=== PATIENT | female | born 1960 | race Caucasian/White ===

== ENCOUNTER 2022-09-28 23:07 | Emergency (ER) | payer BC, SELFPAY ==
[2022-09-28 23:33] VITALS: BP 164/63; PULSE 76; TEMP 37.2; O2SAT 98; BMI 21.0
[2022-09-29] VITALS (9 sets, daily range): BP systolic 143–150; BP diastolic 57–64; PULSE 69–73; O2SAT 95–97
--- NOTE | 2022-09-29 | ED_ITS ---
HPI - General Adult General Time Seen by Provider: 00:01 Date Seen: 09/29/22 Chief complaint: Nausea/Vomiting Stated complaint: type 1, vomiting Time Seen by Provider: 09/28/22 23:59 Source: patient Mode of arrival: ambulatory Limitations: no limitations History of Present Illness HPI narrative: 62-year-old female with history of diabetes who presents with vomiting today. Patient has chronic back pain says this is flared up since she has been traveling to [place] from [place]. Other than pain in the back felt well during the day and then tonight after taking her [place] started vomiting. She denies chest pain, cough, shortness of breath, runny nose, fever, abdominal pain, diarrhea, urinary symptoms. No ill contacts. Related Data Home Medications Medication Instructions Recorded Confirmed amlodipine 5 mg tablet 5 mg PO BID 09/28/22 09/28/22 clonidine HCl 0.3 mg tablet 0.3 mg PO Q8H 09/28/22 09/28/22 doxazosin 2 mg tablet (Cardura) 1 mg PO DAILY 09/28/22 09/28/22 levothyroxine 75 mcg tablet 75 mcg PO DAILY 09/28/22 09/28/22 (Euthyrox) lisinopril 10 mg tablet 10 mg PO BID 09/28/22 09/28/22 lisinopril 5 mg tablet 5 mg PO BID 09/28/22 09/28/22 naloxegol 25 mg tablet (Movantik) 25 mg PO DAILY 09/28/22 09/28/22 rosuvastatin 5 mg tablet 5 mg PO DAILY 09/28/22 09/28/22 Allergies Allergy/AdvReac Type Severity Reaction Status Date / Time Ardnozi-UWT-IvD Reductase Allergy Unknown Verified 09/28/22 23:39 Inhibitor Review of Systems Status of ROS: Reports: 10 or more systems reviewed and unremarkable except as noted in History and below PFSH PFSH Social History Smoking Status: Never smoker How often do you have a drink containing alcohol: monthly or less How often do you have six or more drinks on one occasion: Never AUDIT-C Alcohol total score: 1 Non-prescribed substance use: denies use Exam Const: Vital Signs, click to edit/add: Vital Signs - 24 hr 09/28/22 23:33 09/29/22 00:31 09/29/22 00:32 Temperature 99.0 F Pulse Rate 70 71 Pulse Rate [Right Pulse Oximeter] 76 Blood Pressure 143/62 H Blood Pressure [Le ft Upper Arm] 164/63 H Pulse Oximetry 98 95 95 Oxygen Delivery Me thod Room Air 09/29/22 01:00 09/29/22 01:02 09/29/22 01:15 Temperature Pulse Rate 69 69 72 Pulse Rate [Right Pulse Oximeter] Blood Pressure 145/57 H Blood Pressure [Le ft Upper Arm] Pulse Oximetry 96 96 96 Oxygen Delivery Me thod 09/29/22 01:30 09/29/22 01:31 Temperature Pulse Rate 72 71 Pulse Rate [Right Pulse Oximeter] Blood Pressure 150/64 H Blood Pressure [Le ft Upper Arm] Pulse Oximetry 96 96 Oxygen Delivery Me thod Documenting provider has reviewed patient's vital signs: yes Common normals: no apparent distress, oriented x3, alert and well nourished HENMT: Common normals: normocephalic, head/scalp atraumatic, external ears normal and external nose normal Head and scalp: normocephalic and atraumatic Nose: external nose normal External ear: external ears normal Eye: Common normals: PERRL and conjunctivae normal Conjunctiva: conjunctiva(e) normal Pupil: PERRL Neck & C-Spine: Common normals: full ROM, no lymphadenopathy and supple Chest: Common normals: palpation of chest normal Resp: Common normals: normal respiratory effort and clear to auscultation bilaterally Auscultation: clear to auscultation bilaterally Cardio: Common normals: regular rate, regular rhythm and no murmurs Rate: regular rate Rhythm: regular rhythm GI: Common normals: Normal to inspection, nondistended, normoactive bowel sounds present, soft to palpation and non-tender Palpation: soft : Common normals: no CVA tenderness Bladder/kidney exam: no CVA tenderness Back & Pelvis: Common normals: no CVA tenderness and thoracic and lumbar spine normal to inspection Extremity: Common normals: normal to inspection, full ROM and no pedal edema Neuro: Common normals: oriented x3, CN's II-XII intact bilaterally and no focal motor deficits Sensorium/orientation: alert Psych: Common normals: mental status grossly normal Skin: Common normals: no rashes or lesions noted General skin exam: no rashes or lesions noted Course Course Hospital Course: Patient seen and examined, prior records reviewed. Patient presents with vomiting after taking [place] tonight. She denies chest pain and shortness of breath, no cough or fever, pneumonia or acute coronary syndrome unlikely. No abdominal pain, no diarrhea, no abdominal tenderness on exam. No indication for abdominal imaging. Labs, Zofran, fluids are ordered. Reevaluation(s) Reevaluation #1: Urinalysis with 3+ protein otherwise no findings for infection, no ketones. Venous pH is normal, no evidence for DKA. Remaining labs are pending Time: 00:46 Reevaluation #2: Labs are reassuring, patient is tolerating oral intake in the emergency department. She will be discharged with Zofran for home. Time: 01:36 Vital Signs Vital signs: Initial Vital Signs Temperature 99.0 F 09/28/22 23:33 Temperature Source Temporal Artery Scan 09/28/22 23:33 Pulse Rate 76 09/28/22 23:33 Blood Pressure 164/63 H 09/28/22 23:33 Blood Pressure Mean 96 09/28/22 23:33 Blood Pressure Position Sitting 09/28/22 23:33 Pulse Oximetry 98 09/28/22 23:33 Oxygen Delivery Method 09/28/22 23:33 Vital Signs Temperature 99.0 F 09/28/22 23:33 Pulse Rate 76 09/28/22 23:33 Blood Pressure 164/63 H 09/28/22 23:33 Pulse Oximetry 98 09/28/22 23:33 Oxygen Delivery Method 09/28/22 23:33 Temperature 99.0 F 09/28/22 23:33 Pulse Rate 71 09/29/22 01:31 Blood Pressure 150/64 H 09/29/22 01:31 Pulse Oximetry 96 09/29/22 01:31 Oxygen Delivery Method 09/28/22 23:33 Medical Decision Making Medical Records Medical records reviewed: Yes I reviewed the patient's medical records Lab Data Lab results reviewed: Yes I reviewed the patient's lab results Labs: Lab Results 09/29/22 09/29/22 09/29/22 Range/Units 00:05 00:25 00:25 VBG pH 7.387 (7.32-7.43) VBG pCO2 48 (40-50) mmHG VBG pO2 34.0 (25-47) mmHG VBG HCO3 29 H (21-28) mmol/L Sodium 141 (135-149) mmol/L Potassium 4.4 (3.6-5.1) mmol/L Chloride 106 (96-114) mmol/L Carbon Dioxide 26 (20-32) mmol/L BUN 34 H (7-30) mg/dL Creatinine 1.1 (0.5-1.5) mg/dL Estimated Creat Clear 49.36 Estimated GFR 57 ml/min Glucose 64 (60-115) mg/dL Calcium 9.8 (8.4-10.6) mg/dL Total Bilirubin 0.4 (0.1-1.5) mg/dL Direct Bilirubin 0.2 (0.0-0.5) mg/dL AST 30 (12-35) U/L ALT 29 (4-35) U/L Alkaline Phosphatase 53 (40-150) U/L Total Protein 6.7 (6.0-8.3) g/dL Albumin 4.2 (3.3-5.0) g/dL Lipase 176 (23-300) U/L Urine Color Yellow (Yellow) Urine Appearance Clear (Clear) Urine pH 7.0 (5.0-8.5) Ur Specific [place] 1.025 (1.000-1.030) Urine Protein 3+ A (Negative) Urine Glucose (UA) Negative (Negative) Urine Ketones Negative (Negative) Urine Blood Negative (Negative) Urine Nitrite Negative (Negative) Urine Bilirubin Negative (Negative) Urine Urobilinogen 0.2 (0.2-1.0) Ur Leukocyte Esterase Negative (Negative) Urine RBC 0-2 (0-2) Urine WBC 0-2 (0-5) Ur Squamous Epith Cells None (None-Few) Urine Bacteria None (None) Discharge Plan Discharge Clinical Impression: Type 1 diabetes, Vomiting Patient Disposition: Home, Self-Care Condition: Improved Instructions: Acute Nausea and Vomiting (ED) Additional Instructions: Zofran as needed for nausea and vomiting Activity Level: No Restrictions Discharge Diet: Diabetic Prescriptions: No Action levothyroxine [Euthyrox] 75 mcg tablet 75 mcg PO DAILY Movantik 25 mg tablet 25 mg PO DAILY Rx Instructions: must be taken on empty stomach; no food 1 hr after or 2-3 hrs before dose amlodipine 5 mg tablet 5 mg PO BID clonidine HCl 0.3 mg tablet 0.3 mg PO Q8H doxazosin [Cardura] 2 mg tablet 1 mg PO DAILY lisinopril 10 mg tablet 10 mg PO BID lisinopril 5 mg tablet 5 mg PO BID rosuvastatin 5 mg tablet 5 mg PO DAILY Stand Alone Forms: MyHealth Info Instructions
--- OUTSIDE RECORDS SUMMARY | 2022-09-29 00:29 | XMS_ITS | Encounter Summary ---
:[address] [facility] Address [address] [place] [address] Care Team Providers Name Role Phone Marcela Lau PA-C Primary Care Provider Reason for Visit Reason Onset Date Comments covid notification 05/11/2022 Encounter Details Date Type Department Care Team Description 05/11/2022 Telephone [facility] Flor Samano DO covid notification [facility] [address] [facility] [address] [place] [address] [place] [address] [phone] Social History Tobacco Use Types Packs/Day Years Used Date Smoking Tobacco: Never Smokeless Tobacco: Never Alcohol Use Standard Drinks/Week Comments Yes 0 (1 standard drink = 0.6 oz pure alcoho l) 1 glass a month (rarely) Sex Assigned at Date Recorded Female 04/21/2021 9:42 AM CDT documented as of this encounter Miscellaneous Notes Telephone Encounter - Bruna Robertson MA - 05/11/2022 1:[address] Selwyn pope for Plaxlovid 3 bid for 5 days, pt notified and script called in by her PCP Telephone Encounter - Loly SortoKckidnottoneil Allen MA - 05/11/2022 9:29 AM CDT Pt called to inform us that she is covid + she stated yesterday was day 2. Pt stated that her provider said with her having a GFR of 59 he recommended the low dose of Plaxovid and she wanted us to knowand see if it is ok? Pt call back [phone] documented in this encounter Plan of Treatment Upcoming Encounters Date Type Specialty Care Team Description 05/24/2023 Office Visit Medical Oncology CosLuzmaria tan MD [address] [facility] [address] [place] [address] (Wo rk) documented as of this encounter Visit Diagnoses Not on filedocumented in this encounter Care Teams Hopper Filler Relationship Specialty Start Date End Date Marcela Lau PA-C PCP - General Physician De Alcoholizer 09/13/[address] [facility] [address] [place] [address] documented as of this encounter
--- OUTSIDE RECORDS SUMMARY | 2022-09-29 00:29 | XMS_ITS | Encounter Summary ---
:1960 Author Organization [facility] Address [address] [place] [address] Care Team Providers Name Role Phone Marcela Lau PA-C Primary Care Provider Reason for Visit Reason Comments Medication Refill Encounter Details Date Type Department Care Team Description 09/24/2022 Refill [facility] Flor Samano, Medication Refill [facility] [address] [place], [place] [address] [address] [place] [address] [phone] (Wo rk) Social History Tobacco Use Types Packs/Day Years Used Date Smoking Tobacco: Never Smokeless Tobacco: Never Alcohol Use Standard Drinks/Week Comments Yes 0 (1 standard drink = 0.6 oz pure alcoho l) 1 glass a month (rarely) Sex Assigned at Date Recorded Female 04/21/2021 9:42 AM CDT documented as of this encounter Plan of Treatment Upcoming Encounters Date Type Specialty Care Team Description 05/24/2023 Office Visit Medical Oncology Luzmaria Black MD [address] [facility] [address] [place] [address] (Wo rk) documented as of this encounter Visit Diagnoses Not on filedocumented in this encounter Care Teams Agricultural Services Director Relationship Specialty Start Date End Date Marcela Lau PA-C PCP - General Physician Pad Extraction Tender 09/13/[address] [facility] [address] [place] [address] documented as of this encounter
--- OUTSIDE RECORDS SUMMARY | 2022-09-29 00:29 | XMS_ITS | Encounter Summary ---
:1960 Author Organization [facility] Address [address] [place] [address] Care Team Providers Name Role Phone Marcela Lau PA-C Primary Care Provider Encounter Details Date Type Department Care Team Description 01/04/2022 Orders Only [facility] [place], Flor, DO Proteinuria, Consultants [address] unspecified type [address], [facility] 208 (Primary Dx) [address] [place], [place] [id number] [phone] Social History Tobacco Use Types Packs/Day Years [...] Visit Medical Oncology CosLuzmaria tan MD [address] [facility] [address] [place] [address] (Wo rk) Scheduled Orders Name Type Priority Associated Diagnoses Order S chedule Renal Panel Lab Routine Proteinuria, unspecified q3m onths for 4 type Occurrences sta rting 01/04/2022 unti l 01/04/2023, 1 c ompleted CBC and Diff (manual Lab Routine Proteinuria, unspeci fied [id number] for 4 diff if necessary) type Occurrenc es starting 01/04/2022 unti l 01/04/2023, 1 c ompleted Protein Urine Quant Lab Routine Proteinuria, unspecif ied [id number] for 4 Random type Occurrences sta rting 01/04/2022 unti l 01/04/2023, 1 c ompleted Creatinine Urine Random Lab Routine Proteinuria, unsp ecified [id number] for 4 Quant type Occurrences sta rting 01/04/2022 unti l 01/04/2023 documented as of this encounter Procedures Procedure Name Priority Date/Time Associated Diagnosis Comme nts PROTEIN URINE QUANT Routine 08/31/2022 10:44 Resu lts for this RANDOM AM CDT procedure are i n the results section. RENAL PANEL Routine 08/31/2022 10:44 Results for this AM CDT procedure are i n the results section. CBC AND DIFF (MANUAL Routine 08/31/2022 10:44 Res ults for this DIFF IF NECESSARY) AM CDT procedure are in the results section. PROTEIN URINE QUANT Routine 05/15/2022 12:56 Resu lts for this RANDOM PM CDT procedure are i n the results section. RENAL PANEL Routine 05/15/2022 12:56 Results for this PM CDT procedure are i n the results section. CBC AND DIFF (MANUAL Routine 05/15/2022 12:56 Res ults for this DIFF IF NECESSARY) PM CDT procedure are in the results section. PROTEIN URINE QUANT Routine 04/19/2022 4:21 PM Re sults for this RANDOM CDT procedure are i n the results section. TRANSFERRIN Routine 04/19/2022 4:21 PM Results f or this CDT procedure are i n the results section. RENAL PANEL Routine 04/19/2022 4:21 PM Results f or this CDT procedure are i n the results section. IRON Routine 04/19/2022 4:21 PM Results f or this CDT procedure are i n the results section. CBC AND DIFF (MANUAL Routine 04/19/2022 4:21 PM R esults for this DIFF IF NECESSARY) CDT procedure are in the results section. PROTEIN URINE QUANT Routine 03/08/2022 3:34 PM Proteinuria, Re sults for this RANDOM CDT unspecified type procedure a re in the results section. RENAL PANEL Routine 03/08/2022 3:34 PM Results f or this CDT procedure are i n the results section. CBC AND DIFF (MANUAL Routine 03/08/2022 3:34 PM Proteinuria, R esults for this DIFF IF NECESSARY) CDT unspecified type proce dure are in the results section. RENAL PANEL Routine 01/05/2022 9:50 AM Proteinuria, Results f or this [facility] [facility] unspecified type procedure a re in the results section. documented in this encounter Results (ABNORMAL) Protein Urine Quant Random (08/31/2022 10:44 AM CDT) Patholo gist Method Time Signature Creatinine 33 20 - 275 [facility] Urine Random mg/dL Protein/Creat 909 (H) 24 - 184 [facility] Ratio mg/g creat PROTEIN/CREATIN 0.909 (H) 0.024 - [facility] INE RATIO 0.184 mg/mg creat PROTEIN, TOTAL, 30 (H) 5 - 24 [facility] RANDOM UR mg/dL Specimen Anatomical Collection Method Collection Time Receive d Time (Source) Location / / Volume Laterality 08/31/2022 10:44 08/31/2022 AM CDT 10:45 AM CDT Jesús Mccracken MD URINE ORDERABLES Performing Organization Address City/State/ZIP Code Phon e Number [facility] [id number] [place] [address] CBC and Diff (manual diff if necessary) (08/31/2022 10:44 AM CDT) P athologist Signature WBC 7.0 3.8 - 10.8 [facility] Thousand/uL RBC 3.82 3.80 - 5.10 [facility] Million/uL Hemoglobin 12.1 11.7 - 15.5 [facility] g/dL Hematocrit 37.0 35.0 - 45.0 [facility] % MCV 96.9 80.0 - [facility] 100.0 fL MCH 31.7 27.0 - 33.0 [facility] pg MCHC 32.7 32.0 - 36.0 [facility] g/dL RDW 12.3 11.0 - 15.0 [facility] % Platelet Count 186 140 - 400 [facility] Thousand/uL MPV 11.7 7.5 - 12.5 [facility] fL # Granulocytes 4340 1500 - 7800 [facility] cells/uL # Lymphocytes 1,967 850 - 3,900 [facility] cells/uL # Monocytes 476 200 - 950 [facility] cells/uL # Eosinophils 168 15 - 500 [facility] cells/uL # Basophils 49 0 - 200 [facility] cells/uL % Neutrophils 62 % [facility] %Lymphocytes 28.1 % [facility] % Monocytes 6.8 % [facility] %Eosinophils 2.4 % [facility] %Basophils 0.7 % [facility] Specimen Anatomical Collection Method Collection Time Receive d Time (Source) Location / / Volume Laterality 08/31/2022 10:44 08/31/2022 AM CDT 10:45 AM CDT Jesús Mccracken MD LAB BLOOD ORDERABLES Performing Organization Address City/State/ZIP Code Phon e Number [facility] [id number] [place] [address] (ABNORMAL) Renal Panel (08/31/2022 10:44 AM CDT) P athologist Signature Glucose 115 (H) 65 - 99 [facility] mg/dL Comment: ? Fasting reference interv al For someone without known diabetes, a gl ucose value between 100 and 125 mg/dL is consistent with prediabetes and should be confirmed with a follow-up test. Blood Urea Nitrogen 33 (H) 7 - 25 mg/dL [facility] Creatinine 1.06 (H) 0.50 - 1.05 mg/dL [facility] ESTIMAT GLUMERULAR FILTRATION RATE 60 > OR = 60 mL/min/1.73m2 [facility] Comment: The eGFR is based on the CKD-EPI 202 eq uation. To calculate the new eGFR from a previous Creatinine or Cystatin C result, go to https://www.kidney.org/pro fessionals/ kdoqi/gfr%5Fcalculator BUN/CREATININE RATIO 31 (H) 6 - 22 (calc) [facility] Sodium 138 135 - 146 mmol/L [facility] Potassium 4.1 3.5 - 5.3 mmol/L [facility] Chloride 106 98 - 110 mmol/L [facility] Carbon Dioxide 28 20 - 32 mmol/L [facility] Calcium 9.8 8.6 - 10.4 mg/dL [facility] Phosphorus 3.6 2.5 - 4.5 mg/dL [facility] Albumin 3.9 3.6 - 5.1 g/dL [facility] Specimen Anatomical Collection Method Collection Time Receive d Time (Source) Location / / Volume Laterality 08/31/2022 10:44 08/31/2022 AM CDT 10:45 AM CDT Jesús Mccracken MD LAB BLOOD ORDERABLES Performing Organization Address [facility]/ZIP Code Phon e Number [facility] [id number] [place] [address] (ABNORMAL) Protein Urine Quant Random (05/15/2022 12:56 PM CDT) Patholo gist Method Time Signature Creatinine 30 20 - 275 [facility] Urine Random mg/dL Protein/Creat 1533 (H) 21 - 161 [facility] Ratio mg/g creat PROTEIN/CREATIN 1.533 (H) 0.021 - [facility] INE RATIO 0.161 mg/mg creat PROTEIN, TOTAL, 46 (H) 5 - 24 [facility] RANDOM UR mg/dL Specimen Anatomical Collection Method Collection Time Receive d Time (Source) Location / / Volume Laterality 05/15/2022 12:56 05/15/2022 PM CDT 12:57 PM CDT Jesús Mccracken MD URINE ORDERABLES Performing Organization Address [facility] Phon e Number [facility] [id number] [place] [address] (ABNORMAL) Renal Panel (05/15/2022 12:56 PM CDT) P athologist Signature Glucose 81 65 - 99 [facility] mg/dL Comment: ? Fasting reference interv al Blood Urea Nitrogen 36 (H) 7 - 25 mg/dL [facility] Creatinine 1.08 (H) 0.50 - 1.05 mg/dL [facility] ESTIMAT GLUMERULAR FILTRATION RATE 58 (L) > OR = 60 mL/min/1.73m2 [facility] Comment: The eGFR is based on the CKD-EPI 2020 eq uation. To calculate the new eGFR from a previous Creatinine or Cystatin C result, go to https://www.kidney.org/pro fessionals/ kdoqi/gfr%5Fcalculator BUN/CREATININE RATIO 33 (H) 6 - 22 (calc) [facility] Sodium 137 135 - 146 mmol/L [facility] Potassium 5.1 3.5 - 5.3 mmol/L [facility] Chloride 102 98 - 110 mmol/L [facility] Carbon Dioxide 27 20 - 32 mmol/L [facility] Calcium 9.2 8.6 - 10.4 mg/dL [facility] Phosphorus 3.5 2.5 - 4.5 mg/dL [facility] Albumin 4.0 3.6 - 5.1 g/dL [facility] Specimen Anatomical Collection Method Collection Time Receive d Time (Source) Location / / Volume Laterality 05/15/2022 12:56 05/15/2022 PM CDT 12:57 PM CDT Jesús Mccracken MD LAB BLOOD ORDERABLES Performing Organization Address City/State/ZIP Code Phon e Number [facility] [id number] [facility] [place] [address] (ABNORMAL) CBC and Diff (manual diff if necessary) (05/15/2022 12:56 PM CDT) P athologist Signature WBC 7.0 3.8 - 10.8 [facility] Thousand/u L RBC 3.88 3.80 - [facility] 5.10 Million/uL Hemoglobin 12.2 11.7 - [facility] 15.5 g/dL Hematocrit 37.2 35.0 - [facility] 45.0 % MCV 95.9 80.0 - [facility] 100.0 fL MCH 31.4 27.0 - [facility] 33.0 pg MCHC 32.8 32.0 - [facility] 36.0 g/dL RDW 12.0 11.0 - [facility] 15.0 % Platelet Count 214 140 - 400 [facility] Thousand/u L MPV 11.5 7.5 - 12.5 [facility] fL # Granulocytes 5663 1500 - [facility] 7800 cells/uL # Lymphocytes 1,015 850 - [facility] 3,900 cells/uL # Monocytes 182 (L) 200 - 950 [facility] cells/uL # Eosinophils 112 15 - 500 [facility] cells/uL # Basophils 28 0 - 200 [facility] cells/uL % Neutrophils 80.9 % [facility] %Lymphocytes 14.5 % [facility] % Monocytes 2.6 % [facility] %Eosinophils 1.6 % [facility] %Basophils 0.4 % [facility] Specimen Anatomical Collection Method Collection Time Receive d Time (Source) Location / / Volume Laterality 05/15/2022 12:56 05/15/2022 PM CDT 12:57 PM CDT Jesús Mccracken MD LAB BLOOD ORDERABLES Performing Organization Address City/State/ZIP Code Phon e Number [facility] [id number] [place] [address] (ABNORMAL) Protein Urine Quant Random (04/19/2022 4:21 PM CDT) Patholo gist Method Time Signature Creatinine 18 (L) 20 - 275 [facility] Urine Random mg/dL Protein/Creat 1333 (H) 21 - 161 [facility] Ratio mg/g creat PROTEIN/CREATIN 1.333 (H) 0.021 - [facility] INE RATIO 0.161 mg/mg creat PROTEIN, TOTAL, 24 5 - 24 [facility] RANDOM UR mg/dL Specimen Anatomical Collection Method Collection Time Receive d Time (Source) Location / / Volume Laterality 04/19/2022 4:21 PM 2 4:22 CDT PM CDT Jesús Mccracken MD URINE ORDERABLES Performing Organization Address [facility] Phon e Number [facility] [id number] [place] [address] Transferrin (04/19/2022 4:21 PM CDT) P athologist Signature Transferrin 189 188 - 341 [facility] mg/dL Specimen Anatomical Collection Method Collection Time Receive d Time (Source) Location / / Volume Laterality 04/19/2022 4:21 PM 2 4:22 CDT PM CDT Jesús Mccracken MD LAB BLOOD ORDERABLES Performing Organization Address [facility] Phon e Number [facility] [id number] [place] [address] (ABNORMAL) Renal Panel (04/19/2022 4:21 PM CDT) P athologist Signature Glucose 88 65 - 99 [facility] mg/dL Comment: ? Fasting reference interv al Blood Urea Nitrogen 32 (H) 7 - 25 mg/dL [facility] Creatinine 1.03 (H) 0.50 - 0.99 mg/dL [facility] Comment: For patients >49 years of age, the refer ence limit for Creatinine is approximately 13% high er for people identified as -Chinese. eGFR If NonAfricn Am 59 (L) > OR = 60 mL/min/1.73m2 [facility] eGFR If Africn Am 68 > OR = 60 mL/min/1.73m2 [facility] BUN/CREATININE RATIO 31 (H) 6 - 22 (calc) [facility] Sodium 137 135 - 146 mmol/L [facility] Potassium 5.3 3.5 - 5.3 mmol/L [facility] Chloride 103 98 - 110 mmol/L [facility] Carbon Dioxide 27 20 - 32 mmol/L [facility] Calcium 9.9 8.6 - 10.4 mg/dL [facility] Phosphorus 4.0 2.5 - 4.5 mg/dL [facility] Albumin 4.2 3.6 - 5.1 g/dL [facility] Specimen Anatomical Collection Method Collection Time Receive d Time (Source) Location / / Volume Laterality 04/19/2022 4:21 PM 2 4:22 CDT PM CDT Jesús Mccracken MD LAB BLOOD ORDERABLES Performing Organization Address City/State/ZIP Code Phon e Number [facility] [id number] [place] [address] Iron (04/19/2022 4:21 PM CDT) P athologist Signature Iron 56 45 - 160 [facility] mcg/dL [facility] Specimen Anatomical Collection Method Collection Time Receive d Time (Source) Location / / Volume Laterality 04/19/2022 4:21 PM 2 4:22 CDT PM CDT Jesús Mccracken MD LAB BLOOD ORDERABLES Performing Organization Address City/[facility]/ZIP [facility] Phon e Number [facility] [id number] [place] [address] [facility] [place] [address] [place] [address] (ABNORMAL) CBC and Diff (manual diff if necessary) (04/19/2022 4:21 PM CDT) Analysis Performed At Patho logist Time Signature WBC 8.2 3.8 - 10.8 [facility] Thousand/u L RBC 3.70 (L) 3.80 - [facility] 5.10 Million/uL Hemoglobin 11.5 (L) 11.7 - [facility] 15.5 g/dL Hematocrit 35.6 35.0 - [facility] 45.0 % MCV 96.2 80.0 - [facility] 100.0 fL MCH 31.1 27.0 - [facility] 33.0 pg MCHC 32.3 32.0 - [facility] 36.0 g/dL RDW 11.6 11.0 - [facility] 15.0 % Platelet Count 242 140 - 400 [facility] Thousand/u L MPV 10.9 7.5 - 12.5 [facility] fL # Granulocytes 4699 1500 - [facility] 7800 cells/uL # Lymphocytes 2,542 850 - [facility] 3,900 cells/uL # Monocytes 582 200 - 950 [facility] cells/uL # Eosinophils 320 15 - 500 [facility] cells/uL # Basophils 57 0 - 200 [facility] cells/uL % Neutrophils 57.3 % [facility] %Lymphocytes 31.0 % [facility] % Monocytes 7.1 % [facility] %Eosinophils 3.9 % [facility] %Basophils 0.7 % [facility] Specimen Anatomical Collection Method Collection Time Receive d Time (Source) Location / / Volume Laterality 04/19/2022 4:21 PM 4:22 CDT PM CDT Jesús Mccracken MD LAB BLOOD ORDERABLES Performing Organization Address City/State/ZIP Code Phon e Number [facility] [id number] [place] [address] (ABNORMAL) Renal Panel (03/08/2022 3:34 PM CDT) P athologist Signature Glucose 133 (H) 65 - 99 [facility] mg/dL [facility] Comment: ? Fasting reference interv al For someone without known diabetes, a gl ucose value >125 mg/dL indicates that they may have diabetes and this should be confirmed wi th a follow-up test. Blood Urea Nitrogen 33 (H) 7 - 25 mg/dL [facility] [place] Creatinine 1.01 (H) 0.50 - 0.99 mg/dL [facility] [place] Comment: For patients >49 years of age, the refer ence limit for Creatinine is approximately 13% high er for people identified as -Chinese. eGFR If NonAfricn Am 60 > OR = 60 mL/min/1.73m2 [facility] eGFR If Africn Am 70 > OR = 60 mL/min/1.73m2 [facility] [place] BUN/CREATININE RATIO 33 (H) 6 - 22 (calc) [facility] [place] Sodium 139 135 - 146 mmol/L [facility] [place] Potassium 4.4 3.5 - 5.3 mmol/L [facility] [place] Chloride 104 98 - 110 mmol/L [facility] [place] Carbon Dioxide 28 20 - 32 mmol/L [facility] [place] Calcium 9.6 8.6 - 10.4 mg/dL [facility] [place] Phosphorus 3.7 2.5 - 4.5 mg/dL [facility] [place] Albumin 4.0 3.6 - 5.1 g/dL [facility] [place] Specimen Anatomical Collection Method Collection Time Receive d Time (Source) Location / / Volume Laterality 03/08/2022 3:34 PM 2 3:35 CDT PM CDT leslie De Jesusd DO LAB BLOOD ORDERABLES Performing Organization Address [facility] Phon e Number [facility] [id number] [place] [address] [facility] [place] [address] [place] [address] (ABNORMAL) Protein Urine Quant Random (03/08/2022 3:34 PM CDT) Patholo gist Method Time Signature Creatinine 29 20 - 275 [facility] Urine Random mg/dL Protein/Creat 1793 (H) 21 - 161 [facility] Ratio mg/g creat PROTEIN/CREATIN 1.793 (H) 0.021 - [facility] INE RATIO 0.161 mg/mg creat PROTEIN, TOTAL, 52 (H) 5 - 24 [facility] RANDOM UR mg/dL Specimen Anatomical Collection Method Collection Time Receive d Time (Source) Location / / Volume Laterality Urine (Urine) 03/08/2022 3:34 PM 03/08/20 22 3:35 CDT PM CDT Flor Selywn DO URINE ORDERABLES Performing Organization Address [facility] Phon e Number [facility] [address] [place] [address] (ABNORMAL) CBC and Diff (manual diff if necessary) (03/08/2022 3:34 PM CDT) Analysis Performed At Patho logist Time Signature WBC 8.1 3.8 - 10.8 [facility] Thousand/u L RBC 3.62 (L) 3.80 - [facility] 5.10 Million/uL Hemoglobin 11.3 (L) 11.7 - [facility] 15.5 g/dL Hematocrit 34.4 (L) 35.0 - [facility] 45.0 % MCV 95.0 80.0 - [facility] 100.0 fL MCH 31.2 27.0 - [facility] 33.0 pg MCHC 32.8 32.0 - [facility] 36.0 g/dL RDW 11.3 11.0 - [facility] 15.0 % Platelet Count 216 140 - 400 [facility] Thousand/u L MPV 11.3 7.5 - 12.5 [facility] fL # Granulocytes 5216 1500 - [facility] 7800 cells/uL # Lymphocytes 2,033 850 - [facility] 3,900 cells/uL # Monocytes 551 200 - 950 [facility] cells/uL # Eosinophils 243 15 - 500 [facility] cells/uL # Basophils 57 0 - 200 [facility] cells/uL % Neutrophils 64.4 % [facility] %Lymphocytes 25.1 % [facility] % Monocytes 6.8 % [facility] %Eosinophils 3.0 % [facility] %Basophils 0.7 % [facility] Specimen Anatomical Collection Method Collection Time Receive d Time (Source) Location / / Volume Laterality Blood (Venous) 03/08/2022 3:34 PM 022 3:35 CDT PM CDT Flor Samano DO LAB BLOOD ORDERABLES Performing Organization Address City/State/ZIP Code Phon e Number [facility] [id number] [place] [address] (ABNORMAL) Renal Panel (01/05/2022 9:50 AM [facility]) P athologist Signature Glucose 132 (H) 65 - 99 [facility] mg/dL [facility] Comment: ? Fasting reference interv al For someone without known diabetes, a gl ucose value >125 mg/dL indicates that they may have diabetes and this should be confirmed wi th a follow-up test. Blood Urea Nitrogen 27 (H) 7 - 25 mg/dL [facility] Creatinine 1.09 (H) 0.50 - 0.99 mg/dL [facility] [place] Comment: For patients >49 years of age, the refer ence limit for Creatinine is approximately 13% high er for people identified as -Chinese. eGFR If NonAfricn Am 55 (L) > OR = 60 mL/min/1.73m2 [facility] eGFR If Africn Am 63 > OR = 60 mL/min/1.73m2 [facility] [place] BUN/CREATININE RATIO 25 (H) 6 - 22 (calc) [facility] Sodium 137 135 - 146 mmol/L [facility] [place] Potassium 4.8 3.5 - 5.3 mmol/L [facility] [place] Chloride 105 98 - 110 mmol/L [facility] [place] Carbon Dioxide 25 20 - 32 mmol/L [facility] [place] Calcium 9.6 8.6 - 10.4 mg/dL [facility] Phosphorus 3.4 2.5 - 4.5 mg/dL [facility] [place] Albumin 3.8 3.6 - 5.1 g/dL [facility] [place] Specimen Anatomical Collection Method Collection Time Receive d Time (Source) Location / / Volume Laterality Blood (Venous) 01/05/2022 9:50 AM 022 9:50 [facility] AM [facility] Ahmed Selwyn DO LAB BLOOD ORDERABLES Performing Organization Address City/State/ZIP Code Phon e Number [facility] [id number] [place] [address] [facility] [address] [place] [address] documented in this encounter Visit Diagnoses Diagnosis Proteinuria, unspecified type - Primary documented in this encounter Care Teams Communication Studies Professor Relationship Specialty Start Date End Date Marcela Lau PA-C PCP - General Physician Blueprint Machine Operator 09/13/[address] [place] [address] documented as of this encounter
--- OUTSIDE RECORDS SUMMARY | 2022-09-29 00:29 | XMS_ITS | Encounter Summary ---
:1960 Author Organization [facility] Address [address] [place] [address] Care Team Providers Name Role Phone Marcela Lau PA-C Primary Care Provider Encounter Details Date Type Department Care Team Description 06/28/2022 Documentation [facility] Ana Cassidy APRN Consultants [address] [facility] [place], Molly [address] [place], [place] [address] [address] [place] [address] [phone] (Wo rk) Social History Tobacco Use Types [...] Visit Medical Oncology Luzmaria Black MD [address] [facility] [address] [place] [address] (Wo rk) documented as of this encounter Visit Diagnoses Not on filedocumented in this encounter Care Teams Mine Car Repairer Relationship Specialty Start Date End Date Marcela Lau PA-C PCP - General Physician Ux Interaction Designer 09/13/[address] [facility] [address] [place] [address] documented as of this encounter
--- OUTSIDE RECORDS SUMMARY | 2022-09-29 00:29 | XMS_ITS | Clinical Summary ---
:1960 Author Organization [facility] Address [address] [place] [address] Care Team Providers Name Role Phone Marcela Lau PA-C Primary Care Provider Allergies Active Allergy Reactions Severity Noted Date Comments Colesevelam 04/14/2021 Nsaids (Non-Steroidal Anti-Inflammatory Drug) 04/14/2021 Simvastatin 04/14/2021 Medications Medication Sig Dispensed Refills Start Date End Date Status levothyroxine Synthroid 75 mcg tablet 0 Active (SYNTHROID, TAKE 1 TABLET DAILY DIRECTED LEVOTHROID) 75 MCG tablet insulin aspart, Fiasp U-100 Insulin 100 unit/mL subcutaneous soluti on 0 03/28/2020 Active niacinamide, Inject max of 75 U qd in multiple doses as directed (FIASP U-100 INSULIN) 100 unit/mL Soln injection cloNIDine HCL 0.3 mg 3 (three) 0 Active (CATAPRES) 0.3 mg times a day. tablet amLODIPine 5 mg 2 (two) 0 03/19/2020 Activ e (NORVASC) 5 MG times a day. tablet progesterone 0 10/07/2020 Active (PROMETRIUM) 100 MG capsule rosuvastatin 0 10/13/2020 Active (CRESTOR) 5 MG tablet testosterone Inject 100 mg 0 Act shira cypionate intramuscularly. (DEPOTESTOTERONE CYPIONATE) 100 mg/mL injection cholecalciferol, Take 5,000 Units 0 Active vitamin D3, 125 by mouth. mcg (5,000 unit) Tab temazepam Take 7.5 mg by 0 Activ e (RESTORIL) 7.5 MG mouth nightly as capsule needed for sleep. CREON 0 04/20/2021 Active 36,000-114,000- 180,000 unit CpDR glucagon 1 mg Glucagon Emergency Kit 1 mg solution for injection 0 Active injection Use as directed ONETOUCH ULTRA 0 05/14/2021 Acti ve BLUE TEST STRIP test strips HYDROcodone-acetam Take 1 tablet by 0 03/30/2021 Active inophen (NORCO) mouth every 6 5-325 mg per (six) hours as tablet needed. HYDROcodone-acetam TAKE 1 TABLET BY 0 04/08/2021 Active inophen (NORCO) MOUTH AT NIGHT 10-325 mg per NEEDED tablet LISINOPRIL ORAL Take 15 mg by 0 Active mouth 2 (two) times a day. doxazosin Take 2 mg by 0 Active (CARDURA) 2 MG mouth nightly. 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 Diabetic retinopathy 02/01/2010 Overview: Description: laser tx in 1977 Uncontrolled type 1 diabetes mellitus 02/01/2010 Overview: ICD-10 conversion Uncontrolled type 1 diabetes mellitus with renal manif estations 02/01/2010 Overview: ICD-10 conversion Encounters Date Type Specialty Care Team Description 09/24/2022 Refill Nephrology Flor Samano DO Medication R efill 09/22/2022 Telephone Nephrology Flor Samano DO 09/21/2022 Telephone Nephrology Flor Samano DO from Last 3 Months Immunizations Name Administration Dates Next Due Moderna Sars-cov-2 (12+) 12/14/2020, 11/17/2020 Family History Medical History Relation Name Comments Coronary artery disease Father Hypertension Father Coronary artery disease Maternal Grandfather Coronary artery disease Maternal Grandmother Dementia Mother Hypertension Other 1 Family History; Essential Hypertension; Hyperlipidemia Other 2 Family History; Dyslipidemia; Cancer Other 3 Family History; Cancer; Coronary artery disease Paternal Grandfather Hypertension Paternal Grandfather Relation Name Status Comments Father Maternal Grandfather Maternal Grandmother Mother Other 1 Other 2 Other 3 Paternal Grandfather Social History Tobacco Use Types Packs/Day Years Used Date Smoking Tobacco: Never Smokeless Tobacco: Never Alcohol Use Standard Drinks/Week Comments Yes 0 (1 standard drink = 0.6 oz pure alcoho l) 1 glass a month (rarely) Sex Assigned at Date Recorded Female 04/21/2021 9:42 AM CDT Last Filed Vital Signs Vital Sign Reading Time Taken Comments Blood Pressure 137/54 05/19/2022 1:52 PM CDT Pulse 67 05/19/2022 1:52 PM CDT Temperature 36.8 ??C (98.2 ??F) 05/19/2022 1:52 PM CDT Respiratory Rate 18 05/19/2022 1:52 PM CDT Oxygen Saturation 100% 05/19/2022 1:52 PM CDT Inhaled Oxygen Concentration - - Weight 60.8 kg (134 lb) 05/19/2022 1:52 PM CDT Height 168.9 cm (5' 6.5) 05/19/2022 1:52 PM CDT Body Mass Index 21.3 05/19/2022 1:52 PM CDT Plan of Treatment Upcoming Encounters Date Type Specialty Care Team Description 05/24/2023 Office Visit Medical Oncology CossorLuzmaria MD [address] [address] (Wo rk) Health Maintenance Due Date Last Done Comments Colonoscopy 1960 Colorectal Cancer Screening 1960 Diabetes Mellitus Ophthalmology 1960 Exam FIT-DNA 1960 Fecal Occult Blood or FIT 1960 Hepatitis C Screen 1960 Sigmoidoscopy 1960 Td/Tdap# 1960 Pneumococcal Vaccine: Pediatrics 1966 (0 to 5 Years) and At-Risk Patients (6 to 64 Years) (1 - PCV) Diabetes Mellitus Foot Exam 1970 Cervical Cancer Screening via Pap 05/05/2012 05/05/2009 Smear Mammogram Screening 09/05/2012 09/05/2010 Diabetes Mellitus Hemoglobin A1C 02/01/2014 08/04/2013, , 05/06/2012, Additional history exists Lipid Screening 05/02/2014 05/02/2013, 05/06/2012, 07/03/2011, Additional history exists COVID-19 Vaccine (3 - Booster) 02/08/2021 12/14/2020, 11/17 Social Determinants of Health# 11/05/2021 Influenza Vaccine (#1) 2022 08/15/2019, 07/11/2018, 11/09/2016 Zoster Vaccine# Completed 10/22/2018, 08/01/2018 Medical Devices Implanted Type Area Air Carrier Inspector Device Identifier Shelf Exp iration Model / Date Serial / L ot Finger Joint Procedures Procedure Name Priority Date/Time Associated Diagnosis Comme nts PROTEIN URINE QUANT Routine 08/31/2022 10:44 AM R esults for this RANDOM CDT procedure are i n the results section. CBC AND DIFF Routine 08/31/2022 10:44 AM Results for this (MANUAL DIFF IF CDT procedure ar e in NECESSARY) the results section. RENAL PANEL Routine 08/31/2022 10:44 AM Results for this CDT procedure are i n the results section. from Last 3 Months Results (ABNORMAL) Protein Urine Quant Random (08/31/2022 10:44 AM CDT) [facility] gist Method Time Signature Creatinine 33 20 [...] City/State/ZIP Code Phon e Number [facility] [id number] [place] [phone] (ABNORMAL) Renal Panel (08/31/2022 10:44 AM CDT) [...] City/State/ZIP Code Phon e Number [facility] [id number] [place] [phone] CBC and Diff (manual diff if necessary) [...] City/State/ZIP Code Phon e Number [facility] [address] [place] [address] from Last 3 Months Insurance Payer Benefit Plan / Subscriber ID Effective Dates Phone Addre ss Type Group [facility] PREFERRED [id number] 2018-Presen [phone] [address] [employer] BLUE t [address] [place] [phone] [facility] PREFERRED [id number] 2018-Presen [phone] [address] [employer] BLUE t [address] [place] [address] Care Teams Construction Mgr Relationship Specialty Start Date End Date Marcela Lau PA-C PCP - General Physician First Breaker Feeder 09/13/[address] [address]
--- OUTSIDE RECORDS SUMMARY | 2022-09-29 00:29 | XMS_ITS | Encounter Summary ---
:1960 Author Organization [facility] Address [address] [place] [address] Care Team Providers Name Role Phone Marcela Lau PA-C Primary Care Provider Reason for Visit Reason Onset Date Comments Event Recorder 11/16/2021 baseline Biotel Encounter Details Date Type Department Care Team Description 11/16/2021 Telephone [facility] Jackie, Event Recorde r Cardiovascular Consu ltants Laura Yao RN (baseline Biotel) [address] [facility] [address] [place], [place] [address] Social History Tobacco Use Types Packs/Day Years Used Date Smoking Tobacco: Never Smokeless Tobacco: Never Alcohol Use Standard Drinks/Week Comments Yes 0 (1 standard drink = 0.6 oz pure alcoho l) 1 glass a month (rarely) Sex Assigned at Date Recorded Female 04/21/2021 9:42 AM CDT documented as of this encounter Miscellaneous Notes Telephone Encounter - Laura Mejia RN - 11/16/2021 2:37 PM DIPLOMATIC INTERPRETER Images from the original note were not included. Baseline Biotel. Patient sent a portal message to let her know we have started to receive transmissions. OMATIC INTERPRETER documented in this encounter Plan of Treatment Upcoming Encounters Date Type Specialty Care Team Description 05/24/2023 Office Visit Medical Oncology CossorLuzmaria MD [address] [address] (Wo rk) documented as of this encounter Visit Diagnoses Not on filedocumented in this encounter Care Teams Weed Cutter Relationship Specialty Start Date End Date Marcela Lau PA-C PCP - General Physician Treasury Management Sales Consultant 09/13/[address] [address] documented as of this encounter
--- OUTSIDE RECORDS SUMMARY | 2022-09-29 00:29 | XMS_ITS | Encounter Summary ---
:1960 Author Organization [facility] Address [address] [place] [address] Care Team Providers Name Role Phone Marcela Lau PA-C Primary Care Provider Reason for Visit Reason Comments Medication Refill Encounter Details Date Type Department Care Team Description 05/01/2022 Refill [facility] Flor Samano, Medication Refill Consultants [address], [address] [place], [place] [address] [address] [place] [address] [phone] (Wo rk) Social History Tobacco Use Types [...] Visit Medical Oncology Luzmaria Black MD [address] [facility] [address] [place] [address] (Wo rk) documented as of this encounter Visit Diagnoses Not on filedocumented in this encounter Care Teams Radio Talk Show Host Relationship Specialty Start Date End Date Marcela Lau PA-C PCP - General Physician Television Equipment Operator 09/13/[address] [facility] [address] [place] [address] documented as of this encounter
--- OUTSIDE RECORDS SUMMARY | 2022-09-29 00:29 | XMS_ITS | Encounter Summary ---
:1960 Author Organization [facility] Address [address] [place] [address] Care Team Providers Name Role Phone Marcela Lau PA-C Primary Care Provider Encounter Details Date Type Department Care Team Description 05/15/2022 Lab [facility] Elevated serum immunoglobulin free light chains; Laboratory - [facility] 1st floor Other iron deficiency anemia [address], [place] [address] Social History Tobacco Use Types Packs/Day Years [...] Team Description 05/24/2023 Office Visit Medical Oncology CossoLuzmaria porras MD 4[address] [facility] [address] [place] [address] (Wo rk) documented as of this encounter Procedures Procedure Name Priority Date/Time Associated Diagnosis Comme nts FREE KAPPA+LAMBDA LIGHT Routine 05/15/2022 1:32 Elevated serum Results for this CHAINS SERUM PM CDT immunoglobulin free procedur e are in light chains the results section. PROTEIN ELECTROPHORESIS Routine 05/15/2022 1:32 Elevated serum Results for this SERUM PM CDT immunoglobulin free procedur e are in light chains the results section. IRON/TRANSFERRIN Routine 05/15/2022 1:32 Other iron deficiency Results for this PM CDT anemia procedure are i n the results section. IMMUNOFIXATION SERUM Routine 05/15/2022 1:32 Elevated serum Re sults for this PM CDT immunoglobulin free procedur e are in light chains the results section. FERRITIN Routine 05/15/2022 1:32 Other iron deficiency Res ults for this PM CDT anemia procedure are i n the results section. COMPREHENSIVE METABOLIC Routine 05/15/2022 1:32 Elevated serum Results for this PANEL PM CDT immunoglobulin free procedur e are in light chains the results section. CBC AND DIFF (MANUAL Routine 05/15/2022 1:32 Elevated serum Re sults for this DIFF IF NECESSARY) PM CDT immunoglobulin free pr ocedure are in light chains the results section. documented in this encounter Results (ABNORMAL) Ferritin (05/15/2022 1:32 PM CDT) P athologist Signature Ferritin 301.0 (H) 7.3 - 270.7 05/15/2022 [facility] ng/mL 8:01 PM CDT Specimen Anatomical Collection Method / Collection Time Recei wiley Time (Source) Location / Volume Laterality Blood (Venous) Venipuncture / 05/15/2022 1:32 05/15/20 22 1:32 Unknown PM CDT PM CDT Narrative [facility] - 05/15/2022 8:01 PM CDT Reference range updated 08/28/21 with [facility] conversion to Rabbit instrumentation. Luzmaria Black MD LAB BLOOD ORDERABLES Performing Organization Address City/State/ZIP Code Phon e Number [facility] [address] [place] [address] (ABNORMAL) Iron/Transferrin (05/15/2022 1:32 PM CDT) Analysis Performed At Patho logist Time Signature Iron 58 50 - 170 05/15/2022 [facility] ug/dL 8:01 PM CDT Transferrin 187 (L) 215 - 365 05/15/2022 [facility] mg/dL 8:01 PM CDT Total 224 (L) 250 - 425 05/15/2022 [facility] Iron-Binding ug/dL 8:01 PM CDT Capacity Iron/Transferrin 26 15 - 50 % 05/15/2022 [facility] % Saturation 8:01 PM CDT Specimen Anatomical Collection Method / Collection Time Recei wiley Time (Source) Location / Volume Laterality Blood (Venous) Venipuncture / 05/15/2022 1:32 05/15/20 22 1:32 Unknown PM CDT PM CDT Luzmaria Black MD LAB BLOOD ORDERABLES Performing Organization Address [facility] Phon e Number [facility] [address] [place] [address] Protein Electrophoresis Serum (05/15/2022 1:32 PM CDT) Component Value Ref Test Analysis Performed Pathologis t Range Method Time At Signature Protein Total SPE 6.4 g/dL 05/17/2022 [facility] 10:12 AM CDT Albumin 3.6 3.3 - 05/17/2022 [facility] 5.0 g/dL 10:12 AM CDT Alpha 1 0.3 0.1 - 05/17/2022 [facility] 0.3 g/dL 10:12 AM CDT Alpha 2 0.9 0.5 - 05/17/2022 [facility] 1.0 g/dL 10:12 AM CDT Beta 0.9 0.7 - 05/17/2022 [facility] 1.5 g/dL 10:12 AM CDT Gamma 0.7 0.5 - 05/17/2022 [facility] 1.7 g/dL 10:12 AM CDT A/G Ratio 1.2 05/17/2022 [facility] 10:12 AM CDT Pathologist Reviewed by 05/17/2022 [facility] Review Eric Cardozo, 10:12 AM [address] CDT M-Alon 05/17/2022 [facility] 10:12 AM CDT Path Normal protein 05/17/2022 [facility] Interpretation electrophoresis 10:12 AM pattern. CDT Specimen Anatomical Collection Method / Collection Time Recei wiley Time (Source) Location / Volume Laterality Blood (Venous) Venipuncture / 05/15/2022 1:32 05/15/20 22 1:32 Unknown PM CDT PM CDT Luzmaria Black MD LAB BLOOD ORDERABLES Performing Organization Address [facility] Phon e Number [facility] [address] [place] [address] Immunofixation Serum (05/15/2022 1:32 PM CDT) Component Value Ref Test Analysis Performed At [facility] gist Range Method Time Signature Immunofixation A monoclonal [facility]/17/[address] [facility] Serum protein is 10:12 AM not CDT identified Pathologist Review Reviewed by 05/17/2022 GIRISH Reyes 10:12 AM [address] Cardozo CDT Specimen Anatomical Collection Method / Collection Time Recei wiley Time (Source) Location / Volume Laterality Blood (Venous) Venipuncture / 05/15/2022 1:32 05/15/20 22 1:32 Unknown PM CDT PM CDT Luzmaria Black MD LAB BLOOD ORDERABLES Performing Organization Address City/[facility] Phon e Number [facility] [address] [place] [address] (ABNORMAL) Free [place]+Lambda Light Chains Serum (05/15/2022 1:32 PM CDT) athologist Signature [place]/Lambda 1.96 (H) 0.26 - 05/18/2022 [facility] Ratio 1.65 6:06 PM CDT Free [place] 44.2 (H) 3.3 - 19.4 05/18/2022 [facility] Light Chains mg/L 6:06 PM CDT Free Lambda 22.5 5.7 - 26.3 05/18/2022 [facility] Light Chains mg/L 6:06 PM CDT Specimen Anatomical Collection Method / Collection Time Recei wiley Time (Source) Location / Volume Laterality Blood (Venous) Venipuncture / 05/15/2022 1:32 05/15/20 22 1:32 Unknown PM CDT PM CDT Narrative [facility] - 05/18/2022 6:06 PM CDT Performed at: ??01 - [facility] [address] ??[id number] [address] Sales Representative And Assessor: Kenya Khan MD, Phone: ??[phone] Luzmaria Black MD LAB BLOOD ORDERABLES Performing Organization Address City/[facility] Phon e Number [facility] [address] [place] [address] (ABNORMAL) Comprehensive Metabolic Panel (05/15/2022 1:32 PM CDT) athologist Signature Sodium 137 136 - 145 05/15/2022 8:01 [facility] mEq/L PM CDT Potassium 4.9 3.4 - 5.1 05/15/2022 8:01 [facility] mEq/L PM CDT Chloride 106 98 - 109 05/15/2022 8:01 [facility] mEq/L PM CDT Comment: Reference interval updated 2021. Carbon Dioxide 26 20 - 31 mEq/L 05/15/2022 8:01 PM CD T [facility] Anion Gap 5 <17 mmol/L 05/15/2022 8:01 PM CDT [facility] Comment: Reference interval updated . Calcium 9.2 8.3 - 10.6 mg/dL 05/15/2022 8:01 PM CDT [facility] Glucose 68 (L) 70 - 100 mg/dL 05/15/2022 8:01 PM CDT [facility] Protein Total Serum 6.4 5.7 - 8.2 g/dL 05/15/2022 8:01 PM CDT [facility] Albumin 4.2 3.5 - 5.0 g/dL 05/15/2022 8:01 PM CDT [facility] Alkaline Phosphatase 72 44 - 150 U/L 05/15/2022 8:01 PM CDT [facility] Comment: Reference interval updated 01/20. Alanine Aminotransferase 62 (H) 0 - 34 U/L 05/15/2022 8:0 1 PM CDT [facility] Aspartate Aminotransferase 39 (H) 0 - 34 U/L 05/15/2022 8 :01 PM CDT [facility] Comment: Reference range updated 1 with [facility] conversion to Rabbit instrumentation. Bilirubin Total 0.2 0.2 - 1.1 mg/dL 05/15/2022 8:01 PM CDT [facility] Blood Urea Nitrogen 36 (H) 9 - 23 mg/dL 05/15/2022 8:01 P M CDT [facility] Creatinine 1.08 (H) 0.55 - 1.02 mg/dL 05/15/2022 8:01 PM CD T [facility] eGFR 58.6 (L) 60.0 - 200.0 05/15/2022 8:01 PM CDT [facility] mL/min/1.73m*2 Comment: The National Kidney Foundation and the [facility] Society of Nephrology (NKF-ASN) recommends using the 2020 CKD Epidemiology Collaboration (CKD-EPI) equation to calculate estimated glomerular filtration r ate (eGFR). This equation is only applic able to adult patients and removes race as a variable. Estimated GFR calculated with 2020 CKD-E PI equation. ??Vegetarian diet, extremely high or low muscle mass, and may affect results. Specimen Anatomical Collection Method / Collection Time Recei wiley Time (Source) Location / Volume Laterality Blood (Venous) Venipuncture / 05/15/2022 1:32 05/15/20 22 1:32 Unknown PM CDT PM CDT Luzmaria Black MD LAB BLOOD ORDERABLES Performing Organization Address City/State/ZIP Code Phon e Number [facility] [address] [place] [address] (ABNORMAL) CBC and Diff (manual diff if necessary) (05/15/2022 1:32 PM CDT) Analysis Performed At Patho logist Time Signature WBC 8.03 4.00 - 05/15/2022 [facility] 11.00 5:09 PM CDT TH/uL RBC 3.86 (L) 4.00 - 05/15/2022 [facility] 5.00 5:09 PM CDT mil/uL Hemoglobin 12.3 12.0 - 05/15/2022 [facility] 15.0 g/dL 5:09 PM CDT Hematocrit 38 36 - 45 % 05/15/2022 [facility] 5:09 PM CDT MCV 98 80 - 99 fL 05/15/2022 [facility] 5:09 PM CDT MCH 32 27 - 34 pg 05/15/2022 [facility] 5:09 PM CDT MCHC 33 32 - 36 05/15/2022 [facility] g/dL 5:09 PM CDT RDW 13.3 9.0 - 14.5 05/15/2022 [facility] % 5:09 PM CDT Platelet Count 214 140 - 400 05/15/2022 [facility] Th/uL 5:09 PM CDT MPV 11.4 9.4 - 12.3 05/15/2022 [facility] fL 5:09 PM CDT Nucleated RBCs 0 0 - 0 /100 05/15/2022 [facility] WBC 5:09 PM CDT % Neutrophils 83 (H) 45 - 78 % 05/15/2022 [facility] 5:09 PM CDT % Lymphocytes 13 (L) 15 - 47 % 05/15/2022 [facility] 5:09 PM CDT % Monocytes 2 0 - 12 % 05/15/2022 [facility] 5:09 PM CDT % Eosinophils 1 0 - 7 % 05/15/2022 [facility] 5:09 PM CDT % Basophils 0 0 - 2 % 05/15/2022 [facility] 5:09 PM CDT % Imm Grans 1 0 - 1 % 05/15/2022 [facility] 5:09 PM CDT # Granulocytes 6.75 1.70 - 05/15/2022 [facility] 6.80 TH/uL 5:09 PM CDT # Lymphocytes 1.08 1.00 - 05/15/2022 [facility] 3.30 TH/uL 5:09 PM CDT # Monocytes 0.19 (L) 0.20 - 05/15/2022 [facility] 0.90 TH/uL 5:09 PM CDT # Eosinophils 0.06 0.00 - 05/15/2022 [facility] 0.40 TH/uL 5:09 PM CDT # Basophils 0.03 0.00 - 05/15/2022 [facility] 0.10 TH/uL 5:09 PM CDT Specimen Anatomical Collection Method / Collection Time Recei wiley Time (Source) Location / Volume Laterality Blood (Venous) Venipuncture / 05/15/2022 1:32 05/15/20 22 1:32 Unknown PM CDT PM CDT Luzmaria Black MD LAB BLOOD ORDERABLES Performing Organization Address City/State/ZIP Code Phon e Number [facility] [address] [place] [address] documented in this encounter Visit Diagnoses Diagnosis Elevated serum immunoglobulin free light chains Other iron deficiency anemia documented in this encounter Care Teams Regional Airline Pilot Relationship Specialty Start Date End Date Marcela Lau PA-C PCP - General Physician Hotel Reservation Agent 09/13/[address] [address] documented as of this encounter
--- OUTSIDE RECORDS SUMMARY | 2022-09-29 00:29 | XMS_ITS | Encounter Summary ---
:1960 Author Organization [facility] Address [address] [place] [address] Care Team Providers Name Role Phone Marcela Lau PA-C Primary Care Provider Encounter Details Date Type Department Care Team Description 04/13/2022 Telephone [facility] Flor Samano DO Consultants [address], [address] [place], [place] [address] [address] [place] [address] [phone] (Wo rk) Social History Tobacco Use Types Packs/Day Years Used Date Smoking Tobacco: Never Smokeless Tobacco: Never Alcohol Use Standard Drinks/Week Comments Yes 0 (1 standard drink = 0.6 oz pure alcoho l) 1 glass a month (rarely) Sex Assigned at Date Recorded Female 04/21/2021 9:42 AM CDT documented as of this encounter Miscellaneous Notes Telephone Encounter - Kalee Kellogg MA (Kckidney) - 04/14/2022 2:49 PM CDT Patient called back and we got her scheduled with Ana on 04/27/22 at 3:30pm and ordered labs Telephone Encounter - Kalee Cagle) WAYNE Kellogg - 04/13/2022 3:27 PM CDT LMTCB patient missed appt in March last OV 10/11/21 documented in this encounter Plan of Treatment Upcoming Encounters Date Type Specialty Care Team Description 05/24/2023 Office Visit Medical Oncology CossorLuzmaria MD [address] [facility] [address] [place] [address] (Wo rk) Scheduled Orders Name Type Priority Associated Diagnoses Order S chedule Iron/Transferrin Lab Routine Proteinuria, unspecified 3 Occurrences starting type 04/14/2022 unti l 04/14/2023 documented as of this encounter Visit Diagnoses Diagnosis Proteinuria, unspecified type - Primary documented in this encounter Care Teams Web Content Editor Relationship Specialty Start Date End Date Marcela Lau PA-C PCP - General Physician Sandwich Hand 09/13/[address] [facility] [address] [place] [address] documented as of this encounter
--- OUTSIDE RECORDS SUMMARY | 2022-09-29 00:29 | XMS_ITS | Encounter Summary ---
:1960 Author Organization [facility] Address [address] [place] [address] Care Team Providers Name Role Phone Marcela Lau PA-C Primary Care Provider Encounter Details Date Type Department Care Team Description 06/28/2022 Telephone [facility] Flor Samano DO Consultants [address], [address] [place], [place] [address] 1 [place] [address] [phone] (Wo rk) Social History Tobacco Use Types Packs/Day Years Used Date Smoking Tobacco: Never Smokeless Tobacco: Never Alcohol Use Standard Drinks/Week Comments Yes 0 (1 standard drink = 0.6 oz pure alcoho l) 1 glass a month (rarely) Sex Assigned at Date Recorded Female 04/21/2021 9:42 AM CDT documented as of this encounter Miscellaneous Notes Telephone Encounter - Lola Higginbotham MA - 06/28/2022 1:17 PM CDT S/w pt with her lab results. She would like to have some kind of education on renal diets and how toprotect her kidneys. She did mention CKD education with Lola MARCH. I have told her I will have Malu RN call her back with Dr Samano recommendations.. documented in this encounter Plan of Treatment Upcoming Encounters Date Type Specialty Care Team Description 05/24/2023 Office Visit Medical Oncology Cossor, Furha, MD [address] [facility] [address] [place] [address] (Wo rk) documented as of this encounter Visit Diagnoses Not on filedocumented in this encounter Care Teams Health Club Attendant Relationship Specialty Start Date End Date Marcela Lau PA-C PCP - General Physician Herbicide Sprayer 09/13/[address] [facility] [address] [place] [address] documented as of this encounter
--- OUTSIDE RECORDS SUMMARY | 2022-09-29 00:29 | XMS_ITS | Encounter Summary ---
:[address] [facility] Address [address] [place] [address] Care Team Providers Name Role Phone Marcela Lau PA-C Primary Care Provider Encounter Details Date Type Department Care Team Description 05/01/2022 Orders Only [facility] Kalee Panad Anemi a associated with Consultants policy officer renal failure [address], [address] (P rimary Dx) [address] [place], [place] [address] [place], [place] [phone] Social History Tobacco Use Types Packs/Day Years [...] Visit Medical Oncology Luzmaria Black MD [address] [facility] [address] [place] [address] (Wo rk) documented as of this encounter Procedures Procedure Name Priority Date/Time Associated Diagnosis Comme nts IRON, TIBC AND Routine 05/05/2022 2:35 PM Anemia associated Re sults for this FERRITIN PANEL CDT with chronic renal procedu re are in failure the results section. documented in this encounter Results (ABNORMAL) IRON, TIBC AND FERRITIN PANEL (05/05/2022 2:35 PM CDT) P athologist Signature Ferritin 162 16 - 288 [facility] ng/mL Comment: REPORT COMMENT: FASTING:NO AN UPDATE OR CORRECTION HAS BEEN MADE TO NAME Iron 76 45 - 160 mcg/dL [facility] Total Iron-Binding Capacity 240 (L) 250 - 450 mcg/dL (calc) [facility] % SATURATION 32 16 - 45 % (calc) [facility] Specimen Anatomical Collection Method Collection Time Receive d Time (Source) Location / / Volume Laterality Blood (Venous) 05/05/2022 2:35 PM 022 2:36 CDT PM CDT Ana Cassidy APRN LAB BLOOD ORDERABLES Performing Organization Address City/State/ZIP Code Phon e Number [facility] [address] [place] [address] documented in this encounter Visit Diagnoses Diagnosis 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
--- OUTSIDE RECORDS SUMMARY | 2022-09-29 00:29 | XMS_ITS | Encounter Summary ---
:1960 Author Organization [facility] Address [address] [place] [address] Care Team Providers Name Role Phone Marcela Lau PA-C Primary Care Provider Encounter Details Date Type Department Care Team Description 09/22/2022 Telephone [facility] Flor Samano DO Consultants [address], [address] [place], [place] [address] [place] [address] [phone] (Wo rk) Social History Tobacco Use Types Packs/Day Years Used Date Smoking Tobacco: Never Smokeless Tobacco: Never Alcohol Use Standard Drinks/Week Comments Yes 0 (1 standard drink = 0.6 oz pure alcoho l) 1 glass a month (rarely) Sex Assigned at Date Recorded Female 04/21/2021 9:42 AM CDT documented as of this encounter Miscellaneous Notes Telephone Encounter - Ruth Li (Kckidney) - 09/22/2022 2:40 PM CST S/w pt having to cancel pt appt due to conflict in provider schedule IAL PROJECTS COORDINATOR documented in this encounter Plan of Treatment Upcoming Encounters Date Type Specialty Care Team Description 05/24/2023 Office Visit Medical Oncology Luzmaria Black MD [address] [place] [address] (Wo rk) documented as of this encounter Visit Diagnoses Not on filedocumented in this encounter Care Teams Bleacher [employer] Relationship Specialty Start Date End Date Marcela Lau PA-C PCP - General Physician Business Machines Teacher 09/13/[address] [address] documented as of this encounter
--- OUTSIDE RECORDS SUMMARY | 2022-09-29 00:29 | XMS_ITS | Encounter Summary ---
:1960 Author Organization [facility] Address [address] [place] [address] Care Team Providers Name Role Phone Marcela Lau PA-C Primary Care Provider Encounter Details Date Type Department Care Team Description 03/07/2022 Telephone [facility] Flor Samano DO Consultants [address], [address] [place], [place] [address] 1 [place] [address] [phone] (Wo rk) Social History Tobacco Use Types Packs/Day Years Used Date Smoking Tobacco: Never Smokeless Tobacco: Never Alcohol Use Standard Drinks/Week Comments Yes 0 (1 standard drink = 0.6 oz pure alcoho l) 1 glass a month (rarely) Sex Assigned at Date Recorded Female 04/21/2021 9:42 AM CDT documented as of this encounter Miscellaneous Notes Telephone Encounter - Bruna Robertson MA - 03/07/2022 10:08 AM CDT Called pt. LMOM, we ordered for her standing orders CBC, Renal Panel and UPCR. Looks like Dr. Briggsordered her iron repeat for May 09. Asked her to call if she wanted any other labs. documented in this encounter Plan of Treatment Upcoming Encounters Date Type Specialty Care Team Description 05/24/2023 Office Visit Medical Oncology CosLuzmaria tan MD [address] [facility] [address] [place] [address] (Wo rk) documented as of this encounter Visit Diagnoses Not on filedocumented in this encounter Care Teams Tail Worker Relationship Specialty Start Date End Date Marcela Lau PA-C PCP - General Physician Appeals Referee 09/13/[address] [facility] [address] [place] [address] documented as of this encounter
--- OUTSIDE RECORDS SUMMARY | 2022-09-29 00:29 | XMS_ITS | Encounter Summary ---
:1960 Author Organization [facility] Address [address] [place] [address] Care Team Providers Name Role Phone Marcela Lau PA-C Primary Care Provider Encounter Details Date Type Department Care Team Description 12/02/2021 Documentation [facility] SelwynFlor murray DO Consultants [address] [place], [place] [address] 1 [place] [address] [phone] (Wo rk) Social History Tobacco Use Types [...] Visit Medical Oncology Luzmaria Black MD [address] [place] [address] (Wo rk) documented as of this encounter Procedures Procedure Name Priority Date/Time Associated Diagnosis Comme nts LAB OUTSIDE RECORD Routine 12/01/2021 documented in this encounter Results Lab Outside Record (12/01/2021) Specimen (Source) Anatomical Location Collection Method / Collectio n Time Received Time / Laterality Volume Blood 12/01/2021 Historical Provider LAB BLOOD ORDERABLES documented in this encounter Visit Diagnoses Not on filedocumented in this encounter Care Teams Title Attorney Relationship Specialty Start Date End Date Marcela Lau PA-C PCP - General Physician Coin Purse Assembler 09/13/[address] [address] documented as of this encounter
--- OUTSIDE RECORDS SUMMARY | 2022-09-29 00:29 | XMS_ITS | Encounter Summary ---
:1960 Author Organization [facility] Address [address] [place] [address] Care Team Providers Name Role Phone Marcela Lau PA-C Primary Care Provider Encounter Details Date Type Department Care Team Description 12/02/2021 Documentation [facility] SelwynFlor murray DO Consultants [address] [place], [place] [address] [place] [address] [phone] (Wo rk) Social History Tobacco Use Types [...] Visit Medical Oncology Luzmaria Black MD [address] [facility] [address] [place] [address] (Wo rk) documented as of this encounter Visit Diagnoses Not on filedocumented in this encounter Care Teams Biology Laboratory Assistant Relationship Specialty Start Date End Date Marcela Lau PA-C PCP - General Physician Manager Reliability 09/13/[address] [facility] [address] [place] [address] documented as of this encounter
--- OUTSIDE RECORDS SUMMARY | 2022-09-29 00:29 | XMS_ITS | Encounter Summary ---
:[address] [facility] Address [address] [place] [address] Care Team Providers Name Role Phone Marcela Lau PA-C Primary Care Provider Encounter Details Date Type Department Care Team Description 02/01/2022 Orders Only [facility] and [place], Ah med, DO Liver Transplant Pro gram [address] [facility] [address] [facility] [address] [place] [address], [address] [place] [address] [place] [address] [phone] Social History Tobacco Use Types Packs/Day Years [...] Visit Medical Oncology Luzmaria Black MD [address] [facility] [address] [place] [address] (Wo rk) documented as of this encounter Procedures Procedure Name Priority Date/Time Associated Diagnosis Comme nts RENAL PANEL Routine 02/01/2022 12:55 PM Results for this CDT procedure are i n the results section . documented in this encounter Results (ABNORMAL) Renal Panel (02/01/2022 12:55 PM CDT) P athologist Signature Glucose 107 (H) 65 - 99 [facility] mg/dL [facility] Comment: ? Fasting reference interv al For someone without known diabetes, a gl ucose value between 100 and 125 mg/dL is consistent with prediabetes and should be confirmed with a follow-up test. Blood Urea Nitrogen 28 (H) 7 - 25 mg/dL [facility] Creatinine 1.01 (H) 0.50 - 0.99 mg/dL [facility] Comment: For patients >49 years of age, the refer ence limit for Creatinine is approximately 13% high er for people identified as -Mosotho. eGFR If NonAfricn Am 60 > OR = 60 mL/min/1.73m2 [facility] eGFR If Africn Am 70 > OR = 60 mL/min/1.73m2 [facility] BUN/CREATININE RATIO 28 (H) 6 - 22 (calc) [facility] Sodium 139 135 - 146 mmol/L [facility] Potassium 4.6 3.5 - 5.3 mmol/L [facility] Chloride 106 98 - 110 mmol/L [facility] Carbon Dioxide 26 20 - 32 mmol/L [facility] Calcium 10.1 8.6 - 10.4 mg/dL [facility] Phosphorus 3.7 2.5 - 4.5 mg/dL [facility] Albumin 4.1 3.6 - 5.1 g/dL [facility] Specimen Anatomical Collection Method Collection Time Receive d Time (Source) Location / / Volume Laterality 02/01/2022 12:55 02/01/2022 PM CDT 12:55 PM CDT Ahmed Selwyn DO LAB BLOOD ORDERABLES Performing Organization Address City/State/ZIP Code Phon e Number [facility] [id number] [phone] [facility] [address] [phone] documented in this encounter Visit Diagnoses Not on filedocumented in this encounter Care Teams Hops Farmworker Relationship Specialty Start Date End Date Marcela Lau PA-C PCP - General Physician Technical Inspector 11/9/[address] [address] documented as of this encounter
--- OUTSIDE RECORDS SUMMARY | 2022-09-29 00:29 | XMS_ITS | Encounter Summary ---
:1960 Author Organization [facility] Address [address] [place] [address] Care Team Providers Name Role Phone Marcela Lau PA-C Primary Care Provider Encounter Details Date Type Department Care Team Description 12/01/2021 Orders Only [facility], Ah med, DO Liver Transplant Pro gram [address] [facility] [address] [facility] [address] [place] [address], [address] [place] [address] [place] [address] [phone] Social History Tobacco Use Types Packs/Day Years [...] Visit Medical Oncology Luzmaria Black MD [address] [facility] [facility] [address] [place] [address] (Wo rk) documented as of this encounter Procedures Procedure Name Priority Date/Time Associated Diagnosis Comme nts RENAL PANEL Routine 12/01/2021 11:29 AM Results for this CIVIL ENGINEER IN TRAINING procedure are i n the results section . documented in this encounter Results (ABNORMAL) Renal Panel (12/01/2021 11:29 AM CIVIL ENGINEER IN TRAINING) P athologist Signature Glucose 120 (H) 65 - 99 [facility] mg/dL [facility] Comment: ? Fasting reference interv al For someone without known diabetes, a gl ucose value between 100 and 125 mg/dL is consistent with prediabetes and should be confirmed with a follow-up test. Blood Urea Nitrogen 37 (H) 7 - 25 mg/dL [facility] Creatinine 1.23 (H) 0.50 - 0.99 mg/dL [facility] Comment: For patients >49 years of age, the refer ence limit for Creatinine is approximately 13% high er for people identified as -Iraqi. eGFR If NonAfricn Am 47 (L) > OR = 60 mL/min/1.73m2 [facility] eGFR If Africn Am 55 (L) > OR = 60 mL/min/1.73m2 [facility] BUN/CREATININE RATIO 30 (H) 6 - 22 (calc) [facility] Sodium 138 135 - 146 mmol/L [facility] Potassium 4.5 3.5 - 5.3 mmol/L [facility] Chloride 103 98 - 110 mmol/L [facility] Carbon Dioxide 30 20 - 32 mmol/L [facility] Calcium 9.8 8.6 - 10.4 mg/dL [facility] Phosphorus 3.8 2.5 - 4.5 mg/dL [facility] Albumin 3.8 3.6 - 5.1 g/dL [facility] Specimen Anatomical Collection Method Collection Time Receive d Time (Source) Location / / Volume Laterality 12/01/2021 11:29 12/01/2021 AM CIVIL ENGINEER IN TRAINING 11:30 AM CIVIL ENGINEER IN TRAINING Ahmed Selwyn DO LAB BLOOD ORDERABLES Performing Organization Address City/State/ZIP Code Phon e Number [facility] [address] [phone] [facility] [address] [phone] documented in this encounter Visit Diagnoses Not on filedocumented in this encounter Care Teams Brim Cutter Relationship Specialty Start Date End Date Marcela Lau PA-C PCP - General Physician Stunt Driver 09/13/[address] [address] documented as of this encounter
--- OUTSIDE RECORDS SUMMARY | 2022-09-29 00:29 | XMS_ITS | Encounter Summary ---
:1960 Author Organization [facility] Address [address] [place] [address] Care Team Providers Name Role Phone Marcela Lau PA-C Primary Care Provider Encounter Details Date Type Department Care Team Description 04/21/2022 Documentation [facility] Jesús Mccracken MD Consultants [address], [facility] [address] [place], [place] [address] [place] [address] [phone] (Wo rk) Social History Tobacco Use Types [...] Visit Medical Oncology CosLuzmaria tan MD [address] [place] [address] (Wo rk) documented as of this encounter Procedures Procedure Name Priority Date/Time Associated Diagnosis Comme nts IRON, TIBC AND Routine 04/20/2022 Results for t his FERRITIN PANEL procedure are in the results section . PROTEIN URINE QUANT Routine 04/20/2022 Results for this RANDOM procedure are i n the results section . RENAL PANEL Routine 04/20/2022 Results for thi s procedure are i n the results section . CBC AND DIFF (MANUAL Routine 04/20/2022 Results for this DIFF IF NECESSARY) procedure are in the results section . documented in this encounter Results (ABNORMAL) Renal Panel (04/20/2022) athologist Signature Albumin Serum 4.2 Calcium 9.9 8.7 - 10.7 mg/dL Phosphorus 4.0 2.5 - 4.9 mg/dL Glucose 88 mg/dL Blood Urea 32 (A) 4 - 21 Nitrogen mg/dL Potassium 5.3 3.4 - 5.3 mmol/L Sodium 137 137 - 147 mmol/L Chloride 103 99 - 108 mmol/L Creatinine 1.0 0.5 - 1.1 mg/dL Carbon Dioxide 27 (A) 13 - 22 mmol/L BUN/Creatinine 31 Ratio eGFR If 59 NonAfricn Am eGFR If Africn Am Specimen (Source) Anatomical Location Collection Method / Collectio n Time Received Time / Laterality Volume Blood (Venous) 04/20/2022 Narrative This result has an attachment that is no t available. Jesús Mccracken MD LAB BLOOD ORDERABLES Protein Urine Quant Random (04/20/2022) athologist [facility] Protein Urine 24 Quantitative Protein/Creat 1,333 Ratio Creatinine Urine 18 mg/dL Random Specimen (Source) Anatomical Location Collection Method / Collectio n Time Received Time / Laterality Volume Urine (Urine) 04/20/2022 Jesús Mccracken MD URINE ORDERABLES (ABNORMAL) CBC and Diff (manual diff if necessary) (04/20/2022) Analysis Performed At Patho logist Time Signature RBC 3.70 (A) 4.00 - 5.00 mil/uL WBC 8.20 4.00 - 11.00 TH/uL Platelet Count 242 140 - 400 Th/uL Hemoglobin 11.5 (A) 12.0 - 15.0 g/dL Hematocrit 36 36 - 45 % RDW 11.6 9.0 - 14.5 % Nucleated RBCs MCH 31 27 - 34 pg MCHC 32 32 - 36 g/dL MCV 96 80 - 99 fL MPV 10.9 9.4 - 12.3 fL % Imm Grans % Neutrophils % Lymphocytes % Monocytes % Eosinophils % Basophils # Granulocytes # Lymphocytes # Monocytes # Eosinophils # Basophils Specimen (Source) Anatomical Location Collection Method / Collectio n Time Received Time / Laterality Volume Blood (Venous) 04/20/2022 Jesús Mccracken MD LAB BLOOD ORDERABLES IRON, TIBC AND FERRITIN PANEL (04/20/2022) P athologist Signature Iron 56 Transferrin 189 Specimen (Source) Anatomical Location Collection Method / Collectio n Time Received Time / Laterality Volume 04/20/2022 Jesús Mccracken MD LAB BLOOD ORDERABLES documented in this encounter Visit Diagnoses Not on filedocumented in this encounter Care Teams Visual Basic Programmer Relationship Specialty Start Date End Date Marcela Lau PA-C PCP - General Physician Assistant Fitness Manager 09/13/[address] [place] [address] documented as of this encounter
--- OUTSIDE RECORDS SUMMARY | 2022-09-29 00:29 | XMS_ITS | Encounter Summary ---
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); [place], [place] [address] [place] Hyperkalemia; [phone] Anemia associated with chronic renal radha lure Social History Tobacco Use Types Packs/Day Years Used Date Smoking Tobacco: Never Smokeless Tobacco: Never Alcohol Use Standard Drinks/Week Comments Yes 0 (1 standard drink = 0.6 oz pure alcoho l) 1 glass a month (rarely) Sex Assigned at Date Recorded Female 04/21/2021 9:42 AM CDT documented as of this encounter Last Filed Vital Signs Vital Sign Reading Time Taken Comments Blood Pressure 148/61 04/27/2022 3:49 PM CDT Pulse 61 04/27/2022 3:49 PM CDT Temperature - - Respiratory Rate - - Oxygen Saturation 96% 04/27/2022 3:49 PM CDT Inhaled Oxygen Concentration - - Weight 61.7 kg (136 lb) 04/27/2022 3:49 PM CDT Height 170.2 cm (5' 7) 04/27/2022 3:49 PM CDT Body Mass Index 21.3 04/27/2022 3:49 PM CDT documented in this encounter Progress Notes Ana Cassidy APRN - 04/27/2022 3:30 PM CDT Images from the original note were not included. [facility] [address], [address] [facility] [address] Dept: [phone] Dept Appointment Date: 04/27/2022 Marcela Lau PA-C [address] [address] RE: Gaye Paz : 1960 Visit provider: Ana Cassidy APRN Dear Marcela Lau PA-C, I had the pleasure of seeing Gaye Paz in the office today. She is a(n) 61 y.o. female and presents with the following chief complaint(s): CKD HPI: Gaye Paz is a 61 year old /White female that follows with Dr Samano for nephrology care. PMHx also significant for Carotid atherosclerosis, Cerebral hemorrhage, CKD (chronic kidney disease) stage 3, GFR 30-59 ml/min, Diabetic autonomic neuropathy, Diabetic peripheral neuropathy, Diabetic retinopathy, Essential hypertension, Gastroparesis due to secondary diabetes, Hyperlipidemia, Hypertension, Hypothyroidism, and Type 1 diabetes mellitus. She was last seen in October. Baseline Cr is 0.9-1.1. Most recent Cr 1.0, eGFR 59. Diagnoses of DM I was approximately 50 years ago and is currently managed by endocrine, Dr Cr Valladares. Reports HgbA1c is 5.7%. She continues to take Kerendia 10mg daily. She does have co-existing proteinuria. She underwent a kidney biopsy in June 2021 that showed diabetic nephropathy from her type 1 diabetes and also mild IgA deposition that is secondary to her inflammatory bowel disease. Most recent UPCR 1.3 grams. Her home blood pressures are running 90-130 systolic, averaging around 110's. Patient's antihypertensive regimen includes amlodipine 5 mg BID, clonidine HCl 0.3 mg TID, cardura 2 mg daily, and lisinopril 15 mg BID oral tablet. She has had coexisting hyperkalemia recently so she was started on Lokelma at one point, however now she manages with diet restrictions. Most recent K+ level 5.3. She continues to be ASACOL for her ulcerative colitis. She continues to follow with GI and they recommended she start on budesonide. She does have a history of elevated light chains and anemia for which she follows with hematology Dr. Briggs. She has follow up in May. She continues to avoid NSAIDs, contrast and nephrotoxic agents. Patient denies s/s of uremia including metallic taste, nausea/vomiting, decreased appetite, and mental fogginess. She exercises 5 days a week for 2 hrs. Patient Active Problem List Diagnosis SNOMED CT(R) ??? Acne ACNE ??? Frances's thyroiditis FRANCES THYROIDITIS ??? Diabetic retinopathy ??? Encounter for fitting or adjustment of insulin pump PATIENT ENCOUNTER STATUS ??? Edema EDEMA ??? Uncontrolled type 1 diabetes mellitus TYPE 1 DIABETES MELLITUS ??? Uncontrolled type 1 diabetes mellitus with renal manifestations TYPE 1 DIABETES MELLITUS ??? Free monoclonal light chain MONOCLONAL FREE LIGHT CHAIN PRESENT ??? Easy bruisability EASY BRUISING ??? Proteinuria PROTEINURIA Past Medical History: Diagnosis Date ??? Autoimmune disorder (HCC) ??? Chronic kidney disease Stage 3 ??? Diabetes mellitus (HCC) Type 1 ??? Exocrine pancreatic insufficiency ??? Hypertension ??? Hypothyroidism ??? Osteoarthritis Past Surgical History: Procedure Laterality Date ??? COLONOSCOPY 09/2020 ??? HAND SURGERY Right 4th finger joint replacement ??? OTHER SURGICAL HISTORY Spinal Arthrodesis ??? SHOULDER ARTHROSCOPY Bilateral several ??? SPINAL FUSION x 4 ??? TOTAL HIP REPLACEMENT Right 07/03/2021 ??? TOTAL SHOULDER ARTHROPLASTY Right ??? US GUIDED BIOPSY KIDNEY 06/29/2021 Final Medications: Current Outpatient Medications Medication Sig Dispense Refill ??? amLODIPine (NORVASC) 5 MG tablet 5 mg 2 (two) times a day. ??? cholecalciferol, vitamin D3, 125 mcg (5,000 unit) Tab Take 5,000 Units by mouth. ??? cloNIDine HCL (CATAPRES) 0.3 mg tablet 0.3 mg 3 (three) times a day. ??? CREON 36,000-114,000- 180,000 unit CpDR ??? doxazosin (CARDURA) 2 MG tablet Take 2 mg by mouth nightly. ??? finerenone (KERENDIA) 10 mg Take 10 mg by mouth daily. ??? glucagon 1 mg injection Glucagon Emergency Kit 1 mg solution for injection Use as directed ??? HYDROcodone-acetaminophen (NORCO) 10-325 mg per tablet TAKE 1 TABLET BY MOUTH AT NIGHT NEEDED ??? HYDROcodone-acetaminophen (NORCO) 5-325 mg per tablet Take 1 tablet by mouth every 6 (six) hoursas needed. ??? insulin aspart, niacinamide, (FIASP U-100 INSULIN) 100 unit/mL Soln injection Fiasp U-100 Insulin 100 unit/mL subcutaneous solution Inject max of 75 U qd in multiple doses as directed ??? levothyroxine (SYNTHROID, LEVOTHROID) 75 MCG tablet Synthroid 75 mcg tablet TAKE 1 TABLET DAILY DIRECTED ??? LISINOPRIL ORAL Take 15 mg by mouth 2 (two) times a day. ??? ONETOUCH ULTRA BLUE TEST STRIP test strips ??? progesterone (PROMETRIUM) 100 MG capsule ??? rosuvastatin (CRESTOR) 5 MG tablet ??? temazepam (RESTORIL) 7.5 MG capsule Take 7.5 mg by mouth nightly as needed for sleep. ??? testosterone cypionate (DEPOTESTOTERONE CYPIONATE) 100 mg/mL injection Inject 100 mg intramuscularly. No current facility-administered medications for this visit. Allergies Allergen Reactions ??? Colesevelam ??? Nsaids (Non-Steroidal Anti-Inflammatory Drug) ??? Simvastatin Family History: Problem Relation Age of Onset ??? Hypertension Other Family History; Essential Hypertension; ??? Hyperlipidemia Other Family History; Dyslipidemia; ??? Cancer Other Family History; Cancer; ??? Dementia Mother ??? Coronary artery disease Father ??? Hypertension Father ??? Coronary artery disease Maternal Grandmother ??? Coronary artery disease Maternal Grandfather ??? Hypertension Paternal Grandfather ??? Coronary artery disease Paternal Grandfather Social History: Social History Tobacco Use ??? Smoking status: Never Smoker ??? Smokeless tobacco: Never Used Vaping Use ??? Vaping Use: Never used Substance Use Topics ??? Alcohol use: Yes Comment: 1 glass a month (rarely) ??? Drug use: Never Review of Systems Constitutional: Positive for malaise/fatigue. Negative for chills, fever and weight loss. Eyes: Negative for visual disturbance. Cardiovascular: Negative for chest pain, dyspnea on exertion and leg swelling. Respiratory: Negative for cough and shortness of breath. Skin: Negative for rash and suspicious lesions. Musculoskeletal: Negative for joint pain and joint swelling. Gastrointestinal: Negative for bloating, constipation, diarrhea, nausea and vomiting. Genitourinary: Negative for dysuria, frequency and hematuria. Neurological: Negative for dizziness, headaches and light-headedness. Vital Signs 04/27/22 1549 BP: (!) 148/61 Pulse: 61 SpO2: 96% Weight: 61.7 kg (136 lb) Height: 1.702 m (5' 7) BMI: Body mass index is 21.3 kg/m??. Physical Exam Vitals reviewed. Constitutional: General: She is not in acute distress. Appearance: Normal appearance. HENT: Head: Normocephalic. Nose: Nose normal. Pulmonary: Effort: Pulmonary effort is normal. Musculoskeletal: Right lower leg: No edema. Left lower leg: No edema. Skin: General: Skin is warm and dry. Neurological: General: No focal deficit present. Mental Status: She is alert and oriented to person, place, and time. Psychiatric: Mood and Affect: Mood normal. Behavior: Behavior normal. CBC with Diff: Lab Results Component Value Date WBC 8.20 04/20/2022 RBC 3.70 (A) 04/20/2022 HGB 11.5 (A) 04/20/2022 HCT 36 04/20/2022 RDW 11.6 04/20/2022 MCH 31 04/20/2022 MCHC 32 04/20/2022 MCV 96 04/20/2022 PLT 242 04/20/2022 MPV 10.9 04/20/2022 LYMPHSABS 2,542 04/19/2022 MONOSABS 582 04/19/2022 EOSABS 320 04/19/2022 NEUTOPHILPCT 57.3 04/19/2022 LYMPHOPCT 31.0 04/19/2022 MONOPCT 7.1 04/19/2022 EOSPCT 3.9 04/19/2022 BASOPCT 0.7 04/19/2022 Renal: Lab Results Component Value Date NA 137 04/20/2022 K 5.3 04/20/2022 CL 103 04/20/2022 CO2 27 (A) 04/20/2022 GAP 12 05/02/2013 GLU 88 04/20/2022 BUN 32 (A) 04/20/2022 CREAT 1.0 04/20/2022 GFRFAA 70 05/02/2013 GFRFNAA 58 05/02/2013 Urinalysis: No results found for: APPEARUA, GLUCOSEU, KETONESU, BILIUA, HGBUA, SPECGRAV, PHURINE, PROTUA, UROBILIUA, LEUKOUA, NITRITEUA, WBCUA, RBCUA Diagnoses and all orders for this visit: Stage 3a chronic kidney disease (HCC) - Renal Panel; Standing - Renal Panel Proteinuria, unspecified type - Renal Panel; Standing - Renal Panel Renovascular hypertension - Renal Panel; Standing - Renal Panel Type 1 diabetes mellitus with nephropathy (HCC) - Renal Panel; Standing - Renal Panel Hyperkalemia - Renal Panel; Standing - Renal Panel Anemia associated with chronic renal failure - Renal Panel; Standing - Renal Panel Impression and Plan: 1. Proteinuria- Most recent UPCR improved 1.3 grams. Continue RAAS with lisinopril and Karendia. Shewould like to meet with a circuit design engineer to discuss dietary modifications to maintain her renal function.Will send referral. 2. CKD III - Creatinine stable at 1.0, eGFR 59 ml/min. Continue avoidance of NSAIDs, contrast, and nephrotoxic agents. Continue monthly renal panels. 3. HTN- controlled. Continue current regimen. Discussed BP goal <130/80. 4. Anemia-most recent Hgb stable at 11.5. She has required iron infusions in the past. Will discuss with our infusion nurse if she qualifies for another iron infusion 5. Hyperkalemia- potassium stable at 5.3. Continue low potassium diet. 6. DM I - Optimal control. 7. Elevated kappa/lambda ratio - follows with hematology Treatment goals, progress and next steps, as above, were discussed and mutually agreed upon with thepatient/family. Thank you for allowing me to participate in Gaye Paz's care. If I can be of any further assistance, please do not hesitate to contact me. Sincerely, Ana Cassidy APRN documented in this encounter Plan of Treatment Upcoming Encounters Date Type Specialty Care Team Description 05/24/2023 Office Visit Medical Oncology CosLuzmaria tan MD [address] [address] (Wo rk) Scheduled Orders Name Type Priority Associated Diagnoses Order S chedule Renal Panel Lab Routine Stage 3a chronic kidney shannon hly for 6 Occurrences disease (HCC) starting 04/27/2022 until Proteinuria, uns pecified type 04/27/2023, 1 completed Renovascular hyp ertension Type 1 diabetes mellitus wit h nephropathy (HCC ) Hyperkalemia Anemia associated with chron ic renal failure documented as of this encounter Procedures Procedure Name Priority Date/Time Associated Diagnosis Comme nts RENAL PANEL Routine 06/27/2022 3:49 PM Stage 3a chronic Resul ts for this CDT kidney disease ( HCC) procedure are in Proteinuria, the results unspecified type section. Renovascular hypertension Type 1 diabetes mellitus with nephropathy (HCC ) Hyperkalemia Anemia associated with chronic renal failure documented in this encounter Results (ABNORMAL) Renal Panel (06/27/2022 3:49 PM CDT) P athologist Signature Glucose 130 65 - 139 [facility] mg/dL Comment: ? Non-fasting reference interval Blood Urea Nitrogen 36 (H) 7 - 25 mg/dL [facility] Creatinine 1.02 0.50 - 1.05 mg/dL [facility] ESTIMAT GLUMERULAR FILTRATION RATE 63 > OR = 60 mL/min/1.73m2 [facility] Comment: The eGFR is based on the CKD-EPI 202 eq uation. To calculate the new eGFR from a previous Creatinine or Cystatin C result, go to https://www.kidney.org/pro fessionals/ kdoqi/gfr%5Fcalculator BUN/CREATININE RATIO 35 (H) 6 - 22 (calc) [facility] Sodium 136 135 - 146 mmol/L [facility] Potassium 4.6 3.5 - 5.3 mmol/L [facility] Chloride 102 98 - 110 mmol/L [facility] Carbon Dioxide 27 20 - 32 mmol/L [facility] Calcium 10.1 8.6 - 10.4 mg/dL [facility] Phosphorus 4.0 2.5 - 4.5 mg/dL [facility] Albumin 4.0 3.6 - 5.1 g/dL [facility] Comment: REPORT COMMENT: FASTING:NO Specimen Anatomical Collection Method Collection Time Receive d Time (Source) Location / / Volume Laterality Blood (Venous) 06/27/2022 3:49 PM 022 3:49 CDT PM CDT Ana Khanh NEIGHBORHOOD AIDE LAB BLOOD ORDERABLES Performing Organization Address City/State/ZIP Code Phon e Number [facility] [address] [place] [address] documented in this encounter Visit Diagnoses Diagnosis Stage 3a chronic kidney disease (HCC) - Primary Proteinuria, unspecified type Renovascular hypertension Secondary renovascular hypertension, uns pecified 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
--- OUTSIDE RECORDS SUMMARY | 2022-09-29 00:29 | XMS_ITS | Encounter Summary ---
:1960 [address] [facility] Address [address] [place] [address] Care Team Providers Name Role Phone Marcela Lau PA-C Primary Care Provider Encounter Details Date Type Department Care Team Description 09/21/2022 Telephone [facility] Flor Samano DO [facility]ants [address], [address] [place], [place] [address] [place] [address] [phone] (Wo rk) Social History Tobacco Use Types Packs/Day Years Used Date Smoking Tobacco: Never Smokeless Tobacco: Never Alcohol Use Standard Drinks/Week Comments Yes 0 (1 standard drink = 0.6 oz pure alcoho l) 1 glass a month (rarely) Sex Assigned at Date Recorded Female 04/21/2021 9:42 AM CDT documented as of this encounter Miscellaneous Notes Telephone Encounter - Loly Allen MA (K[facility]ney) - 09/21/2022 9:31 AM CST Patient returned call states she is available now ROAD CAR CLEANER Telephone Encounter - Zaria Michel - 09/21/2022 9:03 AM CST Left a voice message in regards to rescheduling appt w/ Dr. Samano on 10/06. Please reschedule with a BEADING MACHINE OPERATOR next available. ROAD CAR CLEANER documented in this encounter Plan of Treatment Upcoming Encounters Date Type Specialty Care Team Description 05/24/2023 Office Visit Medical Oncology CosLuzmaria tan MD [address] [facility] [address] [place] [address] (Wo rk) documented as of this encounter Visit Diagnoses Not on filedocumented in this encounter Care Teams Automation Clerk Relationship Specialty Start Date End Date Marcela Lau PA-C PCP - General Physician Wafer Production Worker 09/13/[address] [facility] [address] [place] [address] documented as of this encounter
--- OUTSIDE RECORDS SUMMARY | 2022-09-29 00:29 | XMS_ITS | Encounter Summary ---
:1960 Author Organization [facility] Address [address] [place] [address] Care Team Providers Name Role Phone Marcela Lau PA-C Primary Care Provider Reason for Visit Electrophysiology (Routine) - Closed Specialty Diagnoses / Procedures Referred By Contact Refer red To Contact Cardiology Diagnoses Palpitations Wayne Hyde NP [facility] Cardio Cl Procedures Cardiac event recorder [address] [place], [place] [address] [place] [address] Fax: Referral ID Status Reason Start Date Expiration Date Visits Requ ested Visits Authorized [id number] Closed 11/10/2021 05/13/2022 1 1 Encounter Details Date Type Department Care Team Description 12/16/2021 Telephone [facility] Cardiovascular Wayne Leblanc NP [facility] [address] [place] [address] [place] [address] [phone] Social History Tobacco Use Types Packs/Day Years Used Date Smoking Tobacco: Never Smokeless Tobacco: Never Alcohol Use Standard Drinks/Week Comments Yes 0 (1 standard drink = 0.6 oz pure alcoho l) 1 glass a month (rarely) Sex Assigned at Date Recorded Female 04/21/2021 9:42 AM CDT documented as of this encounter Miscellaneous Notes Telephone Encounter - Dwight Padilla MA - 12/16/2021 11:34 AM CST Assigned to DEW NCIAL COMPLIANCE OFFICER documented in this encounter Plan of Treatment Upcoming Encounters Date Type Specialty Care Team Description 05/24/2023 Office Visit Medical Oncology Luzmaria Black MD [address] [address] (Wo rk) documented as of this encounter Procedures Procedure Name Priority Date/Time Associated Diagnosis Comme nts CARDIAC EVENT Routine 12/14/2021 12:00 Palpitations Results fo r this RECORDER AM FINANCIAL COMPLIANCE OFFICER procedure are i n the results section. documented in this encounter Results Cardiac event recorder (12/14/2021 12:00 AM FINANCIAL COMPLIANCE OFFICER) Specimen (Source) Anatomical Location Collection Method / Collectio n Time Received Time / Laterality Volume 12/14/2021 Narrative [facility] - 12/29/2021 10:59 AM FINANCIAL COMPLIANCE OFFICER ? [facility] ? Test Date: ?2021-12-14 Pat Name: ? GAYE BALDERAST ?Department: ? Room: ? Gender: ? Female ? Band Saw Filer: ?? : ?1960 ? Requested By: WAYNE SEGUNDO Order Number: [id number] ?Reading MD: ?? Cleo Wiseman ? Interpretive Statements ? [facility] ?[place] [facility] ?[address] ?[place], [place] [address] ? EVENT RECORDER REPORT Dietitian Consultant Date: 2021-12-14 RE: Gaye Paz : 1960 REFERRING PHYSICIAN: Wayne Hyde APRN REASON FOR EVENT RECORDER: Palpitations CONCLUSION: Patient wore monitor between November 15, 2021? December 14, 2021 Sinus rhythm only seen on strips, no remedios ses or arrhythmias Heart rate range 57? 74 Symptoms submitted include heart racing and correlated with sinus rhythm and PACs. Electronically Signed On 12-29-2021 10:59 :29 FINANCIAL COMPLIANCE OFFICER by Cleo Wiseman Procedure Note Cleo Wiseman MD - 12/29/2021Formatti ng of this note might be different from the original. [facility] Test Date: 2021-12-14 Pat Name: GAYE PAZ Department: Room: Gender: Female Band Saw Filer: : 1960 Requested By: WAYNE HUANG Order Number: [id number] Patrica MD: Rojas Wiseman Interpretive Statements [facility] [place] [facility] [address] [place] [address] EVENT RECORDER REPORT Dietitian Consultant Date: 2021-12-14 RE: Gaye Paz : 1960 REFERRING PHYSICIAN: Wayne Hyde APRN REASON FOR EVENT RECORDER: Palpitations CONCLUSION: Patient wore monitor between November 15, 2021? December 14, 2021 Sinus rhythm only seen on strips, no remedios ses or arrhythmias Heart rate range 57? 74 Symptoms submitted include heart racing and correlated with sinus rhythm and PACs. Electronically Signed On 12-29-2021 10:59 :29 FINANCIAL COMPLIANCE OFFICER by Cleo Wiseman Wayne Hyde NP [facility] ORDERABL ES Performing Organization Address City/State/ZIP Code Phon e Number [facility] documented in this encounter Visit Diagnoses Diagnosis Palpitations documented in this encounter Care Teams Lease Operator Relationship Specialty Start Date End Date Marcela Lau PA-C PCP - General Physician Morgue Attendant 09/13/[address] [facility] [address] [place] [address] documented as of this encounter
--- OUTSIDE RECORDS SUMMARY | 2022-09-29 00:29 | XMS_ITS | Encounter Summary ---
:1960 Author Organization [facility] Address [address] [place] [address] Care Team Providers Name Role Phone Marcela Lau PA-C Primary Care Provider Reason for Visit Reason Onset Date Comments 05/05/22 Anemia lab results 05/11/2022 Encounter Details Date Type Department Care Team Description 05/11/2022 Documentation [facility] Kalee Myers, Anemia lab Consultants RN results [address], [address] [place], [place] [address] [place], [place] [phone] Social History Tobacco Use Types Packs/Day Years Used Date Smoking Tobacco: Never Smokeless Tobacco: Never Alcohol Use Standard Drinks/Week Comments Yes 0 (1 standard drink = 0.6 oz pure alcoho l) 1 glass a month (rarely) Sex Assigned at Date Recorded Female 04/21/2021 9:42 AM CDT documented as of this encounter Progress Notes Kalee Panda RN - 05/11/2022 2:28 PM CDT Emailed pt that results do not indicate need for IV iron at this time documented in this encounter Plan of Treatment Upcoming Encounters Date Type Specialty Care Team Description 05/24/2023 Office Visit Medical Oncology CosLuzmaria tan MD [address] [facility] [address] [place] [address] (Wo rk) documented as of this encounter Visit Diagnoses Not on filedocumented in this encounter Care Teams Chief Steward/Stewardess Relationship Specialty Start Date End Date Marcela Lau PA-C PCP - General Physician Scouts 09/13/[address] [address] documented as of this encounter
--- OUTSIDE RECORDS SUMMARY | 2022-09-29 00:29 | XMS_ITS | Encounter Summary ---
:1960 Author Organization [facility] Address [address] [place] [address] Care Team Providers Name Role Phone Marcela Lau PA-C Primary Care Provider Reason for Visit Reason Comments Follow-up Encounter Details Date Type Department Care Team Description 05/19/2022 Office Visit [facility] CosDimitrios tan MD Other iron deficiency anemia (Primary Dx ); Specialists [address] [facility] Anemia due to unknown mechanism; [address] Elevated serum immunoglobulin free light chain level [address] [place] [id number] [phone] Social History Tobacco Use Types Packs/Day Years [...] Mass Index 21.3 05/19/2022 1:52 PM CDT documented in this encounter Progress Notes Luzmaria Black MD - 05/19/2022 1:50 PM CDT Images from the original note were not included. [address] [facility] [address] HEMATOLOGY/ONCOLOGY NOTE Patient: Gaye Paz : 1960 Primary Care Physician: Marcela Lau PA-C, Referring Provider: Luzmaria Black MD ASSESSMENT AND PLAN: 61 y.o. female with past medical history of type 1 diabetes, chronic kidney disease, hypothyroidism and ulcerative colitis seen today 09/02/2021 in the hematology clinic for evaluation of abnormal serum free light chains. 1. Other iron deficiency anemia CBC and Diff (manual diff if necessary) B12/Folate Ferritin Free [place]+Lambda Light Chains Serum Immunofixation Serum Protein Electrophoresis Serum Iron CBC and Diff (manual diff if necessary) B12/Folate Ferritin Free [place]+Lambda Light Chains Serum Immunofixation Serum Protein Electrophoresis Serum Iron 2. Anemia due to unknown mechanism CBC and Diff (manual diff if necessary) B12/Folate Ferritin Free [place]+Lambda Light Chains Serum Immunofixation Serum Protein Electrophoresis Serum Iron CBC and Diff (manual diff if necessary) B12/Folate Ferritin Free [place]+Lambda Light Chains Serum Immunofixation Serum Protein Electrophoresis Serum Iron 3. Elevated serum immunoglobulin free light chain level Elevated serum free light chains ??? Prior work-up was negative for evidence of symptomatic multiple myeloma ??? She has had renal biopsy that showed evidence of diabetic nephropathy, without evidence of monoclonal protein deposition disease, free light chain deposition, or myeloma kidney ??? Suspect patient has poor clearance of both kappa and lambda free light chains and we again discussed the physiology of free light chain clearance in patients with CKD ??? Repeat serum kappa free light chain level slightly elevated at 44.2 mg/L, with K/L ratio of 1.96 ??? Free light chain ratios of up to 3 are still generally considered normal in patients with CKD ??? Patient requesting active surveillance ??? Recommend follow-up in May 2023 with repeat CBC differential, CMP, SPEP, RAE, SFLC Iron deficiency anemia ??? Based on patient's report she was diagnosed with iron deficiency anemia and treated with IV ironinfusions through her salesperson burial needs office ??? Iron studies look normal ??? Can decrease oral iron supplement to once daily PPE Statement: Luzmaria Black MD used Yellow precautions (Level 1 mask worn over level 3 mask, eye protection, and gloves). ==== CHIEF COMPLAINT: Abnormal serum free light chains INTERVAL HISTORY: 61 y.o. female with past medical history of type 1 diabetes, CKD, hypothyroidism and inflammatory bowel disease returns to the hematology clinic in follow-up regarding elevated kappa free light chains and iron deficiency. Patient is taking an iron supplement twice daily. Stamina and energy levels are still not quite where she wants them to be but she feels she is slowly improving. No other new issues or concerns. HEMATOLOGIC HISTORY: 61 y.o. female with past medical history of type 1 diabetes, chronic kidney disease, hypothyroidism and inflammatory bowel disease seen 09/02/2021 in the hematology clinic for evaluation of abnormal serum free light chains. The patient was seen previously by Dr. Muller in October 2020 for the abnormal free light chain chain studies, but lives closer to [facility] and is transferring care. Patient reports she was seen by her salesperson burial needs, Dr. Samano, and was found to have elevated kappa free light chains with an abnormal ka ppa/lambda ratio of 2.[address] Muller checked baseline CBC, CMP, serum free light chains, SPEP and RAE. Work-up was consistent with either elevated light chain secondary to CKD versus low-level monoclonal gammopathy of undetermined significance. Active surveillance was recommended. Patient is followed closely with monthly laboratory studies by her salesperson burial needs. She was diagnosed with iron deficiency anemia and underwent iron infusions Jul 25 and 2020. She was diagnosed with an inflammatory bowel disease on colonoscopy and biopsy in December 2020. Shewas started on treatment with mesalamine. Patient reported she was having significant hip and sciatica pain and underwent hip replacement surgery in June 2021. The iron deficiency decreased her hemoglobin from a baseline of 14 g/dL to 10.8 g/dL (per patient report) before the iron infusions. Complained of decreased exercise tolerance, shortness of breath and weakness at presentation. Outpatient Encounter Medications as of 05/19/2022 Medication Sig Dispense Refill ??? amLODIPine (NORVASC) 5 MG tablet 5 mg 2 (two) times a day. ??? budesonide (ENTOCORT EC) 3 mg 24 hr capsule TAKE THREE CAPSULES BY MOUTH EVERY DAY ??? cholecalciferol, vitamin D3, 125 mcg (5,000 unit) Tab Take 5,000 Units by mouth. ??? cloNIDine HCL (CATAPRES) 0.3 mg tablet 0.3 mg 3 (three) times a day. ??? CREON 36,000-114,000- 180,000 unit CpDR ??? doxazosin (CARDURA) 2 MG tablet Take 2 mg by mouth nightly. ??? glucagon 1 mg injection Glucagon Emergency [...] qd in multiple doses as directed ??? KERENDIA 10 mg TAKE ONE TABLET BY MOUTH EVERY DAY 210 tablet 0 ??? levothyroxine (SYNTHROID, LEVOTHROID) 75 MCG tablet [...] 100 mg/mL injection Inject 100 mg intramuscularly. ??? VELTASSA 8.4 gram packet DISSOLVE 1 PACKET DIRECTED AND TAKE BY MOUTH DAILY No facility-administered encounter medications on file as of 05/19/2022. Past Medical History: Diagnosis Date ??? Autoimmune [...] Right ??? US GUIDED BIOPSY KIDNEY 06/29/2021 Hip replacement in June Family History: Problem Relation Age of Onset ??? Hypertension Other Family History; Essential Hypertension; ??? Hyperlipidemia Other Family History; Dyslipidemia; ??? Cancer Other Family History; Cancer; ??? Dementia Mother ??? Coronary artery disease Father ??? Hypertension Father ??? Coronary artery disease Maternal Grandmother ??? Coronary artery disease Maternal Grandfather ??? Hypertension Paternal Grandfather ??? Coronary artery disease Paternal Grandfather Social History: Patient reports that she has never smoked. She has never used smokeless tobacco. She reports currentalcohol use. She reports that she does not use drugs. Does not drink. 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 PHYSICAL EXAM ECOG PERFORMANCE STATUS 0 - Asymptomatic Weight: 60.8 kg (134 lb) Height: 168.9 cm (5' 6.5) BSA (Calculated - sq m): 1.696 sq meters BMI (Calculated): 21.3 BP: 137/54 BP Location: Left arm Patient position: Sitting Pulse: 67 Temp: 98.2 ??F Temp src: Oral SpO2: 100 % Pain Score: 0 LABS / PATHOLOGY / RADIOLOGY: Recent Results (from the past 168 hour(s)) CBC and Diff (manual diff if necessary) Collection Time: 05/15/22 12:56 PM Result Value Ref Range WBC 7.0 3.8 - 10.8 Thousand/uL RBC 3.88 3.80 - 5.10 Million/uL Hemoglobin 12.2 11.7 - 15.5 g/dL Hematocrit 37.2 35.0 - 45.0 % MCV 95.9 80.0 - 100.0 fL MCH 31.4 27.0 - 33.0 pg MCHC 32.8 32.0 - 36.0 g/dL RDW 12.0 11.0 - 15.0 % Platelet Count 214 140 - 400 Thousand/uL MPV 11.5 7.5 - 12.5 fL # Granulocytes 5663 1500 - 7800 cells/uL # Lymphocytes 1,015 850 - 3,900 cells/uL # Monocytes 182 (L) 200 - 950 cells/uL # Eosinophils 112 15 - 500 cells/uL # Basophils 28 0 - 200 cells/uL % Neutrophils 80.9 % %Lymphocytes 14.5 % % Monocytes 2.6 % %Eosinophils 1.6 % %Basophils 0.4 % Renal Panel Collection Time: 05/15/22 12:56 PM Result Value Ref Range Glucose 81 65 - 99 mg/dL Blood Urea Nitrogen 36 (H) 7 - 25 mg/dL Creatinine 1.08 (H) 0.50 - 1.05 mg/dL ESTIMAT GLUMERULAR FILTRATION RATE 58 (L) > OR = 60 mL/min/1.73m2 BUN/CREATININE RATIO 33 (H) 6 - 22 (calc) Sodium 137 135 - 146 mmol/L Potassium 5.1 3.5 - 5.3 mmol/L Chloride 102 98 - 110 mmol/L Carbon Dioxide 27 20 - 32 mmol/L Calcium 9.2 8.6 - 10.4 mg/dL Phosphorus 3.5 2.5 - 4.5 mg/dL Albumin 4.0 3.6 - 5.1 g/dL Protein Urine Quant Random Collection Time: 05/15/22 12:56 PM Result Value Ref Range Creatinine Urine Random 30 20 - 275 mg/dL Protein/Creat Ratio 1533 (H) 21 - 161 mg/g creat PROTEIN/CREATININE RATIO 1.533 (H) 0.021 - 0.161 mg/mg creat PROTEIN, TOTAL, RANDOM UR 46 (H) 5 - 24 mg/dL CBC and Diff (manual diff if necessary) Collection Time: 05/15/22 1:32 PM Result Value Ref Range WBC 8.03 4.00 - 11.00 TH/uL RBC 3.86 (L) 4.00 - 5.00 mil/uL Hemoglobin 12.3 12.0 - 15.0 g/dL Hematocrit 38 36 - 45 % MCV 98 80 - 99 fL MCH 32 27 - 34 pg MCHC 33 32 - 36 g/dL RDW 13.3 9.0 - 14.5 % Platelet Count 214 140 - 400 Th/uL MPV 11.4 9.4 - 12.3 fL Nucleated RBCs 0 0 - 0 /100 WBC % Neutrophils 83 (H) 45 - 78 % % Lymphocytes 13 (L) 15 - 47 % % Monocytes 2 0 - 12 % % Eosinophils 1 0 - 7 % % Basophils 0 0 - 2 % % Imm Grans 1 0 - 1 % # Granulocytes 6.75 1.70 - 6.80 TH/uL # Lymphocytes 1.08 1.00 - 3.30 TH/uL # Monocytes 0.19 (L) 0.20 - 0.90 TH/uL # Eosinophils 0.06 0.00 - 0.40 TH/uL # Basophils 0.03 0.00 - 0.10 TH/uL Comprehensive Metabolic Panel Collection Time: 05/15/22 1:32 PM Result Value Ref Range Sodium 137 136 - 145 mEq/L Potassium 4.9 3.4 - 5.1 mEq/L Chloride 106 98 - 109 mEq/L Carbon Dioxide 26 20 - 31 mEq/L Anion Gap 5 <17 mmol/L Calcium 9.2 8.3 - 10.6 mg/dL Glucose 68 (L) 70 - 100 mg/dL Protein Total Serum 6.4 5.7 - 8.2 g/dL Albumin 4.2 3.5 - 5.0 g/dL Alkaline Phosphatase 72 44 - 150 U/L Alanine Aminotransferase 62 (H) 0 - 34 U/L Aspartate Aminotransferase 39 (H) 0 - 34 U/L Bilirubin Total 0.2 0.2 - 1.1 mg/dL Blood Urea Nitrogen 36 (H) 9 - 23 mg/dL Creatinine 1.08 (H) 0.55 - 1.02 mg/dL eGFR 58.6 (L) 60.0 - 200.0 mL/min/1.73m*2 Free [place]+Lambda Light Chains Serum Collection Time: 05/15/22 1:32 PM Result Value Ref Range [place]/Lambda Ratio 1.96 (H) 0.26 - 1.65 Free [place] Light Chains 44.2 (H) 3.3 - 19.4 mg/L Free Lambda Light Chains 22.5 5.7 - 26.3 mg/L Immunofixation Serum Collection Time: 05/15/22 1:32 PM Result Value Ref Range Immunofixation Serum A monoclonal protein is not identified Pathologist Review Reviewed by Eric Cardozo M.D. Protein Electrophoresis Serum Collection Time: 05/15/22 1:32 PM Result Value Ref Range Protein Total SPE 6.4 g/dL Albumin 3.6 3.3 - 5.0 g/dL Alpha 1 0.3 0.1 - 0.3 g/dL Alpha 2 0.9 0.5 - 1.0 g/dL Beta 0.9 0.7 - 1.5 g/dL Gamma 0.7 0.5 - 1.7 g/dL A/G Ratio 1.2 Pathologist Review Reviewed by Eric Cardozo M.D. M-Alon Path Interpretation Normal protein electrophoresis pattern. Iron/Transferrin Collection Time: 05/15/22 1:32 PM Result Value Ref Range Iron 58 50 - 170 ug/dL Transferrin 187 (L) 215 - 365 mg/dL Total Iron-Binding Capacity 224 (L) 250 - 425 ug/dL Iron/Transferrin % Saturation 26 15 - 50 % Ferritin Collection Time: 05/15/22 1:32 PM Result Value Ref Range Ferritin 301.0 (H) 7.3 - 270.7 ng/mL documented in this encounter Plan of Treatment Upcoming Encounters Date Type Specialty Care Team Description 05/24/2023 Office Visit Medical Oncology Luzmaria Black MD [facility] [address] [address] (Wo rk) Scheduled Orders Name Type Priority Associated Diagnoses Order S chedule CBC and Diff (manual diff Lab Routine Other iron defi ciency 1 Occurrences starting if necessary) anemia 05/19/2022 until Anemia due to unknown 2022 mechanism B12/Folate Lab Routine Other iron deficiency 1 Occu rrences starting anemia 05/19/2022 until Anemia due to unknown 2022 mechanism Ferritin Lab Routine Other iron deficiency 1 Occu rrences starting anemia 05/19/2022 until Anemia due to unknown 2022 mechanism Free [place]+Lambda Light Lab Routine Other iron defici ency 1 Occurrences starting Chains Serum anemia 05/19/2022 until Anemia due to unknown 2022 mechanism Immunofixation Serum Lab Routine Other iron deficienc y 1 Occurrences starting anemia 05/19/2022 until Anemia due to unknown 2022 mechanism Protein Electrophoresis Lab Routine Other iron defici ency 1 Occurrences starting Serum anemia 05/19/2022 until Anemia due to unknown 2022 mechanism Iron Lab Routine Other iron deficiency 1 Occu rrences starting anemia 05/19/2022 until Anemia due to unknown 2022 mechanism documented as of this encounter Visit Diagnoses Diagnosis Other iron deficiency anemia - Primary Anemia due to unknown mechanism Unspecified anemia Elevated serum immunoglobulin free light chain level documented in this encounter Care Teams Member Services Coordinator Relationship Specialty Start Date End Date Marcela Lau PA-C PCP - General Physician Administrative Manager 09/13/[id number] [address] documented as of this encounter
--- OUTSIDE RECORDS SUMMARY | 2022-09-29 00:29 | XMS_ITS | Encounter Summary ---
:1960 Author Organization [facility] Address [address] [place] [address] Care Team Providers Name Role Phone Marcela Lau PA-C Primary Care Provider Reason for Visit Reason Onset Date Comments fluid retention 05/15/2022 Encounter Details Date Type Department Care Team Description 05/15/2022 Telephone [facility] Flor Samano DO fluid retention Consultants [address] [place], [place] [address] [place] [address] [phone] (Wo rk) Social History Tobacco Use Types Packs/Day Years Used Date Smoking Tobacco: Never Smokeless Tobacco: Never Alcohol Use Standard Drinks/Week Comments Yes 0 (1 standard drink = 0.6 oz pure alcoho l) 1 glass a month (rarely) Sex Assigned at Date Recorded Female 04/21/2021 9:42 AM CDT documented as of this encounter Miscellaneous Notes Telephone Encounter - Bruna Robertson MA - 05/15/2022 9:48 AM CDT S/w pt. She has a standing order for Renal panel, Telephone Encounter - Loly SortoKckiolena Allen MA - 05/15/2022 8:16 AM CDT Pt left message stating she spoke with you last week regarding being covid positive and she stated she was on plaxlovid and she says since she finished it she has gained 6lbs of fluid and she made an appt for [facility] in [place]. She would like us to order a lab to test her renal function she is very concerned about her renal function. Call back [phone] documented in this encounter Plan of Treatment Upcoming Encounters Date Type Specialty Care Team Description 05/24/2023 Office Visit Medical Oncology CosLuzmaria tan MD [address] [facility] [address] [place] [address] (Wo rk) documented as of this encounter Visit Diagnoses Not on filedocumented in this encounter Care Teams Laundry Machine Operator Relationship Specialty Start Date End Date Marcela Lau PA-C PCP - General Physician Felt Hanger 09/13/[address] [facility] [address] [place] [address] documented as of this encounter
[2022-09-29] MEDS: ONDANSETRON 2 MG/ML inj 4 MG IVP (00:30)
--- OUTSIDE RECORDS SUMMARY | 2022-09-29 00:30 | XMS_ITS | Encounter Summary ---
:1960 Author Organization [facility] Address [address] [place] [address] Care Team Providers Name Role Phone Marcela Lau PA-C Primary Care Provider Encounter Details Date Type Department Care Team Description 03/28/2021 Imaging Appointment [facility] Low [facility] pain Social History Tobacco Use Types Packs/Day Years [...] Medical Oncology Luzmaria Black MD [address] [facility] 4000 [place] [address] (Wo rk) documented as of this encounter Procedures Procedure Name Priority Date/Time Associated Diagnosis Comme nts MRI OUTSIDE IMAGES FOR Routine 03/28/2021 2:12 PM CDT Low back pain PACS SPINE documented in this encounter Results MRI Outside images for PACS Spine (03/28/2021 2:12 PM CDT) Specimen (Source) Anatomical Location Collection Method / Collectio n Time Received Time / Laterality Volume Ordering D No DO IMG OUTSIDE IMAGES Performing Organization Address City/State/ZIP Code Phon e Number MCKESSON documented in this encounter Visit Diagnoses Diagnosis Low back pain Lumbago documented in this encounter Care Teams City Carrier Relationship Specialty Start Date End Date Marcela Lau PA-C PCP - General Physician Recycling Attendant 09/13/[address] [address] documented as of this encounter
--- OUTSIDE RECORDS SUMMARY | 2022-09-29 00:30 | XMS_ITS | Encounter Summary ---
:1960 Author Organization [facility] Address [address] [place] [address] Care Team Providers Name Role Phone Marcela Lau PA-C Primary Care Provider Encounter Details Date Type Department Care Team Description 04/21/2021 Transcribe Orders [facility] Austyn Lau in ([facility] - CARY Medrano Dx) [place] [address] [place] [address] [address] [address] [place] [address] Social History Tobacco Use Types Packs/Day Years [...] Visit Medical Oncology Luzmaria Black MD [address] [facility] [address] [place] [address] (Wo rk) documented as of this encounter Visit Diagnoses Diagnosis Chronic pain - Primary Other chronic pain documented in this encounter Care Teams Vinyl Hanger Relationship Specialty Start Date End Date Marcela Lau PA-C PCP - General Physician Correctional Case Records Supervisor 09/13/[address] [facility] [address] [place], [place] [address] documented as of this encounter
--- OUTSIDE RECORDS SUMMARY | 2022-09-29 00:30 | XMS_ITS | Encounter Summary ---
:1960 Author Organization [facility] Address [address] [place] [address] Care Team Providers Name Role Phone Marcela Lau PA-C Primary Care Provider Reason for Visit Reason Onset Date Comments Medication Refill 11/14/2021 Encounter Details Date Type Department Care Team Description 11/14/2021 Refill [facility] Flor Samano DO Medication [facility] [address] [place], [place] [address] 1 [place] [address] [phone] (Wo rk) Social History Tobacco Use Types Packs/Day Years Used Date Smoking Tobacco: Never Smokeless Tobacco: Never Alcohol Use Standard Drinks/Week Comments Yes 0 (1 standard drink = 0.6 oz pure alcoho l) 1 glass a month (rarely) Sex Assigned at Date Recorded Female 04/21/2021 9:42 AM CDT documented as of this encounter Miscellaneous Notes Telephone Encounter - Dawn Butler MA - 11/14/2021 3:45 PM CST Refill request for Kerendia (Finerenone) has been sent to [facility] on [address] in [place]. MATIC WINDER OPERATOR documented in this encounter Plan of Treatment Upcoming Encounters Date Type Specialty Care Team Description 05/24/2023 Office Visit Medical Oncology CossorLuzmaria MD [address] [facility] [address] [place] [address] (Wo rk) documented as of this encounter Visit Diagnoses Not on filedocumented in this encounter Care Teams Communications Tech Relationship Specialty Start Date End Date Marcela Lau PA-C PCP - General Physician Mammography Tech 09/13/[address] [facility] [address] [place] [address] documented as of this encounter
--- OUTSIDE RECORDS SUMMARY | 2022-09-29 00:30 | XMS_ITS | Encounter Summary ---
:1960 Author Organization [facility] Address [address] [place] [address] Care Team Providers Name Role Phone Marcela Lau PA-C Primary Care Provider Encounter Details Date Type Department Care Team Description 11/10/2021 Telephone [facility] Flor Samano DO [facility] [address] [place], [place] [address] 1 [place] [address] [phone] (Wo rk) Social History Tobacco Use Types Packs/Day Years Used Date Smoking Tobacco: Never Smokeless Tobacco: Never Alcohol Use Standard Drinks/Week Comments Yes 0 (1 standard drink = 0.6 oz pure alcoho l) 1 glass a month (rarely) Sex Assigned at Date Recorded Female 04/21/2021 9:42 AM CDT documented as of this encounter Miscellaneous Notes Telephone Encounter - Dawn Butler MA - 11/16/2021 10:31 AM CST Spoke with Dr. Samano, he states to ignore calls from [facility], as the testing is not necessary. Regarding her BP readings, he wants her to monitor them for now. Left a message on [facility] to discuss the above, and find out if she received the heart monitor. K GRINDER Telephone Encounter - Dawn Butler MA - 11/15/2021 3:03 PM CST Patient has called again, aware Dr. Samano is not in the office today. She wanted to update me to let me know her systolic BP has been running 155-175 over the weekend. Will review with Dr. Samano when he is in the office. K GRINDER Telephone Encounter - Dawn Butler MA - 11/10/2021 3:36 PM CST Patient called with some concerns; 1. [facility] Urology office continues to call to schedule her for renal scans, but she states she does not feel comfortable being seen by them, and trust our office when it comes to her kidneys. I advised her, she has the right as a patient to see or not see a doctors office. She wants tocontinue her care with us only. 2. Her BP readings have been running higher than normal, and is concerning her. She did speak with her PCP who added Xanax to her medications, which has seemed to help. 3. She has yet to hear from [facility] Cardiology regarding a referral we sent back on 10/11/2021. I calledtheir office, spoke with Valeri in the EP department. She stated she was not sure what was going on with the referral, but is ordering the heart monitor for the patient. The patient can call [employer] at [phone] to track the delivery of the monitor. Patient is aware Dr. Samano is out this week, but I will review all the above with him when he returnsnext week. K GRINDER documented in this encounter Plan of Treatment Upcoming Encounters Date Type Specialty Care Team Description 05/24/2023 Office Visit Medical Oncology Luzmaria Black MD [address] [address] (Wo rk) documented as of this encounter Visit Diagnoses Not on filedocumented in this encounter Care Teams Equal Opportunity Representative Relationship Specialty Start Date End Date Marcela Lau PA-C PCP - General Physician Mastercam Programmer 09/13/[address] [address] documented as of this encounter
--- OUTSIDE RECORDS SUMMARY | 2022-09-29 00:30 | XMS_ITS | Encounter Summary ---
:1960 Author Organization [facility] Address [address] [place] [address] Care Team Providers Name Role Phone Marcela Lau PA-C Primary Care Provider Reason for Visit Reason Comments Follow-up Encounter Details Date Type Department Care Team Description 05/19[facility] Mindy Prescott (Primary Dx) Surgery [address] [place], [place] [address] [place], [place] [phone] Social History Tobacco Use Types Packs/Day Years Used Date Smoking Tobacco: Never Smokeless Tobacco: Never Alcohol Use Standard Drinks/Week Comments Yes 0 (1 standard drink = 0.6 oz pure alcoho l) 1 glass a month (rarely) Sex Assigned at Date Recorded Female 04/21/2021 9:42 AM CDT documented as of this encounter Last Filed Vital Signs Vital Sign Reading Time Taken Comments Blood Pressure 136/61 05/19/2021 9:58 AM CDT Pulse 52 05/19/2021 9:58 AM CDT Temperature 36.8 ??C (98.2 ??F) 05/19/2021 9:58 AM CDT Respiratory Rate - - Oxygen Saturation - - Inhaled Oxygen Concentration - - Weight 60.8 kg (134 lb) 05/19/2021 9:58 AM CDT Height 170.2 cm (5' 7) 05/19/2021 9:58 AM CDT Body Mass Index 20.99 05/19/2021 9:58 AM CDT documented in this encounter Progress Notes Kenyon Floyd MD - 05/19/2021 10:00 AM CDT Neurologic Surgery Return Patient Note Patient ID: Gaye Paz is a 60 y.o. female. Subjective: Cathie returns after completing scoliosis x-rays and hip x-rays per my advice to investigate right groin pain right lower extremity radicular pain, and back pain. She has history of prior L4-S1 arthrodesis and has a large fusion mass between the L4-L5 and L5-S1 joints bilaterally. 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 Her pelvic incidence and lumbar lordosis thereby are almost 40 degrees apart, and she is also retroverted in her pelvis by more than 40 degrees to try and keep her skull on her pelvis. These dynamics resulted in excessive amounts of energy being spent by her paraspinal muscles to keep her skull on her pelvic bone. This in itself is pain generator. In addition she has grade 4 osteoarthritis on the right side of the hip and grade 3 osteoarthritis on the left side of her hip joints. PHQ-2: Over the last 2 weeks, how often have you been bothered by any of the following problems? No data recorded Review of Systems Constitutional: (-) fever, (-) change of appetite, (-) fatigue CV: (-) chest pain GI: (-) bloody/tarry stools, (-) abdominal pain, (-) weight loss, (-) diarrhea, (-) weight gain, (-)constipation : (-) difficulty urinating ENDO: (-) excessive hunger/thirst, (-) loss of libido, (-) spontaneous nipple discharge PSYCH: (-) depression, (-) memory problems HEM: (-) easy bruising, (-) easy bleeding HEENT: (-) visual changes, (-) seasonal allergies SKIN: (-) rash/ skin condition PULM: (-) SOB MUSCULOSKELETAL: (-) muscle aches or pain SEIZURES: (-) date of last seizure Objective: There were no vitals taken for this visit. Physical Exam Awake and alert. Oriented x3. Speech-language are normal. Cranial nerve (PERRL, EOM full, face symmetric, V1-3 intact, tongue midline), motor (UE/LE), sensory (LT in UE/LE), cerebellar examinations areall normal. 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 Her pelvic incidence and lumbar lordosis thereby are almost 40 degrees apart, and she is also retroverted in her pelvis by more than 40 degrees to try and keep her skull on her pelvis. These dynamics resulted in excessive amounts of energy being spent by her paraspinal muscles to keep her skull on her pelvic bone. This in itself is pain generator. In addition she has grade 4 osteoarthritis on the right side of the hip and grade 3 osteoarthritis on the left side of her hip joints. Assessment/Plan: In the presence of almost a 40 degree gap between the pelvic incidence and the lumbar lordosis and apositive sagittal vertical axis of 15 cm, along with a 60 degree pelvic tilt, there is enough muscleenergy expenditure to explain her pain. But before we embark onto any further investigations from this perspective, I am recommending that she meet with one of our orthopedic surgeons to comment upon her grade 4 osteoarthritis of the right hip and grade 3 osteoarthritis of her left hip. There is a good chance that her groin pain, and the sciatic pain on the right side make it better with an intervention for her right hip joint which is severely osteoarthritic. Ms. Yin will explore this option, and will be in touch with my office going forward. documented in this encounter Plan of Treatment Upcoming Encounters Date Type Specialty Care Team Description 05/24/2023 Office Visit Medical Oncology Luzmaria Black MD [facility] [address] (Wo rk) documented as of this encounter Visit Diagnoses Diagnosis Scoliosis/kyphoscoliosis - Primary Scoliosis (and kyphoscoliosis), idiopath ic documented in this encounter Care Teams Show Card Letterer Relationship Specialty Start Date End Date Marcela Lau PA-C PCP - General Physician Merchandiser Retail Representative 09/13/[address] [address] documented as of this encounter
--- OUTSIDE RECORDS SUMMARY | 2022-09-29 00:30 | XMS_ITS | Encounter Summary ---
:1960 Author Organization [facility] Address [address] [place] [address] Care Team Providers Name Role Phone Marcela Lau PA-C Primary Care Provider Encounter Details Date Type Department Care Team Description 10/12/2021 Documentation [facility] Cardiovascular [facility] , [facility] [address] [place], [place] [address] Social History Tobacco Use Types Packs/Day Years [...] Visit Medical Oncology Luzmaria Black MD [address] [facility] [address] [place] [address] (Wo rk) documented as of this encounter Procedures Procedure Name Priority Date/Time Associated Diagnosis Comme nts LAB OUTSIDE RECORD Routine 10/04/2021 documented in this encounter Results Lab Outside Record (10/04/2021) Specimen (Source) Anatomical Location Collection Method / Collectio n Time Received Time / Laterality Volume Blood 10/04/2021 Narrative This result has an attachment that is no t available. Historical Provider LAB BLOOD ORDERABLES documented in this encounter Visit Diagnoses Not on filedocumented in this encounter Care Teams Tunneller Relationship Specialty Start Date End Date Marcela Lau PA-C PCP - General Physician Lands Resource Manager 09/13/[address] [place] [address] documented as of this encounter
--- OUTSIDE RECORDS SUMMARY | 2022-09-29 00:30 | XMS_ITS | Encounter Summary ---
:1960 Author Organization [facility] Address [address] [place] [address] Care Team Providers Name Role Phone Marcela Lau PA-C Primary Care Provider Encounter Details Date Type Department Care Team Description 05/05/2021 Documentation [facility] Gail Muller MD Specialists [address] [facility] [address] [place], [place] [address] [place] [address] [phone] (Wo rk) Social History Tobacco Use Types [...] Visit Medical Oncology Luzmaria Black MD [address] [facility] [address] (Wo rk) documented as of this encounter Visit Diagnoses Not on filedocumented in this encounter Care Teams Grocery Clerk Marking Relationship Specialty Start Date End Date Marcela Lau PA-C PCP - General Physician Chauffeur Motorbus 09/13/[address] [facility] [address] [place] [address] documented as of this encounter
--- OUTSIDE RECORDS SUMMARY | 2022-09-29 00:30 | XMS_ITS | Encounter Summary ---
:1960 Author Organization [facility] Address [address] [place] [address] Care Team Providers Name Role Phone Marcela Lau PA-C Primary Care Provider Reason for Referral Electrophysiology (Routine) - Closed Specialty Diagnoses / Procedures Referred By Contact Refer red To Contact Cardiology Diagnoses Palpitations Wayne Hyde NP [facility] Cardio Cl Procedures Cardiac event recorder [address] [facility] [address] [place], [place] [address] [address] [place] [address] Fax: Referral ID Status Reason Start Date Expiration Date Visits Requ ested Visits Authorized [id number] Closed 11/10/2021 05/13/2022 1 1 T TURNER Encounter Details Date Type Department Care Team Description 11/10/2021 Transcribe Orders [facility] Nirmala Phillips Cardiovascular Valeri Alexis MA (Primary D x) Consultants [address] [place], [place] [address] Social History Tobacco Use Types [...] Visit Medical Oncology Luzmaria Black MD [address] [address] (Wo rk) documented as of this encounter Results Cardiac event recorder (12/14/2021 12:00 AM SHIRT TURNER) Specimen (Source) Anatomical Location Collection Method / Collectio n Time Received Time / Laterality Volume 12/14/2021 Narrative TRACEMASTER - 12/29/2021 10:59 AM SHIRT TURNER ? [facility] [place] ? Test Date: ?2021-12-14 Pat Name: ? GAYE PAZ ?Department: ? Room: ? Gender: ? Female ? Filler Feeder: ?? : ?1960 ? Requested By: WAYNE HYDE Order Number: [id number] ?Reading : ?? Cleo Wiseman ? Interpretive Statements ? [facility] ?[place] Office ?[address] ?[place], [place] [address] ? EVENT RECORDER REPORT Television Repairer Date: 2021-12-14 RE: Gaye Paz : 1960 REFERRING PHYSICIAN: Wayne Hyde APRN REASON FOR EVENT RECORDER: Palpitations CONCLUSION: Patient wore monitor between November 15, 2021? December 14, 2021 Sinus rhythm only seen on strips, no remedios ses or arrhythmias Heart rate range 57? 74 Symptoms submitted include heart racing and correlated with sinus rhythm and PACs. Electronically Signed On 12-29-2021 10:59 :29 SHIRT TURNER by Cleo Wiseman Procedure Note Cleo Wiseman MD - 12/29/2021Formatti ng of this note might be different from the original. [facility] [place] Test Date: 2021-12-14 Pat Name: GAYE CÁRDENASRDT Department: Room: Gender: Female Filler Feeder: : 1960 Requested By: WAYNE HUANG Order Number: [id number] Reading MD: Rojas Wiseman Interpretive Statements [facility] [place] Office [address] [place] [address] EVENT RECORDER REPORT Television Repairer Date: 2021-12-14 RE: Gaye Paz : 1960 REFERRING PHYSICIAN: Wayne Hyde APRN REASON FOR EVENT RECORDER: Palpitations CONCLUSION: Patient wore monitor between November 15, 2021? December 14, 2021 Sinus rhythm only seen on strips, no remedios ses or arrhythmias Heart rate range 57? 74 Symptoms submitted include heart racing and correlated with sinus rhythm and PACs. Electronically Signed On 12-29-2021 10:59 :29 SHIRT TURNER by Cleo Wiseman Wayne Hyde NP [facility] ORDERABL ES Performing Organization Address City/State/ZIP Code Phon e Number TRACEMASTER documented in this encounter Visit Diagnoses Diagnosis Palpitations - Primary Palpitations documented in this encounter Care Teams Application Internship Relationship Specialty Start Date End Date Marcela Lau PA-C PCP - General Physician Electrician Telephone 09/13/[address] [address] documented as of this encounter
--- OUTSIDE RECORDS SUMMARY | 2022-09-29 00:30 | XMS_ITS | Encounter Summary ---
:1960 Author Organization [facility] Address [address] [place] [address] Care Team Providers Name Role Phone Marcela Lau PA-C Primary Care Provider Encounter Details Date Type Department Care Team Description 05/20/2021 Telephone [facility] Esme Shell R N Specialists [address] [facility] [address] [facility] [address] [address] [place] [phone] Social History Tobacco Use Types Packs/Day Years Used Date Smoking Tobacco: Never Smokeless Tobacco: Never Alcohol Use Standard Drinks/Week Comments Yes 0 (1 standard drink = 0.6 oz pure alcoho l) 1 glass a month (rarely) Sex Assigned at Date Recorded Female 04/21/2021 9:42 AM CDT documented as of this encounter Miscellaneous Notes Telephone Encounter - Esme Shell RN - 05/20/2021 3:04 PM CDT Spoke with pt and reviewed recent lab results. Explained that she will need to have labs rechecked in 3-4 months. Pt let [facility] nurse know that approx 2 weeks ago she was returning home from vacation and was removing her heavy backpack from the overhead bin of the plane when it fell and hit her left forearm. She said that a large hematoma formed and has not resolved. Asked pt to take a picture and send it through the my pt portal. Pt verbalized understanding. Telephone Encounter - Esme Shell RN - 05/20/2021 3:04 PM CDT ----- Message from Gail Muller MD sent at 05/20/2021 1:16 PM CDT ----- The work-up is essentially unremarkable and negative at this point. We could recheck CBC, CMP, and light chain assay in 3 to 4 months. documented in this encounter Plan of Treatment Upcoming Encounters Date Type Specialty Care Team Description 05/24/2023 Office Visit Medical Oncology CossorLuzmaria MD [address] [facility] [address] [place] [address] (Wo rk) documented as of this encounter Visit Diagnoses Not on filedocumented in this encounter Care Teams Radioisotope Technologist Relationship Specialty Start Date End Date Marcela Lau PA-C PCP - General Physician Oracle Obiee Developer 09/13/[address] [facility] [address] [place] [address] documented as of this encounter
--- OUTSIDE RECORDS SUMMARY | 2022-09-29 00:30 | XMS_ITS | Encounter Summary ---
:1960 Author Organization [facility] Address [address] [place] [address] Care Team Providers Name Role Phone Marcela Lau PA-C Primary Care Provider Encounter Details Date Type Department Care Team Description 05/20/2021 Orders Only [facility] Esme Shell Free monoclonal light Specialists DILCIA Guillen chain (Primary Dx) [address] [facility] [address] [place] [phone] Social History Tobacco Use Types Packs/Day [...] Visit Medical Oncology Luzmaria Black MD [address] [facility] [address] [place] [address] (Wo rk) documented as of this encounter Visit Diagnoses Diagnosis 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
--- OUTSIDE RECORDS SUMMARY | 2022-09-29 00:30 | XMS_ITS | Encounter Summary ---
:1960 Author Organization [facility] Address [address] [place] [address] Care Team Providers Name Role Phone Marcela Lau PA-C Primary Care Provider Reason for Referral Diagnostic Imaging (Routine) - Closed Specialty Diagnoses / Procedures Referred By Contact Refer red To Contact Radiology Diagnoses Proteinuria CKD (chronic kidney disease), stage III (HCC) Cherrie Cassidy APRN [facility] Procedures US Guided Biopsy Kidney [address] [place] [address] Jaylan Z[address] [address] 1 Referral ID Status Reason Start Date Expiration Date Visits Requ ested Visits Authorized [id number] Closed 06/13/2021 06/13/2022 1 1 Reason for Visit Diagnostic Imaging (Routine) - Closed Specialty Diagnoses / Procedures Referred By Contact Refer red To Contact Radiology Diagnoses Proteinuria CKD (chronic kidney disease), stage III (HCC) Cherrie Cassidy APRN [facility] Procedures US Guided Biopsy Kidney [address] [place] [address] [place] [address] [place] [address] [place], [place] [address] 1 Referral ID Status Reason Start Date Expiration Date Visits Requ ested Visits Authorized [id number] Closed 06/13/2021 06/13/2022 1 1 Encounter Details Date Type Department Care Team Description 06/29/2021 Hospital Encounter Staci Dougherty, PARALLEL COMPUTING SOFTWARE ENGINEER [address] [place] [address] Free monoclonal light chain (Primary Dx) ; [place] [address] [place], [place] [id number] Proteinuria; [address] [place] CKD (chronic kidney disease) , stage III ([facility]) [place] [address] Social History Tobacco Use Types Packs/Day Years Used Date Smoking Tobacco: Never Smokeless Tobacco: Never Alcohol Use Standard Drinks/Week Comments Yes 0 (1 standard drink = 0.6 oz pure alcoho l) 1 glass a month (rarely) Sex Assigned at Date Recorded Female 04/21/2021 9:42 AM CDT documented as of this encounter Last Filed Vital Signs Vital Sign Reading Time Taken Comments Blood Pressure 158/59 06/29/2021 12:30 PM CDT Pulse 55 06/29/2021 12:30 PM CDT Temperature 36.4 ??C (97.6 ??F) 06/29/2021 12:30 PM CDT Respiratory Rate 16 06/29/2021 12:30 PM CDT Oxygen Saturation 99% 06/29/2021 12:30 PM CDT Inhaled Oxygen Concentration - - Weight 59.4 kg (131 lb) 06/29/2021 9:17 AM CDT Height 170.2 cm (5' 7) 06/29/2021 9:17 AM CDT Body Mass Index 20.52 06/29/2021 9:17 AM CDT documented in this encounter Medications at Time of Discharge Medication Sig Dispensed Refills Start Date End Date amLODIPine (NORVASC) 5 5 mg 2 (two) times a 0 MG tablet day. cholecalciferol, Take 5,000 Units by 0 vitamin D3, 125 mcg mouth. (5,000 unit) Tab cloNIDine HCL 0.3 mg 3 (three) times 0 (CATAPRES) 0.3 mg a day. tablet CREON 36,000-114,000- 0 04/20/2021 180,000 unit CpDR glucagon 1 mg injection Glucagon Emergency Kit 1 mg solution for inje ction 0 Use as directed HYDROcodone-acetaminoph TAKE 1 TABLET BY MOUTH 0 04/08/2021 en (NORCO) 10-325 mg AT NIGHT NEEDED per tablet HYDROcodone-acetaminoph Take 1 tablet by mouth 0 03/30/2021 en (NORCO) 5-325 mg per every 6 (six) hours as tablet needed. insulin aspart, Fiasp U-100 Insulin 100 unit/mL subcutaneous soluti on 0 03/28/2020 niacinamide, (FIASP Inject max of 75 U qd in multiple doses as direc long U-100 INSULIN) 100 unit/mL Soln injection levothyroxine Synthroid 75 mcg tablet 0 (SYNTHROID, LEVOTHROID) TAKE 1 TABLET DAILY DIRECTED 75 MCG tablet LISINOPRIL ORAL Take 15 mg by mouth 2 0 (two) times a day. ONETOUCH ULTRA BLUE 0 05/14/2021 TEST STRIP test strips progesterone 0 10/07/2020 (PROMETRIUM) 100 MG capsule rosuvastatin (CRESTOR) 0 10/13/2020 5 MG tablet temazepam (RESTORIL) Take 7.5 mg by mouth 0 7.5 MG capsule nightly as needed for sleep. testosterone cypionate Inject 100 mg 0 (DEPOTESTOTERONE intramuscularly. CYPIONATE) 100 mg/mL injection GAVILYTE-G MIX DIRECTED ON 0 03/22/20212020 236-22.74-6.74 -5.86 PACKAGE. DRINK 240ML gram solution (8OZ) EVERY 10 MINUTES UNTIL GONE. REFRIGERATE ONCE MIXED. glucagon, human 1 0 08/27/2012 1 recombinant, (GLUCAGEN) 1 mg injection mesalamine (PENTASA) Take 500 mg by mouth 3 0 09/02/2021 500 MG CR capsule (three) times a day. 2 caps tid documented as of this encounter H&P Notes Cr Li MD - 06/29/2021 10:00 AM CDT INTERVAL RADIOLOGY INTERVAL H&P for PROCEDURE Date: 06/29/2021 History and Physical Reviewed Physical exam reviewed. No significant changes. Today's vital signs: There were no vitals taken for this visit. Consent obtained after explaining procedure, risks, and options; and after all questions answered documented in this encounter Nursing Notes Loly Haq RN - 06/29/2021 9:43 AM CDT Pt has continuous blood glucose monitor, read 157. Also has continuous insuling pump infusing R upper arm. Insulin is controlled by BS readings. Controlled by phone. Has shown to [facility] and will show tonurse in IR department before sedation is given. documented in this encounter Miscellaneous Notes Sedation Documentation - Cr Li MD - 06/29/2021 10:00 AM CDT Pre-Moderate Sedation (Sedation/Analgesia) Physician Evaluation Date: 06/29/2021 Chief complaint/ History of present illness/ Indication for procedure: Patient Active Problem List Diagnosis SNOMED CT(R) ??? Acne ACNE ??? Frances's thyroiditis FRANCES THYROIDITIS ??? Diabetic retinopathy ??? Encounter for fitting or adjustment of insulin pump PATIENT ENCOUNTER STATUS ??? Edema SWELLING - EDEMA - SYMPTOM ??? Uncontrolled type 1 diabetes mellitus (HCC) TYPE 1 DIABETES MELLITUS ??? Uncontrolled type 1 diabetes mellitus with renal manifestations (HCC) TYPE 1 DIABETES MELLITUS ??? Free monoclonal light chain MONOCLONAL FREE LIGHT CHAIN PRESENT ??? Easy bruisability EASY BRUISING ??? Proteinuria PROTEINURIA Planned Procedure/ Treatment: Orders Placed This Encounter Procedures ??? US Guided Biopsy Kidney ??? Clotting Screen ??? Vital signs ??? Activity as tolerated ??? Diet - NPO ??? Verify informed consent ??? Notify Physician ??? Insert peripheral IV ??? Place Patient in Outpatient Test: @ORDDX@ Preparations: procedure risks, benefits and options explained to patient, consent signed (if applicable), pulse oximeter, oxygen (if applicable) and IV access (if applicable) Airway: Mallampati Classification:Class 2 - Tonsillar pillars and uvula hidden by base of tongue Atlantoaxial range of motion (neck extension): more than 60 degrees Hyomental distance (fingerbreadths under chin): 3 Assessment Sedation: Acceptable candidate ASA Classification: P2. Patient with mild systemic disease Plan for Anesthesia: Moderate Physician signature of this note indicates that the following has been completed: - Reviewed patient history including medications, allergies, and labs - Physical exam completed and documented within 24 hours of administering Moderate Sedation - Airway assessment completed - Prior to the time of the procedure above described, I explained to the patient and to any person who has consented to the procedure on the patient's behalf, the nature, purpose, benefits, and risks of the procedure and Moderate Sedation as stated as well as possible alternative options. I have further discussed possible consequences of the procedure and Moderate Sedation, the principal risks involved, and the possible complications. documented in this encounter Plan of Treatment Upcoming Encounters Date Type Specialty Care Team Description 05/24/2023 Office Visit Medical Oncology CossorLuzmaria MD [facility] [address] [address] (Wo rk) documented as of this encounter Procedures Procedure Name Priority Date/Time Associated Diagnosis Comme nts US GUIDED BIOPSY Routine 06/29/2021 10:51 AM Proteinuria Results for this KIDNEY CDT CKD (chronic kidney procedur e are in disease), stage III the resu lts (HCC) section. CLOTTING SCREEN STAT 06/29/2021 9:30 AM Free monoclonal Res ults for this CDT light chain procedure are i n the results section. TISSUE PATHOLOGY OR Routine 06/28/2021 12:00 AM BIOPSY CDT documented in this encounter Results US Guided Biopsy Kidney (06/29/2021 10:51 AM CDT) Anatomical Region Laterality Modality Abdomen Ultrasound, X-Ray An giography Specimen (Source) Anatomical Collection Method Collection Time Re ceived Time Location / / Volume Laterality 06/29/2021 9:26 AM CDT Impressions 06/29/2021 12:45 PM CDT Successful ultrasound-guided left renal biopsy. Conscious sedation supplied by a nurse leobardo álvarez my supervision (a trained professional in conscious sedation) for 31 minutes with appropriate physiologic monitoring including heart r ate monitor, blood pressure monitor, oxygen saturation monitor, and continuous nursing assessment. Conscious sedation achieved with Versed and fentanyl. Narrative 06/29/2021 12:45 PM CDT Patient: ?? GAYE PAZ ?? Sex#: F ? #: 1960 ? Luzmaria#: [id number] Location: [facility] ? 99 Ordering Provider: ?? CHERRIE CASSIDY Procedure Requested: ??[id number] US GUIDED BIOPSY KIDNEY Exam Ordered: ?06/29/2021 ??082 9 Exam Date/Time: ?06/29/2021 ??105 Begin exam date/time: ??06/29/2021 ??09 DATE: ??06/29/2021 10:52 AM EXAM: ?? US GUIDED BIOPSY KIDNEY Conscious sedation INDICATION: ??Proteinuria CKD (chronic kidney disease), stage III (HCC) ?? Technique/findings: The left flank was prepared and draped i n sterile technique. Local anesthetic was applied with 1% lidocaine under ultrasound guidance. Following this, an 18-gauge core biopsie s were obtained from the left kidney in satisfactory position. Needle removed and hemostasis was achieved. Minimal blood loss (less than 5 cc). No apparent complications. Patient appears her rita ated the procedure well. Procedure Note Cr Li MD - 06/29/2021 Patient: GAYE PAZ Sex#: F #: [id number] Luzmaria#: [id number] Location: [facility] Ordering Provider: CHERRIE CASSIDY Procedure Requested: [id number] US GUIDED B IOPSY KIDNEY Exam Ordered: 06/29/2021 0829 Exam Date/Time: 06/29/2021 105 Begin exam date/time: 06/29/2021925 DATE: 06/29/2021 10:52 AM EXAM: US GUIDED BIOPSY KIDNEY Conscious sedation INDICATION: Proteinuria CKD (chronic kidney disease), stage III (HCC) Technique/findings: The left flank was prepared and draped i n sterile technique. Local anesthetic was applied with 1% lidocaine under ultrasound guidance. Following this, an 18-gauge core biopsie s were obtained from the left kidney in satisfactory position. Needle removed and hemostasis was achieved. Minimal blood loss (less than 5 cc). No apparent complications. Patient appears her rita ated the procedure well. IMPRESSION Successful ultrasound-guided left renal biopsy. Conscious sedation supplied by a nurse leobardo álvarez my supervision (a trained professional in conscious sedation) for 31 minutes with appropriate physiologic monitoring including heart r ate monitor, blood pressure monitor, oxygen saturation monitor, and continuous nursing assessment. Conscious sedation achieved with Versed and fentanyl. Cherrie Cassidy APRN IMG US ORDERABLES Clotting Screen (06/29/2021 9:30 AM CDT) P athologist Signature Protime 12.8 11.4 - 15.0 06/29/2021 [facility] sec 9:57 AM CDT [facility] INR 1.0 0.8 - 1.2 06/29/2021 [facility] 9:57 AM CDT [facility] APTT 30 22 - 34 sec 06/29/2021 [facility] 9:57 AM CDT [facility] Specimen Anatomical Collection Method Collection Time Receive d Time (Source) Location / / Volume Laterality Blood 06/29/2021 9:30 AM 9:37 CDT AM CDT Cr Li MD LAB BLOOD ORDERABLES Performing Organization Address City/[facility] Phon e Number [facility] [address] [place], [place] [address] [facility] [address] [place] [address] Tissue Pathology or Biopsy (06/28/2021 12:00 AM CDT) Specimen (Source) Anatomical Collection Method Collection Time Re ceived Time Location / / Volume Laterality Left Kidney 06/28/2021 12:00 AM CDT Narrative This result has an attachment that is no t available. Cherrie Cassidy APRN PATHOLOGY/CYTOLOGY ORDERABLE S Performing Organization Address City/[facility]/ZIP [facility] Phon e Number [facility] [address] [place] [address] [address] documented in this encounter Visit Diagnoses Diagnosis Free monoclonal light chain - Primary Proteinuria Proteinuria CKD (chronic kidney disease), stage III (HCC) Chronic kidney disease, Stage III (moder ate) Proteinuria documented in this encounter Administered Medications Inactive Administered Medications - up to 3 most recent administrations Medication Order MAR Action Action Date Dose Rate Site fentaNYL (SUBLIMAZE) injection Given 06/29/2021 10:14 AM CDT 50 mcg Intravenous, Code/trauma/sedation medication, Starting on Sun06/29/21 at 1014 lidocaine (pf) (XYLOCAINE-MPF) 10 mg/mL (1 Given 06/29/2021 10:2 0 AM 10 mL Back %) injection CDT Code/trauma/sedation medication, Starting on Sun06/29/21 at 1020 midazolam (PF) (VERSED) injection Given 06/29/2021 10:14 AM CDT 1 mg Intravenous, Code/trauma/sedation medication, Starting on Sun06/29/21 at 1014 sodium chloride 0.9% infusion New Bag 06/29/2021 10:13 AM 50 mL/hr 50 mL/hr Intravenous, Code/trauma/sedation CDT continuous med, Starting on Sun06/29/21 at 1013 documented in this encounter Care Teams Hair Assistant Relationship Specialty Start Date End Date Marcela Lau PA-C PCP - General Physician Talent Acquisition Assistant 09/13/[address] [place] [address] documented as of this encounter
--- OUTSIDE RECORDS SUMMARY | 2022-09-29 00:30 | XMS_ITS | Encounter Summary ---
:1960 Author Organization [facility] Address [address] [place] [address] Care Team Providers Name Role Phone Marcela Lau PA-C Primary Care Provider Encounter Details Date Type Department Care Team Description 08/22/2021 Telephone [facility] Neurological & Pam Espinoza RN Spine Surgery [address] [facility] [address] [place], [place] [address] Social History Tobacco Use Types Packs/Day Years Used Date Smoking Tobacco: Never Smokeless Tobacco: Never Alcohol Use Standard Drinks/Week Comments Yes 0 (1 standard drink = 0.6 oz pure alcoho l) 1 glass a month (rarely) Sex Assigned at Date Recorded Female 04/21/2021 9:42 AM CDT documented as of this encounter Miscellaneous Notes Telephone Encounter - Kalee Espinoza RN - 08/22/2021 4:48 PM CDT RN returned call to pt's . Pt is requesting imaging for her new physical therapist. RN explained patient needs to request from medical records and provided number. LVM documented in this encounter Plan of Treatment Upcoming Encounters Date Type Specialty Care Team Description 05/24/2023 Office Visit Medical Oncology CosLuzmaria tan MD [address] [address] (Wo rk) documented as of this encounter Visit Diagnoses Not on filedocumented in this encounter Care Teams Iron Pourer Relationship Specialty Start Date End Date Marcela Lau PA-C PCP - General Physician Natural Gas Engineer 09/13/[address] [place] [address] documented as of this encounter
--- OUTSIDE RECORDS SUMMARY | 2022-09-29 00:30 | XMS_ITS | Encounter Summary ---
:1960 Author Organization [facility] Address [address] [place] [address] Care Team Providers Name Role Phone Marcela Lau PA-C Primary Care Provider Encounter Details Date Type Department Care Team Description 05/24/2021 Documentation [facility] Cancer Gail Muller MD Specialists [address] [facility] [address] [facility] [address] [place], [place] [address] [place] [address] [phone] (Wo rk) Social History Tobacco Use Types [...] Visit Medical Oncology Luzmaria Black MD [address] [facility] [address] [place] [address] (Wo rk) documented as of this encounter Visit Diagnoses Not on filedocumented in this encounter Care Teams Incinerator Plant Supervisor Relationship Specialty Start Date End Date Marcela Lau PA-C PCP - General Physician Oleo Hasher And Renderer 09/13/[address] [facility] [address] [place] [address] documented as of this encounter
--- OUTSIDE RECORDS SUMMARY | 2022-09-29 00:30 | XMS_ITS | Encounter Summary ---
:1960 Author Organization [facility] Address [address] [place] [address] Care Team Providers Name Role Phone Marcela Lau PA-C Primary Care Provider Encounter Details Date Type Department Care Team Description 04/21/2021 Hospital Encounter [facility] SeanlizethMarian murphy estefanía n, right; [facility] [place] MD [place] Lumbar radiculopathy - [place] [address] [place] [address] [address] [place] [address] [phone] Social History Tobacco Use Types Packs/Day Years Used Date Smoking Tobacco: Never Smokeless Tobacco: Never Alcohol Use Standard Drinks/Week Comments Yes 0 (1 standard drink = 0.6 oz pure alcoho l) 1 glass a month (rarely) Sex Assigned at Date Recorded Female 04/21/2021 9:42 AM CDT documented as of this encounter Medications at Time of Discharge Medication Sig Dispensed Refills Start Date End Date amLODIPine (NORVASC) 5 5 mg 2 (two) times a 0 MG tablet day. cholecalciferol, Take 5,000 Units by 0 vitamin D3, 125 mcg mouth. (5,000 unit) Tab cloNIDine HCL 0.3 mg 3 (three) times 0 (CATAPRES) 0.3 mg a day. tablet CREON 36,000-114,000- 0 04/20/2021 180,000 unit CpDR HYDROcodone-acetaminoph TAKE 1 TABLET BY MOUTH 0 [...] 1 TABLET DAILY DIRECTED 75 MCG tablet progesterone 0 10/07/2020 (PROMETRIUM) 100 MG capsule rosuvastatin (CRESTOR) 0 10/13/2020 5 MG tablet testosterone cypionate Inject 100 mg 0 (DEPOTESTOTERONE intramuscularly. CYPIONATE) 100 mg/mL injection GAVILYTE-G MIX DIRECTED ON 0 03/22/20212020 236-22.74-6.74 -5.86 PACKAGE. DRINK 240ML gram solution (8OZ) EVERY 10 MINUTES UNTIL GONE. REFRIGERATE ONCE MIXED. glucagon, human 1 0 08/27/2012 1 recombinant, (GLUCAGEN) 1 mg injection lisinopriL Take 10 mg by mouth. 0 05/05 (PRINIVIL,ZESTRIL) 10 MG tablet lisinopriL 0 03/23/2021 05/19/2021 (PRINIVIL,ZESTRIL) 5 MG tablet documented as of this encounter Plan of Treatment Upcoming Encounters Date Type Specialty Care Team Description 05/24/2023 Office Visit Medical Oncology CossorLuzmaria MD [facility] [address] [address] (Wo rk) documented as of this encounter Procedures Procedure Name Priority Date/Time Associated Diagnosis Comme nts XR HIP 1 VIEW WITH Routine 04/21/2021 8:48 AM Groin pain , right Results for this PELVIS BILAT CDT Lumbar radiculopathy procedu re are in the results section. documented in this encounter Results XR Hip 1 view with Pelvis bilat (04/21/2021 8:48 AM CDT) Anatomical Region Laterality Modality Hip, Pelvis Bilateral Computed Radiography Specimen (Source) Anatomical Collection Method Collection Time Re ceived Time Location / / Volume Laterality 04/21/2021 8:24 AM CDT Impressions 04/21/2021 9:29 AM CDT Grade 4 osteoarthritis of the right hip. Grade 3 osteoarthritis of left hip. Moderate arthrosis of both sacroiliac rosa ints No acute osseous findings. Narrative 04/21/2021 9:29 AM CDT Patient: ?? GAYE PAZ ?? Sex#: F ? #: 1960 ? Luzmaria#: [id number] Location: [facility] ? 04 Procedure Requested: ??[id number] XR HIP 1 VIEW WITH PELVIS BILAT Reason for Exam: ??Groin pain, right Exam Ordered: ?04/21/2021 ??082 4 Exam Date/Time: ?04/21/2021 ??0848 Begin exam date/time: ??04/21/2021 ??0824 XR HIP 1 VIEW WITH PELVIS BILAT Indication: ??Groin pain, right Lumbar radiculopathy Exam Date: 04/21/2021 8:48 AM Procedure Note Skip Thompson MD - 04/21/2021Elvin ayon of this note might be different from the original. Patient: GAYE PAZ Sex#: F #: [id number] Luzmaria#: [id number] Location: [facility] Procedure Requested: [id number] XR HIP 1 EW WITH PELVIS BILAT Reason for Exam: Groin pain, right Exam Ordered: 04/21/2021 0824 Exam Date/Time: 04/21/2021 0848 Begin exam date/time: 04/21/2021 0824 XR HIP 1 VIEW WITH PELVIS BILAT Indication: Groin pain, right Lumbar radiculopathy Exam Date: 04/21/2021 8:48 AM IMPRESSION Grade 4 osteoarthritis of the right hip. Grade 3 osteoarthritis of left hip. Moderate arthrosis of both sacroiliac rosa ints No acute osseous findings. Kenyon Floyd MD IMG DIAGNOSTIC IMAGING ORDER ADAM documented in this encounter Visit Diagnoses Diagnosis Groin pain, right Lumbar radiculopathy Thoracic or lumbosacral neuritis or radi culitis, unspecified documented in this encounter Care Teams Supervisor Nut Processing Relationship Specialty Start Date End Date Marcela Lau PA-C PCP - General Physician Living Manager 09/13/[address] [address] documented as of this encounter
--- OUTSIDE RECORDS SUMMARY | 2022-09-29 00:30 | XMS_ITS | Encounter Summary ---
:1960 Author Organization [facility] Address [address] [place] [address] Care Team Providers Name Role Phone Marcela Lau PA-C Primary Care Provider Encounter Details Date Type Department Care Team Description 09/09/2021 Documentation [facility] Dimitrios Black MD Specialists [address] [facility] [address] [facility] [address] [place] [address] [place] [address] [phone] Social History Tobacco Use Types Packs/Day Years [...] Visit Medical Oncology Luzmaria Black MD [address] [facility] [address] [place] [address] (Wo rk) documented as of this encounter Visit Diagnoses Not on filedocumented in this encounter Care Teams Signals Collection Technician Relationship Specialty Start Date End Date Marcela Lau PA-C PCP - General Physician Overhead Cleaner 09/13/[address] [facility] [address] [place] [address] documented as of this encounter
--- OUTSIDE RECORDS SUMMARY | 2022-09-29 00:30 | XMS_ITS | Encounter Summary ---
:1960 Author Organization [facility] Address [address] [place] [address] Care Team Providers Name Role Phone Marcela Lau PA-C Primary Care Provider Reason for Referral MRI/CAT/PET Scan (Routine) - Closed Specialty Diagnoses / Procedures Referred By Contact Refer red To Contact Radiology Diagnoses Groin pain, right Lumbar radiculopathy Kenyon Floyd MD [facility] Procedures CT Lumbar Spine wo contrast [address] [facility] [address] [place] [address] [place], [place] [address] Referral ID Status Reason Start Date Expiration Date Visits Requ ested Visits Authorized [id number] Closed 04/14/2021 04/14/2022 1 1 Reason for Visit MRI/CAT/PET Scan (Routine) - Closed Specialty Diagnoses / Procedures Referred By Contact Refer red To Contact Radiology Diagnoses Groin pain, right Lumbar radiculopathy Kenyon Floyd MD [facility] Procedures CT Lumbar Spine wo contrast [address] [facility] [address] [place] [address] [place], [place] [address] Referral ID Status Reason Start Date Expiration Date Visits Requ ested Visits Authorized [id number] Closed 04/14/2021 04/14/2022 1 1 Encounter Details Date Type Department Care Team Description 04/21/2021 Hospital Encounter Marian Meneses n, right; [facility] MD Kenyon Lumbar radiculopathy - Mikala [address] [address] [address] [place] [address] [phone] Social History Tobacco Use Types Packs/Day Years [...] Office Visit Medical Oncology CosLuzmaria tan MD [address] [place] [phone] (Wo rk) documented as of this encounter Procedures Procedure Name Priority Date/Time Associated Diagnosis Comme nts CT LUMBAR SPINE WO Routine 04/21/2021 8:48 AM Groin pain , right Results for this CONTRAST CDT Lumbar radiculopathy procedu re are in the results section. documented in this encounter Results CT Lumbar Spine wo contrast (04/21/2021 8:48 AM CDT) Anatomical Region Laterality Modality L-spine Computed Tomography Specimen (Source) Anatomical Collection Method Collection Time Re ceived Time Location / / Volume Laterality 04/21/2021 8:41 AM CDT Impressions 04/21/2021 9:49 AM CDT 1. Stable appearance of the lumbar spine with probable laminectomy changes from L3-L5 with chronic posterio r element arthrosis and bone fusion from L3-L5 and degenerative grade II anterior listhesis of L5 in relation to S1 with advanced L5 disc spa ce changes. 2. Advanced degenerative disc changes at L1-2. 3. Calcified atherosclerosis with probab le right renal cortical cyst. 4. Suggestion of a right ovarian cyst ve rsus incompletely imaged fluid-filled loop of bowel. No additiona l acute process. Narrative 04/21/2021 9:49 AM CDT Patient: ?? GAYE PAZ ?? Sex#: F ? #: 1960 ? Luzmaria#: [id number] Location: [facility] ? 06 Procedure Requested: ??[id number] CT LUMBAR SPINE WO CONTRAST Reason for Exam: ??right LE radiculopath y Exam Ordered: ?04/21/2021 ??082 5 Exam Date/Time: ?04/21/2021 ??0848 Begin exam date/time: ??04/21/2021 ??0841 CT LUMBAR SPINE WO CONTRAST Date: ??04/21/2021 8:49 AM History: Lumbar radiculopathy, right low er extremity radiculopathy, right groin pain. NO ADDITIONAL CLINICAL HISTORY IS PROVIDED. Technique: ??Axial non-contrast CT image s through the lumbar spine with multiplanar reconstructions. One or more of the following dose reduction techniques were utilized: *Automated exposure control (AEC) *Adjustment of mA and/or kV according to patient size -Use of iterative reconstruction techniq ue -CT scan done according to ALARA, or ALA RA/IMAGE GENTLY Findings: Correlation with lumbar spine MRI from [facility] dated 01/07/2021. For the purposes of this exam, the first lumbar type, non rib bearing, presacral vertebral body will be conside red L1. No evidence of compression deformity or acute, displace d fracture. No evidence of pars defect. Chronic degenerative arthrosis a nd bone fusion of the posterior elements from L3-L5 with grade II degene rative anterior listhesis of L5 in relation to S1 with advanced degenera tive disc space changes with loss of disc space height, osteophyte fo rmation and endplate sclerosis. Advanced degenerative disc change at the L1-2 level. Bone alignment is otherwise maintained. Pedicles and bony canal appear maintained. Axial images suggest at least laminectomy or l eft laminectomy changes from L3-L5. No evidence of spinal stenosis. P aravertebral soft tissues appear unchanged with calcified atherosclerosis and probable right renal cortical cyst. Suggestion of a right ova ghulam cyst versus fluid-filled loop of bowel. Procedure Note Ankit Valentin MD - 04/21/2021Format ting of this note might be different from the original. Patient: GAYE PAZ Sex#: F #: [id number] Luzmaria#: [id number] Location: [facility] Procedure Requested: [id number] CT LUMBAR S PINE WO CONTRAST Reason for Exam: right LE radiculopathy Exam Ordered: 04/21/2021 0825 Exam Date/Time: 04/21/2021 0848 Begin exam date/time: 04/21/[address] LUMBAR SPINE WO CONTRAST Date: 04/21/2021 8:49 AM History: Lumbar radiculopathy, right low er extremity radiculopathy, right groin pain. NO ADDITIONAL CLINICAL HISTORY IS PROVIDED. Technique: Axial non-contrast CT images through the lumbar spine with multiplanar reconstructions. One or more of the following dose reduction techniques were utilized: *Automated exposure control (AEC) *Adjustment of mA and/or kV according to patient size -Use of iterative reconstruction techniq ue -CT scan done according to ALARA, or ALA RA/IMAGE GENTLY Findings: Correlation with lumbar spine MRI from [facility] dated 01/07/2021. For the purposes of this exam, the first lumbar type, non rib bearing, presacral vertebral body will be conside red L1. No evidence of compression deformity or acute, displace d fracture. No evidence of pars defect. Chronic degenerative arthrosis a nd bone fusion of the posterior elements from L3-L5 with grade II degene rative anterior listhesis of L5 in relation to S1 with advanced degenera tive disc space changes with loss of disc space height, osteophyte fo rmation and endplate sclerosis. Advanced degenerative disc change at the L1-2 level. Bone alignment is otherwise maintained. Pedicles and bony canal appear maintained. Axial images suggest at least laminectomy or l eft laminectomy changes from L3-L5. No evidence of spinal stenosis. P aravertebral soft tissues appear unchanged with calcified atherosclerosis and probable right renal cortical cyst. Suggestion of a right ova ghulam cyst versus fluid-filled loop of bowel. IMPRESSION 1. Stable appearance of the lumbar spine with probable laminectomy changes from L3-L5 with chronic posterio r element arthrosis and bone fusion from L3-L5 and degenerative grade II anterior listhesis of L5 in relation to S1 with advanced L5 disc spa ce changes. 2. Advanced degenerative disc changes at L1-2. 3. Calcified atherosclerosis with probab le right renal cortical cyst. 4. Suggestion of a right ovarian cyst ve rsus incompletely imaged fluid-filled loop of bowel. No additiona l acute process. Kenyon Floyd MD IMG CT ORDERABLES documented in this encounter Visit Diagnoses Diagnosis Groin pain, right Lumbar radiculopathy Thoracic or lumbosacral neuritis or radi culitis, unspecified documented in this encounter Care Teams Diesel Dinkey Operator Relationship Specialty Start Date End Date Marcela Lau PA-C PCP - General Physician Physics And Astronomy Professor 09/13/[address] [place] [address] documented as of this encounter
--- OUTSIDE RECORDS SUMMARY | 2022-09-29 00:30 | XMS_ITS | Encounter Summary ---
:1960 Author Organization [facility] Address [address] [place] [address] Care Team Providers Name Role Phone Marcela Lau PA-C Primary Care Provider Encounter Details Date Type Department Care Team Description 09/02/2021 Office Visit [facility] Dimitrios Black MD Elevated serum immunoglobulin free light chains (Primary Dx); Specialists [address] [facility] Other [facility] deficiency [facility] [address] [place] [address] [phone] Social History Tobacco Use Types Packs/Day Years Used Date Smoking Tobacco: Never Smokeless Tobacco: Never Alcohol Use Standard Drinks/Week Comments Yes 0 (1 standard drink = 0.6 oz pure alcoho l) 1 glass a month (rarely) Sex Assigned at Date Recorded Female 04/21/2021 9:42 AM CDT documented as of this encounter Last Filed Vital Signs Vital Sign Reading Time Taken Comments Blood Pressure 116/63 09/02/2021 1:19 PM CDT Pulse 74 09/02/2021 1:19 PM CDT Temperature 36.4 ??C (97.5 ??F) 09/02/2021 1:19 PM CDT Respiratory Rate - - Oxygen Saturation 99% 09/02/2021 1:19 PM CDT Inhaled Oxygen Concentration - - Weight 57.6 kg (127 lb) 09/02/2021 1:19 PM CDT Height 166.4 cm (5' 5.5) 09/02/2021 1:19 PM CDT Body Mass Index 20.81 09/02/2021 1:19 PM CDT documented in this encounter Progress Notes Luzmaria Black MD - 09/02/2021 1:10 PM CDT Images from the original note were not included. [address] [facility] [address] [facility] [address] HEMATOLOGY/ONCOLOGY NOTE Patient: Gaye Paz : 1960 Primary Care Physician: Marcela Lau PA-C, Referring Provider: No ref. provider found ASSESSMENT AND PLAN: 60 y.o. female with past medical history of type 1 diabetes, chronic kidney disease, hypothyroidism and ulcerative colitis seen today 09/02/2021 in the hematology clinic for evaluation of abnormal serum free light chains. 1. Elevated serum immunoglobulin free light chains CBC and Diff (manual diff if necessary) Comprehensive Metabolic Panel Free Bostic+Lambda Light Chains Serum Immunofixation Serum Protein Electrophoresis Serum 2. Other iron deficiency anemia Iron/Transferrin Ferritin Elevated serum free light chains ??? Prior work-up was negative for evidence of symptomatic multiple myeloma ??? She has had renal biopsy that showed evidence of diabetic nephropathy, without evidence of monoclonal protein deposition disease, free light chain deposition, or myeloma kidney ??? I suspect the patient has poor clearance of both kappa and lambda free light chains and we discussed the physiology of free light chain clearance in patients with CKD ??? Free light chain ratios of up to 3 are still generally considered normal in patients with CKD ??? She does warrant active surveillance ??? Recommend follow-up in May 2022 with repeat CBC differential, CMP, SPEP, RAE, SFLC Iron deficiency anemia ??? Based on patient's report she was diagnosed with iron deficiency anemia and treated with IV ironinfusions through her director of event sales office ??? I would not doubt she is iron deficient given her recent diagnosis of ulcerative colitis ??? I requested she have her director of event sales send the results of her most recent laboratory studies ??? We will recheck her iron studies when she comes back to clinic in follow-up I have spent over 40 minutes of time today on this patient's encounter. This time includes reviewingrecords of referring providers, labs, imaging, direct face to face time and time coordinating immediate post visit steps of care. PPE Statement: Luzmaria Black MD used Yellow precautions (Level 1 mask worn over level 3 mask, eye protection, and gloves). ==== CHIEF COMPLAINT: Abnormal serum free light chains HEMATOLOGIC HISTORY: 60 y.o. female with past medical history of type 1 diabetes, chronic kidney disease, hypothyroidism and ulcerative colitis seen today 09/02/2021 in the hematology clinic for evaluation of abnormal serum free light chains. The patient was seen previously by Dr. Muller in October 2020 for the abnormal free light chain chain studies, but lives closer to the [place] and is transferring care. Patient reports she was seen by her director of event sales, Dr. Samano, and was found to have elevated kappa free light chains with an abnormal ka ppa/lambda ratio of 2.[address] Muller checked baseline CBC, CMP, serum free light chains, SPEP and RAE. Work-up was consistent with either elevated light chain secondary to CKD versus low-level monoclonal gammopathy of undetermined significance. Active surveillance was recommended. Patient reports she is followed closely with monthly laboratory studies by her director of event sales. She wasrecently diagnosed with iron deficiency anemia and underwent iron infusions Jul 25 and 2020. She was diagnosed with ulcerative colitis on colonoscopy and biopsy in December 2020. She was started on treatment with mesalamine. Patient reported she was having significant hip and sciatica pain and recently underwent hip replacement surgery in June. Continues to have hip pain and sciatica symptoms. This is significantly decreasing her quality of life. She feels she has lost quite a bit of muscle mass because of lack of exercise. The iron deficiency has decreased her hemoglobin from a baseline of 14 g/dL to 10.8 g/dL (per patient report) before the iron infusions. Complains of decreased exercise tolerance, shortness of breath and weakness. Outpatient Encounter Medications as of 09/02/2021 Medication Sig Dispense Refill ??? cholecalciferol, vitamin D3, 125 mcg (5,000 unit) Tab Take 5,000 Units by mouth. ??? cloNIDine HCL (CATAPRES) 0.3 mg tablet clonidine HCl 0.3 mg tablet Take 1 tablet 4 times a day by oral route. ??? CREON 36,000-114,000- 180,000 unit CpDR ??? HYDROcodone-acetaminophen (NORCO) 10-325 mg per tablet TAKE 1 TABLET BY MOUTH AT NIGHT NEEDED ??? HYDROcodone-acetaminophen (NORCO) 5-325 mg per tablet Take 1 tablet by mouth every 6 (six) hoursas needed. ??? levothyroxine (SYNTHROID) 75 MCG tablet Synthroid 75 mcg tablet TAKE 1 TABLET DAILY DIRECTED ??? LISINOPRIL ORAL Take 15 mg by mouth 2 (two) times a day. ??? progesterone (PROMETRIUM) 100 MG capsule ??? rosuvastatin (CRESTOR) 5 MG tablet ??? temazepam (RESTORIL) 7.5 MG capsule Take 7.5 mg by mouth nightly as needed for sleep. ??? testosterone cypionate (DEPOTESTOTERONE CYPIONATE) 100 mg/mL injection Inject 100 mg intramuscularly. ??? amLODIPine (NORVASC) 5 MG tablet every 24 hours. ??? GAVILYTE-G 236-22.74-6.74 -5.86 gram solution MIX DIRECTED ON PACKAGE. DRINK 240ML (8OZ) EVERY 10 MINUTES UNTIL GONE. REFRIGERATE ONCE MIXED. ??? glucagon 1 mg injection Glucagon Emergency Kit 1 mg solution for injection Use as directed ??? glucagon, human recombinant, (GLUCAGEN) 1 mg injection 1 ??? insulin aspart, niacinamide, (FIASP U-100 INSULIN) 100 unit/mL Soln injection Fiasp U-100 Insulin 100 unit/mL subcutaneous solution Inject max of 75 U qd in multiple doses as directed ??? mesalamine (PENTASA) 500 MG CR capsule Take 500 mg by mouth 3 (three) times a day. 2 caps tid ??? ONETOUCH ULTRA BLUE TEST STRIP test strips No facility-administered encounter medications on file as of 09/02/2021. Past Medical History: Diagnosis Date ??? Autoimmune [...] ??? SPINAL FUSION x 4 ??? TOTAL SHOULDER ARTHROPLASTY Right ??? US GUIDED BIOPSY KIDNEY 06/29/2021 Hip replacement in June Family History Problem Relation Age of Onset ??? Hypertension [...] does not use drugs. Does not drink. 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 PHYSICAL EXAM ECOG PERFORMANCE STATUS 0 - Asymptomatic Weight: 57.6 kg (127 lb) Height: 166.4 cm (5' 5.5) BSA (Calculated - sq m): 1.64 sq meters BMI (Calculated): 20.8 BP: 116/63 BP Location: Right arm Pulse: 74 Temp: 97.5 ??F Temp src: Oral SpO2: 99 % Pain Score: 7 (right leg) Constitutional: Well appearing in no acute distress. HEENT: EOMI. Anicteric sclera. Conjunctivae are without injection or pallor. Neck: Supple. No adenopathy. Lymphatic: No cervical, supraclavicular, inguinal or axillary adenopathy. Cardiac: Regular rate and rhythm, without murmurs, gallops, or rubs. Respiratory: Lungs are clear to auscultation bilaterally. Abdomen: Soft, nontender, no hepatosplenomegaly, masses, guarding or rebound. BS normal. Extremities: No lower extremity edema. Calves are soft and nontender. Neurologic: No gross focal motor deficit. Cranial nerves 2-12 are grossly intact. Psych: Mood and affect are appropriate. Alert and oriented x 3. Skin: No bruises or petechiae seen. No rashes or lesions. LABS / PATHOLOGY / RADIOLOGY: No results found for this or any previous visit (from the past 168 hour(s)). documented in this encounter Plan of Treatment Upcoming Encounters Date Type Specialty Care Team Description 05/24/2023 Office Visit Medical Oncology Luzmaria Black MD [address] [facility] [address] [place] [address] (Wo rk) documented as of this encounter Results (ABNORMAL) Ferritin (05/15/2022 1:32 [...] updated 08/28/21 with SL HS conversion to [employer] instrumentation. Luzmaria Black MD LAB BLOOD ORDERABLES Performing Organization Address City/State/[facility] Code Phon e Number [id number] [place] [address] (ABNORMAL) Iron/Transferrin (05/15/2022 1:32 PM CDT) Analysis [...] MD LAB BLOOD ORDERABLES Performing Organization Address [facility] Phon e Number [id number] [place] [address] Protein Electrophoresis Serum (05/15/2022 1:32 PM CDT) Component Value Ref Test Analysis Performed Pathologis t Range Method Time At [facility] Protein Total SPE 6.4 g/dL 05/17/2022 [facility] [...] AM CDT Pathologist Reviewed by 05/17/2022 [facility] David Cardozo, 10:12 AM Zbigniew CDT M-Alon 05/17/2022 [facility] 10:12 AM CDT Path Normal protein 05/17/2022 [facility] Interpretation electrophoresis 10:12 AM pattern. CDT Specimen Anatomical Collection Method / Collection Time Recei wiley Time (Source) Location / Volume Laterality Blood (Venous) Venipuncture / 05/15/2022 1:32 05/15/20 22 1:32 Unknown PM CDT PM CDT Luzmaria Black MD LAB BLOOD ORDERABLES Performing Organization Address [facility] Phon e Number [id number] [place] [address] Immunofixation Serum (05/15/2022 1:32 PM CDT) Component Value Ref Test Analysis Performed At Patholo gist Range Method Time Signature Immunofixation A monoclonal 05/17/2022 [facility] Serum protein is 10:12 AM not CDT identified Pathologist Review Reviewed by 05/17/2022 GIRISH Reyes 10:12 AM Zbigniew Cardozo CDT Specimen Anatomical Collection Method / Collection Time Recei wiley Time (Source) Location / Volume Laterality Blood (Venous) Venipuncture / 05/15/2022 1:32 05/15/20 22 1:32 Unknown PM CDT PM CDT Luzmaria Black MD LAB BLOOD ORDERABLES Performing Organization Address City/[facility] Phon e Number [id number] [place] [address] (ABNORMAL) Free Bostic+Lambda Light Chains Serum (05/15/2022 1:32 PM CDT) athologist Signature Bostic/Lambda 1.96 (H) 0.26 - 05/18/2022 [facility] Ratio 1.65 6:06 PM CDT Free Bostic 44.2 (H) 3.3 - 19.4 05/18/2022 [facility] [...] 6:06 PM CDT Performed at: ??[address] - [facility] ??[id number] [employer] Marine: Kenya Khan MD, Phone: ??[phone] Luzmaria Black MD LAB BLOOD ORDERABLES Performing Organization Address City/State/ZIP Code Phon e Number [id number] [place] [address] (ABNORMAL) Comprehensive Metabolic Panel (05/15/2022 1:32 PM CDT) P athologist Signature Sodium 137 136 - 145 [...] [facility] Comment: Reference range updated 1 with HS conversion to [employer] instrumentation. Bilirubin Total 0.2 0.2 - 1.1 mg/dL 05/15/2022 8:01 PM CDT [facility] Blood Urea Nitrogen 36 (H) 9 - 23 mg/dL 05/15/2022 8:01 P M CDT [facility] Creatinine 1.08 (H) 0.55 - 1.02 mg/dL 05/15/2022 8:01 PM CD T [facility] eGFR 58.6 (L) 60.0 - 200.0 05/15/2022 8:01 PM CDT [facility] mL/min/1.73m*2 Comment: The National Kidney Foundation and the [facility] Society of Nephrology (NKF-ASN) recommends using the [...] Blood (Venous) Venipuncture / 05/15/2022 1:32 05/15/20 1:32 Unknown PM CDT PM CDT Luzmaria Black MD LAB BLOOD ORDERABLES Performing Organization Address City/State/ZIP Code Phon e Number [id number] [place] [address] (ABNORMAL) CBC and Diff (manual diff if [...] BLOOD ORDERABLES Performing Organization Address City/State/ZIP Code [facility] e Number [id number] [place] [address] documented in this encounter Visit Diagnoses Diagnosis Elevated serum immunoglobulin free light chains - Primary Other iron deficiency anemia documented in this encounter Care Teams Slate Splitting Supervisor Relationship Specialty Start Date End Date Marcela Lau PA-C PCP - General Physician Extractor Plant Operator 09/13/[address] [place] [address] documented as of this encounter
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
--- OUTSIDE RECORDS SUMMARY | 2022-09-29 00:30 | XMS_ITS | Encounter Summary ---
:1960 Author Organization [facility] Address [address] [place] [address] Care Team Providers Name Role Phone Marcela Lau PA-C Primary Care Provider Encounter Details Date Type Department Care Team Description 05/16/2021 Orders Only [facility] Cancer Esme Shell ia due to unknown mechanism (Primary Dx); Specialists M, RN Free monoclonal light chain [address] [facility] [address] [place] [phone] Social History Tobacco Use Types Packs/Day [...] Office Visit Medical Oncology CossorLuzmaria MD [address] [facility] [address] [place] [address] (Wo rk) Scheduled Orders Name Type Priority Associated Diagnoses Order S chedule CBC and Diff (manual diff Lab Routine Free monoclonal light every 6 mos for 3 if necessary) - (Standing chain Oc currences starting Order) 05/16/2021 unti l 05/16/2022, 1 completed Comprehensive Metabolic Lab Routine Free monoclonal l ight every 6 mos for 3 Panel - (Standing Order) chain Occ urrences starting 05/16/2021 unti l 05/16/2022, 1 completed Free [place]+Lambda Light Lab Routine Anemia due to unk nown every 6 mos for 3 Chains Serum mechanism Occurrences sta rting 05/16/2021 unti l 05/16/2022, 1 completed Protein Electrophoresis Lab Routine Anemia due to unk nown every 6 mos for 3 Serum mechanism Occurrences sta rting 05/16/2021 unti l 05/16/2022, 1 completed documented as of this encounter Procedures Procedure Name Priority Date/Time Associated Comments Diagnosis FREE KAPPA+LAMBDA LIGHT Routine 05/17/2021 1:08 Anemia due to Results for this CHAINS SERUM PM CDT unknown mechanism procedure are in the results section. VON WILLEBRAND FACTOR Routine 05/17/2021 1:08 Free monoclonal Results for this ANTIGEN PM CDT light chain procedure are i n the results section. TRANSFERRIN Routine 05/17/2021 1:08 Free monoclonal Results f or this PM CDT light chain procedure are i n the results section. PROTEIN ELECTROPHORESIS Routine 05/17/2021 1:08 Anemia due to Results for this SERUM PM CDT unknown mechanism procedure are in the results section. IRON Routine 05/17/2021 1:08 Free monoclonal Results f or this PM CDT light chain procedure are i n the results section. FERRITIN Routine 05/17/2021 1:08 Free monoclonal Results f or this PM CDT light chain procedure are i n the results section. COMPREHENSIVE METABOLIC Routine 05/17/2021 1:08 Free monoclona l Results for this PANEL PM CDT light chain procedure are i n the results section. CBC AND DIFF (MANUAL Routine 05/17/2021 1:08 Free monoclonal R esults for this DIFF IF NECESSARY) PM CDT light chain procedure are in the results section. documented in this encounter Results Von Willebrand Factor Antigen (05/17/2021 1:08 PM CDT) P athologist Signature VWF Antigen 147 50 - 217 % [facility] Specimen Anatomical Collection Method Collection Time Receive d Time (Source) Location / / Volume Laterality Blood 05/17/2021 1:08 PM 1:09 CDT PM CDT Gail Muller MD LAB BLOOD ORDERABLES Performing Organization Address City/State/ZIP Code Phon e Number [facility] [id number] [place] [address] Ferritin (05/17/2021 1:08 PM CDT) athologist Signature Ferritin 45 16 - 232 [facility] ng/mL Specimen Anatomical Collection Method Collection Time Receive d Time (Source) Location / / Volume Laterality Blood 05/17/2021 1:08 PM 1 1:09 CDT PM CDT Gail Muller MD LAB BLOOD ORDERABLES Performing Organization Address [facility] Phon e Number [facility] [address] [place] [address] Transferrin (05/17/2021 1:08 PM CDT) athologist Signature Transferrin 208 188 - 341 [facility] mg/dL Specimen Anatomical Collection Method Collection Time Receive d Time (Source) Location / / Volume Laterality Blood 05/17/2021 1:08 PM 1 1:09 CDT PM CDT Gail Muller MD LAB BLOOD ORDERABLES Performing Organization Address [facility] Phon e Number [facility] [address] [place] [address] Iron (05/17/2021 1:08 PM CDT) athologist Signature Iron 79 45 - 160 [facility] mcg/dL Specimen Anatomical Collection Method Collection Time Receive d Time (Source) Location / / Volume Laterality Blood 05/17/2021 1:08 PM 1 1:09 CDT PM CDT Gail Muller MD LAB BLOOD ORDERABLES Performing Organization Address [facility] Phon e Number [facility] [id number] [place] [address] (ABNORMAL) Protein Electrophoresis Serum (05/17/2021 1:08 PM CDT) [facility] Time Signature Protein Total 5.8 (L) 6.1 - 8.1 [facility] g/dL [facility] Albumin 3.7 (L) 3.8 - 4.8 [facility] g/dL [facility] Alpha 1 0.3 0.2 - 0.3 [facility] g/dL [facility] Alpha 2 0.7 0.5 - 0.9 [facility] g/dL [facility] BETA 1 GLOBULIN 0.3 (L) 0.4 - 0.6 [facility] g/dL [facility] BETA 2 GLOBULIN 0.2 0.2 - 0.5 [facility] g/dL [facility] Gamma 0.6 (L) 0.8 - 1.7 [facility] g/dL [facility] INTERPRETATION SEE NOTE [facility] Comment: Hypogammaglobulinemia may be seen in ear ly or evolving lymphoproliferative disorders, acquired or congenital immune deficiencies, immunosuppressive therapy and light chain disease. Consider urine protein electrophoresis, urine immunofixation and/or free light chains if clinically indicate d. Specimen Anatomical Collection Method Collection Time Receive d Time (Source) Location / / Volume Laterality Blood 05/17/2021 1:08 PM 1 1:09 CDT PM CDT Gail Muller MD LAB BLOOD ORDERABLES Performing Organization Address City/State/ZIP Code Phon e Number [facility] [id number] [place] [address] [facility] [address] [place] [address] (ABNORMAL) Free [place]+Lambda Light Chains Serum (05/17/2021 1:08 PM CDT) P athologist Signature KAPPA LIGHT 36.8 (H) 3.3 - 19.4 [facility] CHAIN, FREE, mg/L SERUM LAMBDA LIGHT 15.7 5.7 - 26.3 [facility] CHAIN, FREE, mg/L SERUM KAPPA/LAMBDA 2.34 (H) 0.26 - [facility] LIGHT CHAINS 1.65 FREE WITH RATIO, SERUM Comment: Free kappa/lambda ratio in serum of norm al individuals is 0.26-1.65. Excess production of free kappa or lambda chains can alter this ratio. Monoclonal free light chains are found in serum of patients wi th multiple myeloma, Waldenstrom's macroglobulinemia , mu-heavy chain disease, primary amyloidosis, light gideon n deposition disease, monoclonal gammopathy of undete rmined significance, and lymphoproliferative di sorders. Measurement of free light chain concentr ation in serum is useful for diagnosis, prognosis, filemon toring disease activity and following response to thera py of these disorders. Specimen Anatomical Collection Method Collection Time Receive d Time (Source) Location / / Volume Laterality Blood 05/17/2021 1:08 PM 1 1:09 CDT PM CDT Gail Muller MD LAB BLOOD ORDERABLES Performing Organization Address City/State/ZIP Code Phon e Number [facility] [id number] [place] [address] (ABNORMAL) Comprehensive Metabolic Panel - (Standing Order) (05/17/2021 1:08 PM CDT) P athologist Signature Glucose 108 (H) 65 - 99 [facility] mg/dL Comment: ? Fasting reference interv al For someone without known diabetes, a gl ucose value between 100 and 125 mg/dL is consistent with prediabetes and should be confirmed with a follow-up test. Blood Urea Nitrogen 25 7 - 25 mg/dL [facility] Creatinine 0.90 0.50 - 0.99 mg/dL [facility] Comment: For patients >49 years of age, the refer ence limit for Creatinine is approximately 13% high er for people identified as -Slovak. eGFR If NonAfricn Am 69 > OR = 60 mL/min/1.73m2 [facility] eGFR If Africn Am 81 > OR = 60 mL/min/1.73m2 [facility] BUN/CREATININE RATIO NOT APPLICABLE 6 - 22 (calc) [facility] Sodium 135 135 - 146 mmol/L [facility] Potassium 4.4 3.5 - 5.3 mmol/L [facility] Chloride 100 98 - 110 mmol/L [facility] Carbon Dioxide 27 20 - 32 mmol/L [facility] Calcium 10.2 8.6 - 10.4 mg/dL [facility] Protein Total Serum 5.8 (L) 6.1 - 8.1 g/dL [facility] Albumin 3.8 3.6 - 5.1 g/dL [facility] Globulin, Total 2.0 1.9 - 3.7 g/dL (calc) [facility] A/G Ratio 1.9 1.0 - 2.5 (calc) [facility] Bilirubin Total 0.4 0.2 - 1.2 mg/dL [facility] Alkaline Phosphatase 46 37 - 153 U/L [facility] Aspartate Aminotransferase 23 10 - 35 U/L [facility] Alanine Aminotransferase 25 6 - 29 U/L [facility] Specimen Anatomical Collection Method Collection Time Receive d Time (Source) Location / / Volume Laterality Blood 05/17/2021 1:08 PM 1 1:09 CDT PM CDT Gail Muller MD LAB BLOOD ORDERABLES Performing Organization Address City/State/ZIP Code Phon e Number [facility] [id number] [place] [address] CBC and Diff (manual diff if necessary) - (Standing Order) (05/17/2021 1:08 PM CDT) P athologist Signature WBC 6.4 3.8 - 10.8 [facility] Thousand/uL RBC 3.83 3.80 - 5.10 [facility] Million/uL Hemoglobin 12.1 11.7 - 15.5 [facility] g/dL Hematocrit 37.0 35.0 - 45.0 [facility] % MCV 96.6 80.0 - [facility] 100.0 fL MCH 31.6 27.0 - 33.0 [facility] pg MCHC 32.7 32.0 - 36.0 [facility] g/dL RDW 11.8 11.0 - 15.0 [facility] % Platelet Count 214 140 - 400 [facility] Thousand/uL MPV 11.6 7.5 - 12.5 [facility] fL # Granulocytes 3456 1500 - 7800 [facility] cells/uL # Lymphocytes 2,144 850 - 3,900 [facility] cells/uL # Monocytes 499 200 - 950 [facility] cells/uL # Eosinophils 230 15 - 500 [facility] cells/uL # Basophils 70 0 - 200 [facility] cells/uL % Neutrophils 54 % [facility] %Lymphocytes 33.5 % [facility] % Monocytes 7.8 % [facility] %Eosinophils 3.6 % [facility] %Basophils 1.1 % [facility] Specimen Anatomical Collection Method Collection Time Receive d Time (Source) Location / / Volume Laterality Blood 05/17/2021 1:08 PM 1 1:09 CDT PM CDT Gail Muller MD LAB BLOOD ORDERABLES Performing Organization Address City/[facility]/ZIP [facility] Phon e Number [facility] [id number] [phone] documented in this encounter Visit Diagnoses Diagnosis Anemia due to unknown mechanism - Primar y Unspecified anemia Free monoclonal light chain Proteinuria documented in this encounter Care Teams Duplicate Maker Relationship Specialty Start Date End Date Marcela Lau PA-C PCP - General Physician Therapy Aide 09/13/[address] [address] documented as of this encounter
--- OUTSIDE RECORDS SUMMARY | 2022-09-29 00:30 | XMS_ITS | Encounter Summary ---
:1960 Author Organization [facility] Address [address] [place] [address] Care Team Providers Name Role Phone Marcela Lau PA-C Primary Care Provider Encounter Details Date Type Department Care Team Description 05/19/2021 Imaging Appointment Medical Sergei Carroll olisthesis of Imaging MD [facility], [facility] [address] [facility] [address] [facility] [address] [facility], [address] [place] [address] [phone] Social History Tobacco Use Types Packs/Day Years [...] Visit Medical Oncology Luzmaria Black MD [address] [facility] [address] [place] [address] (Wo rk) documented as of this encounter Procedures Procedure Name Priority Date/Time Associated Diagnosis Comme nts XR SPINE Routine 05/19/2021 9:25 Spondylolisthesis of Resu lts for this SCOLIOSIS SUPINE AM CDT lumbosacral region proce dure are in ERECT the results section. documented in this encounter Results XR Spine Scoliosis 2 or 3 views (05/19/2021 9:25 AM CDT) Anatomical Region Laterality Modality C-spine, T-spine, L-spine Computed Radio graphy Specimen (Source) Anatomical Collection Method Collection Time Re ceived Time Location / / Volume Laterality 05/19/2021 8:55 AM CDT Impressions 05/19/2021 1:07 PM CDT 1. ??No significant thoracolumbar scolio sis (no significant curvature measuring greater than 10 degrees). 2. ??Severe L5-S1 anterolisthesis is red emonstrated, likely grade 2/grade 3. 3. ??Bony productive changes and ankylos is of the posterior lower lumbar spine, likely related to remote history of surgery. 4. ??Severe degenerative disc disease at L5-S1. Moderate to severe disc disease at L1-L2. ATTESTATION STATEMENT: The Staff Radiologist has personally rev iewed the images and dictated, reviewed, or edited the final report. READING SITE: [facility] Narrative 05/19/2021 1:07 PM CDT Patient: ?? GAYE PAZ ?? Sex#: F ? #: 1960 ? Luzmaria#: [id number] Location: [facility] XRAY ? 0810 Procedure Requested: ??[id number] XR SPINE SCOLIOSIS 2 OR 3 VIEWS Reason for Exam: ??Spondylolisthesis of lumbosacral region Exam Ordered: ?05/19/2021 ??085 5 Exam Date/Time: ?05/19/2021 ??0925 Begin exam date/time: ??05/19/2021 ??0855 XR SPINE SCOLIOSIS 2 OR 3 VIEWS DATE: 05/19/2021 9:26 AM INDICATION: ??Spondylolisthesis of lumbo sacral region ? COMPARISON: CT lumbar spine 04/21/2021, MRI lumbar spine 01/07/2021. FINDINGS: ?? There are 12 pairs of ribs and 5 lumbar type vertebrae. Scoliosis Measurements: ?? There is no significant scoliotic curvat ure (no significant curvature measuring greater than 10 degrees). The mid thoracic spine is partially obscured by a medical front desk coordinator. Partially visualized right total shoulder arthroplasty. A medical front desk coordinator is partia lly visualized over the right upper extremity as well. Sagittal Vertical axis: Cannot be accura tely assessed, due to overlying hardware. Coronal shift: Approximately 1.3 cm Mild to moderate thoracic degenerative d isc disease. Severe lumbar degenerative disc disease worst at L5-S1 ; additional moderate to severe degenerative disc disease at L1-L2. Mode rate osteoarthritis of the hips, worst on the right. Significant anterolisthesis of L5-S1 is difficult to assess due to overlying soft tissue and bone related a rtifacts. This is likely grade 2/3. It is also present on prior CT. Ext ensive bony changes and ankylosis of posterior lower lumbar spin e, likely related to remote history of surgery. Procedure Note Jed Downing MD - 05/19/2021Formatt ing of this note might be different from the original. Patient: GAYE PAZ Sex#: F #: 1960 Luzmaria#: [id number] Location: [facility] XRAY Procedure Requested: [id number] XR SPINE SC OLIOSIS 2 OR 3 VIEWS Reason for Exam: Spondylolisthesis of kimberlee mbosacral region Exam Ordered: 05/19/2021 0855 Exam Date/Time: 05/19/2021 0925 Begin exam date/time: 05/19/2021 0855 XR SPINE SCOLIOSIS 2 OR 3 VIEWS DATE: 05/19/2021 9:26 AM INDICATION: Spondylolisthesis of lumbosa cral region COMPARISON: CT lumbar spine 04/21/2021, MRI lumbar spine 01/07/2021. FINDINGS: There are 12 pairs of ribs and 5 lumbar type vertebrae. Scoliosis Measurements: There is no significant scoliotic curvat ure (no significant curvature measuring greater than 10 degrees). The mid thoracic spine is partially obscured by a medical front desk coordinator. Partially visualized right total shoulder arthroplasty. A medical front desk coordinator is partia lly visualized over the right upper extremity as well. Sagittal Vertical axis: Cannot be accura tely assessed, due to overlying hardware. Coronal shift: Approximately 1.3 cm Mild to moderate thoracic degenerative d isc disease. Severe lumbar degenerative disc disease worst at L5-S1 ; additional moderate to severe degenerative disc disease at L1-L2. Mode rate osteoarthritis of the hips, worst on the right. Significant anterolisthesis of L5-S1 is difficult to assess due to overlying soft tissue and bone related a rtifacts. This is likely grade 2/3. It is also present on prior CT. Ext ensive bony changes and ankylosis of posterior lower lumbar spin e, likely related to remote history of surgery. IMPRESSION 1. No significant thoracolumbar scoliosi s (no significant curvature measuring greater than 10 degrees). 2. Severe L5-S1 anterolisthesis is redem onstrated, likely grade 2/grade 3. 3. Bony productive changes and ankylosis of the posterior lower lumbar spine, likely related to remote history of surgery. 4. Severe degenerative disc disease at L 5-S1. Moderate to severe disc disease at L1-L2. ATTESTATION STATEMENT: The Staff Radiologist has personally rev iewed the images and dictated, reviewed, or edited the final report. READING SITE: [facility] Kenyon Floyd MD [facility] DIAGNOSTIC IMAGING ORDER ADAM documented in this encounter Visit Diagnoses Diagnosis Spondylolisthesis of lumbosacral region documented in this encounter Care Teams Shot Peening Operator Relationship Specialty Start Date End Date Marcela Lau PA-C PCP - General Physician Nuclear Medicine Supervisor 09/13/[address] [place] [address] documented as of this encounter
--- OUTSIDE RECORDS SUMMARY | 2022-09-29 00:30 | XMS_ITS | Encounter Summary ---
:1960 Author Organization [facility] Address [address] [place] [address] Care Team Providers Name Role Phone Marcela Lau PA-C Primary Care Provider Encounter Details Date Type Department Care Team Description 04/21/2021 [facility] Mindy Prescott lumbosacral region Surgery [address] [facility] [address] [facility] [place] [facility], [address] [place], [place] [address] [phone] Social History Tobacco Use Types Packs/Day Years Used Date Smoking Tobacco: Never Smokeless Tobacco: Never Alcohol Use Standard Drinks/Week Comments Yes 0 (1 standard drink = 0.6 oz pure alcoho l) 1 glass a month (rarely) Sex Assigned at Date Recorded Female 04/21/2021 9:42 AM CDT documented as of this encounter Progress Notes Kenyon Floyd MD - 04/21/2021 11:30 AM CDT Neurologic Surgery Return Patient Note Patient ID: Gaye Paz is a 60 y.o. female. Subjective: I met with Gaye Paz over a video visit. After her recent visit with me I wanted to obtain a CT scan of her lumbar spine to understand the degenerative spondylolisthesis at L5-S1 and understand the fusion status by virtue of her prior operations in the 1970s. She has a peculiar set of complaintsincluding groin pain tailbone pain and some leg pain. It is difficult to pinpoint radicular etiologyversus an instability etiology in her presenting symptoms. Today the video visit was to discuss her CT scan findings. Neck Disability Index: % OSWESTRY: % PHQ-9 PHQ-9: Over the last 2 weeks, how often [...] SOB MUSCULOSKELETAL: (-) muscle aches or pain Objective: There were no vitals taken for this visit. Imaging: On my evaluation of her CT scan completed today on April 21, 2021 I see that she has a solid fusion construct extending from L3 down to S1. She has a bony exuberance behind the S2-S3 vertebral bodies which is very close to the skin, and this could be 1 reason that it always comes in contact with the surface that she lies on and can cause tailbone pain. I did not see any direct or indirect evidence of neural element compression based on the limitations of a CT scan. Assessment/Plan: I would like to obtain long cassette scoliosis x-rays to understand the spinal pelvic harmony. We will regroup after the scoliosis x-rays to discuss if there is any spinal pelvic disharmony that needs to be addressed in her care considering her high sacral slope. If not we will concentrate on the local bony exuberance that she has on her sacrum which is very close to the skin to try and help her withtrigger point injections or a surgical flattening of this bony exuberance if she would intend to take that route. All questions were answered to her complete satisfaction. documented in this encounter Plan of Treatment Upcoming Encounters Date Type Specialty Care Team Description 05/24/2023 Office Visit Medical Oncology CossorLuzmaria MD [address] [facility] [address] [place] [address] (Wo rk) documented as of this encounter Results XR Spine Scoliosis 2 [...] or edited the final report. READING SITE: [facility] Narrative 05/19/2021 1:07 PM CDT Patient: ?? GAYE PAZ ?? Sex#: F ? #: 1960 ? Luzmaria#: [id number] Location: [facility] XRAY ? 0810 Procedure Requested: ??[id number] XR SPINE SCOLIOSIS 2 OR 3 VIEWS Reason for Exam: ??Spondylolisthesis of lumbosacral region Exam Ordered: ?05/19/2021 ??085 5 Exam Date/Time: ?05/19/2021 ??25 Begin exam date/time: ??05/19/2021 ??0855 XR SPINE [...] spine is partially obscured by a medical office technologist. Partially visualized right total shoulder arthroplasty. A medical office technologist is partia lly visualized over the right [...] GAYE PAZ Sex#: F #: 1960 Luzmaria#: [id number] Location: [facility] XRAY Procedure Requested: [id number] XR SPINE SC OLIOSIS 2 OR 3 VIEWS Reason for Exam: Spondylolisthesis of kimberlee mbosacral region Exam Ordered: 05/19/2021 0855 Exam Date/Time: 05/19/2021 09 Begin exam date/time: 05/19/2021 0855 XR SPINE [...] spine is partially obscured by a medical office technologist. Partially visualized right total shoulder arthroplasty. A medical office technologist is partia lly visualized over the right [...] or edited the final report. READING SITE: [facility] Kenyon FERNANDEZ DIAGNOSTIC IMAGING ORDER ADAM documented in this encounter Visit Diagnoses Diagnosis Spondylolisthesis of lumbosacral region - Primary Spondylolisthesis of lumbosacral region documented in this encounter Care Teams Senior Consultant Relationship Specialty Start Date End Date Marcela Lau PA-C PCP - General Physician Therapeutic Assistant 09/13/[address] [place] [address] documented as of this encounter
--- OUTSIDE RECORDS SUMMARY | 2022-09-29 00:30 | XMS_ITS | Encounter Summary ---
:1960 Author Organization [facility] Address [address] [place] [address] Care Team Providers Name Role Phone Marcela Lau PA-C Primary Care Provider Reason for Referral MRI/CAT/PET Scan (Routine) - Closed Specialty Diagnoses / Procedures Referred By Contact Refer red To Contact Radiology Diagnoses Groin pain, right Lumbar radiculopathy Kenyon Floyd MD [facility] Procedures CT Lumbar Spine wo contrast [address] [facility] [address] [facility] [address] [place] [address] [place], [place] [address] Referral ID Status Reason Start Date Expiration Date Visits Requ ested Visits Authorized [id number] Closed 04/14/2021 04/14/2022 1 1 Reason for Visit Reason Comments New patient consult Encounter Details Date Type Department Care Team Description 04/14/2021 Initial consult [facility], Groin pain, right (Primary Dx); Neurological & Spine Mindy Prescott Lumbar radiculopathy Surgery [address] [facility], [facility] [address] [place] [address] [phone] Social History Tobacco Use Types Packs/Day Years Used Date Smoking Tobacco: Never Smokeless Tobacco: Never Alcohol Use Standard Drinks/Week Comments Yes 0 (1 standard drink = 0.6 oz pure alcoho l) 1 glass a month (rarely) Sex Assigned at Date Recorded Female 04/21/2021 9:42 AM CDT documented as of this encounter Last Filed Vital Signs Vital Sign Reading Time Taken Comments Blood Pressure 138/61 04/14/2021 1:20 PM CDT Pulse 60 04/14/2021 1:20 PM CDT Temperature 36.3 ??C (97.3 ??F) 04/14/2021 1:20 PM CDT Respiratory Rate - - Oxygen Saturation - - Inhaled Oxygen Concentration - - Weight 61.7 kg (136 lb) 04/14/2021 1:20 PM CDT Height - - Body Mass Index 21.3 11/02/2020 3:44 PM HOSE BUILDER documented in this encounter Progress Notes Kenyon Floyd MD - 04/14/2021 1:00 PM CDT No note BUILDER documented in this encounter Plan of Treatment Upcoming Encounters Date Type Specialty Care Team Description 05/24/2023 Office Visit Medical Oncology CossorLuzmaria MD [facility] [address] [address] (Wo rk) documented as of this encounter Results XR Hip 1 view [...] Sex#: F ? #: 1960 ? Luzmaria#: [id number] Location: [facility] ? 04 Procedure Requested: ??[id number] XR HIP 1 VIEW WITH PELVIS BILAT [...] GAYE PAZ Sex#: F #: 1960 Luzmaria#: [id number] Location: [facility] Procedure Requested: [id number] XR HIP 1 EW WITH PELVIS BILAT [...] No acute osseous findings. Kenyon Floyd MD [facility] ORDER ADAM CT Lumbar Spine wo contrast (04/21/2021 8:48 [...] Sex#: F ? #: 1960 ? Luzmaria#: [id number] Location: [facility] ? 06 Procedure Requested: ??[id number] CT LUMBAR SPINE WO CONTRAST Reason for [...] to patient size -Use of iterative reconstruction technNeo PLM ue -CT scan done according to ALARA, or ALA RA/IMAGE GENTLY Findings: Correlation with lumbar spine MRI from [facility] dated 01/07/2021. For the purposes of [...] GAYE PAZ Sex#: F #: 1960 Luzmaria#: [id number] Location: [facility] Procedure Requested: [id number] CT LUMBAR S PINE WO CONTRAST Reason [...] Findings: Correlation with lumbar spine MRI from [facility] dated 01/07/2021. For the purposes of [...] encounter Visit Diagnoses Diagnosis Groin pain, right - Primary Lumbar radiculopathy Thoracic or lumbosacral neuritis or radi culitis, unspecified Groin pain, right Lumbar radiculopathy Thoracic or lumbosacral neuritis or radi culitis, unspecified Groin pain, right Lumbar radiculopathy Thoracic or lumbosacral neuritis or radi culitis, unspecified documented in this encounter Care Teams Speed Operator Relationship Specialty Start Date End Date Marcela Lau PA-C PCP - General Physician Lining Stamper 09/13/[address] [place] [address] documented as of this encounter
[2022-09-29] MEDS: 0.9 % SODIUM CHLORIDE 1000 ml 1,000 ML IV (00:31)
--- OUTSIDE RECORDS SUMMARY | 2022-09-29 00:31 | XMS_ITS | Encounter Summary ---
:1960 Author Organization [facility] Address [address] [place] [address] Care Team Providers Name Role Phone Unavailable Primary Care Provider Unavailable Encounter Details Date Type Department Care Team Description 11/28/2011 Hospital Encounter [facility] bebeto Roscoe Casanova, [address] [place], [place] [address] [address] [facility] [phone] [place] [address] Social History Tobacco Use Types Packs/Day Years Used Date Smoking Tobacco: Never Assessed Sex Assigned at Date Recorded Female 04/21/2021 9:42 AM CDT documented as of this encounter Medications at Time of Discharge Medication Sig Dispensed Refills Start Date End Date furosemide (LASIX) 40 MG TAKE 1 TABLET DAILY. 90 0 0 11/29/2011 06/09/2015 tablet lisinopril TAKE 2 TABLETS DAILY. 180 0 07/05/201103/2015 (PRINIVIL,ZESTRIL) 10 MG tablet NOVOLOG 100 unit/mL INJECT 60 UNIT DAILY 6 0 201106/09/2015 injection ONETOUCH ULTRA TEST Strp USE 8 STRIP DAILY 800 0 07/0 01/201206/09/2015 SYNTHROID 75 mcg tablet TAKE 1 TABLET DAILY. 90 0 06/09/2015 documented as of this encounter Plan of Treatment Upcoming Encounters Date Type Specialty Care Team Description 05/24/2023 Office Visit Medical Oncology CosLuzmaria tan MD [address] [phone] (Wo rk) documented as of this encounter Procedures Procedure Name Priority Date/Time Associated Diagnosis Comme nts HEMOGLOBIN A1C Routine 11/28/2011 1:40 PM Results for this VENEER STOCK GRADER procedure are i n the results section . documented in this encounter Results (ABNORMAL) Hemoglobin A1C (11/28/2011 1:40 PM VENEER STOCK GRADER) P athologist Signature HEMOGLOBIN A1C 6.7 (H) 4.0 - 5.6 [facility] % Comment: Non-diabetic ? 4.0 - 5.6 % Prediabetes ?5.7 - 6.4 % Diabetes ? >= 6.5 % Specimen (Source) Anatomical Collection Method Collection Time Re ceived Time Location / / Volume Laterality Blood 11/28/2011 1:40 PM VENEER STOCK GRADER Roscoe Casanova MD LAB BLOOD ORDERABLES Performing Organization Address City/State/ZIP Code Phon e Number [facility] [address] [place] [address] [place] documented in this encounter Visit Diagnoses Not on filedocumented in this encounter
--- OUTSIDE RECORDS SUMMARY | 2022-09-29 00:31 | XMS_ITS | Encounter Summary ---
:1960 Author Organization [facility] Address [address] [place] [address] Care Team Providers Name Role Phone Marcela Lau PA-C Primary Care Provider Encounter Details Date Type Department Care Team Description 09/24/2020 Documentation [facility] Gail Muller MD Specialists [address] [facility] [place], [place] [address] [place] [address] [phone] (Wo rk) Social History Tobacco Use Types Packs/Day Years Used Date Smoking Tobacco: Never Sex Assigned at Date Recorded Female 04/21/2021 9:42 AM CDT documented as of this encounter Plan of Treatment Upcoming Encounters Date Type Specialty Care Team Description 05/24/2023 Office Visit Medical Oncology Luzmaria Black MD [address] [facility] [address] [place] [address] (Wo rk) documented as of this encounter Visit Diagnoses Not on filedocumented in this encounter Care Teams Drier Relationship Specialty Start Date End Date Marcela Lau PA-C PCP - General Physician Geospatial Extractor Analysis 09/13/[address] [facility] [address] [place] [address] documented as of this encounter
--- OUTSIDE RECORDS SUMMARY | 2022-09-29 00:31 | XMS_ITS | Encounter Summary ---
:1960 Author Organization [facility] Address [address] [place] [address] Care Team Providers Name Role Phone Marcela Lau PA-C Primary Care Provider Encounter Details Date Type Department Care Team Description 08/05/2013 Allscripts Note [facility], Diabetes & Endocrinology [address] [place] [address] [place] [address] 66 [facility] [phone] Social History Tobacco Use Types Packs/Day Years Used Date Smoking Tobacco: Never Assessed Sex Assigned at Date Recorded Female 04/21/2021 9:42 AM CDT documented as of this encounter Miscellaneous Notes Miscellaneous - Roscoe Casaonva MD - 08/05/2013 7:34 AM CDT Verified Results Collected/Examined: Aug 04, 2013 1:25PM Test Result Flag Acceptable Hemoglobin A1C 7.2 % H 4.0-5.6 Non-diabetic 4.0 - 5.6 %^^ Prediabetes 5.7 - 6.4 %^^ Diabetes >= 6.5 %^^ Miscellaneous - Roscoe Casanova MD - 08/05/2013 7:34 AM CDT Verified Results Collected/Examined: Aug 04, 2013 1:25PM Test Result Flag Acceptable Hemoglobin A1C 7.2 % H 4.0-5.6 Non-diabetic 4.0 - 5.6 %^^ Prediabetes 5.7 - 6.4 %^^ Diabetes >= 6.5 %^^ documented in this encounter Plan of Treatment Upcoming Encounters Date Type Specialty Care Team Description 05/24/2023 Office Visit Medical Oncology CossorLuzmaria MD [address] [facility] [address] [place] [address] (Wo rk) documented as of this encounter Visit Diagnoses Not on filedocumented in this encounter Care Teams Injection Molding Machine Offbearer Relationship Specialty Start Date End Date Marcela Lau PA-C PCP - General Physician Branch General Manager 09/13/[address] [facility] [address] [place] [address] documented as of this encounter
--- OUTSIDE RECORDS SUMMARY | 2022-09-29 00:31 | XMS_ITS | Encounter Summary ---
:1960 Author Organization [facility] Address [address] [place] [address] Care Team Providers Name Role Phone Marcela Lau PA-C Primary Care Provider Encounter Details Date Type Department Care Team Description 07/05/2011 Allscripts Note [facility] Roscoe Goldberg, Diabetes & Endocrinology [address] [place] [id number] [place] [address] 66 [facility]ly [facility] [phone] Social History Tobacco Use Types Packs/Day Years Used Date Smoking Tobacco: Never Assessed Sex Assigned at Date Recorded Female 04/21/2021 9:42 AM CDT documented as of this encounter Miscellaneous Notes Miscellaneous - Roscoe Casanova MD - 07/05/2011 1:00 PM CDT Verified Results Collected/Examined: Jul 03, 2011 3:32PM Test Result Flag Acceptable CBC-Complete Blood Count WHITE BLOOD CELL COUNT 7.50 TH/uL 4.00-11.00 Red Blood Cell Count 4.06 MIL/uL 4.00-5.00 Hemoglobin 12.6 g/dL 12.0-15.0 Hematocrit 38 % 36-45 Mean Corpuscular Volume 94 fL 80-99 Mean Corpuscular Hgb 31 pg 27-34 Mean Corpuscular Hgb Conc 33 % 32-36 Red Cell Distribution Width 13.0 % 9.0-14.5 Platelet Count 217 TH/uL 140-400 Mean Platelet Volume 12.3 fL 9.4-12.3 Lipid Profile Cholesterol Lipid Prof 151 mg/dL 100-200 Triglycerides 77 mg/dL 0-150 Hdl 79 mg/dL 40-110 Ldl Cholesterol 57 mg/dL 0-99 Total Cholesterol/Hdl Ratio 1.9 0.0-4.5 Non- HDL Cholesterol 72 mg/dL 0-130 CMP-Comprehensive Metabolic Panel Albumin 3.8 g/dL 3.5-5.0 Aspartate Aminotransferase 27 IU/L 15-41 Alanine Aminotransferase 25 IU/L 14-63 Bilirubin Total 0.7 mg/dL 0.3-1.4 Protein Total Serum 6.2 g/dL 6.0-8.0 Calcium 9.3 mg/dL 8.8-10.5 Creatinine 0.9 mg/dL 0.4-1.1 Glucose 154 mg/dL H 65-100 Alkaline Phosphatase 47 IU/L 42-128 Sodium 139 MEQ/L 134-144 Potassium 4.4 MEQ/L 3.5-5.1 Chloride 102 MEQ/L 101-111 Anion Gap 7 3-15 Blood Urea Nitrogen 27 mg/dL H 8-26 Carbon Dioxide 30 MEQ/L 23-32 Gfrf Aa 79 Chronic Kidney Disease less than 60 mL/min/1.73 sq.m Kidney failure less than 15 mL/min/1.73 sq.m Gfrf Non Aa 66 Chronic Kidney Disease less than 60 mL/min/1.73 sq.m Kidney failure less than 15 mL/min/1.73 sq.m Thyroid Stimulating Hormone 0.94 uIU/mL 0.45-4.50 T4 Free 0.8 ng/dL 0.6-1.6 Microalbumin Urine Brandon Microalbumin Mg/L 1.17 mg/dL Creatinine, Urine Random Quant 63.3 mg/dL Microalbumin/Creatinine Ratio 18.48 ug/mg 0.00-24.00 Hemoglobin A1C 6.7 % H 4.0-6.0 Non-diabetic: 4.0 - 6.0 % Very Good Control: < 7.0 % Suboptimal Control: 7.1 - 8.0 % Poor Control: >8.0 % Vitamin D, 25 Hydroxy Vitamin D,25-Hydroxy D2 <5 ng/mL Vitamin D,25-Hydroxy D3 41 ng/mL Vitamin D,25-Hydroxy 41 ng/mL 25-80 Test performed by [facility] [address] [place] [address] Miscellaneous - Roscoe Casanova MD - 07/05/2011 1:00 PM CDT Verified Results Collected/Examined: Jul 03, 2011 3:32PM Test Result Flag Acceptable CBC-Complete Blood Count WHITE BLOOD CELL COUNT 7.50 TH/uL 4.00-11.00 Red Blood Cell Count 4.06 MIL/uL 4.00-5.00 Hemoglobin 12.6 g/dL 12.0-15.0 Hematocrit 38 % 36-45 Mean Corpuscular Volume 94 fL 80-99 Mean Corpuscular Hgb 31 pg 27-34 Mean Corpuscular Hgb Conc 33 % 32-36 Red Cell Distribution Width 13.0 % 9.0-14.5 Platelet Count 217 TH/uL 140-400 Mean Platelet Volume 12.3 fL 9.4-12.3 Lipid Profile Cholesterol Lipid Prof 151 mg/dL 100-200 Triglycerides 77 mg/dL 0-150 Hdl 79 mg/dL 40-110 Ldl Cholesterol 57 mg/dL 0-99 Total Cholesterol/Hdl Ratio 1.9 0.0-4.5 Non- HDL Cholesterol 72 mg/dL 0-130 CMP-Comprehensive Metabolic Panel Albumin 3.8 g/dL 3.5-5.0 Aspartate Aminotransferase 27 IU/L 15-41 Alanine Aminotransferase 25 IU/L 14-63 Bilirubin Total 0.7 mg/dL 0.3-1.4 Protein Total Serum 6.2 g/dL 6.0-8.0 Calcium 9.3 mg/dL 8.8-10.5 Creatinine 0.9 mg/dL 0.4-1.1 Glucose 154 mg/dL H 65-100 Alkaline Phosphatase 47 IU/L 42-128 Sodium 139 MEQ/L 134-144 Potassium 4.4 MEQ/L 3.5-5.1 Chloride 102 MEQ/L 101-111 Anion Gap 7 3-15 Blood Urea Nitrogen 27 mg/dL H 8-26 Carbon Dioxide 30 MEQ/L 23-32 Gfrf Aa 79 Chronic Kidney Disease less than 60 mL/min/1.73 sq.m Kidney failure less than 15 mL/min/1.73 sq.m Gfrf Non Aa 66 Chronic Kidney Disease less than 60 mL/min/1.73 sq.m Kidney failure less than 15 mL/min/1.73 sq.m Thyroid Stimulating Hormone 0.94 uIU/mL 0.45-4.50 T4 Free 0.8 ng/dL 0.6-1.6 Microalbumin Urine Brandon Microalbumin Mg/L 1.17 mg/dL Creatinine, Urine Random Quant 63.3 mg/dL Microalbumin/Creatinine Ratio 18.48 ug/mg 0.00-24.00 Hemoglobin A1C 6.7 % H 4.0-6.0 Non-diabetic: 4.0 - 6.0 % Very Good Control: < 7.0 % Suboptimal Control: 7.1 - 8.0 % Poor Control: >8.0 % Vitamin D, 25 Hydroxy Vitamin D,25-Hydroxy D2 <5 ng/mL Vitamin D,25-Hydroxy D3 41 ng/mL Vitamin D,25-Hydroxy 41 ng/mL 25-80 Test performed by [facility] [address] [address] documented in this encounter Plan of Treatment Upcoming Encounters Date Type Specialty Care Team Description 05/24/2023 Office Visit Medical Oncology Luzmaria Black MD [address] [facility] [address] [place] [address] (Wo rk) documented as of this encounter Visit Diagnoses Not on filedocumented in this encounter Care Teams Manager Risk Relationship Specialty Start Date End Date Marcela Lau PA-C PCP - General Physician Information Operator 09/13/[address] [place] [id number] documented as of this encounter
--- OUTSIDE RECORDS SUMMARY | 2022-09-29 00:31 | XMS_ITS | Encounter Summary ---
:1960 Author Organization [facility] Address [address] [place] [address] Care Team Providers Name Role Phone Unavailable Primary Care Provider Unavailable Encounter Details Date Type Department Care Team Description 08/06/2013 Hist-Appointment SLS DIAB ENDO HST CL Julian Casanova MD [address] [place] [place], [place] [address] (Wo rk) Social History Tobacco Use Types Packs/Day Years Used Date Smoking Tobacco: Never Assessed Sex Assigned at Date Recorded Female 04/21/2021 9:42 AM CDT documented as of this encounter Last Filed Vital Signs Vital Sign Reading Time Taken Comments Blood Pressure 90/60 08/06/2013 1:04 PM CDT Pulse 60 08/06/2013 1:04 PM CDT Temperature - - Respiratory Rate - - Oxygen Saturation - - Inhaled Oxygen Concentration - - Weight 67.6 kg (149 lb) 08/06/2013 1:04 PM CDT Height 152.4 cm (5') 08/06/2013 1:04 PM CDT Body Mass Index 29.1 08/06/2013 1:04 PM CDT documented in this encounter Progress Notes Roscoe Casanova MD - 08/06/2013 1:00 PM CDT Clinical Summary Patient Name : GAYE PAZ Appointment Date: 08/06/2013 1:00:00 PM : [id number] : [id number] [place] 1960 [place] [address] : Documented Assessed Problems Being A Social Drinker Caffeine Use Exercising Regularly Marital History - Currently Never A Smoker Occupation: Uses Safety Equipment - Seatbelts Type 1 Diabetes Mellitus - Uncontrolled Visit For: Fit/Adjust Insulin Pump Frances's Thyroiditis Vitals Recorded Date/Time: 08/06/2013 1:04:00 PM Systolic: 90 mm Hg; Diastolic: 60 mm Hg; Heart Rate: 60 bpm; BMI Calculated: 29.25; BSA Calculated: 1.64; Height: 5-0 in; Weight: 149-0 lb Current Medications Furosemide 40 MG Oral Tablet; TAKE 1 TABLET DAILY.; Days: 90; Qty: 90; Refill: 3 Glucagon Emergency 1 MG Injection Kit; ; Days: 30; Qty: 1; Refill: 0 Lisinopril 10 MG Oral Tablet; TAKE 2 TABLETS DAILY.; Days: 90; Qty: 180; Refill: 3 NovoLOG 100 UNIT/ML Subcutaneous Solution; INJECT 60 UNIT DAILY; Days: 90; Qty: 6; Refill: 5 OneTouch Ultra Blue In Vitro Strip; USE 8 STRIP DAILY; Days: 100; Qty: 800; Refill: 3 Synthroid 75 MCG Oral Tablet; TAKE 1 TABLET DAILY.; Days: 90; Qty: 90; Refill: 3 Allergies No Known Drug Allergies Results Hemoglobin A1C Hemoglobin A1C; Value = 7.2; Abnormal High; Ref Range : 4.0-5.6 Non-diabetic 4.0 - 5.6 %^^ Prediabetes 5.7 - 6.4 %^^ Diabetes >= 6.5 %^^ Future Appointments 11/26/2013 1:00:00 PM,Jocelyne Malhotra Document and Provider Details Document: Clinical Summary Provider: Jocelyne Site: [facility] Site Address : [address] [place] [address] Site Roscoe Casanova MD - 08/06/2013 1:00 PM CDT History of Present Illness Diabetes-[facility]: Reason for Visit: The patient's visit is for a routine clinic follow-up of Type 1 diabetes mellitus.She is doing well and having fewer low sugars. Symptoms: no polydipsia, no polyuria, no increased appetite, no weight loss, no fatigue, no blurred vision, episodes of hypoglycemia and no episodes of ketoacidosis. Home Measurement Readings: The patients meter was downloaded and reviewed. Please see scanned meter readings for annotations. The patients pump was downloaded and reviewed. Please see scanned meter readings for annotations. Associated symptoms: appetite not increased, no nausea, no vomiting, no anorexia, no abdominal pain,no abnormal healing and no confusion. Assessment 1. Being A Social Drinker 2. 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 Caffeine Use 4. Exercising Regularly 5. Marital History - Currently 6. 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 Type 1 Diabetes Mellitus - Uncontrolled 250.03 10. Visit For: Fit/Adjust Insulin Pump V53.91 Current Meds 1. Furosemide 40 MG Oral Tablet; TAKE 1 TABLET DAILY; Therapy: 01Mar2006 to (Evaluate:23Nov2012) Requested for: 06Aug2013 Recorded; For: Edema (782.3); Rx By: Roscoe Casanova; Dispense: 90 Days ; #:90 Tablet; Refill: 3; Record; Last Updated By: Sandra Zabala 2. Glucagon Emergency 1 MG Injection Kit; Therapy: 27Aug2012 to Recorded; Dispense: 30 Days ; #:1 KIT; Refill: 0; Record; Last Updated By: Sandra Zabala 3. Lisinopril 10 MG Oral Tablet; TAKE 2 TABLETS DAILY; Therapy: 01Feb2010 to (Evaluate:[id number]) Recorded; For: Diabetic Nephropathy Type 1 - Uncontrolled (250.43); Rx By: Roscoe Casanova; Dispense: 90 Days ; #:180 Tablet; Refill: 3; Record; Last Updated By: Sandra Zabala 4. NovoLOG 100 UNIT/ML Subcutaneous Solution; INJECT 60 UNIT DAILY; Therapy: 29Nov2005 to (Evaluate:[id number]) Requested for: 06Aug2013 Recorded; For: Type 1 Diabetes Mellitus - Uncontrolled (250.03); Rx By: Roscoe Casanova; Dispense: 90 Days ; #:6 X 10 ML Vial; Refill: 5; DIONNE; Record; Last Updated By: Sandra Zabala 5. OneTouch Ultra Blue In Vitro Strip; USE 8 STRIP DAILY; Therapy: 30Aug2005 to (Evaluate:[id number]) Requested for: 06Aug2013 Recorded; For: Type 1 Diabetes Mellitus - Uncontrolled (250.03); Rx By: Rosceo Casanova; Dispense: 100 Days ; #:800 EA; Refill: 3; DIONNE; Record; Last Updated By: Sandra Zabala 6. Synthroid 75 MCG Oral Tablet; TAKE 1 TABLET DAILY; Therapy: 29Nov2005 to (Evaluate:02May2013) Requested for: 06Aug2013 Recorded; For: Frances's Thyroiditis (245.2); Rx By: Roscoe Casanova; Dispense: 90 Days ; #:90 Tablet; Refill: 3; DIONNE; Record; Last Updated By: Sandra Zabala Allergies 1. No Known Drug Allergies No Known Drug Allergies Vitals Vital Signs [Data Includes: Last 1 Day] 06Aug2013 01:04PM BMI Calculated 29.25 BSA Calculated 1.64 Height 5 ft Weight 149 lb Systolic 90 Diastolic 60 Heart Rate 60 Review of Systems Complete-Female ROS - [facility]: Constitutional, eye, otolaryngeal, neck, cardiovascular, pulmonary, gastrointestinal, genitourinary, musculoskeletal, skin, neurological, psychiatric and endocrine review ofsystems are normal except as per HPI and unless noted below. Active Problems 1. Acne 706.1 2. Diabetic Nephropathy Type 1 - Uncontrolled 250.43 3. Diabetic Retinopathy 362.01 laser tx in 1977 4. 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 Type 1 Diabetes Mellitus - Uncontrolled 250.03 7. Visit For: Fit/Adjust Insulin Pump V53.91 Surgical History 1. History of Spinal Arthrodesis Family History 1. Family history of Cancer 2. Family history of Dyslipidemia 3. Family history of Essential Hypertension Social History 1. Being A Social Drinker 2. Caffeine Use 3. Exercising Regularly 4. Marital History - Currently 5. 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 Examination of the head and face: Normal. Inspection of conjunctiva and lids: Normal. Examination of pupils and irises: Normal. dilated retinal eye exam performed 08/2013 External inspection of ears and nose: Normal. Assessment of hearing: Normal. Examination of neck:. Normal. Examination of thyroid:. Normal. Assessment of respiratory effort:. Normal. Auscultation of lungs:. Normal. Auscultation of heart:. Normal. Examination for edema/varicosities: Normal. Palpation of lymph nodes in neck:. Normal. Examination of gait and station:. Normal. Examination of digits and nails:. Normal. Inspection of skin and subcutaneous tissue: Normal. Examination of cranial nerves:. Normal. Coordination: Normal. Description of patient's judgement/insight: Normal. Mood and affect:. Normal. Results/Data Diabetes Flowsheet [Data Includes: Last 1 Instance] Printed in Appendix #1 below. July labs reviewed Signatures Electronically signed by : Roscoe Casanova M.D.; Aug 06 2013 7:11PM (Author) Appendix #1 Diabetes Flowsheet [Data Includes: Last 1 Instance] Patient: GAYE PAZ; : 1960; [id number] Systolic 90 Diastolic 60 BMI Calculated 29.25 BSA Calculated 1.64 Height 5 ft Weight 149 lb Hemoglobin A1C 7.2 % 7.2 % Hemoglobin A1c Hours Post Prandial 12 Cholesterol Lipid Prof 177 mg/dL Triglycerides 71 mg/dL Hdl 79 mg/dL 79 mg/dL Ldl Cholesterol 84 mg/dL Total Cholesterol/Hdl Ratio 2.2 Non- HDL Cholesterol 98 mg/dL HDL Microalbumin Mg/L <0.50 mg/dL Creatinine, Urine Random Quant 14.4 mg/dL Microalbumin/Creatinine Ratio Not Calc ug/mg Leg / Foot Monofilament Wire Test Decreased Sensation Neg Feet Appearance Left Pos Feet Appearance Right Pos Preventive Med Phys Exam Dilated Retinal Eye Exam Performed Pos (08/2013 ) documented in this encounter Plan of Treatment Upcoming Encounters Date Type Specialty Care Team Description 05/24/2023 Office Visit Medical Oncology CossorLuzmaria MD [facility] [address] [address] (Wo rk) documented as of this encounter Visit Diagnoses Not on filedocumented in this encounter
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
--- OUTSIDE RECORDS SUMMARY | 2022-09-29 00:31 | XMS_ITS | Encounter Summary ---
:1960 Author Organization [facility] Address [address] [place] [address] Care Team Providers Name Role Phone Unavailable Primary Care Provider Unavailable Encounter Details Date Type Department Care Team Description 09/18/2012 Hist-Appointment [facility] DIAB ENDO [facility] Julian Casanova MD [address] [place], [place] [address] (Wo rk) Social History Tobacco Use Types Packs/Day Years Used Date Smoking Tobacco: Never Assessed Sex Assigned at Date Recorded Female 04/21/2021 9:42 AM CDT documented as of this encounter Last Filed Vital Signs Vital Sign Reading Time Taken Comments Blood Pressure 100/50 09/18/2012 1:01 PM WELDER FITTER APPRENTICE Pulse 68 09/18/2012 1:01 PM WELDER FITTER APPRENTICE Temperature - - Respiratory Rate - - Oxygen Saturation - - Inhaled Oxygen Concentration - - Weight 67.1 kg (148 lb) 09/18/2012 1:01 PM WELDER FITTER APPRENTICE Height 170.2 cm (5' 7) 09/18/2012 1:01 PM WELDER FITTER APPRENTICE Body Mass Index 23.18 09/18/2012 1:01 PM WELDER FITTER APPRENTICE documented in this encounter Progress Notes Roscoe Casanova MD - 09/18/2012 1:00 PM CST History of Present Illness Diabetes-SLMG: The patient's visit is for a routine clinic follow-up of type 1 diabetes mellitus. Feeling well. Just surpassed 5000miles of biking for the year. She will be getting R 4th PIP joint replacement 10/03/2012. Recently she has had stressful afternoon clients who have caused her sugrs to rise. She still gets low sugars while exercising, despite starting a temp basal rate 30 min b/f exercise. Symptoms: episodes of hypoglycemia, but no polydipsia, no polyuria, no increased appetite, no weightloss, no fatigue, no blurred vision and no episodes of ketoacidosis. The patient's meter, and pump is/are downloaded and reviewed. Please see scanned meter readings for annotations. Associated symptoms: appetite not increased, no anorexia, no nausea, no abdominal pain, no vomiting,no abnormal healing and no confusion. Assessment 1. Being A Social Drinker 2. Caffeine Use 3. Exercising Regularly 4. Marital History - Currently 5. 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 No changes to ins pump, unless afternoon high sugars persist, in which case she may need a slightly higher bolus w lunch. I doubt this will be the case. At upcoming surgery, do not remove pump preop. F/u 4mo. Current Meds 1. Furosemide 40 MG Oral Tablet; TAKE 1 TABLET DAILY; Therapy: 01Mar2006 to (Evaluate:23Nov2012) Requested for: 29Nov2011 Recorded; For: Edema (782.3); Rx By: Roscoe Casanova; Dispense: 90 Days ; #:90 Tablet; Refill: 3; Record; Last Updated By: Sandra Zabala 2. Lisinopril 10 MG Oral Tablet; TAKE 2 TABLETS DAILY; Therapy: 01Feb2010 to (Evaluate:[id number]) Recorded; For: Diabetic Nephropathy Type 1 - Uncontrolled (250.43); Rx By: Roscoe Casanova; Dispense: 90 Days ; #:180 Tablet; Refill: 3; Record; Last Updated By: Sandra Zabala 3. NovoLOG 100 UNIT/ML Subcutaneous Solution; INJECT 60 UNIT DAILY; Therapy: 29Nov2005 to (Evaluate:[id number]) Requested for: 18Sep2012 Recorded; For: Type 1 Diabetes Mellitus - Uncontrolled (250.03); Rx By: Roscoe Casanova; Dispense: 90 Days ; #:6 X 10 ML Vial; Refill: 5; DIONNE; Record; Last Updated By: Sandra Zabala 4. OneTouch Ultra Blue In Vitro Strip; USE 8 STRIP DAILY; Therapy: 30Aug2005 to (Evaluate:[id number]) Requested for: [id number] Recorded; For: Type 1 Diabetes Mellitus - Uncontrolled (250.03); Rx By: Roscoe Casanova; Dispense: 100 Days ; #:800 EA; Refill: 3; DIONNE; Record; Last Updated By: Sandra Zabala 5. Pravastatin Sodium 10 MG Oral Tablet; TAKE 1 TABLET DAILY AT BEDTIME; Therapy: [id number] to Recorded; Dispense: 0 Days ; #: Sufficient Tablet; Refill: 0; Record; Last Updated By: Roscoe Casanova qod 6. Synthroid 75 MCG Oral Tablet; TAKE 1 TABLET DAILY; Therapy: 29Nov2005 to (Evaluate:02May2013) Requested for: [id number] Recorded; For: Frances's Thyroiditis (245.2); Rx By: Roscoe Casanova; Dispense: 90 Days ; #:90 Tablet; Refill: 3; DIONNE; Record; Last Updated By: Sandra Zabala Allergies 1. No Known Drug Allergies No Known Drug Allergies Vitals Vital Signs [Data Includes: Last 1 Day] 18Sep2012 01:01PM BMI Calculated 23.23 BSA Calculated 1.78 Height 5 ft 7 in Weight 148 lb Systolic 100 Diastolic 50 Heart Rate 68 Review of Systems Complete-Female ROS - SLMG: Constitutional, eye, otolaryngeal, neck, cardiovascular, pulmonary, gastrointestinal, genitourinary, musculoskeletal, skin, neurological, psychiatric and endocrine review ofsystems are normal except as per HPI and unless noted below. Active Problems 1. Acne 706.1 2. Diabetic Nephropathy Type 1 - Uncontrolled 250.43 3. Diabetic Retinopathy 362.01 4. 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 Type 1 Diabetes Mellitus - Uncontrolled 250.03 Surgical History 1. History of Spinal Arthrodesis [...] irises: Normal. dilated retinal eye exam performed 07/2012 External inspection of ears and nose: Normal. Assessment of hearing: Normal. Description of patient's judgement/insight: Normal. Mood and affect:. Normal. Results/Data Diabetes Flowsheet [Data Includes: Last 1 Instance] [id number] Systolic 100 Diastolic 50 BMI Calculated 23.23 BSA Calculated 1.78 Height 5 ft 7 in Weight 148 lb Hemoglobin A1C 7.1 % Hours Post Prandial 12 H Cholesterol Lipid Prof 132 mg/dL Triglycerides 58 mg/dL Hdl 85 mg/dL 85 mg/dL Ldl Cholesterol 35 mg/dL Total Cholesterol/Hdl Ratio 1.6 Non- HDL Cholesterol 47 mg/dL HDL Microalbumin Mg/L <0.50 mg/dL Creatinine, Urine Random Quant 14.4 mg/dL Microalbumin/Creatinine Ratio Not Calc ug/mg Leg / Foot Monofilament Wire Test Decreased Sensation Neg Feet Appearance Left Pos Feet Appearance Right Pos Preventive Med Phys Exam Dilated Retinal Eye Exam Performed Pos (07/2012 ) labs reviewed Signatures Electronically signed by : Roscoe Casanova M.D.; Sep 18 2012 3:06PM (Author) ER FITTER APPRENTICE documented in this encounter Plan of Treatment Upcoming Encounters Date Type Specialty Care Team Description 05/24/2023 Office Visit Medical Oncology Luzmaria Black MD [address] [place] [address] (Wo rk) documented as of this encounter Visit Diagnoses Not on filedocumented in this encounter
--- OUTSIDE RECORDS SUMMARY | 2022-09-29 00:31 | XMS_ITS | Encounter Summary ---
:1960 Author Organization [facility] Address [address] [place] [address] Care Team Providers Name Role Phone Marcela Lau PA-C Primary Care Provider Encounter Details Date Type Department Care Team Description 09/24/2020 Documentation [facility] Gail Muller MD Specialists [address] [facility] [facility] [address] [place], [place] [address] [place] [address] [phone] (Wo rk) Social History Tobacco Use Types Packs/Day Years Used Date Smoking Tobacco: Never Sex Assigned at Date Recorded Female 04/21/2021 9:42 AM CDT documented as of this encounter Plan of Treatment Upcoming Encounters Date Type Specialty Care Team Description 05/24/2023 Office Visit Medical Oncology Luzmaria Black MD [address] [facility] [address] [place] [address] (Wo rk) documented as of this encounter Visit Diagnoses Not on filedocumented in this encounter Care Teams Lockstitch Shoulder Joiner Relationship Specialty Start Date End Date Marcela Lau PA-C PCP - General Physician Senior Maintenance Machinist 09/13/[address] [facility] [address] [place] [address] documented as of this encounter
--- OUTSIDE RECORDS SUMMARY | 2022-09-29 00:31 | XMS_ITS | Encounter Summary ---
:1960 Author Organization [facility] Address [address] [place] [address] Care Team Providers Name Role Phone Unavailable Primary Care Provider Unavailable Reason for Referral Diagnostic Imaging (Routine) - Closed Specialty Diagnoses / Procedures Referred By Contact Refer red To Contact Radiology Diagnoses Chronic kidney disease, stage III (moderate) (HCC) HTN (hypertension) Diabetes mellitus (HCC) LORETO (acute kidney injury) (HCC) Ivana Smart NP [facility] Procedures US Renal complete [id number] [place] [address] [address] [place], [place] [address] Referral ID Status Reason Start Date Expiration Date Visits Requ ested Visits Authorized [id number] Closed 09/03/2020 09/03/2021 1 1 Encounter Details Date Type Department Care Team Description 09/03/2020 Transcribe Orders [facility] Ivana Smart C hronic kidney disease, stage III (moderate) (Primary Dx); 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 HTN (hypertension); [address] [facility] [address] [place] Diabetes mellitus (HCC); [facility] LORETO (acute kidney injury) (HCC) [address] [phone] [place] [address] Social History Tobacco Use Types Packs/Day Years Used Date Smoking Tobacco: Never Sex Assigned at Date Recorded Female 04/21/2021 9:42 AM CDT documented as of this encounter Plan of Treatment Upcoming Encounters Date Type Specialty Care Team Description 05/24/2023 Office Visit Medical Oncology Luzmaria Black MD [address] [address] (Wo rk) documented as of this encounter Results US Renal complete (09/15/2020 2:23 PM SLIP COVER SEWER) Anatomical Region Laterality Modality Abdomen Ultrasound Specimen (Source) Anatomical Collection Method Collection Time Re ceived Time Location / / Volume Laterality 09/15/2020 2:03 PM SLIP COVER SEWER Impressions 09/15/2020 3:41 PM SLIP COVER SEWER 1. Probable 2.3 cm right parapelvic renal cyst with otherwise normal-appearing and fairly symmetric bi lateral kidneys. No evidence of hydronephrosis, solid mass or perinephri c fluid. 2. Probable incomplete imaging of a 3.2 cm simple right ovarian cyst. Narrative 09/15/2020 3:41 PM SLIP COVER SEWER Patient: ?? GAYE PAZ ?? Sex#: F ? #: [id number] ? Luzmaria#: [id number] Location: [facility] ? 51 Procedure Requested: ??[id number] US RENAL COMPLETE Reason for Exam: ??Chronic kidney diseas e, stage III (moderate) Exam Ordered: ?09/15/2020 ??14 01 Exam Date/Time: ?09/15/2020 ??142 3 Begin exam date/time: ??09/15/2020 ??140 3 US RENAL COMPLETE Date: ??09/15/2020 2:23 PM History: ??Chronic kidney disease, stage III (moderate) HTN (hypertension) Diabetes mellitus (HCC) LORETO (acute kidney injury) (HCC). NO JL TIONAL CLINICAL HISTORY IS PROVIDED. Findings: No comparison exams. The right kidney measures approximately 9.7 x 5.1 x 5.0 cm in maximal dimension demonstrating a round, anechoic nonvascular structure adjacent to the no rmal caliber renal pelvis measuring approximately 2.3 cm in jelani l dimension. Remainder of the right kidney otherwise appears normal. The left kidney measures approximately 9 .6 x 5.2 x 4.5 cm in maximal dimension without hydronephrosis, solid or cystic mass or perinephric fluid. Normal appearance of the urinary bladder without internal echoes. A right ureteral jet could not be document ed. Normal caliber and contour of the visual ized aorta and IVC. Incomplete imaging of a round, anechoic nonvascular structure near the right ovary measuring approximately 3.2 cm in maximal dimension. Procedure Note Ankit Valentin MD - 09/15/2020Format ting of this note might be different from the original. Patient: GAYE PAZ Sex#: F #: [id number] Luzmaria#: [id number] Location: [facility] Procedure Requested: [id number] US RENAL CO MPLETE Reason for Exam: Chronic kidney disease, stage III (moderate) Exam Ordered: 09/15/2020 1401 Exam Date/Time: 09/15/2020 1423 Begin exam date/time: 09/15/2020 1403 US RENAL COMPLETE Date: 09/15/2020 2:23 PM History: Chronic kidney disease, stage I II (moderate) HTN (hypertension) Diabetes mellitus (HCC) LORETO (acute kidney injury) (HCC). NO JL TIONAL CLINICAL HISTORY IS PROVIDED. Findings: No comparison exams. The right kidney measures approximately 9.7 x 5.1 x 5.0 cm in maximal dimension demonstrating a round, anechoic nonvascular structure adjacent to the no rmal caliber renal pelvis measuring approximately 2.3 cm in jelani l dimension. Remainder of the right kidney otherwise appears normal. The left kidney measures approximately 9 .6 x 5.2 x 4.5 cm in maximal dimension without hydronephrosis, solid or cystic mass or perinephric fluid. Normal appearance of the urinary bladder without internal echoes. A right ureteral jet could not be document ed. Normal caliber and contour of the visual ized aorta and IVC. Incomplete imaging of a round, anechoic nonvascular structure near the right ovary measuring approximately 3.2 cm in maximal dimension. IMPRESSION 1. Probable 2.3 cm right parapelvic arslan l cyst with otherwise normal-appearing and fairly symmetric bi lateral kidneys. No evidence of hydronephrosis, solid mass or perinephri c fluid. 2. Probable incomplete imaging of a 3.2 cm simple right ovarian cyst. Ivana Smart NP IMG US ORDERABLES documented in this encounter Visit Diagnoses Diagnosis Chronic kidney disease, stage III (moder ate) (HCC) - Primary Chronic kidney disease, Stage III (moder ate) HTN (hypertension) Unspecified essential hypertension Diabetes mellitus (HCC) Type II or unspecified type diabetes yoly litus without mention of complication, not stated as uncontrolled LORETO (acute kidney injury) (HCC) Chronic kidney disease, stage III (moder ate) (HCC) Chronic kidney disease, Stage III (moder ate) HTN (hypertension) Unspecified essential hypertension Diabetes mellitus (HCC) Type II or unspecified type diabetes yoly litus without mention of complication, not stated as uncontrolled LORETO (acute kidney injury) (HCC) documented in this encounter
--- OUTSIDE RECORDS SUMMARY | 2022-09-29 00:31 | XMS_ITS | Encounter Summary ---
:1960 Author Organization [facility] Address [address] [place] [address] Care Team Providers Name Role Phone Unavailable Primary Care Provider Unavailable Encounter Details Date Type Department Care Team Description 05/02/2013 Hospital Encounter [facility] bebeto FreyjuniorAlbertRoscoe, [address] [place], [place] [address] [address] [phone] [place] [address] Social History Tobacco Use Types Packs/Day Years Used Date Smoking Tobacco: Never Assessed Sex Assigned at Date Recorded Female 04/21/2021 9:42 AM CDT documented as of this encounter Medications at Time of Discharge Medication Sig Dispensed Refills Start Date End Date furosemide (LASIX) 40 MG TAKE 1 TABLET DAILY. 90 0 0 11/29/2011 06/09/2015 tablet glucagon, human 1 0 08/27/2012 1 recombinant, (GLUCAGEN) 1 mg injection lisinopril TAKE 2 TABLETS DAILY. 180 0 07/05/201103/2015 (PRINIVIL,ZESTRIL) 10 MG tablet NOVOLOG 100 unit/mL INJECT 60 UNIT DAILY 6 0 201106/09/2015 injection ONETOUCH ULTRA TEST Strp USE 8 STRIP DAILY 800 0 07/01/201206/09/2015 SYNTHROID 75 mcg tablet TAKE 1 TABLET DAILY. 90 0 06/09/2015 documented as of this encounter Plan of Treatment Upcoming Encounters Date Type Specialty Care Team Description 05/24/2023 Office Visit Medical Oncology Luzmaria Black MD [facility] [place], [place] [address] [address] (Wo rk) documented as of this encounter Procedures Procedure Name Priority Date/Time Associated Comments Diagnosis THYROID STIMULATING Routine 05/02/2013 10:36 Resu lts for this HORMONE AM CDT procedure are i n the results section. T4 FREE Routine 05/02/2013 10:36 Results for this AM CDT procedure are i n the results section. LIPID PANEL Routine 05/02/2013 10:36 Results for this AM CDT procedure are i n the results section. HEMOGLOBIN A1C Routine 05/02/2013 10:36 Results f or this AM CDT procedure are i n the results section. COMPREHENSIVE Routine 05/02/2013 10:36 Results fo r this METABOLIC PANEL AM CDT procedure ar e in the results section. CBC AND DIFF (MANUAL Routine 05/02/2013 10:36 Res ults for this DIFF IF NECESSARY) AM CDT procedure are in the results section. documented in this encounter Results (ABNORMAL) CBC and Diff (manual diff if necessary) (05/02/2013 10:36 AM CDT) Analysis Performed At Patho logist Time Signature WBC 5.54 4.00 - HLAB 11.00 TH/UL RBC 4.61 4.00 - [facility] 5.00 MIL/UL Hemoglobin 13.5 12.0 - [facility] 15.0 G/DL Hematocrit 42 36 - 45 % HL[facility] MCV 92 80 - 99 FL HL[facility] MCH 29 27 - 34 PG HL[facility] MCHC 32 32 - 36 % HL[facility] RDW 13.4 9.0 - 14.5 HL[facility] % Platelet Count 254 140 - 400 [facility] TH/UL MPV 12.3 9.4 - 12.3 HLAB FL % Neutrophils 52 45 - 78 % HL[facility] %Lymphocytes 31 15 - 47 % [facility] % Monocytes 7 0 - 12 % [facility] %Eosinophils 8 (H) 0 - 7 % [facility] # Basophils 0.09 0.00 - [facility] 0.10 TH/UL # Eosinophils 0.45 (H) 0.00 - HL[facility] 0.40 TH/UL %Basophils 2 0 - 2 % [facility] # Monocytes 0.37 0.20 - HL[facility] 0.90 TH/UL # Lymphocytes 1.73 1.00 - [facility] 3.30 TH/UL # Granulocytes 2.90 1.70 - [facility] 6.80 TH/UL Specimen (Source) Anatomical Collection Method Collection Time Re ceived Time Location / / Volume Laterality Blood 05/02/2013 10:36 AM CDT Roscoe Casanova MD LAB BLOOD ORDERABLES Performing Organization Address City/[facility] Phon e Number [facility] [id number] [place] [address] HLAB (ABNORMAL) Comprehensive Metabolic Panel (05/02/2013 10:36 AM CDT) [facility] gist Method Time Signature Albumin 4.1 3.5 - 5.0 HL[facility] G/DL Aspartate 34 15 - 46 [facility] Aminotransferase IU/L Bilirubin Total 0.5 0.2 - 1.3 [facility] MG/DL Protein Total Serum 7.3 6.0 - 8.2 HL[facility] G/DL Calcium 10.0 8.4 - [facility] 10.2 MG/DL Creatinine 1.0 0.4 - 1.1 HL[facility] MG/DL Glucose 168 (H) 70 - 100 HL[facility] MG/DL Alkaline Phosphatase 71 42 - 140 HL[facility] IU/L Sodium 138 133 - 147 [facility] MEQ/L Potassium 4.6 3.5 - 5.3 [facility] MEQ/L Comment: Potassium reference interval [facility] on 04/02/2013. Chloride 100 96 - 112 MEQ/L HLAB Carbon Dioxide 27 20 - 30 MEQ/L HLAB Blood Urea Nitrogen 34 (H) 7 - 26 MG/DL HLAB Anion Gap 12 5 - 17 HL[facility] Alanine Aminotransferase 42 13 - 69 IU/L HL AB eGFR Female AA 70 HLAB Comment: Chronic Kidney Disease less than 60 mL/m in/1.73 sq.m ??Kidney failure less than 15 mL/min/1. 73 sq.m eGFR Female Non-AA 58 [facility] Comment: Chronic Kidney Disease less than 60 mL/m in/1.73 sq.m ??Kidney failure less than 15 mL/min/1. 73 sq.m Specimen (Source) Anatomical Collection Method Collection Time Re ceived Time Location / / Volume Laterality Blood 05/02/2013 10:36 AM CDT Roscoe Casanova MD LAB BLOOD ORDERABLES Performing Organization Address City/[facility] Phon e Number [facility] [id number] [place] [address] HLAB T4 Free (05/02/2013 10:36 AM CDT) athologist Signature T4 Free 1.5 0.8 - 2.2 HL[facility] NG/DL Specimen (Source) Anatomical Collection Method Collection Time Re ceived Time Location / / Volume Laterality Blood 05/02/2013 10:36 AM CDT Roscoe Casanova MD LAB BLOOD ORDERABLES Performing Organization Address City/[facility]/ZIP Code Phon e Number [facility] [id number] [place] [address] HLAB Lipid Panel (05/02/2013 10:36 AM CDT) Analysis Performed At Patho logist Time Signature Cholesterol 177 100 - 200 [facility] MG/DL Triglycerides 71 0 - 150 HL[facility] MG/DL HDL Cholesterol 79 40 - 110 HL[facility] MG/DL LDL Cholesterol 84 0 - 99 HL[facility] MG/DL Cholesterol/HDL 2.2 0.0 - 4.5 HLAB Ratio Hours Postprandial 12 HLAB Non-HDL 98 0 - 130 HL[facility] Cholesterol MG/DL Specimen (Source) Anatomical Collection Method Collection Time Re ceived Time Location / / Volume Laterality Blood 05/02/2013 10:36 AM CDT Roscoe Casanova MD LAB BLOOD ORDERABLES Performing Organization Address City/[facility]/ZIP Code Phon e Number [facility] [id number] [place] [address] HLAB Thyroid Stimulating Hormone (05/02/2013 10:36 AM CDT) athologist Signature Thyroid 0.94 0.47 - [facility] Stimulating 4.68 Hormone UIU/ML Specimen (Source) Anatomical Collection Method Collection Time Re ceived Time Location / / Volume Laterality Blood 05/02/2013 10:36 AM CDT Roscoe Casanova MD LAB BLOOD ORDERABLES Performing Organization Address City/[facility]/ZIP Code Phon e Number [facility] [id number] [place] [address] HLAB (ABNORMAL) Hemoglobin A1C (05/02/2013 10:36 AM CDT) athologist Signature HEMOGLOBIN A1C 6.8 (H) 4.0 - 5.6 HLAB % Comment: Non-diabetic ? 4.0 - 5.6 % Prediabetes ?5.7 - 6.4 % Diabetes ? >= 6.5 % Specimen (Source) Anatomical Collection Method Collection Time Re ceived Time Location / / Volume Laterality Blood 05/02/2013 10:36 AM CDT Roscoe Casanova MD LAB BLOOD ORDERABLES Performing Organization Address City/State/[facility] e Number [facility] [id number] [place] [address] HLAB documented in this encounter Visit Diagnoses Not on filedocumented in this encounter
--- OUTSIDE RECORDS SUMMARY | 2022-09-29 00:31 | XMS_ITS | Encounter Summary ---
:1960 Author Organization [facility] Address [address] [place] [address] Care Team Providers Name Role Phone Unavailable Primary Care Provider Unavailable Encounter Details Date Type Department Care Team Description 11/29/2011 Hist-Appointment [facility] PRIM [facility] Julian Kenney MD [address] [place], [place] [address] (Wo rk) Social History Tobacco Use Types Packs/Day Years Used Date Smoking Tobacco: Never Assessed Sex Assigned at Date Recorded Female 04/21/2021 9:42 AM CDT documented as of this encounter Last Filed Vital Signs Vital Sign Reading Time Taken Comments Blood Pressure 110/50 11/29/2011 1:08 PM VACUUM FORM OPERATOR Pulse 72 11/29/2011 1:08 PM VACUUM FORM OPERATOR Temperature - - Respiratory Rate - - Oxygen Saturation - - Inhaled Oxygen Concentration - - Weight 67.9 kg (149 lb 9.6 oz) 11/29/2011 1:08 PM VACUUM FORM OPERATOR Height 171.5 cm (5' 7.5) 11/29/2011 1:08 PM VACUUM FORM OPERATOR Body Mass Index 23.08 11/29/2011 1:08 PM VACUUM FORM OPERATOR documented in this encounter Progress Notes Roscoe Casanova MD - 11/29/2011 1:00 PM CST History of Present Illness Diabetes-[facility]: The patient's visit is for a routine clinic follow-up of type 1 diabetes mellitus. Symptoms: fatigue, but no polydipsia, no polyuria, no increased appetite, no weight loss, no blurredvision and no episodes of ketoacidosis. The patient's meter, and pump is/are downloaded and reviewed. Please see scanned meter readings for annotations. Associated symptoms: appetite not increased, no anorexia, no nausea, no abdominal pain, no vomiting,no abnormal healing and no confusion. Abnormal, prolonged menses for past 2mo. and was found to haveuterine fibroids. She is taking a conservative approach; no surgery or uterine ablation. Current Meds 1. Furosemide 40 MG Oral Tablet; TAKE 1 TABLET DAILY; Therapy: 01Mar2006 to (Evaluate:23Nov2012) Requested for: 29Nov2011 2. Lisinopril 10 MG Oral Tablet; TAKE 2 TABLETS DAILY; Therapy: 01Feb2010 to (Evaluate:[id number]) 3. NovoLOG 100 UNIT/ML Subcutaneous Solution; INJECT 60 UNIT DAILY; Therapy: 29Nov2005 to (Evaluate:20Aug2012) Requested for: 27Feb2011; Last Rx:27Feb2011 4. Lending a Helping Handuch Ultra Blue In Vitro Strip; USE 8 STRIP DAILY; Therapy: 30Aug2005 to (Evaluate:[id number]) Requested for: 27Feb2011; Last Rx:27Feb2011 5. Pravastatin Sodium 10 MG Oral Tablet; TAKE 1 TABLET DAILY AT BEDTIME; Therapy: [id number] to 6. Synthroid 75 MCG Oral Tablet; TAKE 1 TABLET DAILY; Therapy: 29Nov2005 to (Evaluate:24Feb2012) Requested for: 01Mar2011; Last Rx:01Mar2011 Allergies ?? No Known Drug Allergies Vitals Signs [Data Includes: Last 24 Hours] 29Nov2011 01:08PM BMI Calculated: 23.21 BSA Calculated: 1.79 Height: 5 ft 7.5 in Weight: 149 lb 9.6 oz Systolic: 110 Diastolic: 50 Heart Rate: 72 Review of Systems Complete-Female ROS - [facility]: Constitutional, eye, otolaryngeal, cardiovascular, pulmonary, gastrointestinal, genitourinary, musculoskeletal, skin, neurological, psychiatric, endocrine and hematologic review of systems are normal except as per HPI and unless noted below. Other Symptoms: nail fungus. Active Problems Problems 1. Acne 706.1 2. Diabetic Nephropathy Type 1 - Uncontrolled 250.43 3. Diabetic Retinopathy 362.01 4. 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 Type 1 Diabetes Mellitus - Uncontrolled 250.03 Family History Problems 1. Family history of Cancer 2. Family history of Dyslipidemia 3. Family history of Essential Hypertension Social History Problems ?? Being A Social Drinker ?? Caffeine Use ?? Exercising Regularly ?? Marital History - Currently ?? Never A Smoker ?? 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 Uses Safety Equipment - Seatbelts Physical Exam General appearance: Normal. Assessment 1. Being A Social Drinker 2. Caffeine Use 3. Exercising Regularly 4. Marital History - Currently 5. 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 Type 1 Diabetes Mellitus - Uncontrolled 250.03 Dm doing fairly well. Need to cont fine-tuning pump when riding. F/u 3-4mo Signatures Electronically signed by : Roscoe Casanova M.D.; Nov 29 2011 1:42PM (Author) UM FORM OPERATOR documented in this encounter Plan of Treatment Upcoming Encounters Date Type Specialty Care Team Description 05/24/2023 Office Visit Medical Oncology CosLuzmaria tan MD [address] [place] [address] (Wo rk) documented as of this encounter Visit Diagnoses Not on filedocumented in this encounter
--- OUTSIDE RECORDS SUMMARY | 2022-09-29 00:31 | XMS_ITS | Encounter Summary ---
:1960 Author Organization [facility] Address [address] [place] [address] Care Team Providers Name Role Phone Marcela Lau PA-C Primary Care Provider Encounter Details Date Type Department Care Team Description 11/29/2011 Allscripts Note [facility], Diabetes & Endocrinology [id number] [place] [address] [address] [facility] [phone] Social History Tobacco Use Types Packs/Day Years Used Date Smoking Tobacco: Never Assessed Sex Assigned at Date Recorded Female 04/21/2021 9:42 AM CDT documented as of this encounter Miscellaneous Notes Miscellaneous - Roscoe Casanova MD - 11/29/2011 1:00 PM CST Verified Results Collected/Examined: Nov 28, 2011 1:40PM Test Result Flag Acceptable Hemoglobin A1C 6.7 % H 4.0-5.6 Non-diabetic 4.0 - 5.6 %^^ Prediabetes 5.7 - 6.4 %^^ Diabetes >= 6.5 %^^ FOLIO SPECIALIST Miscellaneous - Roscoe Casanova MD - 11/29/2011 1:00 PM CST Verified Results Collected/Examined: Nov 28, 2011 1:40PM Test Result Flag Acceptable Hemoglobin A1C 6.7 % H 4.0-5.6 Non-diabetic 4.0 - 5.6 %^^ Prediabetes 5.7 - 6.4 %^^ Diabetes >= 6.5 %^^ FOLIO SPECIALIST documented in this encounter Plan of Treatment Upcoming Encounters Date Type Specialty Care Team Description 05/24/2023 Office Visit Medical Oncology CossorLuzmaria MD [address] [facility] [address] [place] [address] (Wo rk) documented as of this encounter Visit Diagnoses Not on filedocumented in this encounter Care Teams Airport Electrician Relationship Specialty Start Date End Date Marcela Lau PA-C PCP - General Physician Atomic Physics Teacher 09/13/[address] [facility] [address] [place] [address] documented as of this encounter
--- OUTSIDE RECORDS SUMMARY | 2022-09-29 00:31 | XMS_ITS | Encounter Summary ---
:1960 Author Organization [facility] Address [address] [place] [address] Care Team Providers Name Role Phone Marcela Lau PA-C Primary Care Provider Encounter Details Date Type Department Care Team Description 09/24/2020 [address] [facility] Gail Muller MD Specialists [address] [facility] [facility] [address] [place], [place] [address] [place] [address] [phone] (Wo rk) Social History Tobacco Use Types Packs/Day Years Used Date Smoking Tobacco: Never Sex Assigned at Date Recorded Female 04/21/2021 9:42 AM CDT documented as of this encounter Plan of Treatment Upcoming Encounters Date Type Specialty Care Team Description 05/24/2023 Office Visit Medical Oncology Luzmaria Black MD [address] [facility] [phone] (Wo rk) documented as of this encounter Visit Diagnoses Not on filedocumented in this encounter Care Teams Bleach Boiler Puller Relationship Specialty Start Date End Date Marcela Lau PA-C PCP - General Physician Power Tool Repair Technician 09/13/[address] [facility] [address] [place] [address] documented as of this encounter
--- OUTSIDE RECORDS SUMMARY | 2022-09-29 00:31 | XMS_ITS | Encounter Summary ---
:1960 Author Organization [facility] Address [address] [place] [address] Care Team Providers Name Role Phone Unavailable Primary Care Provider Unavailable Encounter Details Date Type Department Care Team Description 08/04/2013 Hist-Appointment SLS DIAB ENDO HST CL Social History Tobacco Use Types Packs/Day Years Used Date Smoking Tobacco: Never Assessed Sex Assigned at Date Recorded Female 04/21/2021 9:42 AM CDT documented as of this encounter Plan of Treatment Upcoming Encounters Date Type Specialty Care Team Description 05/24/2023 Office Visit Medical Oncology Luzmaria Black MD [address] [facility] [address] [place] [address] (Wo rk) documented as of this encounter Visit Diagnoses Not on filedocumented in this encounter
--- OUTSIDE RECORDS SUMMARY | 2022-09-29 00:31 | XMS_ITS | Encounter Summary ---
:1960 Author Organization [facility] Address [address] [place] [address] Care Team Providers Name Role Phone Unavailable Primary Care Provider Unavailable Encounter Details Date Type Department Care Team Description 08/04/2013 Hospital Encounter [facility] bebeto FreyjuniorAlbertRoscoe, [address] [place], [place] [address] [address] [phone] [place] [address] Social History Tobacco Use Types Packs/Day Years [...] Office Visit [place] [address] [place], [place] [address] [address] (Wo rk) documented as of this encounter Procedures Procedure Name Priority Date/Time Associated Diagnosis Comme nts HEMOGLOBIN A1C Routine 08/04/2013 1:25 PM Results for this CDT procedure are i n the results section . documented in this encounter Results (ABNORMAL) Hemoglobin A1C (08/04/2013 1:25 PM CDT) P athologist Signature HEMOGLOBIN A1C 7.2 (H) 4.0 - 5.6 HL[facility] % Comment: Non-diabetic ? 4.0 - 5.6 % Prediabetes ?5.7 - 6.4 % Diabetes ? >= 6.5 % Specimen (Source) Anatomical Collection Method Collection Time Re ceived Time Location / / Volume Laterality Blood 08/04/2013 1:25 PM CDT Roscoe Casanova MD LAB BLOOD ORDERABLES Performing Organization Address City/State/ZIP Code Phon e Number [facility] [address] [place] [address] HLAB documented in this encounter Visit Diagnoses Not on filedocumented in this encounter
--- OUTSIDE RECORDS SUMMARY | 2022-09-29 00:31 | XMS_ITS | Encounter Summary ---
:1960 Author Organization [facility] Address [address] [place] [address] Care Team Providers Name Role Phone Marcela Lau PA-C Primary Care Provider Reason for Referral Diagnostic Imaging (Routine) - Closed Specialty Diagnoses / Procedures Referred By Contact Refer red To Contact Radiology Diagnoses Chronic kidney disease, stage III (moderate) (HCC) HTN (hypertension) Diabetes mellitus (HCC) LORETO (acute kidney injury) (HCC) Ivana Smart NP [facility] Us Procedures US Renal complete [address] [address] [place] [address] [address] [place], [place] [address] Referral ID Status Reason Start Date Expiration Date Visits Requ ested Visits Authorized [id number] Closed 09/03/2020 09/03/2021 1 1 LAINT MANAGER Reason for Visit Diagnostic Imaging (Routine) - Closed Specialty Diagnoses / Procedures Referred By Contact Refer red To Contact Radiology Diagnoses Chronic kidney disease, stage III (moderate) (HCC) HTN (hypertension) Diabetes mellitus (HCC) LORETO (acute kidney injury) (HCC) Ivana Smart NP [facility] Us Procedures US Renal complete [address] [address] [place] [address] [address] [address] [place], [place] [address] Referral ID Status Reason Start Date Expiration Date Visits Requ ested Visits Authorized [id number] Closed 09/03/2020 09/03/2021 1 1 Encounter Details Date Type Department Care Team Description 09/15/2020 Hospital Encounter Ivana Cage, Chronic kidney disease, stage III (moderate); 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 insulin aspart, Fiasp U-100 Insulin 100 unit/mL subcutaneous soluti on 0 03/28/2020 niacinamide, (FIASP Inject max of 75 U qd in multiple doses as direc long U-100 INSULIN) 100 unit/mL Soln injection glucagon, human 1 0 08/27/2012 1 recombinant, (GLUCAGEN) 1 mg injection documented as of this encounter Plan of Treatment Upcoming Encounters Date Type Specialty Care Team Description 05/24/2023 Office Visit Medical Oncology CosLuzmaria tan MD [address] [facility] [address] [place] [address] (Wo rk) documented as of this encounter Procedures Procedure Name Priority Date/Time Associated Diagnosis Comme nts US RENAL Routine 09/15/2020 2:23 PM Chronic kidney Results for this COMPLAINT MANAGER disease, stage III procedure are in the (moderate) results section. HTN (hypertensio n) Diabetes mellitus (HCC) LORETO (acute kidney injury) (HCC) documented in this encounter Results US Renal complete (09/15/2020 2:23 PM COMPLAINT MANAGER) Anatomical Region Laterality Modality Abdomen Ultrasound Specimen (Source) Anatomical Collection Method Collection Time Re ceived Time Location / / Volume Laterality 09/15/2020 2:03 PM COMPLAINT MANAGER Impressions 09/15/2020 3:41 PM COMPLAINT MANAGER 1. Probable 2.3 cm right parapelvic renal cyst with otherwise normal-appearing and fairly symmetric bi lateral kidneys. No evidence of hydronephrosis, solid mass or perinephri c fluid. 2. Probable incomplete imaging of a 3.2 cm simple right ovarian cyst. Narrative 09/15/2020 3:41 PM COMPLAINT MANAGER Patient: ?? GAYE PAZ ?? Sex#: F ? #: 1960 ? Luzmaria#: [id number] Location: [facility] ? 51 Procedure Requested: ??[id number] US RENAL COMPLETE Reason for Exam: ??Chronic [...] GAYE PAZ Sex#: F #: [id number] Luzmaria#: [id number] Location: [facility] US Procedure Requested: [id number] US RENAL CO MPLETE Reason for Exam: [...] kidney injury) (HCC) documented in this encounter Care Teams Kitchen Supervisor Relationship Specialty Start Date End Date Marcela Lau PA-C PCP - General Physician Rural Route Carrier 09/13/[address] [address] documented as of this encounter
--- OUTSIDE RECORDS SUMMARY | 2022-09-29 00:31 | XMS_ITS | Encounter Summary ---
:1960 Author Organization [facility] Address [address] [place] [address] Care Team Providers Name Role Phone Marcela Lau PA-C Primary Care Provider Encounter Details Date Type Department Care Team Description 05/07/2012 Allscripts Note [facility] Roscoe Goldberg, Diabetes & Endocrinology [address] [place] [id number] [place] [address] 66 [facility] [phone] Social History Tobacco Use Types Packs/Day Years Used Date Smoking Tobacco: Never Assessed Sex Assigned at Date Recorded Female 04/21/2021 9:42 AM CDT documented as of this encounter Miscellaneous Notes Miscellaneous - Roscoe Casanova MD - 05/07/2012 2:20 PM CDT Verified Results Collected/Examined: May 06, 2012 9:30AM Test Result Flag Acceptable CBC-Complete Blood Count WHITE BLOOD CELL COUNT 6.86 TH/uL 4.00-11.00 Red Blood Cell Count 4.11 MIL/uL 4.00-5.00 Hemoglobin 12.7 g/dL 12.0-15.0 Hematocrit 38 % 36-45 Mean Corpuscular Volume 93 fL 80-99 Mean Corpuscular Hgb 31 pg 27-34 Mean Corpuscular Hgb Conc 33 % 32-36 Red Cell Distribution Width 13.5 % 9.0-14.5 Platelet Count 198 TH/uL 140-400 Mean Platelet Volume 12.7 fL H 9.4-12.3 Lipid Profile Hours Post Prandial 12 H Cholesterol Lipid Prof 132 mg/dL 100-200 Triglycerides 58 mg/dL 0-150 Hdl 85 mg/dL 40-110 Ldl Cholesterol 35 mg/dL 0-99 Total Cholesterol/Hdl Ratio 1.6 0.0-4.5 Non- HDL Cholesterol 47 mg/dL 0-130 CMP-Comprehensive Metabolic Panel Albumin 3.9 g/dL 3.5-5.0 Aspartate Aminotransferase 49 IU/L H 15-46 Alanine Aminotransferase 39 IU/L 13-69 Bilirubin Total 0.4 mg/dL 0.2-1.3 Protein Total Serum 6.3 g/dL 6.0-8.2 Calcium 9.1 mg/dL 8.4-10.2 Creatinine 0.9 mg/dL 0.4-1.1 Glucose 126 mg/dL H 70-100 Alkaline Phosphatase 58 IU/L 42-128 Sodium 138 MEQ/L 133-147 Potassium 4.6 MEQ/L 3.5-5.1 Chloride 103 MEQ/L 96-112 Anion Gap 9 3-15 Blood Urea Nitrogen 33 mg/dL H 7-26 Carbon Dioxide 26 MEQ/L 22-30 Gfrf Aa 79 Chronic Kidney Disease less than 60 mL/min/1.73 sq.m^^ Kidney failure less than 15 mL/min/1.73 sq.m^^ Gfrf Non Aa 66 Chronic Kidney Disease less than 60 mL/min/1.73 sq.m^^ Kidney failure less than 15 mL/min/1.73 sq.m^^ T4 Free 1.2 ng/dL 0.8-2.2 Thyroid Stimulating Hormone 0.69 uIU/mL 0.47-4.68 Microalbumin Urine Brandon Microalbumin Mg/L <0.50 mg/dL Creatinine, Urine Random Quant 14.4 mg/dL Microalbumin/Creatinine Ratio Not Calc ug/mg 0.00-24.00 Result is outside linear range. Calculation cannot be performed^^ Hemoglobin A1C 7.1 % H 4.0-5.6 Non-diabetic 4.0 - 5.6 %^^ Prediabetes 5.7 - 6.4 %^^ Diabetes >= 6.5 %^^ Miscellaneous - Roscoe Casanova MD - 05/07/2012 2:20 PM CDT Verified Results Collected/Examined: May 06, 2012 9:30AM Test Result Flag Acceptable CBC-Complete Blood Count WHITE BLOOD CELL COUNT 6.86 TH/uL 4.00-11.00 Red Blood Cell Count 4.11 MIL/uL 4.00-5.00 Hemoglobin 12.7 g/dL 12.0-15.0 Hematocrit 38 % 36-45 Mean Corpuscular Volume 93 fL 80-99 Mean Corpuscular Hgb 31 pg 27-34 Mean Corpuscular Hgb Conc 33 % 32-36 Red Cell Distribution Width 13.5 % 9.0-14.5 Platelet Count 198 TH/uL 140-400 Mean Platelet Volume 12.7 fL H 9.4-12.3 Lipid Profile Hours Post Prandial 12 H Cholesterol Lipid Prof 132 mg/dL 100-200 Triglycerides 58 mg/dL 0-150 Hdl 85 mg/dL 40-110 Ldl Cholesterol 35 mg/dL 0-99 Total Cholesterol/Hdl Ratio 1.6 0.0-4.5 Non- HDL Cholesterol 47 mg/dL 0-130 CMP-Comprehensive Metabolic Panel Albumin 3.9 g/dL 3.5-5.0 Aspartate Aminotransferase 49 IU/L H 15-46 Alanine Aminotransferase 39 IU/L 13-69 Bilirubin Total 0.4 mg/dL 0.2-1.3 Protein Total Serum 6.3 g/dL 6.0-8.2 Calcium 9.1 mg/dL 8.4-10.2 Creatinine 0.9 mg/dL 0.4-1.1 Glucose 126 mg/dL H 70-100 Alkaline Phosphatase 58 IU/L 42-128 Sodium 138 MEQ/L 133-147 Potassium 4.6 MEQ/L 3.5-5.1 Chloride 103 MEQ/L 96-112 Anion Gap 9 3-15 Blood Urea Nitrogen 33 mg/dL H 7-26 Carbon Dioxide 26 MEQ/L 22-30 Gfrf Aa 79 Chronic Kidney Disease less than 60 mL/min/1.73 sq.m^^ Kidney failure less than 15 mL/min/1.73 sq.m^^ Gfrf Non Aa 66 Chronic Kidney Disease less than 60 mL/min/1.73 sq.m^^ Kidney failure less than 15 mL/min/1.73 sq.m^^ T4 Free 1.2 ng/dL 0.8-2.2 Thyroid Stimulating Hormone 0.69 uIU/mL 0.47-4.68 Microalbumin Urine Brandon Microalbumin Mg/L <0.50 mg/dL Creatinine, Urine Random Quant 14.4 mg/dL Microalbumin/Creatinine Ratio Not Calc ug/mg 0.00-24.00 Result is outside linear range. Calculation cannot be performed^^ Hemoglobin A1C 7.1 % H 4.0-5.6 Non-diabetic 4.0 - 5.6 %^^ Prediabetes 5.7 - 6.4 %^^ Diabetes >= 6.5 %^^ documented in this encounter Plan of Treatment Upcoming Encounters Date Type Specialty Care Team Description 05/24/2023 Office Visit Medical Oncology CossorLuzmaria MD [address] [facility] [address] [place] [address] (Wo rk) documented as of this encounter Visit Diagnoses Not on filedocumented in this encounter Care Teams Machine Rug Cleaner Relationship Specialty Start Date End Date Marcela Lau PA-C PCP - General Physician Actuarial Analyst 09/13/[address] [facility] [address] [place] [address] documented as of this encounter
--- OUTSIDE RECORDS SUMMARY | 2022-09-29 00:31 | XMS_ITS | Encounter Summary ---
:1960 Author Organization [facility] Address [address] [place] [address] Care Team Providers Name Role Phone Marcela Lau PA-C Primary Care Provider Encounter Details Date Type Department Care Team Description 10/01/2020 Telephone [facility] Gail Muller MD Specialists [address] [facility] [address] [facility] [address] [place], [place] [address] [place] [address] [phone] (Wo rk) Social History Tobacco Use Types Packs/Day Years Used Date Smoking Tobacco: Never Sex Assigned at Date Recorded Female 04/21/2021 9:42 AM CDT documented as of this encounter Miscellaneous Notes Telephone Encounter - Savannah Zarate - 10/01/2020 10:08 AM CST Tried to get a hold of pt on 09/24, 09/27, and 09/29. Pt has not called back. I will call referring office and close this referral.-WILLIAM CULAR GENETIC PATHOLOGIST documented in this encounter Plan of Treatment Upcoming Encounters Date Type Specialty Care Team Description 05/24/2023 Office Visit Medical Oncology Luzmaria Black MD [address] [facility] [address] [place] [address] (Wo rk) documented as of this encounter Visit Diagnoses Not on filedocumented in this encounter Care Teams Supervisor Toy Assembly Relationship Specialty Start Date End Date Marcela Lau PA-C PCP - General Physician Sheet Cutter 09/13/[address] [place] [id number] documented as of this encounter
--- OUTSIDE RECORDS SUMMARY | 2022-09-29 00:31 | XMS_ITS | Encounter Summary ---
:1960 Author Organization [facility] Address [address] [place] [address] Care Team Providers Name Role Phone Unavailable Primary Care Provider Unavailable Encounter Details Date Type Department Care Team Description 05/05/2013 Hist-Appointment SLS DIAB ENDO HST CL Julian Casanova MD [address] [place] [address] (Wo rk) Social History Tobacco Use Types Packs/Day Years Used Date Smoking Tobacco: Never Assessed Sex Assigned at Date Recorded Female 04/21/2021 9:42 AM CDT documented as of this encounter Last Filed Vital Signs Vital Sign Reading Time Taken Comments Blood Pressure 110/40 05/05/2013 3:03 PM CDT Pulse 56 05/05/2013 3:03 PM CDT Temperature - - Respiratory Rate - - Oxygen Saturation - - Inhaled Oxygen Concentration - - Weight 67.8 kg (149 lb 8 oz) 05/05/2013 3:03 PM CDT Height 170.2 cm (5' 7) 05/05/2013 3:03 PM CDT Body Mass Index 23.42 05/05/2013 3:03 PM CDT documented in this encounter Progress Notes Roscoe Casanova MD - 05/05/2013 3:00 PM CDT Clinical Summary Patient Name : GAYE PAZ Appointment Date: 05/05/2013 3:00:00 PM : [id number] : [address] Of 1960 [place] [address] : Documented Assessed Problems Caffeine Use Being A Social Drinker Exercising Regularly Marital History - Currently Never A Smoker Occupation: Uses Safety Equipment - Seatbelts Treatment Plan Labs/Procedures: T4 Free TSH-Thyroid Stimulating Hormone Hemoglobin A1C CBC with Diff CMP-Comprehensive Metabolic Panel Lipid Profile Vitals Recorded Date/Time: 05/05/2013 3:03:00 PM Systolic: 110 mm Hg; Diastolic: 40 mm Hg; Heart Rate: 56 bpm; BMI Calculated: 23.46; BSA Calculated:1.79; Height: 5-7 in; Weight: 149.5-0 lb Current Medications Furosemide 40 MG Oral [...] Refill: 3 Allergies No Known Drug Allergies Future Appointments 08/06/2013 1:00:00 PM,Jocelyne Malhotra Document and Provider Details Document: Clinical Summary Provider: Jocelyne Site: [facility] Site Address : [address] [place] [address] Site Roscoe Casanova MD - 05/05/2013 3:00 PM CDT History of Present Illness Diabetes-SL[facility]: The patient's visit is for a routine clinic follow-up of type 1 diabetes mellitus. Symptoms: no polydipsia, no polyuria, no increased appetite, no weight loss, no fatigue, no blurred vision, no episodes of hypoglycemia and no episodes of ketoacidosis. The patient's meter, and pump is/are downloaded and reviewed. Please see scanned meter readings for annotations. Associated symptoms: appetite not increased, no anorexia, no nausea, no abdominal pain, no vomiting,no abnormal healing and no confusion. Assessment 1. Caffeine Use 2. Being A Social Drinker 3. Exercising Regularly 4. Marital History - Currently 5. 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 I again warned her that recurrent hypoglycemia can lead to brain damage and even . Her hypoglycemia is generally related to her exercise, and she exercises almost daily. She simply needs to remove her insulin pump to minimize the risk of hypoglycemia (or at least reduce the basal rate substantially). Otherwise, her thyroid is well controlled as are her other labs. Continue same medications and followup in 4-6 months. Current Meds 1. Furosemide 40 MG Oral Tablet; TAKE 1 TABLET DAILY; Therapy: 01Mar2006 to (Evaluate:23Nov2012) Requested for: 29Nov2011 Recorded; For: Edema (782.3); Rx By: Roscoe Casanova; Dispense: 90 Days ; #:90 Tablet; Refill: 3; Record; Last Updated By: Sadnra Zabala 2. Glucagon Emergency 1 MG Injection Kit; Therapy: 27Aug2012 to Recorded; Dispense: 30 Days ; #:1 KIT; Refill: 0; Record; Last Updated By: Sandra Zabala 3. Lisinopril 10 MG Oral Tablet; TAKE 2 TABLETS DAILY; Therapy: 01Feb2010 to (Evaluate:[id number]) Recorded; For: Diabetic Nephropathy Type 1 - Uncontrolled (250.43); Rx By: Roscoe Casanova; Dispense: 90 Days ; #:180 Tablet; Refill: 3; Record; Last Updated By: Sandra Zabala 4. NovoLOG 100 UNIT/ML Subcutaneous Solution; INJECT 60 UNIT DAILY; Therapy: 29Nov2005 to (Evaluate:[id number]) Requested for: 18Sep2012 Recorded; For: Type 1 Diabetes Mellitus - Uncontrolled (250.03); Rx By: Roscoe Casanova; Dispense: 90 Days ; #:6 X 10 ML Vial; Refill: 5; DIONNE; Record; Last Updated By: Sandra Zabala 5. OneTouch Ultra Blue In Vitro Strip; USE 8 STRIP DAILY; Therapy: 30Aug2005 to (Evaluate:[id number]) Requested for: [id number] Recorded; For: Type 1 Diabetes Mellitus - Uncontrolled (250.03); Rx By: Roscoe Casanova; Dispense: 100 Days ; #:800 EA; Refill: 3; DIONNE; Record; Last Updated By: Sandra Zabala 6. Synthroid 75 MCG Oral Tablet; TAKE 1 TABLET DAILY; Therapy: 29Nov2005 to (Evaluate:02May2013) Requested for: [id number] Recorded; For: Frances's Thyroiditis (245.2); Rx By: Roscoe Casanova; Dispense: 90 Days ; #:90 Tablet; Refill: 3; DIONNE; Record; Last Updated By: Sandra Zabala Allergies 1. No Known Drug Allergies No Known Drug Allergies Vitals Vital Signs [Data Includes: Last 1 Day] 05May2013 03:03PM BMI Calculated 23.46 BSA Calculated 1.79 Height 5 ft 7 in Weight 149 lb 8.0 oz Systolic 110 Diastolic 40 Heart Rate 56 Review of Systems Complete-Female ROS - SL[facility]: [...] of neck:. Normal. Examination of thyroid:. Normal. Pedal pulses: Abnormal. Diminished but present bilaterally. Examination for edema/varicosities: Normal. Examination of gait and station:. Normal. Examination of digits and nails:. Normal. Inspection of skin and subcutaneous tissue: Normal. Examination of cranial nerves:. Normal. Coordination: Normal. Description of patient's judgement/insight: Normal. Mood and affect:. Normal. Results/Data Diabetes Flowsheet [Data Includes: Last 1 Instance] [id number] Systolic 110 Diastolic 40 BMI Calculated 23.46 BSA Calculated 1.79 Height 5 ft 7 in Weight 149 lb 8.0 oz Hemoglobin A1C 6.8 % 6.8 % Hemoglobin A1c Hours Post Prandial 12 [...] Retinal Eye Exam Performed Pos (07/2012 ) Signatures Electronically signed by : Roscoe Casanova M.D.; May 05 2013 7:11PM (Author) documented in this encounter Miscellaneous Notes Miscellaneous - Roscoe Casanova MD - 05/05/2013 3:00 PM CDT Verified Results Collected/Examined: May 02, 2013 10:36AM Test Result Flag Acceptable CBC with Diff WHITE BLOOD CELL COUNT 5.54 TH/uL 4.00-11.00 Red Blood Cell Count 4.61 MIL/uL 4.00-5.00 Hemoglobin 13.5 g/dL 12.0-15.0 Hematocrit 42 % 36-45 Mean Corpuscular Volume 92 fL 80-99 Mean Corpuscular Hgb 29 pg 27-34 Mean Corpuscular Hgb Conc 32 % 32-36 Red Cell Distribution Width 13.4 % 9.0-14.5 Platelet Count 254 TH/uL 140-400 Mean Platelet Volume 12.3 fL 9.4-12.3 % Segmented Neutrophils, Auto 52 % 45-78 % Lymphocytes, Auto 31 % 15-47 % Monocytes, Auto 7 % 0-12 % Eosinophils, Auto 8 % H 0-7 % Basophils, Auto 2 % 0-2 # Grans 2.90 TH/uL 1.70-6.80 # Lymphs 1.73 TH/uL 1.00-3.30 # Monos 0.37 TH/uL 0.20-0.90 # Eos 0.45 TH/uL H 0.00-0.40 # Basos 0.09 TH/uL 0.00-0.10 CMP-Comprehensive Metabolic Panel Albumin 4.1 g/dL 3.5-5.0 Aspartate Aminotransferase 34 IU/L 15-46 Alanine Aminotransferase 42 IU/L 13-69 Bilirubin Total 0.5 mg/dL 0.2-1.3 Protein Total Serum 7.3 g/dL 6.0-8.2 Calcium 10.0 mg/dL 8.4-10.2 Creatinine 1.0 mg/dL 0.4-1.1 Glucose 168 mg/dL H 70-100 Alkaline Phosphatase 71 IU/L 42-140 Sodium 138 MEQ/L 133-147 Potassium 4.6 MEQ/L 3.5-5.3 Potassium reference interval changed on 04/02/2013.^^ Chloride 100 MEQ/L 96-112 Anion Gap 12 5-17 Blood Urea Nitrogen 34 mg/dL H 7-26 Carbon Dioxide 27 MEQ/L 20-30 Gfrf Aa 70 Chronic Kidney Disease less than 60 mL/min/1.73 sq.m^^ Kidney failure less than 15 mL/min/1.73 sq.m^^ Gfrf Non Aa 58 Chronic Kidney Disease less than 60 mL/min/1.73 sq.m^^ Kidney failure less than 15 mL/min/1.73 sq.m^^ Lipid Profile Hours Post Prandial 12 Cholesterol Lipid Prof 177 mg/dL 100-200 Triglycerides 71 mg/dL 0-150 Hdl 79 mg/dL 40-110 Ldl Cholesterol 84 mg/dL 0-99 Total Cholesterol/Hdl Ratio 2.2 0.0-4.5 Non- HDL Cholesterol 98 mg/dL 0-130 T4 Free 1.5 ng/dL 0.8-2.2 Thyroid Stimulating Hormone 0.94 uIU/mL 0.47-4.68 Hemoglobin A1C 6.8 % H 4.0-5.6 Non-diabetic 4.0 - 5.6 %^^ Prediabetes 5.7 - 6.4 %^^ Diabetes >= 6.5 %^^ Miscellaneous - Roscoe Casanova MD - 05/05/2013 3:00 PM CDT Verified Results Collected/Examined: May 02, 2013 10:36AM Test Result Flag Acceptable CBC with Diff WHITE BLOOD CELL COUNT 5.54 TH/uL 4.00-11.00 Red Blood Cell Count 4.61 MIL/uL 4.00-5.00 Hemoglobin 13.5 g/dL 12.0-15.0 Hematocrit 42 % 36-45 Mean Corpuscular Volume 92 fL 80-99 Mean Corpuscular Hgb 29 pg 27-34 Mean Corpuscular Hgb Conc 32 % 32-36 Red Cell Distribution Width 13.4 % 9.0-14.5 Platelet Count 254 TH/uL 140-400 Mean Platelet Volume 12.3 fL 9.4-12.3 % Segmented Neutrophils, Auto 52 % 45-78 % Lymphocytes, Auto 31 % 15-47 % Monocytes, Auto 7 % 0-12 % Eosinophils, Auto 8 % H 0-7 % Basophils, Auto 2 % 0-2 # Grans 2.90 TH/uL 1.70-6.80 # Lymphs 1.73 TH/uL 1.00-3.30 # Monos 0.37 TH/uL 0.20-0.90 # Eos 0.45 TH/uL H 0.00-0.40 # Basos 0.09 TH/uL 0.00-0.10 CMP-Comprehensive Metabolic Panel Albumin 4.1 g/dL 3.5-5.0 Aspartate Aminotransferase 34 IU/L 15-46 Alanine Aminotransferase 42 IU/L 13-69 Bilirubin Total 0.5 mg/dL 0.2-1.3 Protein Total Serum 7.3 g/dL 6.0-8.2 Calcium 10.0 mg/dL 8.4-10.2 Creatinine 1.0 mg/dL 0.4-1.1 Glucose 168 mg/dL H 70-100 Alkaline Phosphatase 71 IU/L 42-140 Sodium 138 MEQ/L 133-147 Potassium 4.6 MEQ/L 3.5-5.3 Potassium reference interval changed on 04/02/2013.^^ Chloride 100 MEQ/L 96-112 Anion Gap 12 5-17 Blood Urea Nitrogen 34 mg/dL H 7-26 Carbon Dioxide 27 MEQ/L 20-30 Gfrf Aa 70 Chronic Kidney Disease less than 60 mL/min/1.73 sq.m^^ Kidney failure less than 15 mL/min/1.73 sq.m^^ Gfrf Non Aa 58 Chronic Kidney Disease less than 60 mL/min/1.73 sq.m^^ Kidney failure less than 15 mL/min/1.73 sq.m^^ Lipid Profile Hours Post Prandial 12 Cholesterol Lipid Prof 177 mg/dL 100-200 Triglycerides 71 mg/dL 0-150 Hdl 79 mg/dL 40-110 Ldl Cholesterol 84 mg/dL 0-99 Total Cholesterol/Hdl Ratio 2.2 0.0-4.5 Non- HDL Cholesterol 98 mg/dL 0-130 T4 Free 1.5 ng/dL 0.8-2.2 Thyroid Stimulating Hormone 0.94 uIU/mL 0.47-4.68 Hemoglobin A1C 6.8 % H 4.0-5.6 Non-diabetic 4.0 - 5.6 %^^ Prediabetes 5.7 - 6.4 %^^ Diabetes >= 6.5 %^^ documented in this encounter Plan of Treatment Upcoming Encounters Date Type Specialty Care Team Description 05/24/2023 Office Visit Medical Oncology CossorLuzmaria MD [address] [place] [id number] (Wo rk) documented as of this encounter Visit Diagnoses Not on filedocumented in this encounter
--- OUTSIDE RECORDS SUMMARY | 2022-09-29 00:31 | XMS_ITS | Encounter Summary ---
:1960 Author Organization [facility] Address [address] [place] [address] Care Team Providers Name Role Phone Marcela Lau PA-C Primary Care Provider Encounter Details Date Type Department Care Team Description 09/24/2020 Documentation [facility] aGil Muller MD Specialists [address] [facility] [address] [facility] [address] [place], [place] [address] [place] [address] [phone] (Wo rk) Social History Tobacco Use Types Packs/Day Years Used Date Smoking Tobacco: Never Sex Assigned at Date Recorded Female 04/21/2021 9:42 AM CDT documented as of this encounter Plan of Treatment Upcoming Encounters Date Type Specialty Care Team Description 05/24/2023 Office Visit Medical Oncology Luzmaria Black MD [address] [facility] [address] [place] [address] (Wo rk) documented as of this encounter Visit Diagnoses Not on filedocumented in this encounter Care Teams Digital Director Relationship Specialty Start Date End Date Marcela Lau PA-C PCP - General Physician Food Counter Attendant 09/13/[address] [facility] [address] [place] [address] documented as of this encounter
--- OUTSIDE RECORDS SUMMARY | 2022-09-29 00:31 | XMS_ITS | Encounter Summary ---
:1960 Author Organization [facility] Address [address] [place] [address] Care Team Providers Name Role Phone Marcela Lau PA-C Primary Care Provider Encounter Details Date Type Department Care Team Description 09/24/2020 Documentation [facility] Gail Muller MD Specialists [address] [facility] [place], [place] [address] [place] [address] [phone] (Wo rk) Social History Tobacco Use Types Packs/Day Years Used Date Smoking Tobacco: Never Sex Assigned at Date Recorded Female 04/21/2021 9:42 AM CDT documented as of this encounter Plan of Treatment Upcoming Encounters Date Type Specialty Care Team Description 05/24/2023 Office Visit Medical Oncology Luzmaria Black MD [address] [facility] [address] [place] [address] (Wo rk) documented as of this encounter Visit Diagnoses Not on filedocumented in this encounter Care Teams Premises Technician Relationship Specialty Start Date End Date Marcela Lau PA-C PCP - General Physician Auto Driver 09/13/[address] [facility] [address] [place] [address] documented as of this encounter
--- OUTSIDE RECORDS SUMMARY | 2022-09-29 00:31 | XMS_ITS | Encounter Summary ---
:1960 Author Organization [facility] Address [address] [place] [address] Care Team Providers Name Role Phone Unavailable Primary Care Provider Unavailable Encounter Details Date Type Department Care Team Description 05/06/2012 Hospital Encounter [facility] bebeto Jocelyne Roscoe, [address] [place], [place] [address] [address] [facility] [phone] [place] [address] Social History Tobacco Use Types Packs/Day Years [...] Visit Medical Oncology CosLuzmaria tan MD [address] [phone] (Wo rk) documented as of this encounter Procedures Procedure Name Priority Date/Time Associated Comments Diagnosis MICROALBUMIN RANDOM Routine 05/06/2012 9:30 AM Re sults for this CDT procedure are i n the results section. THYROID STIMULATING Routine 05/06/2012 9:30 AM Re sults for this HORMONE CDT procedure are i n the results section. T4 FREE Routine 05/06/2012 9:30 AM Results f or this CDT procedure are i n the results section. LIPID PANEL Routine 05/06/2012 9:30 AM Results f or this CDT procedure are i n the results section. HEMOGLOBIN A1C Routine 05/06/2012 9:30 AM Results for this CDT procedure are i n the results section. COMPREHENSIVE Routine 05/06/2012 9:30 AM Results for this METABOLIC PANEL CDT procedure ar e in the results section. COMPLETE BLOOD COUNT Routine 05/06/2012 9:30 AM R esults for this CDT procedure are i n the results section. documented in this encounter Results (ABNORMAL) Complete Blood Count (05/06/2012 9:30 AM CDT) Analysis Performed At Patho logist Time Signature WBC 6.86 4.00 - [facility] 11.00 TH/UL RBC 4.11 4.00 - [facility] 5.00 MIL/UL Hemoglobin 12.7 12.0 - [facility] 15.0 G/DL Hematocrit 38 36 - 45 % [facility] MCV 93 80 - 99 FL [facility] MCH 31 27 - 34 PG [facility] MCHC 33 32 - 36 % [facility] RDW 13.5 9.0 - 14.5 [facility] % Platelet Count 198 140 - 400 [facility] TH/UL MPV 12.7 (H) 9.4 - 12.3 [facility] FL Specimen (Source) Anatomical Collection Method Collection Time Re ceived Time Location / / Volume Laterality Blood 05/06/2012 9:30 AM CDT Roscoe Casanova MD LAB BLOOD ORDERABLES Performing Organization Address City/State/ZIP Code Phon e Number [id number] [place] [address] [facility] (ABNORMAL) Comprehensive Metabolic Panel (05/06/2012 9:30 AM CDT) Patholo gist Method Time Signature Albumin 3.9 3.5 - 5.0 [facility] G/DL Aspartate 49 (H) 15 - 46 [facility] Aminotransferase IU/L Bilirubin Total 0.4 0.2 - 1.3 [facility] MG/DL Protein Total Serum 6.3 6.0 - 8.2 [facility] G/DL Calcium 9.1 8.4 - [facility] 10.2 MG/DL Creatinine 0.9 0.4 - 1.1 [facility] MG/DL Glucose 126 (H) 70 - 100 [facility] MG/DL Alkaline Phosphatase 58 42 - 128 [facility] IU/L Sodium 138 133 - 147 [facility] MEQ/L Potassium 4.6 3.5 - 5.1 [facility] MEQ/L Chloride 103 96 - 112 [facility] MEQ/L Carbon Dioxide 26 22 - 30 [facility] MEQ/L Blood Urea Nitrogen 33 (H) 7 - 26 [facility] MG/DL Anion Gap 9 3 - 15 [facility] Alanine 39 13 - 69 [facility] Aminotransferase IU/L eGFR Female AA 79 [facility] Comment: Chronic Kidney Disease less than 60 mL/m in/1.73 sq.m ??Kidney failure less than 15 mL/min/1. 73 sq.m eGFR Female Non-AA 66 [facility] Comment: Chronic Kidney Disease less than 60 mL/m in/1.73 sq.m ??Kidney failure less than 15 mL/min/1. 73 sq.m Specimen (Source) Anatomical Collection Method Collection Time Re ceived Time Location / / Volume Laterality Blood 05/06/2012 9:30 AM CDT Roscoe Casanova MD LAB BLOOD ORDERABLES Performing Organization Address City/[facility] Phon e Number [id number] [place] [address] [facility] Lipid Panel (05/06/2012 9:30 AM CDT) Analysis Performed At Patho logist Time Signature Cholesterol 132 100 - 200 [facility] MG/DL Triglycerides 58 0 - 150 [facility] MG/DL HDL Cholesterol 85 40 - 110 [facility] MG/DL LDL Cholesterol 35 0 - 99 [facility] MG/DL Cholesterol/HDL 1.6 0.0 - 4.5 [facility] Ratio Non-HDL 47 0 - 130 [facility] Cholesterol MG/DL Hours Postprandial 12 H [facility] Specimen (Source) Anatomical Collection Method Collection Time Re ceived Time Location / / Volume Laterality Blood 05/06/2012 9:30 AM CDT Roscoe Casanova MD LAB BLOOD ORDERABLES Performing Organization Address City/State/ZIP Code Phon e Number [id number] [place] [address] [facility] T4 Free (05/06/2012 9:30 AM CDT) athologist Signature T4 Free 1.2 0.8 - 2.2 [facility] NG/DL Specimen (Source) Anatomical Collection Method Collection Time Re ceived Time Location / / Volume Laterality Blood 05/06/2012 9:30 AM CDT Roscoe Casanova MD LAB BLOOD ORDERABLES Performing Organization Address City/[facility]/ZIP Code Phon e Number [id number] [place] [address] [facility] Thyroid Stimulating Hormone (05/06/2012 9:30 AM CDT) athologist Signature Thyroid 0.69 0.47 - [facility] Stimulating 4.68 Hormone UIU/ML Specimen (Source) Anatomical Collection Method Collection Time Re ceived Time Location / / Volume Laterality Blood 05/06/2012 9:30 AM CDT Roscoe Casanova MD LAB BLOOD ORDERABLES Performing Organization Address [facility] [[email or web address]] Code Phon e Number [id number] [place] [address] [facility] Microalbumin Random (05/06/2012 9:30 AM CDT) [facility] Signature Creatinine 14.4 MG/DL [facility] Urine Random Microalbumin/Cr Not Calc 0.00 - [facility] eatinine Ratio 24.00 UG/MG Comment: Result is outside linear range. Calculation cannot be performed Microalbumin mg/dl <0.50 MG/DL [facility] Specimen (Source) Anatomical Collection Method Collection Time Re ceived Time Location / / Volume Laterality Urine 05/06/2012 9:30 AM CDT Roscoe Casanova MD URINE ORDERABLES Performing Organization Address City/[facility]/ZIP Code Phon e Number [id number] [place] [address] [facility] (ABNORMAL) Hemoglobin A1C (05/06/2012 9:30 AM CDT) athologist Signature HEMOGLOBIN A1C 7.1 (H) 4.0 - 5.6 [facility] % Comment: Non-diabetic ? 4.0 - 5.6 % Prediabetes ?5.7 - 6.4 % Diabetes ? >= 6.5 % Specimen (Source) Anatomical Collection Method Collection Time Re ceived Time Location / / Volume Laterality Blood 05/06/2012 9:30 AM CDT Roscoe Casanova MD LAB BLOOD ORDERABLES Performing Organization Address City/State/[facility] [[email or web address]] Code [facility] e Number [id number] [place] [address] [facility] documented in this encounter Visit Diagnoses Not on filedocumented in this encounter
--- OUTSIDE RECORDS SUMMARY | 2022-09-29 00:31 | XMS_ITS | Encounter Summary ---
:1960 Author Organization [facility] Address [address] [place] [address] Care Team Providers Name Role Phone Marcela Lau PA-C Primary Care Provider Encounter Details Date Type Department Care Team Description 03/22/2021 Documentation [facility] Neurological & Alondra Espinoza RN Spine Surgery [address] [facility] [address] [place], [place] [address] Social History Tobacco Use Types Packs/Day Years Used Date Smoking Tobacco: Never Smokeless Tobacco: Never Alcohol Use Standard Drinks/Week Comments Yes 0 (1 standard drink = 0.6 oz pure alcoho l) 1 glass a month (rarely) Sex Assigned at Date Recorded Female 04/21/2021 9:42 AM CDT documented as of this encounter Progress Notes Kalee Espinoza RN - 03/22/2021 8:44 AM CDT Fax received. Uploaded to chart. documented in this encounter Plan of Treatment Upcoming Encounters Date Type Specialty Care Team Description 05/24/2023 Office Visit Medical Oncology Luzmaria Black MD [address] [address] (Wo rk) documented as of this encounter Visit Diagnoses Not on filedocumented in this encounter Care Teams Stave Block Roller Relationship Specialty Start Date End Date Judi, Marcela, PA-C PCP - General Physician Credit Review Manager 09/13/[address] [address] documented as of this encounter
--- OUTSIDE RECORDS SUMMARY | 2022-09-29 00:31 | XMS_ITS | Encounter Summary ---
:1960 Author Organization [facility] Address [address] [place] [address] Care Team Providers Name Role Phone Marcela Lau PA-C Primary Care Provider Encounter Details Date Type Department Care Team Description 10/04/2020 Documentation [facility] Gail Muller MD Specialists [address] [facility] [address] [facility] [address] [place], [place] [address] [place] [address] [phone] (Wo rk) Social History Tobacco Use Types Packs/Day Years Used Date Smoking Tobacco: Never Sex Assigned at Date Recorded Female 04/21/2021 9:42 AM CDT documented as of this encounter Plan of Treatment Upcoming Encounters Date Type Specialty Care Team Description 05/24/2023 Office Visit Medical Oncology Luzmaria Black MD [address] [facility] [address] [place] [address] (Wo rk) documented as of this encounter Visit Diagnoses Not on filedocumented in this encounter Care Teams Prototype Engineer Relationship Specialty Start Date End Date Marcela Lau PA-C PCP - General Physician Golf Caddy 09/13/[address] [facility] [address] [place] [address] documented as of this encounter
--- OUTSIDE RECORDS SUMMARY | 2022-09-29 00:31 | XMS_ITS | Encounter Summary ---
:1960 Author Organization [facility] Address [address] [place] [address] Care Team Providers Name Role Phone Marcela Lau PA-C Primary Care Provider Encounter Details Date Type Department Care Team Description 11/08/2020 Orders Only [facility] Chrissy Myers due to unknown mechanism (Primary Dx); Specialists N, RN Free monoclonal light chain [address] [facility] [address] [place] [address] Social History Tobacco Use Types Packs/Day [...] Office Visit Medical Oncology CossorLuzmaria MD [address] [address] (Wo rk) Scheduled Orders Name Type Priority Associated Diagnoses Order S chedule CBC and Diff (manual diff Lab Routine Anemia due to u nknown Expected: 02/06/2021, if necessary) mechanism Expires: 11/08 Comprehensive Metabolic Lab Routine Anemia due to unk nown Expected: 02/06/2021, Panel mechanism Expires: 2021 Free [place]+Lambda Light Lab Routine Free monoclonal l ight Expected: 02/06/2021, Chains Serum chain Expires: 2021 documented as of this encounter Visit Diagnoses Diagnosis Anemia due to unknown mechanism - Primar y Unspecified anemia Free monoclonal light chain Proteinuria documented in this encounter Care Teams Test Rider Relationship Specialty Start Date End Date Marcela Lau PA-C PCP - General Physician Aba Therapist 09/13/[address] [place] [address] documented as of this encounter
--- OUTSIDE RECORDS SUMMARY | 2022-09-29 00:31 | XMS_ITS | Encounter Summary ---
:1960 Author Organization [facility] Address [address] [place] [address] Care Team Providers Name Role Phone Unavailable Primary Care Provider Unavailable Encounter Details Date Type Department Care Team Description 05/02/2013 Hist-Appointment [facility] DIAB ENDO HST CL Social History Tobacco Use Types Packs/Day Years Used Date Smoking Tobacco: Never Assessed Sex Assigned at Date Recorded Female 04/21/2021 9:42 AM CDT documented as of this encounter Plan of Treatment Upcoming Encounters Date Type Specialty Care Team Description 05/24/2023 Office Visit Medical Oncology Luzmaria Black MD [address] [facility] [address] [place] [address] (Wo rk) documented as of this encounter Visit Diagnoses Not on filedocumented in this encounter
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
--- OUTSIDE RECORDS SUMMARY | 2022-09-29 00:31 | XMS_ITS | Encounter Summary ---
:1960 Author Organization [facility] Address [address] [place] [address] Care Team Providers Name Role Phone Unavailable Primary Care Provider Unavailable Encounter Details Date Type Department Care Team Description 05/07/2012 Hist-Appointment S[facility] DIAB ENDO HST CL Julian Casanova MD [address] [place], [place] [address] (Wo rk) Social History Tobacco Use Types Packs/Day Years Used Date Smoking Tobacco: Never Assessed Sex Assigned at Date Recorded Female 04/21/2021 9:42 AM CDT documented as of this encounter Last Filed Vital Signs Vital Sign Reading Time Taken Comments Blood Pressure 100/50 05/07/2012 2:42 PM CDT Pulse 64 05/07/2012 2:42 PM CDT Temperature - - Respiratory Rate - - Oxygen Saturation - - Inhaled Oxygen Concentration - - Weight 67.4 kg (148 lb 9.6 oz) 05/07/2012 2:42 PM CDT Height 170.2 cm (5' 7) 05/07/2012 2:42 PM CDT Body Mass Index 23.27 05/07/2012 2:42 PM CDT documented in this encounter Progress Notes Roscoe Casanova MD - 05/07/2012 2:20 PM CDT History of Present Illness Diabetes-[facility]: The patient's visit is for a routine clinic follow-up of type 1 diabetes mellitus. Symptoms: episodes of hypoglycemia, but no polydipsia, [...] Type 1 Diabetes Mellitus - Uncontrolled 250.03 Text Templates: Try to minimize sodium and if edema does not resolve, then consider and occas extra furosemide. Cont pump settings as is. Current Meds 1. Furosemide 40 MG Oral Tablet; TAKE 1 TABLET DAILY; Therapy: 01Mar2006 to (Evaluate:23Nov2012) Requested for: 29Nov2011 Recorded; For: Edema (782.3); Rx By: Roscoe Casanova; Dispense: 90 Days ; #:90 Tablet; Refill: 3; Record; Last Updated By: Sandra Zabala 2. Lisinopril 10 MG Oral Tablet; TAKE 2 TABLETS DAILY; Therapy: 01Feb2010 to (Evaluate:[id number]) Recorded; For: Diabetic Nephropathy Type 1 - Uncontrolled (250.43); Rx By: Roscoe Casanova; Dispense: 90 Days ; #:180 Tablet; Refill: 3; Record; Last Updated By: Sandra Zabala 3. NovoLOG 100 UNIT/ML Subcutaneous Solution; INJECT 60 UNIT DAILY; Therapy: 29Nov2005 to (Evaluate:20Aug2012) Requested for: 27Feb2011; Last Rx:27Feb2011 Ordered; For: Type 1 Diabetes Mellitus - Uncontrolled (250.03); Rx By: Roscoe Casanova; Dispense: 90Days ; #:6 X 10 ML Vial; Refill: 5; DIONNE; Faxed To: [facility] 4. OneTouch Ultra Blue In Vitro Strip; USE 8 STRIP DAILY; Therapy: 30Aug2005 to (Evaluate:[id number]) Requested for: [id number] Recorded; For: Type 1 Diabetes Mellitus - Uncontrolled (250.03); Rx By: Roscoe Casanova; Dispense: 100 Days ; #:800 EA; Refill: 3; DIONNE; Record; Last Updated By: Sandra Zabala 5. Pravastatin Sodium 10 MG Oral Tablet; TAKE 1 TABLET DAILY AT BEDTIME; Therapy: [id number] to Recorded; Dispense: 0 Days ; #: Sufficient Tablet; Refill: 0; Record; Last Updated By: Sandra Zabala 6. Synthroid 75 MCG Oral Tablet; TAKE 1 TABLET DAILY; Therapy: 29Nov2005 to (Evaluate:02May2013) Requested for: [id number] Recorded; For: Frances's Thyroiditis (245.2); Rx By: Roscoe Casanova; Dispense: 90 Days ; #:90 Tablet; Refill: 3; DIONNE; Record; Last Updated By: Sandra Zabala Allergies 1. No Known Drug Allergies No Known Drug Allergies Vitals Vital Signs [Data Includes: Last 24 Hours] [id number] 02:42PM BMI Calculated 23.32 BSA Calculated 1.78 Height 5 ft 7 in Weight 148 lb 9.6 oz Systolic 100 Diastolic 50 Heart Rate 64 Review of Systems Complete-Female ROS - [facility]: [...] - Seatbelts Physical Exam General appearance: Normal. Results/Data Diabetes Flowsheet [Data Includes: Last 1 Instance] Printed in Appendix #1 below. Signatures Electronically signed by : Roscoe Casanova M.D.; May 07 2012 3:29PM (Author) Appendix #1 Diabetes Flowsheet [Data Includes: Last 1 Instance] Patient: GAYE PAZ; : 1960; [id number] Systolic 100 Diastolic 50 BMI Calculated 23.32 BSA Calculated 1.78 Height 5 ft 7 in Weight 148 lb 9.6 oz Hemoglobin A1C 7.1 % Hours Post Prandial [...] Exam Dilated Retinal Eye Exam Performed Pos (05/2011 ) documented in this encounter Plan of Treatment Upcoming Encounters Date Type Specialty Care Team Description 05/24/2023 Office Visit Medical Oncology CosLuzmaria tan MD [address] [place] [id number] (Wo rk) documented as of this encounter Visit Diagnoses Not on filedocumented in this encounter
--- OUTSIDE RECORDS SUMMARY | 2022-09-29 00:32 | XMS_ITS | Encounter Summary ---
:1960 Author Organization [facility] Address [address] [place] [address] Care Team Providers Name Role Phone Unavailable Primary Care Provider Unavailable Encounter Details Date Type Department Care Team Description 05/05/2009 Hist-Other [facility] Family Medicine ProviderPerez MD [address] [address] Social History Tobacco Use Types Packs/Day Years Used Date Smoking Tobacco: Never Assessed Sex Assigned at Date Recorded Female 04/21/2021 9:42 AM CDT documented as of this encounter Plan of Treatment Upcoming Encounters Date Type Specialty Care Team Description 05/24/2023 Office Visit Medical Oncology CossoLuzmaria porras MD [address] [facility] [address] [place] [address] (Wo rk) documented as of this encounter Procedures Procedure Name Priority Date/Time Associated Comments Diagnosis CONVENTIONAL PAP - NO Routine 05/05/2009 1:14 PM Results for this OTHER TESTS CDT procedure are i n the results section. documented in this encounter Results CONVENTIONAL PAP - NO OTHER TESTS (05/05/2009 1:14 PM CDT) Specimen Anatomical Collection Method Collection Time Receive d Time (Source) Location / / Volume Laterality 05/05/2009 1:14 PM 1 1:14 CDT PM CDT Narrative OFFICE ENTERED PATH - 03/01/2011 1:15 PM CDT Test: Pap Smear WNL PER PT Historical Provider PATHOLOGY/CYTOLOGY ORDERABLE S Performing Organization Address City/State/[facility] Phon e Number OFFICE ENTERED PATH documented in this encounter Visit Diagnoses Not on filedocumented in this encounter
--- OUTSIDE RECORDS SUMMARY | 2022-09-29 00:32 | XMS_ITS | Encounter Summary ---
:1960 Author Organization [facility] Address [address] [place] [address] Care Team Providers Name Role Phone Unavailable Primary Care Provider Unavailable Encounter Details Date Type Department Care Team Description 03/06/2008 [facility] Freyjunior Roscoe, [address] [place], [place] [address] [address] [place] [address] Social History Tobacco Use Types Packs/Day Years Used Date Smoking Tobacco: Never Assessed Sex Assigned at Date Recorded Female 04/21/2021 9:42 AM CDT documented as of this encounter Medications at Time of Discharge Medication Sig Dispensed Refills Start Date End Date furosemide (LASIX) 40 MG TAKE 1 TABLET DAILY. 90 0 0 11/29/2011 06/09/2015 tablet NOVOLOG 100 unit/mL INJECT 60 UNIT DAILY 6 0 201106/09/2015 injection ONETOUCH ULTRA TEST Strp USE 8 STRIP DAILY 800 0 07/0 01/201206/09/2015 SYNTHROID 75 mcg tablet TAKE 1 TABLET DAILY. 90 0 06/09/2015 documented as of this encounter Plan of Treatment Upcoming Encounters Date Type Specialty Care Team Description 05/24/2023 Office Visit Medical Oncology CossoLuzmaria porras MD [address] [facility] [address] [place] [address] (Wo rk) documented as of this encounter Procedures Procedure Name Priority Date/Time Associated Diagnosis Comme nts HEMOGLOBIN A1C Routine 03/06/2008 11:10 AM Result s for this CDT procedure are i n the results section . documented in this encounter Results Hemoglobin A1C (03/06/2008 11:10 AM CDT) P athologist Signature HEMOGLOBIN A1C 6.8 % [place]QUEST Comment: NONDIABETIC: ? 4.4-6.0% VERY GOOD CONTROL: ??<7.0% SUBOPTIMAL CONTROL: ??7.1-8.0% POOR CONTROL: ? >8.0% Specimen (Source) Anatomical Collection Method Collection Time Re ceived Time Location / / Volume Laterality 03/06/2008 11:10 AM CDT Roscoe Casanova MD LAB BLOOD ORDERABLES Performing Organization Address City/State/ZIP Code Phon e Number [facility] [id number] [place] [address] [place] documented in this encounter Visit Diagnoses Not on filedocumented in this encounter
--- OUTSIDE RECORDS SUMMARY | 2022-09-29 00:32 | XMS_ITS | Encounter Summary ---
:1960 Author Organization [facility] Address [address] [place] [address] Care Team Providers Name Role Phone Unavailable Primary Care Provider Unavailable Encounter Details Date Type Department Care Team Description 11/16/2010 Hist-Appointment [facility] Julian Kenney MD [address] [place], [place] [address] (Wo rk) Social History Tobacco Use Types Packs/Day Years Used Date Smoking Tobacco: Never Assessed Sex Assigned at Date Recorded Female 04/21/2021 9:42 AM CDT documented as of this encounter Last Filed Vital Signs Vital Sign Reading Time Taken Comments Blood Pressure 116/60 11/16/2010 1:36 PM PACKAGE REINSPECTOR Pulse 72 11/16/2010 1:36 PM PACKAGE REINSPECTOR Temperature - - Respiratory Rate - - Oxygen Saturation - - Inhaled Oxygen Concentration - - Weight 68.9 kg (152 lb) 11/16/2010 1:36 PM PACKAGE REINSPECTOR Height 171.5 cm (5' 7.5) 11/16/2010 1:36 PM PACKAGE REINSPECTOR Body Mass Index 23.46 11/16/2010 1:36 PM PACKAGE REINSPECTOR documented in this encounter Progress Notes Roscoe Casanova MD - 11/16/2010 1:00 PM CST History of Present Illness Diabetes-[facility]: The patient's visit is for a routine clinic follow-up of type I diabetes mellitus. Meter and pump downloaded and reviewed. Sugar is still frequent to low, especially in the morning. Feeling well with no complaints. Riding her bike an extraordinary amount still. Current Meds 1 Fluconazole 100 MG Oral Tablet; Status: ACTIVE 2 Furosemide 40 MG Oral Tablet; TAKE 1 TABLET DAILY; Status: ACTIVE 3 Lisinopril 10 MG Oral Tablet; TAKE 2 TABLETS DAILY; Status: ACTIVE 4 NovoLOG 100 UNIT/ML Subcutaneous Solution; INJECT 60 UNIT DAILY; Status: ACTIVE 5 OneTouch Ultra Test In Vitro Strip; USE 8 STRIP DAILY; Status: ACTIVE 6 Pravastatin Sodium 20 MG Oral Tablet; TAKE 20 MG Bedtime; Status: ACTIVE 7 Synthroid 75 MCG Oral Tablet; TAKE 1 TABLET DAILY; Status: ACTIVE Allergies ?? No Known Drug Allergies Vitals Vital Signs [Filter Applied: Current Encounter] 16Nov2010 01:36PM BMI Calculated 23.46 BSA Calculated 1.81 Height 67.5 in Weight 152 lb Systolic 116 Diastolic 60 Heart Rate 72 Review of Systems Complete-Female ROS - [facility]: Constitutional, eye, otolaryngeal, cardiovascular, pulmonary, gastrointestinal, genitourinary, musculoskeletal, skin, neurological, psychiatric, endocrine and hematologic review of systems are normal except as per HPI and unless noted below. Other Symptoms: ?staph infection on buttock, she will be seeing PCP soon for evaluation. 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 Being A Social Drinker Status: Active ?? Exercising Regularly Status: Active ?? Marital History - Currently Status: Active ?? Never Smoked Status: Active ?? 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 Examination of the head and face: Normal. Inspection of conjunctiva and lids: Normal. Examination of pupils and irises: Normal.dilated retinal eye exam performed 05/2010 External inspection of ears and nose: Normal. Assessment of hearing: Normal. Examination of neck: Normal. Examination of thyroid: Normal. Inspection of skin and subcutaneous tissue: Normal. Description of patient's judgement/insight: Normal. Mood and affect: Normal. The right foot was normal.The left foot was normal. Monofilament Testing: did not show decreased sensation of the foot Results/Data Labs reviewed and A1c very reasonable at 6.7 percent Assessment 1 Type I Diabetes Mellitus - Uncontrolled 250.03 Status: Active; Last Assessed: 16Nov2010 02:17PM Still too many lows. Plan Reduce basal to 0.9 at 3AM. Continue other pump settings as is and followup in 4 months Signatures Roscoe Casanova M.D.; Nov 16 2010 7:07PM (Author) AGE REINSPECTOR documented in this encounter Plan of Treatment Upcoming Encounters Date Type Specialty Care Team Description 05/24/2023 Office Visit Medical Oncology CosLuzmaria tan MD [facility] [address] [address] (Wo rk) documented as of this encounter Visit Diagnoses Not on filedocumented in this encounter
--- OUTSIDE RECORDS SUMMARY | 2022-09-29 00:32 | XMS_ITS | Encounter Summary ---
:1960 Author Organization [facility] Address [address] [place] [address] Care Team Providers Name Role Phone Marcela Lau PA-C Primary Care Provider Encounter Details Date Type Department Care Team Description 11/16/2010 [facility] Note [facility], Diabetes & Endocrinology [address] [place] [address] [place] [address] 66 [facility] [phone] Social History Tobacco Use Types Packs/Day Years Used Date Smoking Tobacco: Never Assessed Sex Assigned at Date Recorded Female 04/21/2021 9:42 AM CDT documented as of this encounter Miscellaneous Notes Miscellaneous - Roscoe Casanova MD - 11/16/2010 1:00 PM CST Verified Results Collected/Examined: Nov 15, 2010 5:33PM Test Result Flag Acceptable HL Complete Blood Count WHITE BLOOD CELL COUNT 12.03 TH/uL H 4.00-11.00 Red Blood Cell Count 4.56 MIL/uL 4.00-5.00 Hemoglobin 14.1 g/dL 12.0-15.0 Hematocrit 42 % 36-45 Mean Corpuscular Volume 93 fL 80-99 Mean Corpuscular Hgb 31 pg 27-34 Mean Corpuscular Hgb Conc 33 % 32-36 Red Cell Distribution Width 13.4 % 9.0-14.5 Platelet Count 247 TH/uL 140-400 Mean Platelet Volume 12.3 fL 9.4-12.3 T4 Free 1.0 ng/dL 0.6-1.6 HL Lipid Panel Cholesterol Lipid Prof 150 mg/dL 100-200 Triglycerides 38 mg/dL 0-150 Hdl 69 mg/dL 40-110 Ldl Cholesterol 73 mg/dL 0-99 Total Cholesterol/Hdl Ratio 2.2 0.0-4.5 Non- HDL Cholesterol 81 mg/dL 0-130 HL Comprehensive Metabolic Panel Albumin 3.9 g/dL 3.5-5.0 Aspartate Aminotransferase 26 IU/L 15-41 Alanine Aminotransferase 26 IU/L 14-63 Bilirubin Total 0.8 mg/dL 0.3-1.4 Protein Total Serum 6.7 g/dL 6.0-8.0 Calcium 9.4 mg/dL 8.8-10.5 Creatinine 0.8 mg/dL 0.4-1.1 Glucose 73 mg/dL 65-100 Alkaline Phosphatase 52 IU/L 42-128 Sodium 139 MEQ/L 134-144 Potassium 4.6 MEQ/L 3.5-5.1 Chloride 102 MEQ/L 101-111 Anion Gap 8 3-15 Blood Urea Nitrogen 21 mg/dL 8-26 Carbon Dioxide 29 MEQ/L 23-32 Gfrf Aa 91 Chronic Kidney Disease less than 60 mL/min/1.73 sq.m Kidney failure less than 15 mL/min/1.73 sq.m Gfrf Non Aa 76 Chronic Kidney Disease less than 60 mL/min/1.73 sq.m Kidney failure less than 15 mL/min/1.73 sq.m Collected/Examined: Nov 15, 2010 5:34PM Test Result Flag Acceptable Thyroid Stimulating Hormone 1.25 uIU/mL 0.45-4.50 Collected/Examined: Nov 15, 2010 9:32PM Test Result Flag Acceptable HL Microalbumin Random Microalbumin Mg/L 2.29 mg/dL Creatinine, Urine Random Quant 28.6 mg/dL Microalbumin/Creatinine Ratio 80.07 ug/mg H 0.00-24.00 Hemoglobin A1C 6.7 % Non-diabetic: 4.0 - 6.0 % Very Good Control: < 7.0 % Suboptimal Control: 7.1 - 8.0 % Poor Control: >8.0 % RT COORDINATOR Miscellaneous - Roscoe Casanova MD - 11/16/2010 1:00 PM CST Verified Results Collected/Examined: Nov 15, 2010 5:33PM Test Result Flag Acceptable HL Complete Blood Count WHITE BLOOD CELL COUNT 12.03 TH/uL H 4.00-11.00 Red Blood Cell Count 4.56 MIL/uL 4.00-5.00 Hemoglobin 14.1 g/dL 12.0-15.0 Hematocrit 42 % 36-45 Mean Corpuscular Volume 93 fL 80-99 Mean Corpuscular Hgb 31 pg 27-34 Mean Corpuscular Hgb Conc 33 % 32-36 Red Cell Distribution Width 13.4 % 9.0-14.5 Platelet Count 247 TH/uL 140-400 Mean Platelet Volume 12.3 fL 9.4-12.3 T4 Free 1.0 ng/dL 0.6-1.6 HL Lipid Panel Cholesterol Lipid Prof 150 mg/dL 100-200 Triglycerides 38 mg/dL 0-150 Hdl 69 mg/dL 40-110 Ldl Cholesterol 73 mg/dL 0-99 Total Cholesterol/Hdl Ratio 2.2 0.0-4.5 Non- HDL Cholesterol 81 mg/dL 0-130 HL Comprehensive Metabolic Panel Albumin 3.9 g/dL 3.5-5.0 Aspartate Aminotransferase 26 IU/L 15-41 Alanine Aminotransferase 26 IU/L 14-63 Bilirubin Total 0.8 mg/dL 0.3-1.4 Protein Total Serum 6.7 g/dL 6.0-8.0 Calcium 9.4 mg/dL 8.8-10.5 Creatinine 0.8 mg/dL 0.4-1.1 Glucose 73 mg/dL 65-100 Alkaline Phosphatase 52 IU/L 42-128 Sodium 139 MEQ/L 134-144 Potassium 4.6 MEQ/L 3.5-5.1 Chloride 102 MEQ/L 101-111 Anion Gap 8 3-15 Blood Urea Nitrogen 21 mg/dL 8-26 Carbon Dioxide 29 MEQ/L 23-32 Gfrf Aa 91 Chronic Kidney Disease less than 60 mL/min/1.73 sq.m Kidney failure less than 15 mL/min/1.73 sq.m Gfrf Non Aa 76 Chronic Kidney Disease less than 60 mL/min/1.73 sq.m Kidney failure less than 15 mL/min/1.73 sq.m Collected/Examined: Nov 15, 2010 5:34PM Test Result Flag Acceptable Thyroid Stimulating Hormone 1.25 uIU/mL 0.45-4.50 Collected/Examined: Nov 15, 2010 9:32PM Test Result Flag Acceptable HL Microalbumin Random Microalbumin Mg/L 2.29 mg/dL Creatinine, Urine Random Quant 28.6 mg/dL Microalbumin/Creatinine Ratio 80.07 ug/mg H 0.00-24.00 Hemoglobin A1C 6.7 % Non-diabetic: 4.0 - 6.0 % Very Good Control: < 7.0 % Suboptimal Control: 7.1 - 8.0 % Poor Control: >8.0 % RT COORDINATOR documented in this encounter Plan of Treatment Upcoming Encounters Date Type Specialty Care Team Description 05/24/2023 Office Visit Medical Oncology CossorLuzmaria MD [address] [facility] [address] [place] [address] (Wo rk) documented as of this encounter Visit Diagnoses Not on filedocumented in this encounter Care Teams Signal Repairer Relationship Specialty Start Date End Date Marcela Lau PA-C PCP - General Physician [employer] Technical Lead Senior Developer 09/13/20 [address] [facility] [address] [place] [address] documented as of this encounter
--- OUTSIDE RECORDS SUMMARY | 2022-09-29 00:32 | XMS_ITS | Encounter Summary ---
:1960 Author Organization [facility] Address [address] [place] [address] Care Team Providers Name Role Phone Unavailable Primary Care Provider Unavailable Encounter Details Date Type Department Care Team Description 03/31/2009 Hist-Appointment [facility] Julian Kenney MD [address] [place], [place] [address] (Wo rk) Social History Tobacco Use Types Packs/Day Years Used Date Smoking Tobacco: Never Assessed Sex Assigned at Date Recorded Female 04/21/2021 9:42 AM CDT documented as of this encounter Plan of Treatment Upcoming Encounters Date Type Specialty Care Team Description 05/24/2023 Office Visit Medical Oncology Luzmaria Black MD [address] [address] (Wo rk) documented as of this encounter Visit Diagnoses Not on filedocumented in this encounter
--- OUTSIDE RECORDS SUMMARY | 2022-09-29 00:32 | XMS_ITS | Encounter Summary ---
:1960 Author Organization [facility] Address [address] [place] [address] Care Team Providers Name Role Phone Unavailable Primary Care Provider Unavailable Encounter Details Date Type Department Care Team Description 08/15/2010 Hospital Encounter [facility] bebeto Jocelyne Roscoe, [address] [place], [place] [address] [address] [facility] [phone] [place] [address] Social History Tobacco Use Types Packs/Day Years [...] Visit Medical Oncology CosLuzmaria tan MD [address] [phone] (Wo rk) documented as of this encounter Procedures Procedure Name Priority Date/Time Associated Diagnosis Comme nts HEMOGLOBIN A1C Routine 08/15/2010 4:06 PM Results for this CDT procedure are i n the results section . documented in this encounter Results Hemoglobin A1C (08/15/2010 4:06 PM CDT) P athologist Signature HEMOGLOBIN A1C 6.8 % SUNQUEST Comment: Non-diabetic: ? 4.0 - 6.0 % Very Good Control: ?< 7.0 % Suboptimal Control: ? 7.1 - 8.0 % Poor Control: ? >8.0 % Specimen (Source) Anatomical Collection Method Collection Time Re ceived Time Location / / Volume Laterality Blood 08/15/2010 4:06 PM CDT Roscoe Casanova MD LAB BLOOD ORDERABLES Performing Organization Address City/State/ZIP Code Phon e Number [facility] [id number] [place] [address] SUNQUEST documented in this encounter Visit Diagnoses Not on filedocumented in this encounter
--- OUTSIDE RECORDS SUMMARY | 2022-09-29 00:32 | XMS_ITS | Encounter Summary ---
:1960 Author Organization [facility] Address [address] [place] [address] Care Team Providers Name Role Phone Unavailable Primary Care Provider Unavailable Encounter Details Date Type Department Care Team Description 11/16/2010 Hospital Encounter [facility] bebeto Jocelyne Roscoe, [address] [place], [place] [address] [address] [facility] [phone] [place] [address] Social History Tobacco Use Types Packs/Day Years [...] Visit Medical Oncology CosLuzmaria tan MD [address] [phone] (Wo rk) documented as of this encounter Visit Diagnoses Not on filedocumented in this encounter
--- OUTSIDE RECORDS SUMMARY | 2022-09-29 00:32 | XMS_ITS | Encounter Summary ---
:1960 Author Organization [facility] Address [address] [place] [address] Care Team Providers Name Role Phone Unavailable Primary Care Provider Unavailable Encounter Details Date Type Department Care Team Description 09/28/2009 Hospital Encounter [facility] bebeto Freyjunior Roscoe, [address] [place], [place] [address] [address] [place], [place] [address] Social History Tobacco Use Types Packs/Day Years [...] Visit Medical Oncology CosLuzmaria tan MD [address] [facility] [address] [place] [address] (Wo rk) documented as of this encounter Procedures Procedure Name Priority Date/Time Associated Comments Diagnosis MICROALBUMIN RANDOM Routine 09/28/2009 12:10 Resu lts for this PM CORPORATE TRAVEL MANAGER procedure are i n the results section. THYROID STIMULATING Routine 09/28/2009 12:10 Resu lts for this HORMONE PM CORPORATE TRAVEL MANAGER procedure are i n the results section. T4 FREE Routine 09/28/2009 12:10 Results for this PM CORPORATE TRAVEL MANAGER procedure are i n the results section. LIPID PANEL Routine 09/28/2009 12:10 Results for this PM CORPORATE TRAVEL MANAGER procedure are i n the results section. HEMOGLOBIN A1C Routine 09/28/2009 12:10 Results f or this PM CORPORATE TRAVEL MANAGER procedure are i n the results section. COMPREHENSIVE Routine 09/28/2009 12:10 Results fo r this METABOLIC PANEL PM CORPORATE TRAVEL MANAGER procedure ar e in the results section. COMPLETE BLOOD COUNT Routine 09/28/2009 12:10 Res ults for this PM CORPORATE TRAVEL MANAGER procedure are i n the results section. documented in this encounter Results (ABNORMAL) Complete Blood Count (09/28/2009 12:10 PM CORPORATE TRAVEL MANAGER) [facility] Signature WBC 7.4 4.0 - 11.0 [place] TH/UL RBC 4.50 4.00 - SUNQUEST 5.00 MIL/UL Hemoglobin 14.1 12.0 - SUNQUEST 15.0 G/DL Hematocrit 42 36 - 45 % [place] MCV 93 80 - 99 FL SUNQUEST MCH 31 27 - 34 PG SUNQUEST MCHC 34 32 - 36 % SUNQUEST RDW 13.1 <14.5 % SUNQUEST Platelet Count 250 140 - 400 [place] TH/UL MPV 12.6 (H) 9.4 - 12.3 SUNQUEST FL Specimen (Source) Anatomical Collection Method Collection Time Re ceived Time Location / / Volume Laterality 09/28/2009 12:10 PM CORPORATE TRAVEL MANAGER Roscoe Casanova MD LAB BLOOD ORDERABLES Performing Organization Address City/State/ZIP Code Phon e Number [facility] [id number] [place] [address] [place] Lipid Panel (09/28/2009 12:10 PM CORPORATE TRAVEL MANAGER) Patholo gist Method Time Signature Cholesterol 151 <200 [place] MG/DL Triglycerides 41 <150 [place] MG/DL HDL Cholesterol 73 >41 MG/DL [facility] LDL Cholesterol 70 0 - 99 [place] MG/DL Cholesterol/HDL 2.1 <4.5 [place] Ratio LDL INTERPRETATION NOT REPORTED [place] Specimen (Source) Anatomical Collection Method Collection Time Re ceived Time Location / / Volume Laterality 09/28/2009 12:10 PM CORPORATE TRAVEL MANAGER Roscoe Casanova MD LAB BLOOD ORDERABLES Performing Organization Address City/[facility]/ZIP Code Phon e Number [facility] [address] [place] [address] [place] T4 Free (09/28/2009 12:10 PM CORPORATE TRAVEL MANAGER) athologist Signature T4 Free 0.9 0.6 - 1.6 [facility] NG/DL Specimen (Source) Anatomical Collection Method Collection Time Re ceived Time Location / / Volume Laterality 09/28/2009 12:10 PM CORPORATE TRAVEL MANAGER Roscoe Casanova MD LAB BLOOD ORDERABLES Performing Organization Address City/State/ZIP Code Phon e Number [facility] [address] [place] [address] [place] Thyroid Stimulating Hormone (09/28/2009 12:10 PM CORPORATE TRAVEL MANAGER) athologist Signature Thyroid 0.92 0.45 - SUNQUEST Stimulating 4.50 Hormone UIU/ML Specimen (Source) Anatomical Collection Method Collection Time Re ceived Time Location / / Volume Laterality 09/28/2009 12:10 PM CORPORATE TRAVEL MANAGER Roscoe Casanova MD LAB BLOOD ORDERABLES Performing Organization Address City/[facility]/ZIP Code Phon e Number [facility] [id number] [place] [address] [place]QUEST (ABNORMAL) Comprehensive Metabolic Panel (09/28/2009 12:10 PM CORPORATE TRAVEL MANAGER) [facility] gist Method Time Signature Albumin 4.0 3.5 - 5.0 SUNQUEST G/DL Aspartate 25 15 - 41 [facility] Aminotransferase IU/L Bilirubin Total 0.5 0.3 - 1.4 [place] MG/DL Protein Total Serum 6.7 6.0 - 8.0 [place]QUEST G/DL Calcium 9.4 8.8 - [place]QUEST 10.5 MG/DL Creatinine 1.1 0.4 - 1.1 [place] MG/DL Glucose 68 65 - 100 [place] MG/DL Alkaline Phosphatase 51 42 - 128 [place] IU/L Sodium 136 134 - 144 [place] MEQ/L Potassium 4.5 3.5 - 5.1 [facility] MEQ/L Chloride 99 (L) 101 - 111 [place] MEQ/L Carbon Dioxide 31 23 - 32 [facility] MEQ/L Blood Urea Nitrogen 31 (H) 8 - 26 [facility] MG/DL Anion Gap 6 3 - 15 [facility] Alanine 22 14 - 63 SUNQUEST Aminotransferase IU/L Specimen (Source) Anatomical Collection Method Collection Time Re ceived Time Location / / Volume Laterality 09/28/2009 12:10 PM CORPORATE TRAVEL MANAGER Roscoe Casanova MD LAB BLOOD ORDERABLES Performing Organization Address City/[facility]/ZIP Code Phon e Number [id number] [place] [address] [place] Microalbumin Random (09/28/2009 12:10 PM CORPORATE TRAVEL MANAGER) P athologist Signature Microalbumin 0.26 [facility]QUEST mg/dl Creatinine Urine 28.2 MG/DL [facility]QUEST Random Microalbumin/Crea 9.22 0.00 - SUNQUEST tinine Ratio 24.00 UG/MG Specimen (Source) Anatomical Collection Method Collection Time Re ceived Time Location / / Volume Laterality 09/28/2009 12:10 PM CORPORATE TRAVEL MANAGER Roscoe Casanova MD URINE ORDERABLES Performing Organization Address [facility] Phon e Number [facility] [address] [place] [address] [place] Hemoglobin A1C (09/28/2009 12:10 PM CORPORATE TRAVEL MANAGER) P athologist Signature HEMOGLOBIN A1C 6.6 % [facility]QUEST Comment: NONDIABETIC: ? 4.4-6.0% VERY GOOD CONTROL: ??<7.0% SUBOPTIMAL CONTROL: ??7.1-8.0% POOR CONTROL: ? >8.0% Specimen (Source) Anatomical Collection Method Collection Time Re ceived Time Location / / Volume Laterality 09/28/2009 12:10 PM CORPORATE TRAVEL MANAGER Roscoe Casanova MD LAB BLOOD ORDERABLES Performing Organization Address City/[facility] Code Phon e Number [facility] [address] [place] [address] [place] documented in this encounter Visit Diagnoses Not on filedocumented in this encounter
--- OUTSIDE RECORDS SUMMARY | 2022-09-29 00:32 | XMS_ITS | Encounter Summary ---
:1960 Author Organization [facility] Address [address] [place] [address] Care Team Providers Name Role Phone Unavailable Primary Care Provider Unavailable Encounter Details Date Type Department Care Team Description 09/05/2010 [place] [facility] [place] [facility] [place], MD Perez [address] [place] [address] [place] [address] Social History Tobacco Use Types Packs/Day Years Used Date Smoking Tobacco: Never Assessed Sex Assigned at Date Recorded Female 04/21/2021 9:42 AM CDT documented as of this encounter Plan of Treatment Upcoming Encounters Date Type Specialty Care Team Description 05/24/2023 Office Visit Medical Oncology CossorLuzmaria MD [address] [facility] [address] [place] [address] (Wo rk) documented as of this encounter Procedures Procedure Name Priority Date/Time Associated Diagnosis Comme nts MA MAMMOGRAM Routine 09/05/2010 1:15 PM Results f or this CDT procedure are i n the results section . documented in this encounter Results MA Mammogram (09/05/2010 1:15 PM CDT) Anatomical Region Laterality Modality Breast Mammography Specimen Anatomical Collection Method Collection Time Receive d Time (Source) Location / / Volume Laterality 09/05/2010 1:15 PM 1 1:14 CDT PM CDT Narrative 03/01/2011 1:15 PM CDT WNL Procedure Note Provider, MD Peerz - 03/05/2015For matting of this note might be different from the original. WNL Perez Provider MD FERNANDEZ MAMMOGRAPHY ORDERABLES documented in this encounter Visit Diagnoses Not on filedocumented in this encounter
--- OUTSIDE RECORDS SUMMARY | 2022-09-29 00:32 | XMS_ITS | Encounter Summary ---
:1960 Author Organization [facility] Address [address] [place] [address] Care Team Providers Name Role Phone Unavailable Primary Care Provider Unavailable Encounter Details Date Type Department Care Team Description 12/10/2007 Hist-Appointment [facility] Julian Kenney MD [address] [place], [place] [address] (Wo rk) Social History Tobacco Use Types Packs/Day Years Used Date Smoking Tobacco: Never Assessed Sex Assigned at Date Recorded Female 04/21/2021 9:42 AM CDT documented as of this encounter Plan of Treatment Upcoming Encounters Date Type Specialty Care Team Description 05/24/2023 Office Visit Medical Oncology Lzumaria Black MD [address] [address] (Wo rk) documented as of this encounter Visit Diagnoses Not on filedocumented in this encounter
--- OUTSIDE RECORDS SUMMARY | 2022-09-29 00:32 | XMS_ITS | Encounter Summary ---
:1960 Author Organization [facility] Address [address] [place] [address] Care Team Providers Name Role Phone Unavailable Primary Care Provider Unavailable Encounter Details Date Type Department Care Team Description 07/03/2011 Hospital Encounter [facility] bebeto Jocelyne Roscoe, [address] [place], [place] [address] [address] [facility] [phone] [place] [address] Social History Tobacco Use Types Packs/Day Years [...] Visit Medical Oncology CosLuzmaria tan MD [address] [phone] (Wo rk) documented as of this encounter Procedures Procedure Name Priority Date/Time Associated Comments Diagnosis MICROALBUMIN RANDOM Routine 07/03/2011 3:32 PM Re sults for this CDT procedure are i n the results section. THYROID STIMULATING Routine 07/03/2011 3:32 PM Re sults for this HORMONE CDT procedure are i n the results section. T4 FREE Routine 07/03/2011 3:32 PM Results f or this CDT procedure are i n the results section. LIPID PANEL Routine 07/03/2011 3:32 PM Results f or this CDT procedure are i n the results section. HEMOGLOBIN A1C Routine 07/03/2011 3:32 PM Results for this CDT procedure are i n the results section. COMPREHENSIVE Routine 07/03/2011 3:32 PM Results for this METABOLIC PANEL CDT procedure ar e in the results section. COMPLETE BLOOD COUNT Routine 07/03/2011 3:32 PM R esults for this CDT procedure are i n the results section. VITAMIN D, 25-HYDROXY Routine 07/03/2011 3:32 PM Results for this CDT procedure are i n the results section. documented in this encounter Results Complete Blood Count (07/03/2011 3:32 PM CDT) P athologist Signature WBC 7.50 4.00 - [facility] 11.00 TH/UL RBC 4.06 4.00 - 5.00 [facility] MIL/UL Hemoglobin 12.6 12.0 - 15.0 [facility] G/DL Hematocrit 38 36 - 45 % [facility] MCV 94 80 - 99 FL SUN[facility] MCH 31 27 - 34 PG SUN[facility] MCHC 33 32 - 36 % [facility] RDW 13.0 9.0 - 14.5 [facility] % Platelet Count 217 140 - 400 [place] TH/UL MPV 12.3 9.4 - 12.3 [facility] FL Specimen (Source) Anatomical Collection Method Collection Time Re ceived Time Location / / Volume Laterality Blood 07/03/2011 3:32 PM CDT Roscoe Casanova MD LAB BLOOD ORDERABLES Performing Organization Address City/State/ZIP Code Phon e Number [facility] [id number] [place] [address] [place] (ABNORMAL) Comprehensive Metabolic Panel (07/03/2011 3:32 PM CDT) Patholo gist Method Time Signature Albumin 3.8 3.5 - 5.0 [facility] G/DL Aspartate 27 15 - 41 [facility] Aminotransferase IU/L Bilirubin Total 0.7 0.3 - 1.4 [place] MG/DL Protein Total Serum 6.2 6.0 - 8.0 [place] G/DL Calcium 9.3 8.8 - [place] 10.5 MG/DL Creatinine 0.9 0.4 - 1.1 [place] MG/DL Glucose 154 (H) 65 - 100 [place] MG/DL Alkaline Phosphatase 47 42 - 128 [place] IU/L Sodium 139 134 - 144 [place] MEQ/L Potassium 4.4 3.5 - 5.1 [place] MEQ/L Chloride 102 101 - 111 [place] MEQ/L Carbon Dioxide 30 23 - 32 [place] MEQ/L Blood Urea Nitrogen 27 (H) 8 - 26 [facility] MG/DL Anion Gap 7 3 - 15 [facility] Alanine 25 14 - 63 [facility] Aminotransferase IU/L eGFR Female AA 79 [...] Time Location / / Volume Laterality Blood 07/03/2011 3:32 PM CDT Roscoe Casanova MD LAB BLOOD ORDERABLES Performing Organization Address City/State/ZIP Code Phon e Number [facility] [id number] [place] [address] [place] Lipid Panel (07/03/2011 3:32 PM CDT) Analysis Performed At Patho logist Time Signature Cholesterol 151 100 - 200 [place] MG/DL Triglycerides 77 0 - 150 [place] MG/DL HDL Cholesterol 79 40 - 110 [place] MG/DL LDL Cholesterol 57 0 - 99 [place] MG/DL Cholesterol/HDL 1.9 0.0 - 4.5 [facility] Ratio Non-HDL 72 0 - 130 [facility] Cholesterol MG/DL Specimen (Source) Anatomical Collection Method Collection Time Re ceived Time Location / / Volume Laterality Blood 07/03/2011 3:32 PM CDT Roscoe Casanova MD LAB BLOOD ORDERABLES Performing Organization Address City/[facility]/ZIP Code Phon e Number [facility] [id number] [place] [address] [place] T4 Free (07/03/2011 3:32 PM CDT) athologist Signature T4 Free 0.8 0.6 - 1.6 [place] NG/DL Specimen (Source) Anatomical Collection Method Collection Time Re ceived Time Location / / Volume Laterality Blood 07/03/2011 3:32 PM CDT Roscoe Casanova MD LAB BLOOD ORDERABLES Performing Organization Address City/[facility]/ZIP Code Phon e Number [facility] [id number] [place] [address] [place] Thyroid Stimulating Hormone (07/03/2011 3:32 PM CDT) athologist Signature Thyroid 0.94 0.45 - [place] Stimulating 4.50 Hormone UIU/ML Specimen (Source) Anatomical Collection Method Collection Time Re ceived Time Location / / Volume Laterality Blood 07/03/2011 3:32 PM CDT Roscoe Casanova MD LAB BLOOD ORDERABLES Performing Organization Address City/[facility] Code Phon e Number [facility] [id number] [place] [address] [place] Microalbumin Random (07/03/2011 3:32 PM CDT) athologist Signature Creatinine Urine 63.3 MG/DL [facility] Random Microalbumin/Crea 18.48 0.00 - [facility] tinine Ratio 24.00 UG/MG Microalbumin 1.17 MG/DL [facility] mg/dl Specimen (Source) Anatomical Collection Method Collection Time Re ceived Time Location / / Volume Laterality Urine 07/03/2011 3:32 PM CDT Roscoe Casanova MD URINE ORDERABLES Performing Organization Address City/[facility] Phon e Number [facility] [id number] [place] [address] [place] (ABNORMAL) Hemoglobin A1C (07/03/2011 3:32 PM CDT) athologist Signature HEMOGLOBIN A1C 6.7 (H) 4.0 - 6.0 [facility] % Comment: Non-diabetic: ? 4.0 - 6.0 % Very Good Control: ?< 7.0 % Suboptimal Control: ? 7.1 - 8.0 % Poor Control: ? >8.0 % Specimen (Source) Anatomical Collection Method Collection Time Re ceived Time Location / / Volume Laterality Blood 07/03/2011 3:32 PM CDT Roscoe Casanova MD LAB BLOOD ORDERABLES Performing Organization Address City/[facility]/ZIP Code Phon e Number [facility] [address] [place] [address] [place] Vitamin D, 25-Hydroxy (07/03/2011 3:32 PM CDT) P athologist Signature Vitamin D <5 NG/ML [facility] 25-Hydroxy D2 Vitamin D 41 NG/ML [facility] 25-Hydroxy D3 Vitamin D 41 25 - 80 [facility] 25-Hydroxy NG/ML Comment: Test performed by [facility] ? [address] ? [place], [place] ??[address] Specimen (Source) Anatomical Collection Method Collection Time Re ceived Time Location / / Volume Laterality Blood 07/03/2011 3:32 PM CDT Roscoe Casanova MD LAB BLOOD ORDERABLES Performing Organization Address City/[facility]/ZIP Code Phon e Number [facility] [address] [place] [address] [place] documented in this encounter Visit Diagnoses Not on filedocumented in this encounter
--- OUTSIDE RECORDS SUMMARY | 2022-09-29 00:32 | XMS_ITS | Encounter Summary ---
:1960 Author Organization [facility] Address [address] [place] [address] Care Team Providers Name Role Phone Unavailable Primary Care Provider Unavailable Encounter Details Date Type Department Care Team Description 10/05/2009 Hist-Appointment [facility] Julian Casanova MD [address] [place], [place] [address] (Wo rk) Social History Tobacco Use Types Packs/Day Years Used Date Smoking Tobacco: Never Assessed Sex Assigned at Date Recorded Female 04/21/2021 9:42 AM CDT documented as of this encounter Last Filed Vital Signs Vital Sign Reading Time Taken Comments Blood Pressure 102/64 10/05/2009 9:17 AM TELECOMMUNICATIONS LINESWORKER Pulse 80 10/05/2009 9:17 AM TELECOMMUNICATIONS LINESWORKER Temperature - - Respiratory Rate - - Oxygen Saturation - - Inhaled Oxygen Concentration - - Weight 68.5 kg (151 lb) 10/05/2009 9:17 AM TELECOMMUNICATIONS LINESWORKER Height - - Body Mass Index - - documented in this encounter Plan of Treatment Upcoming Encounters Date Type Specialty Care Team Description 05/24/2023 Office Visit Medical Oncology Luzmaria Black MD [address] [facility] [address] [place] [address] (Wo rk) documented as of this encounter Visit Diagnoses Not on filedocumented in this encounter
--- OUTSIDE RECORDS SUMMARY | 2022-09-29 00:32 | XMS_ITS | Encounter Summary ---
:1960 Author Organization [facility] Address [address] [place] [address] Care Team Providers Name Role Phone Marcela Lau PA-C Primary Care Provider Encounter Details Date Type Department Care Team Description 08/16/2010 [employer] Note [facility] Diabetes & Endocrinology [address] [address] [place], [place] [address] [facility] [phone] Social History Tobacco Use Types Packs/Day Years Used Date Smoking Tobacco: Never Assessed Sex Assigned at Date Recorded Female 04/21/2021 9:42 AM CDT documented as of this encounter Miscellaneous Notes Miscellaneous - Roscoe Casanova MD - 08/16/2010 7:23 PM CDT Verified Results Collected/Examined: Aug 15, 2010 10:13PM Test Result Flag Acceptable Hemoglobin A1C 6.8 % Non-diabetic: 4.0 - 6.0 % Very Good Control: < 7.0 % Suboptimal Control: 7.1 - 8.0 % Poor Control: >8.0 % Miscellaneous - Roscoe Casanova MD - 08/16/2010 7:23 PM CDT Verified Results Collected/Examined: Aug 15, 2010 10:13PM Test Result Flag Acceptable Hemoglobin A1C 6.8 % Non-diabetic: 4.0 - 6.0 % Very Good Control: < 7.0 % Suboptimal Control: 7.1 - 8.0 % Poor Control: >8.0 % documented in this encounter Plan of Treatment Upcoming Encounters Date Type Specialty Care Team Description 05/24/2023 Office Visit Medical Oncology CossorLuzmaria MD [address] [facility] [address] [place] [address] (Wo rk) documented as of this encounter Visit Diagnoses Not on filedocumented in this encounter Care Teams Pediatric Occupational Therapist Relationship Specialty Start Date End Date Marcela Lau PA-C PCP - General Physician Resident Physician In Radiology 09/13/[address] [facility] [address] [place] [address] documented as of this encounter
--- OUTSIDE RECORDS SUMMARY | 2022-09-29 00:32 | XMS_ITS | Encounter Summary ---
:1960 Author Organization [facility] Address [address] [place] [address] Care Team Providers Name Role Phone Unavailable Primary Care Provider Unavailable Encounter Details Date Type Department Care Team Description 11/16/2010 Hospital Encounter [facility] bebeto Jocelyne Roscoe, [address] [place], [place] [address] [address] [facility] [phone] [place] [address] Social History Tobacco Use Types Packs/Day Years [...] Visit Medical Oncology CosLuzmaria tan MD [address] [phone] (wo rk) documented as of this encounter Procedures Procedure Name Priority Date/Time Associated Comments Diagnosis MICROALBUMIN 24HR Routine 11/16/2010 12:50 Result s for this PM FUR DYER procedure are i n the results section. CREATININE CLEARANCE Routine 11/16/2010 12:50 Res ults for this GROUP PM FUR DYER procedure are i n the results section. CREATININE Routine 11/16/2010 12:50 Results for this PM FUR DYER procedure are i n the results section. documented in this encounter Results Creatinine (11/16/2010 12:50 PM FUR DYER) P athologist Signature Creatinine 1.0 0.4 - 1.1 [facility] MG/DL eGFR Female 59 [facility] Non-AA Comment: Chronic Kidney Disease less than 60 mL/m in/1.73 sq.m ??Kidney failure less than 15 mL/min/1. 73 sq.m eGFR Female AA 70 [facility] Comment: Chronic Kidney Disease less than 60 mL/m in/1.73 sq.m ??Kidney failure less than 15 mL/min/1. 73 sq.m Specimen (Source) Anatomical Collection Method Collection Time Re ceived Time Location / / Volume Laterality Blood 11/16/2010 12:50 PM FUR DYER Roscoe Casanova MD LAB BLOOD ORDERABLES Performing Organization Address City/[facility]/ZIP Code Phon e Number [facility] [id number] [place] [address] [place] Creatinine Clearance Group (11/16/2010 12:50 PM FUR DYER) P athologist Signature Creatinine Urine 47.0 MG/DL [facility] Creatinine 84.9 ML/MIN [facility] Clearance Uncor Creatinine 82.2 60.0 - SUNQUEST Clearance 180.0 Corrected ML/MIN Surface Area 1.79 [facility] Creatinine Urine 1.2 0.6 - 1.8 [facility]QUEST 24 Calc G/24H Hours of 24 H SUNQUEST Collection Total Volume 2600 ML SUNQUEST Specimen (Source) Anatomical Collection Method Collection Time Re ceived Time Location / / Volume Laterality Urine 11/16/2010 12:50 PM FUR DYER Roscoe Casanova MD URINE ORDERABLES Performing Organization Address City/[facility]/ZIP Code Phon e Number [facility] [id number] [place] [address] SUN[place] (ABNORMAL) Microalbumin 24HR (11/16/2010 12:50 PM FUR DYER) [facility] gist Method Time Signature Microalbumin 24 36.40 (H) 0.00 - SUNQUEST Hour Calc 29.00 MG/24H Volume: 2600 ML SUNQUEST Microalbumin 1.40 MG/DL SUNQUEST mg/dl Specimen (Source) Anatomical Collection Method Collection Time Re ceived Time Location / / Volume Laterality Urine 11/16/2010 12:50 PM FUR DYER Roscoe Casanova MD URINE ORDERABLES Performing Organization Address City/State/ZIP Code Phon e Number [facility] [id number] [place] [address] SUNQUEST documented in this encounter Visit Diagnoses Not on filedocumented in this encounter
--- OUTSIDE RECORDS SUMMARY | 2022-09-29 00:32 | XMS_ITS | Encounter Summary ---
:1960 Author Organization [facility] Address [address] [place] [address] Care Team Providers Name Role Phone Unavailable Primary Care Provider Unavailable Encounter Details Date Type Department Care Team Description 05/04/2010 Hist-Appointment [facility] Julian Kenney MD [address] [place], [place] [address] (Wo rk) Social History Tobacco Use Types Packs/Day Years Used Date Smoking Tobacco: Never Assessed Sex Assigned at Date Recorded Female 04/21/2021 9:42 AM CDT documented as of this encounter Last Filed Vital Signs Vital Sign Reading Time Taken Comments Blood Pressure 114/54 05/04/2010 1:07 PM CDT Pulse 72 05/04/2010 1:07 PM CDT Temperature - - Respiratory Rate - - Oxygen Saturation - - Inhaled Oxygen Concentration - - Weight 68.9 kg (152 lb) 05/04/2010 1:07 PM CDT Height - - Body Mass Index - - documented in this encounter Miscellaneous Notes Miscellaneous - Roscoe Casanova MD - 05/04/2010 1:00 PM CDT Verified Results Collected/Examined: May 03, 2010 11:03PM Test Result Flag Acceptable Hemoglobin A1C 7.0 % Non-diabetic: 4.0 - 6.0 % Very Good Control: < 7.0 % Suboptimal Control: 7.1 - 8.0 % Poor Control: >8.0 % Miscellaneous - Roscoe Casanova MD - 05/04/2010 1:00 PM CDT Verified Results Collected/Examined: May 03, 2010 11:03PM Test Result Flag Acceptable Hemoglobin A1C 7.0 % Non-diabetic: 4.0 - 6.0 % Very Good Control: < 7.0 % Suboptimal Control: 7.1 - 8.0 % Poor Control: >8.0 % documented in this encounter Plan of Treatment Upcoming Encounters Date Type Specialty Care Team Description 05/24/2023 Office Visit Medical Oncology CossorLuzmaria MD [address] [address] (Wo rk) documented as of this encounter Visit Diagnoses Not on filedocumented in this encounter
--- OUTSIDE RECORDS SUMMARY | 2022-09-29 00:32 | XMS_ITS | Encounter Summary ---
:1960 Author Organization [facility] Address [address] [place] [address] Care Team Providers Name Role Phone Unavailable Primary Care Provider Unavailable Encounter Details Date Type Department Care Team Description 05/03/2010 Hospital Encounter [facility] bebeto Jocelyne Roscoe, [address] [place], [place] [address] [address] [facility] [phone] [place] [address] Social History Tobacco Use Types Packs/Day Years [...] Visit Medical Oncology CosLuzmaria tan MD [address] [phone] (Wo rk) documented as of this encounter Procedures Procedure Name Priority Date/Time Associated Diagnosis Comme nts HEMOGLOBIN A1C Routine 05/03/2010 11:29 AM Result s for this CDT procedure are i n the results section . documented in this encounter Results Hemoglobin A1C (05/03/2010 11:29 AM CDT) P athologist Signature HEMOGLOBIN A1C 7.0 % [facility] Comment: Non-diabetic: ? 4.0 - 6.0 % Very Good Control: ?< 7.0 % Suboptimal Control: ? 7.1 - 8.0 % Poor Control: ? >8.0 % Specimen (Source) Anatomical Collection Method Collection Time Re ceived Time Location / / Volume Laterality Blood 05/03/2010 11:29 AM CDT Roscoe Casanova MD LAB BLOOD ORDERABLES Performing Organization Address City/State/ZIP Code Phon e Number [facility] [address] [place] [address] SUNQUEST documented in this encounter Visit Diagnoses Not on filedocumented in this encounter
--- OUTSIDE RECORDS SUMMARY | 2022-09-29 00:32 | XMS_ITS | Encounter Summary ---
:1960 Author Organization [facility] Address [address] [place] [address] Care Team Providers Name Role Phone Unavailable Primary Care Provider Unavailable Encounter Details Date Type Department Care Team Description 09/09/2008 Hist-Appointment SLS PRIM CARE [facility] Julian Kenney MD [address] [place], [place] [address] (Wo rk) Social History Tobacco Use Types Packs/Day Years Used Date Smoking Tobacco: Never Assessed Sex Assigned at Date Recorded Female 04/21/2021 9:42 AM CDT documented as of this encounter Plan of Treatment Upcoming Encounters Date Type Specialty Care Team Description 05/24/2023 Office Visit Medical Oncology Luzmaria Black MD [address] [address] (Wo rk) documented as of this encounter Visit Diagnoses Not on filedocumented in this encounter
--- OUTSIDE RECORDS SUMMARY | 2022-09-29 00:32 | XMS_ITS | Encounter Summary ---
:1960 Author Organization [facility] Address [address] [place] [address] Care Team Providers Name Role Phone Unavailable Primary Care Provider Unavailable Encounter Details Date Type Department Care Team Description 02/01/2010 Hist-Appointment SLS PRIM CARE HST Julian Kenney MD [address] [place], [place] [address] (Wo rk) Social History Tobacco Use Types Packs/Day Years Used Date Smoking Tobacco: Never Assessed Sex Assigned at Date Recorded Female 04/21/2021 9:42 AM CDT documented as of this encounter Last Filed Vital Signs Vital Sign Reading Time Taken Comments Blood Pressure 120/64 02/01/2010 1:12 PM CDT Pulse 76 02/01/2010 1:12 PM CDT Temperature - - Respiratory Rate - - Oxygen Saturation - - Inhaled Oxygen Concentration - - Weight 67.6 kg (149 lb) 02/01/2010 1:12 PM CDT Height - - Body Mass Index - - documented in this encounter Miscellaneous Notes Miscellaneous - Roscoe Casanova MD - 02/01/2010 1:00 PM CDT Verified Results Collected/Examined: Jan 31, 2010 4:43PM Test Result Flag Acceptable HL Comprehensive Metabolic Panel Albumin 4.1 g/dL 3.5-5.0 Aspartate Aminotransferase 23 IU/L 15-41 Alanine Aminotransferase 21 IU/L 14-63 Bilirubin Total 0.7 mg/dL 0.3-1.4 Protein Total Serum 7.1 g/dL 6.0-8.0 Calcium 9.9 mg/dL 8.8-10.5 Creatinine 1.1 mg/dL 0.4-1.1 Glucose 128 mg/dL H 65-100 Alkaline Phosphatase 46 IU/L 42-128 Sodium 135 MEQ/L 134-144 Potassium 4.8 MEQ/L 3.5-5.1 Chloride 100 MEQ/L L 101-111 Anion Gap 8 3-15 Blood Urea Nitrogen 41 mg/dL H 8-26 Carbon Dioxide 27 MEQ/L 23-32 Gfrf Aa 63 Chronic Kidney Disease less than 60 mL/min/1.73 sq.m Kidney failure less than 15 mL/min/1.73 sq.m Gfrf Non Aa 53 Chronic Kidney Disease less than 60 mL/min/1.73 sq.m Kidney failure less than 15 mL/min/1.73 sq.m HL Lipid Panel Cholesterol Lipid Prof 151 mg/dL 100-200 Triglycerides 86 mg/dL 0-150 Hdl 72 mg/dL 40-110 Ldl Cholesterol 62 mg/dL 0-99 Total Cholesterol/Hdl Ratio 2.1 0.0-4.5 Collected/Examined: Jan 31, 2010 8:10PM Test Result Flag Acceptable Hemoglobin A1C 6.7 % Non-diabetic: 4.0 - 6.0 % Very Good Control: < 7.0 % Suboptimal Control: 7.1 - 8.0 % Poor Control: >8.0 % Miscellaneous - Roscoe Casanova MD - 02/01/2010 1:00 PM CDT Verified Results Collected/Examined: Jan 31, 2010 4:43PM Test Result Flag Acceptable HL Comprehensive Metabolic Panel Albumin 4.1 g/dL 3.5-5.0 Aspartate Aminotransferase 23 IU/L 15-41 Alanine Aminotransferase 21 IU/L 14-63 Bilirubin Total 0.7 mg/dL 0.3-1.4 Protein Total Serum 7.1 g/dL 6.0-8.0 Calcium 9.9 mg/dL 8.8-10.5 Creatinine 1.1 mg/dL 0.4-1.1 Glucose 128 mg/dL H 65-100 Alkaline Phosphatase 46 IU/L 42-128 Sodium 135 MEQ/L 134-144 Potassium 4.8 MEQ/L 3.5-5.1 Chloride 100 MEQ/L L 101-111 Anion Gap 8 3-15 Blood Urea Nitrogen 41 mg/dL H 8-26 Carbon Dioxide 27 MEQ/L 23-32 Gfrf Aa 63 Chronic Kidney Disease less than 60 mL/min/1.73 sq.m Kidney failure less than 15 mL/min/1.73 sq.m Gfrf Non Aa 53 Chronic Kidney Disease less than 60 mL/min/1.73 sq.m Kidney failure less than 15 mL/min/1.73 sq.m HL Lipid Panel Cholesterol Lipid Prof 151 mg/dL 100-200 Triglycerides 86 mg/dL 0-150 Hdl 72 mg/dL 40-110 Ldl Cholesterol 62 mg/dL 0-99 Total Cholesterol/Hdl Ratio 2.1 0.0-4.5 Collected/Examined: Jan 31, 2010 8:10PM Test Result Flag Acceptable Hemoglobin A1C 6.7 % Non-diabetic: 4.0 - 6.0 % Very Good Control: < 7.0 % Suboptimal Control: 7.1 - 8.0 % Poor Control: >8.0 % documented in this encounter Plan of Treatment Upcoming Encounters Date Type Specialty Care Team Description 05/24/2023 Office Visit Medical Oncology CossoLuzmaria porras MD [address] [address] (Wo rk) documented as of this encounter Visit Diagnoses Not on filedocumented in this encounter
--- OUTSIDE RECORDS SUMMARY | 2022-09-29 00:32 | XMS_ITS | Encounter Summary ---
:1960 Author Organization [facility] Address [address] [place] [address] Care Team Providers Name Role Phone Unavailable Primary Care Provider Unavailable Encounter Details Date Type Department Care Team Description 12/30/2008 Hist-Appointment [facility] Julian Kenney MD [address] [place], [place] [address] (Wo rk) Social History Tobacco Use Types Packs/Day Years Used Date Smoking Tobacco: Never Assessed Sex Assigned at Date Recorded Female 04/21/2021 9:42 AM CDT documented as of this encounter Plan of Treatment Upcoming Encounters Date Type Specialty Care Team Description 05/24/2023 Office Visit Medical Oncology Luzmaria Black MD [address] [address] (Wo rk) documented as of this encounter Visit Diagnoses Not on filedocumented in this encounter
--- OUTSIDE RECORDS SUMMARY | 2022-09-29 00:32 | XMS_ITS | Encounter Summary ---
:[address] [facility] Address [address] [place] [address] Care Team Providers Name Role Phone Unavailable Primary Care Provider Unavailable Encounter Details Date Type Department Care Team Description 12/24/2008 [facility], [address] [place], [place] [address] [address] [place] [address] Social History Tobacco Use Types Packs/Day Years [...] [facility] [address] [place] [address] (Wo rk) documented as of this encounter Procedures Procedure Name Priority Date/Time Associated Diagnosis Comme nts HEMOGLOBIN A1C Routine 12/24/2008 3:38 PM Results for this BUTCHERETTE procedure are i n the results section . documented in this encounter Results Hemoglobin A1C (12/24/2008 3:38 PM BUTCHERETTE) P athologist Signature HEMOGLOBIN A1C 6.4 % SUNQUEST Comment: NONDIABETIC: ? 4.4-6.0% VERY GOOD CONTROL: ??<7.0% SUBOPTIMAL CONTROL: ??7.1-8.0% POOR CONTROL: ? >8.0% Specimen (Source) Anatomical Collection Method Collection Time Re ceived Time Location / / Volume Laterality 12/24/2008 3:38 PM BUTCHERETTE Roscoe Casanova MD LAB BLOOD ORDERABLES Performing Organization Address City/State/ZIP Code Phon e Number [id number] [place] [address] SUNQUEST documented in this encounter Visit Diagnoses Not on filedocumented in this encounter
--- OUTSIDE RECORDS SUMMARY | 2022-09-29 00:32 | XMS_ITS | Encounter Summary ---
:1960 Author Organization [facility] Address [address] [place] [address] Care Team Providers Name Role Phone Unavailable Primary Care Provider Unavailable Encounter Details Date Type Department Care Team Description 09/07/2008 [facility], [address] [place], [place] [address] [address] [place] [address] Social History Tobacco Use Types Packs/Day Years [...] Visit Medical Oncology CossoLuzmaria porras MD [address] [facility] [place] [address] [place] [address] (Wo rk) documented as of this encounter Procedures Procedure Name Priority Date/Time Associated Diagnosis Comme nts HEMOGLOBIN A1C Routine 09/07/2008 2:47 PM Results for this CASTING ASSOCIATE procedure are i n the results section . documented in this encounter Results Hemoglobin A1C (09/07/2008 2:47 PM CASTING ASSOCIATE) P athologist Signature HEMOGLOBIN A1C 6.6 % SUNQUEST Comment: NONDIABETIC: ? 4.4-6.0% VERY GOOD CONTROL: ??<7.0% SUBOPTIMAL CONTROL: ??7.1-8.0% POOR CONTROL: ? >8.0% Specimen (Source) Anatomical Collection Method Collection Time Re ceived Time Location / / Volume Laterality 09/07/2008 2:47 PM CASTING ASSOCIATE Roscoe Casanova MD LAB BLOOD ORDERABLES Performing Organization Address City/State/ZIP Code Phon e Number [id number] [place] [address] SUNQUEST documented in this encounter Visit Diagnoses Not on filedocumented in this encounter
--- OUTSIDE RECORDS SUMMARY | 2022-09-29 00:32 | XMS_ITS | Encounter Summary ---
:1960 Author Organization [facility] Address [address] [place] [address] Care Team Providers Name Role Phone Marcela Lau PA-C Primary Care Provider Encounter Details Date Type Department Care Team Description 11/17/2010 [facility] Note [facility], Diabetes & Endocrinology [address] [place] [id number] [place] [address] 66 [facility] [phone] Social History Tobacco Use Types Packs/Day Years Used Date Smoking Tobacco: Never Assessed Sex Assigned at Date Recorded Female 04/21/2021 9:42 AM CDT documented as of this encounter Miscellaneous Notes Miscellaneous - Roscoe Casanova MD - 11/17/2010 2:04 PM CST Verified Results Collected/Examined: Nov 16, 2010 4:53PM Test Result Flag Acceptable HL Creatinine Creatinine 1.0 mg/dL 0.4-1.1 Gfrf Aa 70 Chronic Kidney Disease less than 60 mL/min/1.73 sq.m Kidney failure less than 15 mL/min/1.73 sq.m Gfrf Non Aa 59 Chronic Kidney Disease less than 60 mL/min/1.73 sq.m Kidney failure less than 15 mL/min/1.73 sq.m HL Creatinine Clearance Group Hours Of Collection 24 H Creatinine, Urine For Crcl 47.0 mg/dL Surface Area 1.79 Creat Clearance, Uncorrected 84.9 mL/min Creat Clearance, Corrected 82.2 mL/min 60.0-180.0 Creatinine, Urine Calc 24 Hr 1.2 g/24h 0.6-1.8 Total Volume 2600 mL Collected/Examined: Nov 16, 2010 10:17PM Test Result Flag Acceptable Microalbumin 24Hr Total Volume 2600 mL Microalbumin Mg/L 1.40 mg/dL Microalbumin 24 Hour Calc 36.40 mg/24h H 0.00-29.00 Collected/Examined: Nov 16, 2010 10:54PM Test Result Flag Acceptable HL Vitamin D, 25 Hydroxy Vitamin D,25-Hydroxy D2 <5 ng/mL Vitamin D,25-Hydroxy D3 59 ng/mL Vitamin D,25-Hydroxy 59 ng/mL 25-80 Test performed by [facility] [address] [address] Discussion/Summary Creatinine clearance and vitamin D are completely normal. 24-hour urine microalbumin is just trivially elevated-nothing to worry about. ERY DECORATION DESIGNER Miscellaneous - Roscoe Casanova MD - 11/17/2010 2:04 PM CST Verified Results Collected/Examined: Nov 16, 2010 4:53PM Test Result Flag Acceptable HL Creatinine Creatinine 1.0 mg/dL 0.4-1.1 Gfrf Aa 70 Chronic Kidney Disease less than 60 mL/min/1.73 sq.m Kidney failure less than 15 mL/min/1.73 sq.m Gfrf Non Aa 59 Chronic Kidney Disease less than 60 mL/min/1.73 sq.m Kidney failure less than 15 mL/min/1.73 sq.m HL Creatinine Clearance Group Hours Of Collection 24 H Creatinine, Urine For Crcl 47.0 mg/dL Surface Area 1.79 Creat Clearance, Uncorrected 84.9 mL/min Creat Clearance, Corrected 82.2 mL/min 60.0-180.0 Creatinine, Urine Calc 24 Hr 1.2 g/24h 0.6-1.8 Total Volume 2600 mL Collected/Examined: Nov 16, 2010 10:17PM Test Result Flag Acceptable Microalbumin 24Hr Total Volume 2600 mL Microalbumin Mg/L 1.40 mg/dL Microalbumin 24 Hour Calc 36.40 mg/24h H 0.00-29.00 Collected/Examined: Nov 16, 2010 10:54PM Test Result Flag Acceptable HL Vitamin D, 25 Hydroxy Vitamin D,25-Hydroxy D2 <5 ng/mL Vitamin D,25-Hydroxy D3 59 ng/mL Vitamin D,25-Hydroxy 59 ng/mL 25-80 Test performed by [facility] [address] [address] Discussion/Summary Creatinine clearance and vitamin D are completely normal. 24-hour urine microalbumin is just trivially elevated-nothing to worry about. ERY DECORATION DESIGNER documented in this encounter Plan of Treatment Upcoming Encounters Date Type Specialty Care Team Description 05/24/2023 Office Visit Medical Oncology CossorLuzmaria MD [address] [facility] [address] [place] [address] (Wo rk) documented as of this encounter Visit Diagnoses Not on filedocumented in this encounter Care Teams Chiropractor Assistant Relationship Specialty Start Date End Date Marcela Lau PA-C PCP - General Physician Toll Relief Operator 09/13/20 [id number] [facility] [address] [place], [place] [address] documented as of this encounter
--- OUTSIDE RECORDS SUMMARY | 2022-09-29 00:32 | XMS_ITS | Encounter Summary ---
:1960 Author Organization [facility] Address [address] [place] [address] Care Team Providers Name Role Phone Unavailable Primary Care Provider Unavailable Encounter Details Date Type Department Care Team Description 01/31/2010 Hospital Encounter [facility] bebeto Freyjunior Roscoe, [address] [place], [place] [address] [address] [place], [place] [address] Social History Tobacco Use Types [...] Visit Medical Oncology CossoLuzmaria porras MD [address] [address] (Wo rk) documented as of this encounter Procedures Procedure Name Priority Date/Time Associated Comments Diagnosis LIPID PANEL Routine 01/31/2010 11:30 Results for this AM CDT procedure are i n the results section. HEMOGLOBIN A1C Routine 01/31/2010 11:30 Results f or this AM CDT procedure are i n the results section. COMPREHENSIVE Routine 01/31/2010 11:30 Results fo r this METABOLIC PANEL AM CDT procedure ar e in the results section. documented in this encounter Results (ABNORMAL) Comprehensive Metabolic Panel (01/31/2010 11:30 AM CDT) Patholo gist Method Time Signature Albumin 4.1 3.5 - 5.0 [facility] G/DL Aspartate 23 15 - 41 [facility]QUEST Aminotransferase IU/L Bilirubin Total 0.7 0.3 - 1.4 [facility]QUEST MG/DL Protein Total Serum 7.1 6.0 - 8.0 SUNQUEST G/DL Calcium 9.9 8.8 - SUNQUEST 10.5 MG/DL Creatinine 1.1 0.4 - 1.1 [facility] MG/DL Glucose 128 (H) 65 - 100 SUNQUEST MG/DL Alkaline Phosphatase 46 42 - 128 [facility] IU/L Sodium 135 134 - 144 [facility] MEQ/L Potassium 4.8 3.5 - 5.1 [facility] MEQ/L Chloride 100 (L) 101 - 111 [facility] MEQ/L Carbon Dioxide 27 23 - 32 [facility] MEQ/L Blood Urea Nitrogen 41 (H) 8 - 26 [facility] MG/DL Anion Gap 8 3 - 15 [facility] Alanine 21 14 - 63 [facility] Aminotransferase IU/L eGFR Female AA 63 SUNQUEST Comment: Chronic Kidney Disease less than 60 mL/m in/1.73 sq.m ??Kidney failure less than 15 mL/min/1. 73 sq.m eGFR Female Non-AA 53 [facility]QUEST Comment: Chronic Kidney Disease less than 60 mL/m in/1.73 sq.m ??Kidney failure less than 15 mL/min/1. 73 sq.m Specimen (Source) Anatomical Collection Method Collection Time Re ceived Time Location / / Volume Laterality Blood 01/31/2010 11:30 AM CDT Roscoe Casanova MD LAB BLOOD ORDERABLES Performing Organization Address City/State/ZIP Code Phon e Number [id number] [place] [address] [facility] Lipid Panel (01/31/2010 11:30 AM CDT) Analysis Performed At Patho logist Time Signature Cholesterol 151 100 - 200 SUNQUEST MG/DL Triglycerides 86 0 - 150 [facility] MG/DL HDL Cholesterol 72 40 - 110 [facility] MG/DL LDL Cholesterol 62 0 - 99 [facility] MG/DL Cholesterol/HDL 2.1 0.0 - 4.5 [facility] Ratio Specimen (Source) Anatomical Collection Method Collection Time Re ceived Time Location / / Volume Laterality Blood 01/31/2010 11:30 AM CDT Roscoe Casanova MD LAB BLOOD ORDERABLES Performing Organization Address City/[facility] [place] Phon e Number [id number] [place] [address] [place] Hemoglobin A1C (01/31/2010 11:30 AM CDT) P athologist Signature HEMOGLOBIN A1C 6.7 % SUNQUEST Comment: Non-diabetic: ? 4.0 - 6.0 % Very Good Control: ?< 7.0 % Suboptimal Control: ? 7.1 - 8.0 % Poor Control: ? >8.0 % Specimen (Source) Anatomical Collection Method Collection Time Re ceived Time Location / / Volume Laterality Blood 01/31/2010 11:30 AM CDT Roscoe Casanova MD LAB BLOOD ORDERABLES Performing Organization Address City/[facility] Code Phon e Number [facility] [id number] [place] [address] SUNQUEST documented in this encounter Visit Diagnoses Not on filedocumented in this encounter
--- OUTSIDE RECORDS SUMMARY | 2022-09-29 00:32 | XMS_ITS | Encounter Summary ---
:1960 Author Organization [facility] Address [address] [place] [address] Care Team Providers Name Role Phone Unavailable Primary Care Provider Unavailable Encounter Details Date Type Department Care Team Description 08/17/2010 Hist-Appointment [facility] Julian Casanova MD [address] [place], [place] [address] (Wo rk) Social History Tobacco Use Types Packs/Day Years Used Date Smoking Tobacco: Never Assessed Sex Assigned at Date Recorded Female 04/21/2021 9:42 AM CDT documented as of this encounter Last Filed Vital Signs Vital Sign Reading Time Taken Comments Blood Pressure 144/54 08/17/2010 1:14 PM CDT Pulse 76 08/17/2010 1:14 PM CDT Temperature - - Respiratory Rate - - Oxygen Saturation - - Inhaled Oxygen Concentration - - Weight 68.9 kg (152 lb) 08/17/2010 1:14 PM CDT Height - - Body Mass Index - - documented in this encounter Plan of Treatment Upcoming Encounters Date Type Specialty Care Team Description 05/24/2023 Office Visit Medical Oncology Luzmaria Black MD [address] [facility] [address] [place] [address] (Wo rk) documented as of this encounter Visit Diagnoses Not on filedocumented in this encounter
--- OUTSIDE RECORDS SUMMARY | 2022-09-29 00:32 | XMS_ITS | Encounter Summary ---
:1960 Author Organization [facility] Address [address] [place] [address] Care Team Providers Name Role Phone Unavailable Primary Care Provider Unavailable Encounter Details Date Type Department Care Team Description 03/01/2011 Hist-Appointment [facility] PR[facility] C[facility] Julian Kenney MD [address] [place], [place] [address] (Wo rk) Social History Tobacco Use Types Packs/Day Years Used Date Smoking Tobacco: Never Assessed Sex Assigned at Date Recorded Female 04/21/2021 9:42 AM CDT documented as of this encounter Progress Notes Roscoe Casanova MD - 03/01/2011 1:00 PM CDT History of Present Illness Diabetes-[facility]: The patient's visit is for a routine clinic follow-up of type I diabetes mellitus. Her meter and pump are downloaded and reviewed. She developed bronchitis d/t dust from home construction, treated with medrol and antibiotics. Then she developed nasal/pulm fungal infection, now being treated with fluconazole. Current Meds 1 Fluconazole 100 MG Oral [...] Tablet; TAKE 20 MG Bedtime; Status: ACTIVE Allergies ?? No Known Drug Allergies Vitals Vital Signs [Filter Applied: Last 24 Hours] 01Mar2011 01:04PM Weight 146 lb Systolic 102 Diastolic 52 Heart Rate 72 Review of Systems Complete-Female ROS - [facility]: Constitutional, eye, otolaryngeal, cardiovascular, pulmonary, gastrointestinal, genitourinary, musculoskeletal, skin, neurological, psychiatric, endocrine and hematologic review of systems are normal except as per HPI and unless noted below. Other Symptoms: Fungus L great toenail. 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 Being A Social Drinker Status: Active ?? Exercising Regularly Status: Active ?? Marital History - Currently Status: Active ?? Never A Smoker Status: Active ?? 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 Examination of the head and face: Normal. Inspection of conjunctiva and lids: Normal. Examination of pupils and irises: Normal.dilated retinal eye exam performed 07/2010 Examination of neck: Normal. Examination of thyroid: Abnormal. Thyroid 2x normal. Assessment of respiratory effort: Normal. Auscultation of lungs: Normal. Auscultation of heart: Normal. Inspection of skin and subcutaneous tissue: Normal. Examination of cranial nerves: Normal. Coordination: Normal. Description of patient's judgement/insight: Normal. Mood and affect: Normal. 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 She is advised to try a 5% temp basal during/after bike rides. Noother changes. Thyroid replacemtnt adequate; cont Synth as is. Nephropathy mild adn stable; cont FIFI-I as is. F/u 3-4 mo. Plan Frances's Thyroiditis (245.2) 1 Synthroid 75 MCG Oral Tablet; TAKE 1 TABLET DAILY; Status: ACTIVE Ordered; For: Frances's Thyroiditis (245.2); Rx By: Roscoe Casanova; Dispense: 90 Days ; #:90; Refill: 3; DIONNE; Therapy: [id number]-(Evaluate:24Feb2012) Requested for: 01Mar2011; Faxed To: [facility] Signatures Roscoe Casanova M.D.; Mar 01 2011 1:52PM (Author) documented in this encounter Plan of Treatment Upcoming Encounters Date Type Specialty Care Team Description 05/24/2023 Office Visit Medical Oncology CosLuzmaria tan MD [address] [place] [address] (Wo rk) documented as of this encounter Visit Diagnoses Not on filedocumented in this encounter
--- OUTSIDE RECORDS SUMMARY | 2022-09-29 00:32 | XMS_ITS | Encounter Summary ---
:1960 Author Organization [facility] Address [address] [place] [address] Care Team Providers Name Role Phone Unavailable Primary Care Provider Unavailable Encounter Details Date Type Department Care Team Description 11/15/2010 Hospital Encounter [facility] bebeto Jocelyne Roscoe, [address] [place], [place] [address] [address] [facility] [phone] [place] [address] Social History Tobacco Use Types Packs/Day Years [...] Medical Oncology CosLuzmaria tan MD [address] [id number] (Wo rk) documented as of this encounter Procedures Procedure Name Priority Date/Time Associated Comments Diagnosis MICROALBUMIN RANDOM Routine 11/15/2010 12:58 Resu lts for this PM [employer] INSTALLER procedure are i n the results section. THYROID STIMULATING Routine 11/15/2010 12:58 Resu lts for this HORMONE PM [employer] INSTALLER procedure are i n the results section. T4 FREE Routine 11/15/2010 12:58 Results for this PM [employer] INSTALLER procedure are i n the results section. LIPID PANEL Routine 11/15/2010 12:58 Results for this PM [employer] INSTALLER procedure are i n the results section. HEMOGLOBIN A1C Routine 11/15/2010 12:58 Results f or this PM [employer] INSTALLER procedure are i n the results section. COMPREHENSIVE Routine 11/15/2010 12:58 Results fo r this METABOLIC PANEL PM [employer] SE[employer] INSTALLER procedure ar e in the results section. COMPLETE BLOOD COUNT Routine 11/15/2010 12:58 Res ults for this PM [employer] INSTALLER procedure are i n the results section. VITAMIN D, 25-HYDROXY Routine 11/15/2010 12:58 Re sults for this PM [employer] INSTALLER procedure are i n the results section. documented in this encounter Results (ABNORMAL) Complete Blood Count (11/15/2010 12:58 PM AUTOMOBILE SEAT COVER INSTALLER) [employer] Method Time Signature WBC 12.03 (H) 4.00 - [facility] 11.00 TH/UL RBC 4.56 4.00 - [facility] 5.00 MIL/UL Hemoglobin 14.1 12.0 - [facility] 15.0 G/DL Hematocrit 42 36 - 45 % [facility] MCV 93 80 - 99 FL [facility] MCH 31 27 - 34 PG [facility] MCHC 33 32 - 36 % [facility] RDW 13.4 9.0 - 14.5 [facility] % Platelet Count 247 140 - 400 [facility] TH/UL MPV 12.3 9.4 - 12.3 [facility] FL Specimen (Source) Anatomical Collection Method Collection Time Re ceived Time Location / / Volume Laterality Blood 11/15/2010 12:58 PM [employer]OMOBI[employer] SE[employer] INSTALLER Roscoe Casanova MD LAB BLOOD ORDERABLES Performing Organization Address City/State/ZIP Code Phon e Number [id number] [place] [address] [facility] Comprehensive Metabolic Panel (11/15/2010 12:58 PM AUTOMOBILE SE[employer] INSTALLER) Patholo gist Method Time Signature Albumin 3.9 3.5 - 5.0 [facility] G/DL Aspartate 26 15 - 41 [facility] Aminotransferase IU/L Bilirubin Total 0.8 0.3 - 1.4 [facility] MG/DL Protein Total Serum 6.7 6.0 - 8.0 [facility] G/DL Calcium 9.4 8.8 - [facility] 10.5 MG/DL Creatinine 0.8 0.4 - 1.1 [facility] MG/DL Glucose 73 65 - 100 [facility] MG/DL Alkaline Phosphatase 52 42 - 128 [facility] IU/L Sodium 139 134 - 144 [facility] MEQ/L Potassium 4.6 3.5 - 5.1 [facility] MEQ/L Chloride 102 101 - 111 [facility] MEQ/L Carbon Dioxide 29 23 - 32 [facility] MEQ/L Blood Urea Nitrogen 21 8 - 26 [facility] MG/DL Anion Gap 8 3 - 15 [facility] Alanine 26 14 - 63 [facility] Aminotransferase IU/L eGFR Female AA 91 [facility] Comment: Chronic Kidney Disease less than 60 mL/m in/1.73 sq.m ??Kidney failure less than 15 mL/min/1. 73 sq.m eGFR Female Non-AA 76 [facility] Comment: Chronic Kidney Disease less than 60 mL/m in/1.73 sq.m ??Kidney failure less than 15 mL/min/1. 73 sq.m Specimen (Source) Anatomical Collection Method Collection Time Re ceived Time Location / / Volume Laterality Blood 11/15/2010 12:58 PM [employer]OMOBI[employer] INSTALLER Roscoe Casanova MD LAB BLOOD ORDERABLES Performing Organization Address City/[facility] e Number [id number] [place] [address] [facility] Lipid Panel (11/15/2010 12:58 PM AUTOMOBILE SEAT COVER INSTALLER) Analysis Performed At Patho logist Time Signature Cholesterol 150 100 - 200 [facility] MG/DL Triglycerides 38 0 - 150 [facility] MG/DL HDL Cholesterol 69 40 - 110 [facility] MG/DL LDL Cholesterol 73 0 - 99 [facility] MG/DL Cholesterol/HDL 2.2 0.0 - 4.5 [facility] Ratio Non-HDL 81 0 - 130 [facility] Cholesterol MG/DL Specimen (Source) Anatomical Collection Method Collection Time Re ceived Time Location / / Volume Laterality Blood 11/15/2010 12:58 PM [employer]OMOBI[employer] SE[employer] COVER INSTALLER Roscoe Casanova MD LAB BLOOD ORDERABLES Performing Organization Address City/State/ZIP Code Phon e Number [id number] [place] [address] [facility] T4 Free (11/15/2010 12:58 PM AUTOMOBILE SE[employer]OVER INSTALLER) athologist Signature T4 Free 1.0 0.6 - 1.6 [facility] NG/DL Specimen (Source) Anatomical Collection Method Collection Time Re ceived Time Location / / Volume Laterality Blood 11/15/2010 12:58 PM [employer] INSTALLER Roscoe Casanova MD LAB BLOOD ORDERABLES Performing Organization Address City/[facility] Code Phon e Number [id number] [place] [address] [facility] Thyroid Stimulating Hormone (11/15/2010 12:58 PM AUTOMOBILE SE[employer] COVER INSTALLER) athologist Signature Thyroid 1.25 0.45 - [facility] Stimulating 4.50 Hormone UIU/ML Specimen (Source) Anatomical Collection Method Collection Time Re ceived Time Location / / Volume Laterality Blood 11/15/2010 12:58 PM [employer]OMOBI[employer]OVER INSTALLER Roscoe Casanova MD LAB BLOOD ORDERABLES Performing Organization Address City/[facility]/ZIP Code Phon e Number [id number] [place] [address] [facility] (ABNORMAL) Microalbumin Random (11/15/2010 12:58 PM AUTOMOBILE SEAT COVER INSTALLER) [facility] Method Time Signature Creatinine Urine 28.6 MG/DL [facility] Random Microalbumin/Crea 80.07 (H) 0.00 - [facility] tinine Ratio 24.00 UG/MG Microalbumin 2.29 MG/DL [facility] mg/dl Specimen (Source) Anatomical Collection Method Collection Time Re ceived Time Location / / Volume Laterality Urine 11/15/2010 12:58 PM AUTOMOBILE SEAT COVER INSTALLER Roscoe Casanova MD URINE ORDERABLES Performing Organization Address [facility] Phon e Number [id number] [place] [address] [facility] Hemoglobin A1C (11/15/2010 12:58 PM AUTOMOBILE SEAT COVER INSTALLER) athologist Signature HEMOGLOBIN A1C 6.7 % [facility] Comment: Non-diabetic: ? 4.0 - 6.0 % Very Good Control: ?< 7.0 % Suboptimal Control: ? 7.1 - 8.0 % Poor Control: ? >8.0 % Specimen (Source) Anatomical Collection Method Collection Time Re ceived Time Location / / Volume Laterality Blood 11/15/2010 12:58 PM AUTOMOBILE SE[employer] COVER INSTALLER Roscoe Casanova MD LAB BLOOD ORDERABLES Performing Organization Address City/[facility]/ZIP Code Phon e Number [id number] [place] [address] [facility] Vitamin D, 25-Hydroxy (11/15/2010 12:58 PM AUTOMOBILE SEAT COVER INSTALLER) athologist Signature Vitamin D <5 NG/ML [facility] 25-Hydroxy D2 Vitamin D 59 NG/ML [facility] 25-Hydroxy D3 Vitamin D 59 25 - 80 [facility] 25-Hydroxy NG/ML Comment: Test performed by [facility] ? [address] ? [place] T[place] Garcia ??[id number] Specimen (Source) Anatomical Collection Method Collection Time Re ceived Time Location / / Volume Laterality Blood 11/15/2010 12:58 PM AUTOMOBILE SEAT COVER INSTALLER Roscoe Casanova MD LAB BLOOD ORDERABLES Performing Organization Address City/[facility]/ZIP Code Phon e Number [id number] [place] [address] [facility] documented in this encounter Visit Diagnoses Not on filedocumented in this encounter
--- OUTSIDE RECORDS SUMMARY | 2022-09-29 00:32 | XMS_ITS | Encounter Summary ---
:1960 Author Organization [facility] Address [address] [place] [address] Care Team Providers Name Role Phone Unavailable Primary Care Provider Unavailable Encounter Details Date Type Department Care Team Description 03/13/2008 Hist-Appointment [facility] Julian Kenney MD [address] [place], [place] [address] (Wo rk) Social History Tobacco Use Types Packs/Day Years Used Date Smoking Tobacco: Never Assessed Sex Assigned at Date Recorded Female 04/21/2021 9:42 AM CDT documented as of this encounter Plan of Treatment Upcoming Encounters Date Type Specialty Care Team Description 05/24/2023 Office Visit Medical Oncology Luzmaria Black MD [address] [address] (Wo rk) documented as of this encounter Visit Diagnoses Not on filedocumented in this encounter
--- OUTSIDE RECORDS SUMMARY | 2022-09-29 00:32 | XMS_ITS | Encounter Summary ---
:1960 Author Organization [facility] Address [address] [place] [address] Care Team Providers Name Role Phone Unavailable Primary Care Provider Unavailable Encounter Details Date Type Department Care Team Description 08/03/2009 Hist-Appointment [facility] Julian Casanova MD [address] [place], [place] [address] (Wo rk) Social History Tobacco Use Types Packs/Day Years Used Date Smoking Tobacco: Never Assessed Sex Assigned at Date Recorded Female 04/21/2021 9:42 AM CDT documented as of this encounter Last Filed Vital Signs Vital Sign Reading Time Taken Comments Blood Pressure 108/70 08/03/2009 11:46 AM CDT Pulse 64 08/03/2009 11:46 AM CDT Temperature - - Respiratory Rate - - Oxygen Saturation - - Inhaled Oxygen Concentration - - Weight 66.2 kg (146 lb) 08/03/2009 11:46 AM CDT Height - - Body Mass Index - - documented in this encounter Plan of Treatment Upcoming Encounters Date Type Specialty Care Team Description 05/24/2023 Office Visit Medical Oncology Luzmaria Black MD [address] [facility] [address] [place] [address] (Wo rk) documented as of this encounter Visit Diagnoses Not on filedocumented in this encounter
--- OUTSIDE RECORDS SUMMARY | 2022-09-29 00:33 | XMS_ITS | Encounter Summary ---
:1960 Author Organization [facility] Address [address] [place] [address] Care Team Providers Name Role Phone Unavailable Primary Care Provider Unavailable Encounter Details Date Type Department Care Team Description 04/05/2007 Hist-Appointment [facility] Julian Kenney MD [address] [place], [place] [address] (Wo rk) Social History Tobacco Use Types Packs/Day Years Used Date Smoking Tobacco: Never Assessed Sex Assigned at Date Recorded Female 04/21/2021 9:42 AM CDT documented as of this encounter Plan of Treatment Upcoming Encounters Date Type Specialty Care Team Description 05/24/2023 Office Visit Medical Oncology Luzmaria Black MD [address] [address] (Wo rk) documented as of this encounter Visit Diagnoses Not on filedocumented in this encounter
--- OUTSIDE RECORDS SUMMARY | 2022-09-29 00:33 | XMS_ITS | Encounter Summary ---
:1960 Author Organization [facility] Address [address] [place] [address] Care Team Providers Name Role Phone Unavailable Primary Care Provider Unavailable Encounter Details Date Type Department Care Team Description [facility]/28[facility]2006 [facility] Freyjun[facility] Ros[facility], [address] [place], [place] [address] [address] [place], [place] [address] Social History Tobacco Use Types [...] Visit Medical Oncology CossoLuzmaria porras MD [address] [address] (Wo rk) documented as of this encounter Procedures Procedure Name Priority Date/Time Associated Comments Diagnosis LIPID PANEL Routine 05/28/2006 10:25 Results for this AM CDT procedure are i n the results section. HEMOGLOBIN A1C Routine 05/28/2006 10:25 Results f or this AM CDT procedure are i n the results section. COMPREHENSIVE Routine 05/28/2006 10:25 Results fo r this METABOLIC PANEL AM CDT procedure ar e in the results section. documented in this encounter Results (ABNORMAL) Comprehensive Metabolic Panel (05/28/2006 10:25 AM CDT) [facility] Method Time Signature Albumin 4.6 3.6 - 4.7 [facility] G/DL Aspartate 27 20 - 50 [facility] Aminotransferase IU/L Bilirubin Total 0.4 0.0 - 1.1 [facility] MG/DL Protein Total Serum 7.5 6.5 - 8.2 [facility] G/DL Calcium 10.1 8.8 - [facility] 10.5 MG/DL Creatinine 1.0 0.5 - 1.5 [facility] MG/DL Glucose 175 (H) 65 - 100 [facility] MG/DL Alkaline Phosphatase 57 40 - 125 [facility] IU/L Sodium 141 134 - 144 [facility] MEQ/L Potassium 5.0 3.6 - 5.0 [facility] MEQ/L Chloride 105 98 - 107 [facility] MEQ/L Carbon Dioxide 25 23 - 32 [facility] MEQ/L Blood Urea Nitrogen 26 (H) 5 - 20 [facility] MG/DL Anion Gap 11 3 - 15 [facility] Alanine 33 20 - 60 [facility] Aminotransferase IU/L Specimen (Source) Anatomical Collection Method Collection Time Re ceived Time Location / / Volume Laterality 05/28/2006 10:25 AM CDT Roscoe Casanova MD LAB BLOOD ORDERABLES Performing Organization Address City/State/ZIP Code Phon e Number [id number] [place] [address] [facility] Lipid Panel (05/28/2006 10:25 AM CDT) [email or web address] Method Time Signature Cholesterol 151 <200 [facility] MG/DL Triglycerides 75 <150 [facility] MG/DL HDL Cholesterol 65 >41 MG/DL [facility] LDL Cholesterol 71 0 - 99 [facility] MG/DL Cholesterol/HDL 2.3 <4.5 [facility] Ratio LDL INTERPRETATION NOT REPORTED [facility] Hours Postprandial 12 HRS [facility] Specimen (Source) Anatomical Collection Method Collection Time Re ceived Time Location / / Volume Laterality 05/28/2006 10:25 AM CDT Roscoe Casanova MD LAB BLOOD ORDERABLES Performing Organization Address City/[facility]/ZIP Code Phon e Number [id number] [place] [address] [facility] Hemoglobin A1C (05/28/2006 10:25 AM CDT) P athologist Signature HEMOGLOBIN A1C 7.2 % [facility] Comment: NONDIABETIC: ? 4.4-6.0% VERY GOOD CONTROL: ??<7.0% SUBOPTIMAL CONTROL: ??7.1-8.0% POOR CONTROL: ? >8.0% Specimen (Source) Anatomical Collection Method Collection Time Re ceived Time Location / / Volume Laterality 05/28/2006 10:25 AM CDT Roscoe Casanova MD LAB BLOOD ORDERABLES Performing Organization Address City/[facility] Code Phon e Number [id number] [place] [address] [facility] documented in this encounter Visit Diagnoses Not on filedocumented in this encounter
--- OUTSIDE RECORDS SUMMARY | 2022-09-29 00:33 | XMS_ITS | Encounter Summary ---
:1960 Author Organization [facility] Address [address] [place] [address] Care Team Providers Name Role Phone Marcela Lau PA-C Primary Care Provider Encounter Details Date Type Department Care Team Description [employer] Note [facility], Diabetes & Endocrinology [address] [address] [place], [place] [address] [facility] [phone] Social History Tobacco Use Types Packs/Day Years Used Date Smoking Tobacco: Never Assessed Sex Assigned at Date Recorded Female 04/21/2021 9:42 AM CDT documented as of this encounter Miscellaneous Notes Miscellaneous - Roscoe Casanova MD - CST Verified Results Collected/Examined: Sep 07, 2008 7:29PM Test Result Flag Acceptable Hemoglobin A1C 6.6 % [Sep 07, 2008 2:47PM ,] NONDIABETIC: 4.4-6.0% VERY GOOD CONTROL: <7.0% SUBOPTIMAL CONTROL: 7.1-8.0% POOR CONTROL: >8.0% ER OPERATOR documented in this encounter Plan of Treatment Upcoming Encounters Date Type Specialty Care Team Description 05/24/2023 Office Visit Medical Oncology CossorLuzmaria MD [address] [address] (Wo rk) documented as of this encounter Visit Diagnoses Not on filedocumented in this encounter Care Teams Pharmacometrician Relationship Specialty Start Date End Date Marcela Lau PA-C PCP - General Physician Production Control Planner 09/13/20 [address] [address] documented as of this encounter
--- OUTSIDE RECORDS SUMMARY | 2022-09-29 00:33 | XMS_ITS | Encounter Summary ---
:1960 Author Organization [facility] Address [address] [place] [address] Care Team Providers Name Role Phone Unavailable Primary Care Provider Unavailable Encounter Details Date Type Department Care Team Description 06/30/2005 Hist-Appointment [facility] Julian Kenney MD [address] [employer] [place] [employer] [address] (Wo rk) Social History Tobacco Use Types Packs/Day Years Used Date Smoking Tobacco: Never Assessed Sex Assigned at Date Recorded Female 04/21/2021 9:42 AM CDT documented as of this encounter Plan of Treatment Upcoming Encounters Date Type Specialty Care Team Description 05/24/2023 Office Visit Medical Oncology Luzmaria Black MD [address] [address] (Wo rk) documented as of this encounter Visit Diagnoses Not on filedocumented in this encounter
--- OUTSIDE RECORDS SUMMARY | 2022-09-29 00:33 | XMS_ITS | Encounter Summary ---
:1960 Author Organization [facility] Address [address] [place] [address] Care Team Providers Name Role Phone Unavailable Primary Care Provider Unavailable Encounter Details Date Type Department Care Team Description 11/29/2005 Hist-Appointment [facility] Julian Kenney MD [address] [place], [place] [address] (Wo rk) Social History Tobacco Use Types Packs/Day Years Used Date Smoking Tobacco: Never Assessed Sex Assigned at Date Recorded Female 04/21/2021 9:42 AM CDT documented as of this encounter Plan of Treatment Upcoming Encounters Date Type Specialty Care Team Description 05/24/2023 Office Visit Medical Oncology Luzmaria Black MD [address] [address] (Wo rk) documented as of this encounter Visit Diagnoses Not on filedocumented in this encounter
--- OUTSIDE RECORDS SUMMARY | 2022-09-29 00:33 | XMS_ITS | Encounter Summary ---
:1960 Author Organization [facility] Address [address] [place] [address] Care Team Providers Name Role Phone Unavailable Primary Care Provider Unavailable Encounter Details Date Type Department Care Team Description 08/30/2005 Hist-Appointment [facility] CL Julian Casanova MD [address] [place], [place] [address] (Wo rk) Social History Tobacco Use Types Packs/Day Years Used Date Smoking Tobacco: Never Assessed Sex Assigned at Date Recorded Female 04/21/2021 9:42 AM CDT documented as of this encounter Plan of Treatment Upcoming Encounters Date Type Specialty Care Team Description 05/24/2023 Office Visit Medical Oncology Luzmaria Black MD [address] [address] (Wo rk) documented as of this encounter Visit Diagnoses Not on filedocumented in this encounter
--- OUTSIDE RECORDS SUMMARY | 2022-09-29 00:33 | XMS_ITS | Encounter Summary ---
:1960 Author Organization [facility] Address [address] [place] [address] Care Team Providers Name Role Phone Unavailable Primary Care Provider Unavailable Encounter Details Date Type Department Care Team Description 08/29/2006 Hist-Appointment [facility] Julian Kenney MD [address] [place], [place] [address] (Wo rk) Social History Tobacco Use Types Packs/Day Years Used Date Smoking Tobacco: Never Assessed Sex Assigned at Date Recorded Female 04/21/2021 9:42 AM CDT documented as of this encounter Plan of Treatment Upcoming Encounters Date Type Specialty Care Team Description 05/24/2023 Office Visit Medical Oncology Luzmaria Black MD [address] [address] (Wo rk) documented as of this encounter Visit Diagnoses Not on filedocumented in this encounter
--- OUTSIDE RECORDS SUMMARY | 2022-09-29 00:33 | XMS_ITS | Encounter Summary ---
:1960 Author Organization [facility] Address [address] [place] [address] Care Team Providers Name Role Phone Unavailable Primary Care Provider Unavailable Encounter Details Date Type Department Care Team Description 08/29/2007 Hist-Appointment [facility] Julian Kenney MD [address] [place], [place] [address] (Wo rk) Social History Tobacco Use Types Packs/Day Years Used Date Smoking Tobacco: Never Assessed Sex Assigned at Date Recorded Female 04/21/2021 9:42 AM CDT documented as of this encounter Plan of Treatment Upcoming Encounters Date Type Specialty Care Team Description 05/24/2023 Office Visit Medical Oncology Luzmaria Black MD [address] [address] (Wo rk) documented as of this encounter Visit Diagnoses Not on filedocumented in this encounter
--- OUTSIDE RECORDS SUMMARY | 2022-09-29 00:33 | XMS_ITS | Encounter Summary ---
:1960 Author Organization [facility] Address [address] [place] [address] Care Team Providers Name Role Phone Unavailable Primary Care Provider Unavailable Encounter Details Date Type Department Care Team Description 08/23/2005 Hospital Encounter [facility] bebeto Freyjunior Roscoe, [address] [place], [place] [address] [address] [place], [place] [address] Social History Tobacco Use Types Packs/Day Years Used Date Smoking Tobacco: Never Assessed Sex Assigned at Date Recorded Female 04/21/2021 9:42 AM CDT documented as of this encounter Plan of Treatment Upcoming Encounters Date Type Specialty Care Team Description 05/24/2023 Office Visit Medical Oncology CosLuzmaria tan MD [address] [facility] [address] [place] [address] (Wo rk) documented as of this encounter Procedures Procedure Name Priority Date/Time Associated Comments Diagnosis DIFFERENTIAL Routine 08/23/2005 8:20 AM Results f or this CDT procedure are i n the results section. MICROALBUMIN RANDOM Routine 08/23/2005 8:20 AM Re sults for this CDT procedure are i n the results section. THYROID STIMULATING Routine 08/23/2005 8:20 AM Re sults for this HORMONE CDT procedure are i n the results section. T4 FREE Routine 08/23/2005 8:20 AM Results f or this CDT procedure are i n the results section. PHOSPHORUS Routine 08/23/2005 8:20 AM Results f or this CDT procedure are i n the results section. LIPID PANEL Routine 08/23/2005 8:20 AM Results f or this CDT procedure are i n the results section. HEMOGLOBIN A1C Routine 08/23/2005 8:20 AM Results for this CDT procedure are i n the results section. COMPREHENSIVE Routine 08/23/2005 8:20 AM Results for this METABOLIC PANEL CDT procedure ar e in the results section. CBC AND DIFF (MANUAL Routine 08/23/2005 8:20 AM R esults for this DIFF IF NECESSARY) CDT procedure are in the results section. documented in this encounter Results DIFFERENTIAL (08/23/2005 8:20 AM CDT) P athologist Signature % Neutrophils 47 45 - 78 % SUNQUEST %Lymphocytes 38 15 - 47 % SUNQUEST % Monocytes 9 0 - 12 % SUNQUEST %Eosinophils 5 0 - 7 % SUNQUEST %Basophils 1 0 - 2 % SUNQUEST # Granulocytes 3.0 1.7 - 6.8 SUNQUEST TH/UL # Lymphocytes 2.4 1.0 - 3.3 SUNQUEST TH/UL # Monocytes 0.6 0.2 - 0.9 SUNQUEST TH/UL # Eosinophils 0.3 0.0 - 0.4 SUN[facility] TH/UL # Basophils 0.1 0.0 - 0.2 SUN[facility] TH/UL Specimen (Source) Anatomical Collection Method Collection Time Re ceived Time Location / / Volume Laterality 08/23/2005 8:20 AM CDT Roscoe Casanova MD LAB BLOOD ORDERABLES Performing Organization Address City/State/ZIP Code Phon e Number [facility] [id number] [place] [address] [place] CBC and Diff (manual diff if necessary) (08/23/2005 8:20 AM CDT) P athologist Signature WBC 6.4 4.0 - 11.0 [place] TH/UL RBC 4.55 4.00 - 5.00 [facility] MIL/UL Hemoglobin 14.0 12.0 - 15.0 SUNQUEST G/DL Hematocrit 42 36 - 45 % [facility] MCV 92 80 - 99 FL SUNQUEST MCH 31 27 - 34 PG SUNQUEST MCHC 34 32 - 36 % [facility] RDW 12.7 <14.5 % [facility] Platelet Count 259 140 - 400 [place] TH/UL Specimen (Source) Anatomical Collection Method Collection Time Re ceived Time Location / / Volume Laterality 08/23/2005 8:20 AM CDT Roscoe Casanova MD LAB BLOOD ORDERABLES Performing Organization Address City/State/ZIP Code Phon e Number [facility] [id number] [place] [address] SUNQUEST (ABNORMAL) Comprehensive Metabolic Panel (08/23/2005 8:20 AM CDT) Patholo gist Method Time Signature Albumin 4.3 3.6 - 4.6 [facility] G/DL Aspartate 26 20 - 50 [facility] Aminotransferase IU/L Bilirubin Total 0.3 0.0 - 1.1 [place] MG/DL Protein Total Serum 6.6 6.5 - 8.2 [place] G/DL Calcium 10.0 8.8 - SUN[place] 10.5 MG/DL Creatinine 1.1 0.5 - 1.5 [place] MG/DL Glucose 132 (H) 65 - 100 SUNQUEST MG/DL Alkaline Phosphatase 52 40 - 125 [place] IU/L Sodium 138 134 - 144 [place] MEQ/L Potassium 4.8 3.6 - 5.0 [place] MEQ/L Chloride 100 98 - 107 [place] MEQ/L Carbon Dioxide 28 23 - 32 [place] MEQ/L Blood Urea Nitrogen 31 (H) 5 - 20 SUNQUEST MG/DL Anion Gap 10 3 - 15 [facility] Alanine 25 20 - 60 [facility] Aminotransferase IU/L Specimen (Source) Anatomical Collection Method Collection Time Re ceived Time Location / / Volume Laterality 08/23/2005 8:20 AM CDT Roscoe Casanova MD LAB BLOOD ORDERABLES Performing Organization Address City/[facility]/ZIP Code Phon e Number [facility] [id number] [place] [address] [place] Phosphorus (08/23/2005 8:20 AM CDT) P athologist Signature Phosphorus 3.8 2.5 - 4.5 [place] MG/DL Specimen (Source) Anatomical Collection Method Collection Time Re ceived Time Location / / Volume Laterality 08/23/2005 8:20 AM CDT Roscoe Casanova MD LAB BLOOD ORDERABLES Performing Organization Address City/[facility]/ZIP Code Phon e Number [facility] [id number] [place] [address] [place] T4 Free (08/23/2005 8:20 AM CDT) P athologist Signature T4 Free 1.4 0.8 - 1.6 [place] NG/DL Specimen (Source) Anatomical Collection Method Collection Time Re ceived Time Location / / Volume Laterality 08/23/2005 8:20 AM CDT Roscoe Casnaova MD LAB BLOOD ORDERABLES Performing Organization Address City/[facility]/ZIP Code Phon e Number [facility] [id number] [place] [address] [place] Thyroid Stimulating Hormone (08/23/2005 8:20 AM CDT) P athologist Signature Thyroid 2.98 0.35 - [place] Stimulating 5.50 Hormone UIU/ML Specimen (Source) Anatomical Collection Method Collection Time Re ceived Time Location / / Volume Laterality 08/23/2005 8:20 AM CDT Roscoe Casanova MD LAB BLOOD ORDERABLES Performing Organization Address City/[facility]/ZIP Code Phon e Number [facility] [id number] [place] [address] [place] Lipid Panel (08/23/2005 8:20 AM CDT) Patholo gist Method Time Signature Cholesterol 143 <200 SUNQUEST MG/DL Triglycerides 102 <150 SUNQUEST MG/DL HDL Cholesterol 55 >41 MG/DL SUNQUEST LDL Cholesterol 68 0 - 99 SUNQUEST MG/DL Cholesterol/HDL 2.6 <4.5 SUNQUEST Ratio LDL INTERPRETATION NOT REPORTED SUNQUEST Hours Postprandial 12 HRS SUNQUEST Specimen (Source) Anatomical Collection Method Collection Time Re ceived Time Location / / Volume Laterality 08/23/2005 8:20 AM CDT Roscoe Casanova MD LAB BLOOD ORDERABLES Performing Organization Address City/[facility]/ZIP Code Phon e Number [facility] [id number] [place] [address] [place] Microalbumin Random (08/23/2005 8:20 AM CDT) Analysis Performed At Patho logist Time Signature Microalbumin < 0.22 SUNQUEST mg/dl Creatinine Urine 13.0 MG/DL SUNQUEST Random Microalbumin/Crea <18.46 0.00 - SUNQUEST tinine Ratio 24.00 UG/MG Specimen (Source) Anatomical Collection Method Collection Time Re ceived Time Location / / Volume Laterality 08/23/2005 8:20 AM CDT Roscoe Casanova MD URINE ORDERABLES Performing Organization Address City/[facility]/ZIP Code Phon e Number [facility] [id number] [place] [address] [place] Hemoglobin A1C (08/23/2005 8:20 AM CDT) P athologist Signature HEMOGLOBIN A1C 7.0 % SUNQUEST Comment: NONDIABETIC: ? 4.4-6.0% VERY GOOD CONTROL: ??<7.0% SUBOPTIMAL CONTROL: ??7.1-8.0% POOR CONTROL: ? >8.0% Specimen (Source) Anatomical Collection Method Collection Time Re ceived Time Location / / Volume Laterality 08/23/2005 8:20 AM CDT Roscoe Casanova MD LAB BLOOD ORDERABLES Performing Organization Address City/[facility] Code Phon e Number [facility] [id number] [place] [address] SUNQUEST documented in this encounter Visit Diagnoses Not on filedocumented in this encounter
--- OUTSIDE RECORDS SUMMARY | 2022-09-29 00:33 | XMS_ITS | Encounter Summary ---
:1960 Author Organization [facility] Address [address] [place] [address] Care Team Providers Name Role Phone Unavailable Primary Care Provider Unavailable Encounter Details Date Type Department Care Team Description 10/02/2007 Hist-Appointment [facility] Social History Tobacco Use Types Packs/Day Years Used Date Smoking Tobacco: Never Assessed Sex Assigned at Date Recorded Female 04/21/2021 9:42 AM CDT documented as of this encounter Plan of Treatment Upcoming Encounters Date Type Specialty Care Team Description 05/24/2023 Office Visit Medical Oncology Luzmaria Black MD [address] [facility] [address] [place] [address] (Wo rk) documented as of this encounter Visit Diagnoses Not on filedocumented in this encounter
--- OUTSIDE RECORDS SUMMARY | 2022-09-29 00:33 | XMS_ITS | Encounter Summary ---
:1960 Author Organization [facility] Address [address] [place] [address] Care Team Providers Name Role Phone Unavailable Primary Care Provider Unavailable Encounter Details Date Type Department Care Team Description 01/02/2007 Hist-Appointment [facility] Julian Kenney MD [address] [place], [place] [address] (Wo rk) Social History Tobacco Use Types Packs/Day Years Used Date Smoking Tobacco: Never Assessed Sex Assigned at Date Recorded Female 04/21/2021 9:42 AM CDT documented as of this encounter Plan of Treatment Upcoming Encounters Date Type Specialty Care Team Description 05/24/2023 Office Visit Medical Oncology Luzmaria Black MD [address] [address] (Wo rk) documented as of this encounter Visit Diagnoses Not on filedocumented in this encounter
--- OUTSIDE RECORDS SUMMARY | 2022-09-29 00:33 | XMS_ITS | Encounter Summary ---
:[address] [facility] Address [address] [place] [address] Care Team Providers Name Role Phone Unavailable Primary Care Provider Unavailable Encounter Details Date Type Department Care Team Description 08/26/2007 Hospital Encounter [facility] bebeto Freyjunior Roscoe, [address] [place], [place] [address] [address] [place], [place] [address] Social History Tobacco Use Types [...] Visit Medical Oncology CossoLuzmaria porras MD [address] [address] (Wo rk) documented as of this encounter Procedures Procedure Name Priority Date/Time Associated Comments Diagnosis LIPID PANEL Routine 08/26/2007 1:50 PM Results f or this CDT procedure are i n the results section. HEMOGLOBIN A1C Routine 08/26/2007 1:50 PM Results for this CDT procedure are i n the results section. COMPREHENSIVE Routine 08/26/2007 1:50 PM Results for this METABOLIC PANEL CDT procedure ar e in the results section. documented in this encounter Results (ABNORMAL) Comprehensive Metabolic Panel (08/26/2007 1:50 PM CDT) [facility] Method Time Signature Albumin 3.9 3.5 - 5.0 SUNQUEST G/DL Aspartate 21 15 - 41 SUNQUEST Aminotransferase IU/L Bilirubin Total 0.7 0.3 - 1.4 SUNQUEST MG/DL Comment: Reference range changed 7. Protein Total Serum 6.5 6.0 - 8.0 G/DL SUNQU EST Calcium 9.5 8.8 - 10.5 MG/DL SUNQUEST Creatinine 1.2 (H) 0.6 - 1.1 MG/DL SUNQUEST Glucose 225 (H) 65 - 100 MG/DL SUNQUEST Alkaline Phosphatase 40 (L) 42 - 128 IU/L SUNQU EST Sodium 136 134 - 144 MEQ/L SUNQUEST Potassium 5.1 3.5 - 5.1 MEQ/L SUNQUEST Chloride 100 (L) 101 - 111 MEQ/L SUNQUEST Carbon Dioxide 30 23 - 32 MEQ/L SUNQUEST Blood Urea Nitrogen 28 (H) 8 - 26 MG/DL SUNQUES T Anion Gap 6 3 - 15 SUNQUEST Alanine Aminotransferase 19 14 - 63 IU/L [place] NQUEST Specimen (Source) Anatomical Collection Method Collection Time Re ceived Time Location / / Volume Laterality 08/26/2007 1:50 PM CDT Roscoe Casanova MD LAB BLOOD ORDERABLES Performing Organization Address City/State/ZIP Code Phon e Number [id number] [place] [address] SUNQUEST Lipid Panel (08/26/2007 1:50 PM CDT) [facility] Method Time Signature Cholesterol 162 <200 SUNQUEST MG/DL Triglycerides 33 <150 SUNQUEST MG/DL HDL Cholesterol 67 >41 MG/DL SUNQUEST LDL Cholesterol 88 0 - 99 SUNQUEST MG/DL Cholesterol/HDL 2.4 <4.5 SUNQUEST Ratio LDL INTERPRETATION NOT REPORTED SUNQUEST Hours Postprandial 13 HRS SUNQUEST Specimen (Source) Anatomical Collection Method Collection Time Re ceived Time Location / / Volume Laterality 08/26/2007 1:50 PM CDT Roscoe Casanova MD LAB BLOOD ORDERABLES Performing Organization Address City/[facility]/ZIP Code Phon e Number [facility] [id number] [place] [address] SUNQUEST Hemoglobin A1C (08/26/2007 1:50 PM CDT) P athologist Signature HEMOGLOBIN A1C 6.9 % SUNQUEST Comment: NONDIABETIC: ? 4.4-6.0% VERY GOOD CONTROL: ??<7.0% SUBOPTIMAL CONTROL: ??7.1-8.0% POOR CONTROL: ? >8.0% Specimen (Source) Anatomical Collection Method Collection Time Re ceived Time Location / / Volume Laterality 08/26/2007 1:50 PM CDT oRscoe Casanova MD LAB BLOOD ORDERABLES Performing Organization Address City/[facility]/ZIP Code Phon e Number [facility] [id number] [place] [address] SUNQUEST documented in this encounter Visit Diagnoses Not on filedocumented in this encounter
--- OUTSIDE RECORDS SUMMARY | 2022-09-29 00:33 | XMS_ITS | Encounter Summary ---
:1960 Author Organization [facility] Address [address] [place] [address] Care Team Providers Name Role Phone Unavailable Primary Care Provider Unavailable Encounter Details Date Type Department Care Team Description [facility], [address] [place], [place] [address] [address] [place] [address] Social History Tobacco Use Types Packs/Day Years Used Date Smoking Tobacco: Never Assessed Sex Assigned at Date Recorded Female 04/21/2021 9:42 AM CDT documented as of this encounter Medications at Time of Discharge Medication Sig Dispensed Refills Start Date End Date NOVOLOG 100 unit/mL INJECT 60 UNIT DAILY 6 0 201106/09/2015 injection ONETOUCH ULTRA TEST Strp USE 8 STRIP DAILY 800 0 07/0 01/201206/09/2015 SYNTHROID 75 mcg tablet TAKE 1 TABLET DAILY. 90 0 06/09/2015 documented as of this encounter Plan of Treatment Upcoming Encounters Date Type Specialty Care Team Description 05/24/2023 Office Visit [place] [address] [place] [address] (Wo rk) documented as of this encounter Procedures Procedure Name Priority Date/Time Associated Diagnosis Comme nts HEMOGLOBIN A1C Routine 02/23/2006 10:40 AM Result s for this CDT procedure are i n the results section . documented in this encounter Results Hemoglobin A1C (02/23/2006 10:40 AM CDT) P athologist Signature HEMOGLOBIN A1C 7.7 % SUNQUEST Comment: NONDIABETIC: ? 4.4-6.0% VERY GOOD CONTROL: ??<7.0% SUBOPTIMAL CONTROL: ??7.1-8.0% POOR CONTROL: ? >8.0% Specimen (Source) Anatomical Collection Method Collection Time Re ceived Time Location / / Volume Laterality 02/23/2006 10:40 AM CDT Roscoe Casanova MD LAB BLOOD ORDERABLES Performing Organization Address City/State/ZIP Code Phon e Number [facility] [id number] [place] [address] SUNQUEST documented in this encounter Visit Diagnoses Not on filedocumented in this encounter
--- OUTSIDE RECORDS SUMMARY | 2022-09-29 00:33 | XMS_ITS | Encounter Summary ---
:1960 Author Organization [facility] Address [address] [place] [address] Care Team Providers Name Role Phone Marcela Lau PA-C Primary Care Provider Encounter Details Date Type Department Care Team Description [employer] Note [facility], Diabetes & Endocrinology [address] [place] [address] [place], [place] [address] [phone] Social History Tobacco Use Types Packs/Day Years Used Date Smoking Tobacco: Never Assessed Sex Assigned at Date Recorded Female 04/21/2021 9:42 AM CDT documented as of this encounter Miscellaneous Notes Miscellaneous - Roscoe Casanova MD - CST Verified Results Collected/Examined: Sep 07, 2008 7:29PM Test Result Flag Acceptable Hemoglobin A1C 6.6 % 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
--- OUTSIDE RECORDS SUMMARY | 2022-09-29 00:33 | XMS_ITS | Encounter Summary ---
:1960 Author Organization [facility] Address [address] [place] [address] Care Team Providers Name Role Phone Unavailable Primary Care Provider Unavailable Encounter Details Date Type Department Care Team Description [facility], [address] [place], [place] [address] [address] [facility] [phone] [place] [address] Social History Tobacco Use Types Packs/Day Years [...] Visit Medical Oncology CosLuzmaria tan MD [address] [address] (Wo rk) documented as of this encounter Procedures Procedure Name Priority Date/Time Associated Comments Diagnosis MESSAGE TO PHYSICIAN Routine 12/06/2007 9:50 AM R esults for this EXTRACTOR PULLER procedure are i n the results section. THYROID STIMULATING Routine 12/06/2007 9:50 AM Re sults for this HORMONE EXTRACTOR PULLER procedure are i n the results section. T4 FREE Routine 12/06/2007 9:50 AM Results f or this EXTRACTOR PULLER procedure are i n the results section. MAGNESIUM Routine 12/06/2007 9:50 AM Results f or this EXTRACTOR PULLER procedure are i n the results section. LIPID PANEL Routine 12/06/2007 9:50 AM Results f or this EXTRACTOR PULLER procedure are i n the results section. HEMOGLOBIN A1C Routine 12/06/2007 9:50 AM Results for this EXTRACTOR PULLER procedure are i n the results section. COMPREHENSIVE Routine 12/06/2007 9:50 AM Results for this METABOLIC PANEL EXTRACTOR PULLER procedure ar e in the results section. VITAMIN D, 25-HYDROXY Routine 12/06/2007 9:50 AM Results for this EXTRACTOR PULLER procedure are i n the results section. documented in this encounter Results (ABNORMAL) Comprehensive Metabolic Panel (12/06/2007 9:50 AM EXTRACTOR PULLER) [facility] gist Method Time Signature Albumin 4.0 3.5 - 5.0 SUNQUEST G/DL Aspartate 21 15 - 41 SUNQUEST Aminotransferase IU/L Bilirubin Total 0.7 0.3 - 1.4 SUNQUEST MG/DL Protein Total Serum 6.6 6.0 - 8.0 SUNQUEST G/DL Calcium 9.6 8.8 - SUNQUEST 10.5 MG/DL Creatinine 1.0 0.6 - 1.1 SUNQUEST MG/DL Glucose 118 (H) 65 - 100 SUNQUEST MG/DL Alkaline Phosphatase 40 (L) 42 - 128 SUNQUEST IU/L Sodium 135 134 - 144 SUNQUEST MEQ/L Potassium 4.6 3.5 - 5.1 SUNQUEST MEQ/L Chloride 99 (L) 101 - 111 SUNQUEST MEQ/L Carbon Dioxide 27 23 - 32 SUNQUEST MEQ/L Blood Urea Nitrogen 39 (H) 8 - 26 SUNQUEST MG/DL Anion Gap 9 3 - 15 SUNQUEST Alanine 23 14 - 63 SUNQUEST Aminotransferase IU/L Specimen (Source) Anatomical Collection Method Collection Time Re ceived Time Location / / Volume Laterality 12/06/2007 9:50 AM EXTRACTOR PULLER Roscoe Casanova MD LAB BLOOD ORDERABLES Performing Organization Address City/State/ZIP Code Phon e Number [facility] [id number] [place] [address] SUNQUEST Lipid Panel (12/06/2007 9:50 AM EXTRACTOR PULLER) Patholo gist Method Time Signature Cholesterol 176 <200 SUNQUEST MG/DL Triglycerides 78 <150 SUNQUEST MG/DL HDL Cholesterol 64 >41 MG/DL SUNQUEST LDL Cholesterol 96 0 - 99 SUNQUEST MG/DL Cholesterol/HDL 2.8 <4.5 SUNQUEST Ratio LDL INTERPRETATION NOT REPORTED SUNQUEST Hours Postprandial 12 HRS SUNQUEST Specimen (Source) Anatomical Collection Method Collection Time Re ceived Time Location / / Volume Laterality 12/06/2007 9:50 AM EXTRACTOR PULLER Roscoe Casanova MD LAB BLOOD ORDERABLES Performing Organization Address City/[facility]/ZIP Code Phon e Number [facility] [address] [place] [address] SUNQUEST Hemoglobin A1C (12/06/2007 9:50 AM EXTRACTOR PULLER) P athologist Signature HEMOGLOBIN A1C 7.1 % SUNQUEST Comment: NONDIABETIC: ? 4.4-6.0% VERY GOOD CONTROL: ??<7.0% SUBOPTIMAL CONTROL: ??7.1-8.0% POOR CONTROL: ? >8.0% Specimen (Source) Anatomical Collection Method Collection Time Re ceived Time Location / / Volume Laterality 12/06/2007 9:50 AM EXTRACTOR PULLER Roscoe Casanova MD LAB BLOOD ORDERABLES Performing Organization Address City/[facility]/ZIP Code Phon e Number [facility] [id number] [place] [address] SUNQUEST Magnesium (12/06/2007 9:50 AM EXTRACTOR PULLER) P athologist Signature Magnesium 1.9 1.4 - 2.0 SUNQUEST MEQ/L Specimen (Source) Anatomical Collection Method Collection Time Re ceived Time Location / / Volume Laterality 12/06/2007 9:50 AM EXTRACTOR PULLER Roscoe Casanova MD LAB BLOOD ORDERABLES Performing Organization Address City/[facility]/ZIP Code Phon e Number [facility] [address] [place] [address] SUNQUEST T4 Free (12/06/2007 9:50 AM EXTRACTOR PULLER) P athologist Signature T4 Free 1.1 0.6 - 1.6 SUNQUEST NG/DL Specimen (Source) Anatomical Collection Method Collection Time Re ceived Time Location / / Volume Laterality 12/06/2007 9:50 AM EXTRACTOR PULLER Roscoe Casanova MD LAB BLOOD ORDERABLES Performing Organization Address City/[facility] Code Phon e Number [facility] [id number] [place] [address] SUNQUEST Thyroid Stimulating Hormone (12/06/2007 9:50 AM EXTRACTOR PULLER) athologist Signature Thyroid 1.43 0.45 - SUNQUEST Stimulating 4.50 Hormone UIU/ML Specimen (Source) Anatomical Collection Method Collection Time Re ceived Time Location / / Volume Laterality 12/06/2007 9:50 AM EXTRACTOR PULLER Roscoe Casanova MD LAB BLOOD ORDERABLES Performing Organization Address [facility] Code Phon e Number [facility] [id number] [place] [address] SUNQUEST Message to Physician (12/06/2007 9:50 AM EXTRACTOR PULLER) [facility] Method Time Signature Message to Unable to SUNQUEST Physician perform PTH, specimen Comment: Unable to perform PTH, specimen is unacc eptabl - PTH has be be frozen within 6 hours of draw time. Specimen (Source) Anatomical Collection Method Collection Time Re ceived Time Location / / Volume Laterality 12/06/2007 9:50 AM EXTRACTOR PULLER Roscoe Casanova MD LAB BLOOD ORDERABLES Performing Organization Address [facility] Phon e Number [facility] [id number] [place] [address] SUNQUEST Vitamin D, 25-Hydroxy (12/06/2007 9:50 AM EXTRACTOR PULLER) athologist Signature Vitamin D <4.0 ng/mL SUNQUEST 25-Hydroxy D2 Vitamin D 57 25 - 80 SUNQUEST 25-Hydroxy ng/mL Comment: -- EXPECTED VALUES -- 25-HYDROXY D TOTAL (D2+D3) Optimum levels in the normal population are 25-80 Vitamin D 25-Hydroxy D3 57 ng/mL [facility] Specimen (Source) Anatomical Collection Method Collection Time Re ceived Time Location / / Volume Laterality 12/06/2007 9:50 AM EXTRACTOR PULLER Roscoe Casanova MD LAB BLOOD ORDERABLES Performing Organization Address City/[facility] Code Phon e Number [facility] [id number] [place] [address] [facility] documented in this encounter Visit Diagnoses Not on filedocumented in this encounter
--- OUTSIDE RECORDS SUMMARY | 2022-09-29 00:33 | XMS_ITS | Encounter Summary ---
:1960 Author Organization [facility] Address [address] [place] [address] Care Team Providers Name Role Phone Unavailable Primary Care Provider Unavailable Encounter Details Date Type Department Care Team Description 05/30/2006 Hist-Appointment [facility]ST Julian Kenney MD [address] [place], [place] [address] (Wo rk) Social History Tobacco Use Types Packs/Day Years Used Date Smoking Tobacco: Never Assessed Sex Assigned at Date Recorded Female 04/21/2021 9:42 AM CDT documented as of this encounter Plan of Treatment Upcoming Encounters Date Type Specialty Care Team Description 05/24/2023 Office Visit Medical Oncology Luzmaria Black MD [address] [address] (Wo rk) documented as of this encounter Visit Diagnoses Not on filedocumented in this encounter
--- OUTSIDE RECORDS SUMMARY | 2022-09-29 00:33 | XMS_ITS | Encounter Summary ---
:1960 Author Organization [facility] Address [address] [place] [address] Care Team Providers Name Role Phone Unavailable Primary Care Provider Unavailable Encounter Details Date Type Department Care Team Description 04/16/2007 Hospital Encounter [facility] [address] [place] [address] [phone] [place] [address] Social History Tobacco Use Types Packs/Day Years [...] Visit Medical Oncology CosLuzmaria tan MD [address] [facility] [address] [place] [address] (Wo rk) documented as of this encounter Procedures Procedure Name Priority Date/Time Associated Diagnosis Comme nts US THYROID SOFT Routine 04/16/2007 9:14 AM Result s for this TISSUE NECK OR HEAD CDT procedur e are in the results section. documented in this encounter Results US Thyroid Soft Tissue Neck or Head (04/16/2007 9:14 AM CDT) Anatomical Region Laterality Modality Neck, Head Ultrasound Specimen (Source) Anatomical Collection Method Collection Time Re ceived Time Location / / Volume Laterality 04/16/2007 9:14 AM CDT Narrative 04/16/2007 10:43 AM CDT REPORT Name: GAYE PAZ A ?? Date of : 1960 ?Sex: F Check-in #: [id number] ?Luzmaria#/Jacket#: [id number] ? Room/Bed/Location: ? Medical [address] #: [id number] Attending Physician: [id number] AIDA Umana Admitting Diagnosis: ??HYPERTHYROIDISM Procedure Requested: US THYROID SO FT TISSUE NECK L Reason For Exam: ??HYPERTHYROIDISM Requested By: AIDA Umana ?? MD ?Exam Ordered: 04/16/2007 1034 Exam Date/Time: 04/16/2007 0954 ?Shellie ck-in Date/Time: 04/16/2007 0859 Procedure: Thyroid ultrasound 04/16/2007. Clinical data: History of thyroid nodule s. Hypothyroidism. FNA in the early was inconclusive. Findings: The thyroid gland is mildly pr ominent with the right lobe measuring 4.4 cm x 2.1 cm x 1.9 cm. The left lobe measures 5.4 cm x 1.9 cm x 1.3 cm. There is a large nodule exophyticly from the superior pole of the right lobe which is mixed echoic. It measures 3.1 cm x 1.6 cm. A smaller mixed echoic nodule in the midright lobe measu res 1.6 cm x 2 cm x 1.6 cm. There is a tiny 3 mm cyst inferior to th is. In the left lobe there are 2 mixed echoi c nodules in the midportion, the largest measuring 2.1 cm x 1 cm x 1.2 cm . There are no previous examinations avail able for comparison. If they can be made available, then an addendum with comments about change in these nodules can be made. Impression: Slightly prominent thyroid g land with bilateral nodules as above. Executive Kitchen Manager- STEVE PEREZ ??Jori Castillo, Staff Radiologist Dictated By- STEVE PEREZ ??Zbigniew, [facility] Radiologist Staff Physician- STEVE PEREZ ??Zbigniew , Staff Radiologist Authenticated By- STEVE PEREZ ??Jori Castillo, Staff Radiologist Released Date Time- 04/16/07 1043 Procedure Note Steve Perez MD - 01/04/2014Format ting of this note might be different from the original. REPORT Name: GAYE PAZ A Date of : 11/08/1959 Sex: F Check-in #: [id number] Luzmaria#/Jacket#: [id number] Room/Bed/Location: Medical Record #: [id number] Attending Physician: [id number] AIDA Umana Admitting Diagnosis: HYPERTHYROIDISM Procedure Requested: US THYROID SO FT TISSUE NECK L Reason For Exam: HYPERTHYROIDISM Requested By: AIDA Umana MD Exam Ordered: 04/16/2007 1034 Exam Date/Time: 04/16/2007 0954 Check-in Date/Time: 04/16/2007 0859 Procedure: Thyroid ultrasound 04/16/2007. Clinical data: History of thyroid nodule s. Hypothyroidism. FNA in the early was inconclusive. Findings: The thyroid gland is mildly pr ominent with the right lobe measuring 4.4 cm x 2.1 cm x 1.9 cm. The left lobe measures 5.4 cm x 1.9 cm x 1.3 cm. There is a large nodule exophyticly from the superior pole of the right lobe which is mixed echoic. It measures 3.1 cm x 1.6 cm. A smaller mixed echoic nodule in the midright lobe measu res 1.6 cm x 2 cm x 1.6 cm. There is a tiny 3 mm cyst inferior to th is. In the left lobe there are 2 mixed echoi c nodules in the midportion, the largest measuring 2.1 cm x 1 cm x 1.2 cm . There are no previous examinations avail able for comparison. If they can be made available, then an addendum with comments about change in these nodules can be made. Impression: Slightly prominent thyroid g land with bilateral nodules as above. Executive Kitchen Manager- STEVE PEREZ M.D., Staff Radiologist Dictated By- STEVE PEREZ M.D., Rosey escobar Radiologist Staff Physician- STEVE PEREZ M.D., Staff Radiologist Authenticated By- STEVE PEREZ M.D., Staff Radiologist Released Date Time- 04/16/07 1043 [place]coe Casanova MD [facility] [place]LES documented in this encounter Visit Diagnoses Not on filedocumented in this encounter
--- OUTSIDE RECORDS SUMMARY | 2022-09-29 00:33 | XMS_ITS | Encounter Summary ---
:1960 Author Organization [facility] Address [address] [place] [address] Care Team Providers Name Role Phone Unavailable Primary Care Provider Unavailable Encounter Details Date Type Department Care Team Description [facility]2006 [facility], [address] [place], [place] [address] [address] [place] [address] Social History Tobacco Use Types Packs/Day Years [...] Visit Medical Oncology CossoLuzmaria porras MD [address] [facility] [address] [place] [address] (Wo rk) documented as of this encounter Procedures Procedure Name Priority Date/Time Associated Diagnosis Comme nts HEMOGLOBIN A1C Routine 08/27/2006 9:45 AM Results for this CDT procedure are i n the results section . documented in this encounter Results Hemoglobin A1C (08/27/2006 9:45 AM CDT) P athologist Signature HEMOGLOBIN A1C 7.0 % [facility] Comment: NONDIABETIC: ? 4.4-6.0% VERY GOOD CONTROL: ??<7.0% SUBOPTIMAL CONTROL: ??7.1-8.0% POOR CONTROL: ? >8.0% Specimen (Source) Anatomical Collection Method Collection Time Re ceived Time Location / / Volume Laterality 08/27/2006 9:45 AM CDT Roscoe Casanova MD LAB BLOOD ORDERABLES Performing Organization Address City/State/ZIP Code Phon e Number [facility] [id number] [place] [address] [place] documented in this encounter Visit Diagnoses Not on filedocumented in this encounter
--- OUTSIDE RECORDS SUMMARY | 2022-09-29 00:33 | XMS_ITS | Encounter Summary ---
:1960 Author Organization [facility] Address [address] [place] [address] Care Team Providers Name Role Phone Unavailable Primary Care Provider Unavailable Encounter Details Date Type Department Care Team Description 12/28/2006 [facility], [address] [place], [place] [address] [address] [place] [address] Social History Tobacco Use Types Packs/Day Years [...] Visit Medical Oncology CosLuzmaria tan MD [address] [address] (Wo rk) documented as of this encounter Procedures Procedure Name Priority Date/Time Associated Comments Diagnosis GFR NON- Routine 12/28/2006 10:26 Results for this HONG KONGER. AM FEED INSPECTION SUPERVISOR procedure are i n the results section. GFR . Routine 12/28/2006 10:26 Re sults for this AM FEED INSPECTION SUPERVISOR procedure are i n the results section. MICROALBUMIN RANDOM Routine 12/28/2006 10:26 Resu lts for this AM FEED INSPECTION SUPERVISOR procedure are i n the results section. THYROID STIMULATING Routine 12/28/2006 10:26 Resu lts for this HORMONE AM FEED INSPECTION SUPERVISOR procedure are i n the results section. T4 FREE Routine 12/28/2006 10:26 Results for this AM FEED INSPECTION SUPERVISOR procedure are i n the results section. RENAL PANEL Routine 12/28/2006 10:26 Results for this AM FEED INSPECTION SUPERVISOR procedure are i n the results section. LIPID PANEL Routine 12/28/2006 10:26 Results for this AM FEED INSPECTION SUPERVISOR procedure are i n the results section. HEMOGLOBIN A1C Routine 12/28/2006 10:26 Results f or this AM FEED INSPECTION SUPERVISOR procedure are i n the results section. COMPREHENSIVE Routine 12/28/2006 10:26 Results fo r this METABOLIC PANEL AM FEED INSPECTION SUPERVISOR procedure ar e in the results section. COMPLETE BLOOD COUNT Routine 12/28/2006 10:26 Res ults for this AM FEED INSPECTION SUPERVISOR procedure are i n the results section. documented in this encounter Results (ABNORMAL) Complete Blood Count (12/28/2006 10:26 AM FEED INSPECTION SUPERVISOR) Analysis Performed At Patho logist Time Signature WBC 11.3 (H) 4.0 - 11.0 [facility] TH/UL RBC 4.25 4.00 - [place] 5.00 MIL/UL Hemoglobin 13.4 12.0 - [facility] 15.0 G/DL Hematocrit 39 36 - 45 % [facility] MCV 93 80 - 99 FL [facility] MCH 32 27 - 34 PG [facility] MCHC 34 32 - 36 % [facility] RDW 13.6 <14.5 % [facility] Platelet Count 257 140 - 400 [facility] TH/UL Specimen (Source) Anatomical Collection Method Collection Time Re ceived Time Location / / Volume Laterality 12/28/2006 10:26 AM FEED INSPECTION SUPERVISOR Roscoe Casanova MD LAB BLOOD ORDERABLES Performing Organization Address City/State/ZIP Code Phon e Number [facility] [id number] [place] [address] [place] (ABNORMAL) Comprehensive Metabolic Panel (12/28/2006 10:26 AM FEED INSPECTION SUPERVISOR) Patholo gist Method Time Signature Albumin 3.6 3.5 - 5.0 [facility] G/DL Aspartate 25 15 - 41 [facility] Aminotransferase IU/L Bilirubin Total 0.5 0.3 - 1.2 [place] MG/DL Protein Total Serum 6.2 (L) 6.5 - 8.2 [facility] G/DL Calcium 9.4 8.8 - [facility] 10.5 MG/DL Creatinine 1.2 (H) 0.6 - 1.1 [facility] MG/DL Glucose 76 65 - 100 [facility] MG/DL Alkaline Phosphatase 47 42 - 98 [facility] IU/L Sodium 139 134 - 144 [place] MEQ/L Potassium 4.5 3.6 - 5.0 [facility] MEQ/L Chloride 103 101 - 111 [facility] MEQ/L Carbon Dioxide 28 23 - 32 [facility] MEQ/L Blood Urea Nitrogen 19 8 - 26 [facility] MG/DL Anion Gap 8 3 - 15 [facility] Alanine 26 14 - 63 [facility] Aminotransferase IU/L Specimen (Source) Anatomical Collection Method Collection Time Re ceived Time Location / / Volume Laterality 12/28/2006 10:26 AM FEED INSPECTION SUPERVISOR Roscoe Casanova MD LAB BLOOD ORDERABLES Performing Organization Address City/State/ZIP Code Phon e Number [facility] [id number] [place] [address] [place] Lipid Panel (12/28/2006 10:26 AM FEED INSPECTION SUPERVISOR) [facility] Method Time Signature Cholesterol 139 <200 [place] MG/DL Triglycerides 26 <150 [facility] MG/DL HDL Cholesterol 60 >41 MG/DL [facility] LDL Cholesterol 74 0 - 99 [facility] MG/DL Cholesterol/HDL 2.3 <4.5 [facility] Ratio LDL INTERPRETATION NOT REPORTED [facility] Specimen (Source) Anatomical Collection Method Collection Time Re ceived Time Location / / Volume Laterality 12/28/2006 10:26 AM FEED INSPECTION SUPERVISOR Roscoe Casanova MD LAB BLOOD ORDERABLES Performing Organization Address City/State/ZIP Code Phon e Number [facility] [id number] [place] [address] [place] T4 Free (12/28/2006 10:26 AM FEED INSPECTION SUPERVISOR) athologist Signature T4 Free 1.2 0.6 - 1.6 [facility] NG/DL Comment: Reference range changed at [facility] on 10/17/06. Specimen (Source) Anatomical Collection Method Collection Time Re ceived Time Location / / Volume Laterality 12/28/2006 10:26 AM FEED INSPECTION SUPERVISOR Roscoe Casanova MD LAB BLOOD ORDERABLES Performing Organization Address City/[facility] Code Phon e Number [facility] [id number] [place] [address] [place] Thyroid Stimulating Hormone (12/28/2006 10:26 AM FEED INSPECTION SUPERVISOR) P athologist Signature Thyroid 1.46 0.45 - [facility] Stimulating 4.50 Hormone UIU/ML Specimen (Source) Anatomical Collection Method Collection Time Re ceived Time Location / / Volume Laterality 12/28/2006 10:26 AM FEED INSPECTION SUPERVISOR Roscoe Casanova MD LAB BLOOD ORDERABLES Performing Organization Address [facility] Code Phon e Number [facility] [id number] [place] [address] [place] Hemoglobin A1C (12/28/2006 10:26 AM FEED INSPECTION SUPERVISOR) P athologist Signature HEMOGLOBIN A1C 7.0 % [facility] Comment: NONDIABETIC: ? 4.4-6.0% VERY GOOD CONTROL: ??<7.0% SUBOPTIMAL CONTROL: ??7.1-8.0% POOR CONTROL: ? >8.0% Specimen (Source) Anatomical Collection Method Collection Time Re ceived Time Location / / Volume Laterality 12/28/2006 10:26 AM FEED INSPECTION SUPERVISOR Roscoe Casanova MD LAB BLOOD ORDERABLES Performing Organization Address [facility] Code Phon e Number [facility] [id number] [place] [address] [place] Microalbumin Random (12/28/2006 10:26 AM FEED INSPECTION SUPERVISOR) Analysis Performed At Patho logist Time Signature Microalbumin < 0.22 [facility] mg/dl Creatinine Urine 11.6 MG/DL [facility] Random Microalbumin/Crea <18.10 0.00 - [facility] tinine Ratio 24.00 UG/MG Specimen (Source) Anatomical Collection Method Collection Time Re ceived Time Location / / Volume Laterality 12/28/2006 10:26 AM FEED INSPECTION SUPERVISOR Roscoe Casanova MD URINE ORDERABLES Performing Organization Address City/[facility] Phon e Number [facility] [id number] [place] [address] [place] (ABNORMAL) Renal Panel (12/28/2006 10:26 AM FEED INSPECTION SUPERVISOR) P athologist Signature Sodium 140 134 - 144 [facility] MEQ/L Potassium 4.6 3.6 - 5.0 [facility] MEQ/L Chloride 106 101 - 111 [facility] MEQ/L Carbon Dioxide 27 23 - 32 [facility] MEQ/L Creatinine 1.2 (H) 0.6 - 1.1 [facility] MG/DL Blood Urea 18 8 - 26 [facility] Nitrogen MG/DL Glucose 74 65 - 100 [facility] MG/DL Anion Gap 7 3 - 15 [facility] Phosphorus 3.4 2.5 - 4.5 [facility] MG/DL Albumin 3.8 3.5 - 5.0 [facility] G/DL Calcium 9.2 8.8 - 10.5 [facility] MG/DL Specimen (Source) Anatomical Collection Method Collection Time Re ceived Time Location / / Volume Laterality 12/28/2006 10:26 AM FEED INSPECTION SUPERVISOR Roscoe Casanova MD LAB BLOOD ORDERABLES Performing Organization Address City/[facility]/ZIP Code Phon e Number [facility] [id number] [place] [address] [place] GFR . (12/28/2006 10:26 AM FEED INSPECTION SUPERVISOR) P athologist Signature eGFR Female AA 62 [facility] Comment: Chronic Kidney Disease less than 60 ml/m in/1.73 sq.m Kidney failure less than 15 ml/min/1.73 sq.m Specimen (Source) Anatomical Collection Method Collection Time Re ceived Time Location / / Volume Laterality 12/28/2006 10:26 AM FEED INSPECTION SUPERVISOR Roscoe Casanova MD LAB BLOOD ORDERABLES Performing Organization Address City/[facility] Phon e Number [facility] [id number] [place] [address] [place] GFR NON-. (12/28/2006 10:26 AM FEED INSPECTION SUPERVISOR) P athologist Signature eGFR Female 51 [facility] Non-AA Comment: Chronic Kidney Disease less than 60 ml/m in/1.73 sq.m Kidney failure less than 15 ml/min/1.73 sq.m Specimen (Source) Anatomical Collection Method Collection Time Re ceived Time Location / / Volume Laterality 12/28/2006 10:26 AM FEED INSPECTION SUPERVISOR Roscoe Casanova MD LAB BLOOD ORDERABLES Performing Organization Address City/State/ZIP Code Phon e Number [facility] [id number] documented in this encounter Visit Diagnoses Not on filedocumented in this encounter
--- OUTSIDE RECORDS SUMMARY | 2022-09-29 00:33 | XMS_ITS | Clinical Summary ---
:1960 Author Organization [facility] Address [address] [place] [address] Care Team Providers Name Role Phone Marcela Lau PA-C Primary Care Provider Oliva Gray MD Unavailable Source Comments Some departments are not documenting in the electronic medical record. If you do not see the information that you expected, contact Release of Information in the Health Information Management department at [phone] for further assistance in locating additional records.[facility] Allergies No known active allergies Medications Medication Sig Dispensed Refills Start End Date Status Date furosemide (LASIX) 40 mg Take 40 mg by 0 Active tablet mouth daily. levothyroxine Take 75 mcg by 0 A ctive (SYNTHROID) 75 mcg mouth daily. tablet lisinopril (PRINIVIL; Take 10 mg by 0 Active ZESTRIL) 10 mg tablet mouth twice daily. pravastatin (PRAVACHOL) Take 10 mg by 0 Active 10 mg tablet mouth at bedtime daily. insulin pump -LISPRO- 35 Units by SubQ 0 Active Patients Own 35 Units Pump route daily. ~35 units total daily (50% basal 50% bolus) COQ10 (UBIQUINOL) PO Take by mouth. 0 Active ALPHA LIPOIC ACID PO Take by mouth. 0 Active MAGNESIUM AMINO ACID Take by mouth. 0 Active CHELATE PO MULTIVITAMIN PO Take by mouth. 0 Active DOCOSAHEXANOIC ACID/EPA Take 2,400 mL by 0 Active (FISH OIL PO) mouth daily. amLODIPine (NORVASC) 5 Take 5 mg by 0 Active mg tablet mouth twice 0 daily. FIASP U-100 INSULIN 100 0 Active unit/mL vial 0 COQ10 (LIPOSOMAL Take 200 mg by 0 Active UBIQUINOL) PO mouth daily. 0 HYDROcodone/acetaminophe every 4 hours 0 Active n (NORCO) 10/325 mg 7 tablet hydroCHLOROthiazide 0 Active (HYDRODIURIL) 12.5 mg 0 tablet phytonadione (VITAMIN K) Take 5 mg by 0 Active 5 mg tablet mouth once. cholecalciferol (VITAMIN Take 5,000 Units 0 Active D-3) 5000 unit tablet by mouth daily. Ascorbate 0 Active Fm-Immiysiqg-Vlv (VIT 0 C(ASCORB.CALCIUM)(MV-MIN S)) 1,000 mg pwep cloNIDine (CATAPRESS) Take 0.3 mg by 0 Active 0.3 mg tablet mouth every 8 hours. phenazopyridine TAKE 1 TABLET BY 0 Active (PYRIDIUM) 200 mg tablet MOUTH THREE TIMES 0 A DAY AFTER MEALS FOR 2 DAYS progesterone, micronized 0 Active (PROMETRIUM) 100 mg 0 capsule R-LIPOIC ACID PO 0 Act shira 0 S-adenosylmethionine 200 0 Active mg tablet 8 temazepam (RESTORIL) 7.5 0 Active mg capsule 0 rosuvastatin (CRESTOR) 5 Take 5 mg by 0 Active mg tablet mouth daily. CREON 36,000-114,000- Take 3 capsules 0 Active 180,000 unit capsule by mouth as 1 directed. 3 with each meal and 2 capsules with each snack testosterone Inject 100 mg 0 Act shira cypionate(+) into the muscle (DEPO-TESTOSTERONE) 100 every 14 days. mg/mL injection Mesalamine 500 mg Take two capsules 240 capsule 5 Active cpERIndications: by mouth three 1 ulcerative colitis times daily. Indications: ulcerative colitis, an inflammatory condition of the intestines peg-electrolyte solution Mix as directed 8000 mL 0 Active (NULYTELY) 420 gram oral on package. Drink 1 solution 240ml (8oz) every 10 minutes until gone. Refrigerate once mixed. Active Problems Problem Noted Date Calcification of coronary artery 12/07/2020 Cerebral hemorrhage following injury 12/07/2020 Stage 3 chronic kidney disease 12/07/2020 Diabetic gastroparesis 12/07/2020 Hyperlipidemia 12/07/2020 Essential hypertension 12/07/2020 Lumbar spondylosis 12/07/2020 Pain of left lower extremity 07/15/2020 Left leg swelling 07/15/2020 Carotid atherosclerosis 06/27/2018 Osteoarthrosis, unspecified whether generalized or loc alized, forearm 01/10/2013 Frances's thyroiditis 02/01/2010 Type 1 diabetes mellitus with complication 05/13/1966 Overview: ICD-10 conversion ICD-10 conversion Immunizations Name Administration Dates Next Due Tdap Vaccine 07/06/2015 Zoster Vaccine Recombinant, Adjuvanted (shingles) IM 018, 08/01/2018 (vial 2 of 2)(SHINGRIX) Surgical History Surgery Date Site/Laterality Comments HAND ARTHROPLASTY 10/03/12 PIP with impla nt LUMBAR FUSION /low back fusion s in the lumbar spine, x4 SHOULDER ARTHROSCOPY Rt, x2 TUBAL LIGATION UPPER GASTROINTESTINAL 12/10/2020 N/A ESOPHAGOG ASTRODUODENOSCOPY WITH ENDOSCOPY TRANSENDOSCOPIC ULTRASOUND GUIDED FINE NEEDLE ASPI RATION/ BIOPSY performed by Brett Zafar MD at [place] [address] OR UPPER GASTROINTESTINAL 12/10/2020 N/A ESOPHAGOG ASTRODUODENOSCOPY WITH ENDOSCOPY BIOPSY - FLEXIBL E performed by Brett Leahy MD at [place] [address] OR BIOPSY 12/10/2020 N/A COLONOSCOPY WITH BIOPSY - FLEXIBLE N/A performed by Brett Zafar MD N/A at [place] [address] OR Medical History Medical History Date Comments Trigger finger 2002 multiple, with Rt 4t h finger pain on PIP joint Hypothyroid / low Diabetes mellitus type 1 (HCC) DJD (degenerative joint disease) Rt ring finger, PIP joint / arthritis Renal insufficiency Hypertension Family History Medical History Relation Name Comments Arthritis-osteo Father None Reported Mother Relation Name Status Comments Father Mother Social History Tobacco Use Types Packs/Day Years Used Date Smoking Tobacco: Never Smokeless Tobacco: Never Alcohol Use Standard Drinks/Week Comments Yes 1.7 (1 standard drink = 0.6 oz pure alco hol) Sex Assigned at Date Recorded Female 07/14/2020 10:38 AM CDT Obstetrics History Last Filed Vital Signs Vital Sign Reading Time Taken Comments Blood Pressure 156/72 12/10/2020 1:50 PM BARREL ENDSHAKE ADJUSTER Pulse 66 12/10/2020 1:50 PM BARREL ENDSHAKE ADJUSTER Temperature 36.5 ??C (97.7 ??F) 12/10/2020 1:50 PM BARREL ENDSHAKE ADJUSTER Respiratory Rate - - Oxygen Saturation 99% 12/10/2020 1:50 PM BARREL ENDSHAKE ADJUSTER Inhaled Oxygen Concentration - - Weight 59.6 kg (131 lb 8 oz) 12/10/2020 11:21 AM BARREL ENDSHAKE ADJUSTER Height 170.2 cm (5' 7) 12/10/2020 11:21 AM BARREL ENDSHAKE ADJUSTER Body Mass Index 20.6 12/10/2020 11:21 AM BARREL ENDSHAKE ADJUSTER Plan of Treatment Health Maintenance Due Date Last Done Comments HBA1C 1960 MICROALBUMIN 1960 PNEUMOCOCCAL VACCINE (DM) 1960 COVID-19 VACCINE (#1) 03[birth year]08/1961 HIV SCREENING 1975 DILATED EYE EXAM 1978 FOOT EXAM 1978 HEPATITIS C SCREENING 1978 PHYSICAL (COMPREHENSIVE) EXAM 1978 CERVICAL CANCER SCREENING 1981 BREAST CANCER SCREENING 2000 DEPRESSION SCREENING 11/05/2021 INFLUENZA VACCINE 06/05/2022 DTAP/TDAP VACCINES (2 - Td or Tdap) 07/06/2025 07/06/2015 COLORECTAL CANCER SCREENING 12/10/2030 12/10/2020 SHINGLES RECOMBINANT VACCINE Completed 10/22/2018, 018 Medical Devices Implanted Type Area Acquisition Analyst Device Shelf Expiration Model / Identifier Date Serial / Lot Other Other Right: Fingers Insurance Payer Benefit Plan / Subscriber ID Effective Dates Phone Addre ss Type Group BCBS CARLOS BCBS CARLOS PREF [id number] 2018-Present [phone] [address] [place] [address] Care Teams Engineering Geologist Relationship Specialty Start Date End Date Marcela Lau PA-C PCP - General Physician V Belt Finisher 05/18/[address] [facility] [address] [place] [address] Oliva Gray MD Vascular Surgery 07/15/20 [address] [facility] [place] [address]
--- OUTSIDE RECORDS SUMMARY | 2022-09-29 00:33 | XMS_ITS | Encounter Summary ---
:1960 Author Organization [facility] Address [address] [place] [address] Care Team Providers Name Role Phone Unavailable Primary Care Provider Unavailable Encounter Details Date Type Department Care Team Description 03/01/2006 Hist-Appointment [facility] Julian Kenney MD [address] [place], [place] [address] (Wo rk) Social History Tobacco Use Types Packs/Day Years Used Date Smoking Tobacco: Never Assessed Sex Assigned at Date Recorded Female 04/21/2021 9:42 AM CDT documented as of this encounter Plan of Treatment Upcoming Encounters Date Type Specialty Care Team Description 05/24/2023 Office Visit Medical Oncology Luzmaria Black MD [address] [address] (Wo rk) documented as of this encounter Visit Diagnoses Not on filedocumented in this encounter
--- OUTSIDE RECORDS SUMMARY | 2022-09-29 00:33 | XMS_ITS | Encounter Summary ---
:1960 Author Organization [facility] Address [address] [place] [address] Care Team Providers Name Role Phone Unavailable Primary Care Provider Unavailable Encounter Details Date Type Department Care Team Description [facility]03[facility]2007 [facility], [address] [place], [place] [address] [address] [place] [address] Social History Tobacco Use Types Packs/Day Years [...] Visit Medical Oncology CosLuzmaria tan MD [address] [facility] [address] [place] [address] (Wo rk) documented as of this encounter Procedures Procedure Name Priority Date/Time Associated Diagnosis Comme nts HEMOGLOBIN A1C Routine 04/03/2007 1:05 PM Results for this CDT procedure are i n the results section . documented in this encounter Results Hemoglobin A1C (04/03/2007 1:05 PM CDT) P athologist Signature HEMOGLOBIN A1C 6.9 % [place] Comment: NONDIABETIC: ? 4.4-6.0% VERY GOOD CONTROL: ??<7.0% SUBOPTIMAL CONTROL: ??7.1-8.0% POOR CONTROL: ? >8.0% Specimen (Source) Anatomical Collection Method Collection Time Re ceived Time Location / / Volume Laterality 04/03/2007 1:05 PM CDT Roscoe Casanova MD LAB BLOOD ORDERABLES Performing Organization Address City/State/ZIP Code Phon e Number [facility] [id number] [place] [address] [place] documented in this encounter Visit Diagnoses Not on filedocumented in this encounter
--- OUTSIDE RECORDS SUMMARY | 2022-09-29 00:35 | XMS_ITS ---
:1960 External Reference #:[id number] Author Care Team Providers Name Role Phone Brianna Edwards Primary Care Provider Unavailable Allergies Code Code System Name Reaction Severity Status Onset 88922 RxNorm Simvastatin ? ? Active ? 939133 RxNorm Welchol ? ? Active ? Medications Name Status Start Date Stop Date ? ? amlodipine 2.5 mg tablet Active ? Not calvin ilable Take 1 tablet every day by oral route. amlodipine 5 mg tablet Active ? Not avail able Take 1 tablet every day by oral route. benzonatate 100 mg capsule Completed ? 12/27 Take 1 capsule 3 times a day by oral route. Bystolic 5 mg tablet Completed ? 04/16/2018 Take 1 tablet every day by oral route for 30 days. clonidine HCl 0.2 mg tablet Completed ? 01/2019 TAKE 1 TABLET BY MOUTH FOUR TIMES A DAY clonidine HCl 0.3 mg tablet Active ? Not available Take 1 tablet 4 times a day by oral route. doxycycline hyclate 100 mg capsule Completed ? 02/20/2018 Take 1 capsule twice a day by oral route as directed. Fiasp FlexTouch U-100 Insulin 100 unit/mL (3 mL) subcutaneous pe n Completed ? 03/10/2019 Inject max of 75 U qd in multiple doses as directed Fiasp U-100 Insulin 100 unit/mL subcutaneous solution Active ? Not available Inject max of 75 U qd in multiple doses as directed furosemide 40 mg tablet Active ? Not avai lable TAKE 1 TABLET THREE TIMES A WEEK Glucagon Emergency Kit 1 mg solution for injection Active ? Not available Use as directed Humalog U-100 Insulin 100 unit/mL subcutaneous solution Complete d ? 04/16/2018 Use as directed with insulin pump hydrochlorothiazide 12.5 mg tablet Active ? Not available Take 1 tablet every day by oral route. hydrocodone 10 mg-acetaminophen 325 mg tablet Active Not available Take 1 tablet every 4 hours by oral route as needed. levofloxacin 500 mg tablet Completed ? 04/16 Take 1 tablet every day by oral route. levofloxacin 750 mg tablet Completed ? 10/15 Take 1 tablet every day by oral route. lisinopril 10 mg tablet Active ? Not avai lable Take 1 tablet every day by oral route. methyldopa 250 mg tablet Completed ? 018 Take 1.5 tablets 4 times a day by oral route for 90 days. methyldopa 500 mg tablet Active ? Not calvin ilable Take 1 tablet 4 times a day by oral route for 102 days. Novolog U-100 Insulin aspart Completed ? 12/2017 as directed in pump Novolog U-100 Insulin aspart 100 unit/mL subcutaneous solution C ompleted ? 11/23/2017 Use as directed per pump Sandstone-3 (DHA-EPA) Active ? Not available 3500 mg liquid daily ProAir HFA 90 mcg/actuation aerosol inhaler Completed ? 04/16/2018 Inhale 2 puffs every 4 hours by inhalation route as needed. Probiotic Active ? Not available Take 1 capsule orally each day rosuvastatin 5 mg tablet Active ? Not calvin ilable Take 1 tablet QOD Synthroid 75 mcg tablet Active ? Not avai lable TAKE 1 TABLET DAILY DIRECTED testosterone Completed 06/10/2017 01/03/2018 Apply 4mg/2ml to inner thigh once daily as directed. Vitamin D3 125 mcg (5,000 unit) tablet Active ? Not available Take 1 tablet every day by oral route. Problems Name Status Onset Date Source ? Acute Bronchitis Active 09/12/2017 ? Carotid Atherosclerosis Active 06/27/2018 ? Serum Copper Level Abnormal Active 10/15/2018 ? Hypothyroidism Active ? ? Gastroparesis Due to Diabetes Mellitus Active ? ? Diabetic Peripheral Neuropathy Active ? ? Hyperlipidemia Active ? ? 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 ? Retinopathy Due to Diabetes Mellitus Unknown ? ? Epiretinal Membrane Unknown ? ? Essential Hypertension Active ? ? Calcification of Coronary Artery Active ? ? Cerebral Hemorrhage Following Injury Active ? ? Chronic Kidney Disease Stage 3 Active ? ? Chronic Kidney Disease Unknown ? ? Lumbar Spondylosis Active ? ? Closed Injury of Head Active ? ? Hormone Replacement Therapy Active ? ? Screening Procedure Active ? ? Autonomic Neuropathy Due to Diabetes Mellitus Active ? ? Hypoglycemic Unawareness Due to Type 1 Diabetes Mellitus Active ? ? Hypotestosteronism Active ? ? Type 1 Diabetes Mellitus with Persistent Microalbuminuria Active ? ? Retinopathy Due to Type 1 Diabetes Mellitus Active ? ? Diabetic Peripheral Neuropathy Associated with Type 1 Active ? ? Diabetes Mellitus Procedures Date Name Performed by ? 09/16/2018 Total Shoulder Replacement Information n ot available Notes: 09/16/18 RIGHT Shoulder Replace ment by Dr. Dom Grimaldo 2016 Shoulder Joint Surgery Information not a vailable Notes: 09/08/16 RIGHT rotat or cuff repair w/long head biceps tenodesis and subacromial decompression (Dr. Dom Grimaldo, [place]) 11/05/2011 Other Information not avai lable Notes: Right 4th finger joint replacem ent 11/05/2001 Shoulder Joint Surgery Information not a vailable Notes: Initial RIGHT rotator cuff repa ir 11/05/1976 Laser Photocoagulation to Retina Informa tion not available 11/05/1971 Arthrd Ant Ntrbd Min Dsc Lum Information not available Notes: Lumbar spinal fusio n x4 of L4-5-S1 between 1971 and 1973 > persistent lumbar radiculopathy ? Tubal Ligation Information not avai lable ? Insulin Pump Initiation Information not available Notes: Implantation followed by explan tation in 1989 ? Other Information not avai lable Notes: Resection of Atypical Lipoma fr om lateral aspect of left knee ? Incise Finger Tendon Sheath Information not available Notes: Bilateral deQuervain tendon rel ease ? Cataract Surg W/iol 1 Stage Information not available Notes: Bilateral 07/17/2018 Electrocardiogram Main Office [address] [place] [phone] (Work Place) 07/17/2018 Ankle Brachial Index Main Office [address] [place] [phone] (Work Place) 07/17/2018 Spirometry Main Office [address] [phone] (Work Place) 07/17/2018 Audiogram Main Office [address] [phone] (Work Place) 07/23/2018 MAMMO, Screening, Bilateral Diagnostic I maging Centers [facility] [address] [place], [place] [address] (Work Place) 12/31/2018 US, Renal Diagnostic [facility] [place] [address] [place], [place] [address] (Work Place) Results Lab Results Date Name Specimen Result Interpretation Description Value Range Status Address ? 01/07/2019 Lipid Normal Cholesterol, 185 <200 Final [facility] Panel, Total mg/dL mg/dL Diagnostic s - Serum [place]: [address] Administra tion, [facility] ? ? Normal HDL 79 mg/dL >50 Final [facility] Cholesterol mg/dL Diagn ostics - [place]: [address] Administra tion, [facility] ? ? Normal Triglycerides 66 mg/dL <150 Final [facility] mg/dL Diagnostic s - [place]: [address] Administra tion, [facility] ? ? Normal LDL-cholestero 91 mg/dL ? Final [facility] l (calc) Diagnostic s - [place]: [address] Administra tion, [facility] ? ? Normal Chol/hdlc 2.3 <5.0 Final [facility] Ratio (calc) (calc) Diagnostic s - [place]: [address] Administra tion, [facility] ? ? Normal Non HDL 106 <130 Final [facility] Cholesterol mg/dL mg/dL Diagn ostics - (calc) (calc) [place]: [address] Administra tion, [facility] 01/07/2019 CMP, Normal Glucose 90 mg/dL 65-99 Final Qu est Serum or mg/dL Diagnost ics - Plasma [place]: [address] Administra tion, [facility] ? ? High Urea Nitrogen 29 mg/dL 7-25 Final [facility] (BUN) mg/dL Diagnostic s - [place]: [address] Administra tion, [facility] ? ? High Creatinine 1.10 0.50-1. Final Ques t mg/dL 05 Diagnostic s - mg/dL [place]: [address] Administra tion, [facility] ? ? Low eGFR Non-afr. 55 > or = Final Qu est Singaporean mL/min/1 60 Diagno stics - .73m2 mL/min/ [place] : [address] 1.73m2 Administra tion, [facility] ? ? Normal eGFR 64 > or = Final Que st Singaporean mL/min/1 60 Diagno stics - .73m2 mL/min/ [place] : 75723 1.73m2 Administra tion, [facility] ? ? High BUN/creatinine 26 6-22 Final Q uest Ratio (calc) (calc) Diagnostic s - [place]: [address] Administra tion, [facility] ? ? Normal Sodium 139 135-146 Final [facility] mmol/L mmol/L Diagnostic [facility]: [address]10 Administra tion, [facility] ? ? Normal Potassium 4.5 3.5-5.3 Final [facility] mmol/L mmol/L Diagnostic [facility]: 59144 Administra tion, [facility] ? ? Normal Chloride 104 98-110 Final [facility] mmol/L mmol/L Diagnostic [facility]: 65993 Administra tion, [facility] ? ? Normal Carbon Dioxide 31 20-32 Final Q uest mmol/L mmol/L Diagnostic [facility]: 77124 Administra tion, [facility] ? ? Normal Calcium 9.9 8.6-10. Final [facility] mg/dL 4 mg/dL Diagnosti [facility]: 29796 Administra tion, [facility] ? ? Normal Protein, Total 6.6 g/dL 6.1-8.1 Final [facility] g/dL Diagnostic [facility]: 79635 Administra tion, [facility] ? ? Normal Albumin 4.4 g/dL 3.6-5.1 Final [facility] g/dL Diagnostic [facility]: 91848 Administra tion, [facility] ? ? Normal Globulin 2.2 g/dL 1.9-3.7 Final Ques t (calc) g/dL Diagnostic - (calc) [place]: [address] Administra tion, [facility] ? ? Normal Albumin/globul 2.0 1.0-2.5 Final [facility] in Ratio (calc) (calc) Diagnost [facility]: 81182 Administra tion, [facility] ? ? Normal Bilirubin, 0.5 0.2-1.2 Final Ques t Total mg/dL mg/dL Diagnostic [facility]: 51408 Administra tion, [facility] ? ? Normal Alkaline 65 U/L 33-130 Final [facility] Phosphatase U/L Diagn [facility]: 24228 Administra tion, [facility] ? ? Normal Ast 24 U/L 10-35 Final [facility] U/L Diagnostic [facility]: 35305 Administra tion, [facility] ? ? Normal Alt 28 U/L 6-29 Final [facility] U/L Diagnostic [facility]: 46064 Administra [facility], [facility] 01/07/2019 Cerulopla Normal Ceruloplasmin 33 mg/dL 18-53 Final [facility] smin, mg/dL Diagnostic s - Serum [place]: [address] Administra tilayla, [facility] 01/07/2019 HbA1C High Hemoglobin a1C 6.3 % of <5.7 % Fi nal [facility] (Hemoglob total of Diagnos tics - in a1C), HGB total [facility]: 63295 Blood HGB Administra tion, [facility] 01/07/2019 Copper, ? Copper 146 70-175 Final Ques t Serum or mcg/dL mcg/dL Diagnost ics - Plasma [place]: [address] Administra tilayla, [facility] 01/07/2019 Microalbu Normal Creatinine, 58 mg/dL 20-275 Fi nal [facility] min/creat Random Urine mg/dL D iagnostics - inine, [place]: [address] Mass Administra tion, Ratio, [facility] Urine ? ? Normal Microalbumin 4.[address] mg/dL note: Diagnostic s - mg/dL [place]: [address] Administra tion, [facility] ? ? High Microalbumin/c 79 <30 Final Q uest reatinine mcg/mg mcg/mg Diagnos tics - Ratio, Random creat creat [place]: [address]6492 Urine Administra tilayla, [facility] 01/07/2019 Zay-b High Ebv Viral 45.50 ? Final [facility] arr Virus Capsid Ag (Vca) U/mL Diagnostics - (Ebv) IgG Ab (IgM) [facility]: 19748 + IgM Administra tion, Panel, [facility] Serum ? ? High Ebv Viral 438.00 ? Final [facility] Capsid Ag (Vca) U/mL D iagnostics - Ab (IgG) [facility]: 44712 Administra tion, [facility] ? ? High Ebv Nuclear Ag 323.00 ? Final Q uest (Ebna) Ab (IgG) U/mL D iagnostics - [place]: [address]756 Administra tion, [facility] ? ? ? Interpretation ? ? Final Q uest : Diagnostic s - [place]: [address]380 Administra [facility]ion, [facility] 01/07/2019 Copper, ? Copper, 24 21 15-60 Final [facility] 24-Hour Hour Urine mcg/24h mcg/24h [facility] - Urine [place]: [address] Administra tion, [facility] ? ? ? Total Volume 3000 mL ? Final Qu est Diagnostic s - [place]: 62139 Administra tion, [facility] 10/15/2018 PTH Normal Parathyroid 34 pg/mL 14-64 Final [facility] (Parathyr Hormone, Intact pg/mL Diagnostics - oid [place]: 06668 Hormone), Adminis tration, Intact + [facility] Calcium, Serum or Plasma ? ? Normal Calcium 9.5 8.6-10. Final [facility] mg/dL 4 mg/dL Diagnosti cs - [place]: [address]607 Administra tion, [facility] 10/15/2018 Lipid Normal Cholesterol, 138 <200 Final [facility] Panel, Total mg/dL mg/dL Diagnostic s - Serum [place]: 67571 Administra tion, [facility] ? ? Normal HDL 57 mg/dL >50 Final [facility] Cholesterol mg/dL Diagn ostics - [place]: 88768 Administra tion, [facility] ? ? Normal Triglycerides 89 mg/dL <150 Final [facility] mg/dL Diagnostic s - [place]: 58024 Administra tion, [facility] ? ? Normal LDL-cholestero 64 mg/dL ? Final [facility] l (calc) Diagnostic s - [place]: [address]67 Administra tion, [facility] ? ? Normal Chol/hdlc 2.4 <5.0 Final [facility] Ratio (calc) (calc) Diagnostic - [place]: 12660 Administra tion, [facility] ? ? Normal Non HDL 81 mg/dL <130 Final [facility] Cholesterol (calc) mg/dL Diagn ostics - (calc) [place]: [address]20 Administra tion, [facility] 10/15/2018 Iron + Normal Iron, Total 89 45-160 Final [facility] Total mcg/dL mcg/dL Diagnostic s - Iron-bind [facility] is: 60786 ing Administra tion, Capacity [facility] (TIBC), Serum ? ? Normal Iron Binding 292 250-450 Final Qu est Capacity mcg/dL mcg/dL Diagnost ics - (calc) (calc) [place]: [address]28 Administra tion, [facility] ? ? Normal % Saturation 30 % 11-50 % Final Qu est (calc) (calc) Diagnostic [facility]: 77593 Administra tion, [facility] 10/15/2018 CMP, High Glucose 139 65-99 Final Ques t Serum or mg/dL mg/dL Diagnost ics - Plasma [place]: 92197 Administra tion, [facility] ? ? High Urea Nitrogen 40 mg/dL 7-25 Final [facility] (BUN) mg/dL Diagnostic s - [place]: 11388 Administra tion, [facility] ? ? High Creatinine 1.11 0.50-1. Final Ques t mg/dL 05 Diagnostic s - mg/dL [place]: 66642 Administra tion, [facility] ? ? Low eGFR Non-afr. 55 > or = Final Qu est Singaporean mL/min/1 60 Diagno stics - .73m2 mL/min/ [place] : 84423 1.73m2 Administra tion, [facility] ? ? Normal eGFR 63 > or = Final Que st Singaporean mL/min/1 60 Diagno stics - .73m2 mL/min/ [place] : 97609 1.73m2 Administra tion, [facility] ? ? High BUN/creatinine 36 6-22 Final Q uest Ratio (calc) (calc) Diagnostic [facility]: 28741 Administra tion, [facility] ? ? Normal Sodium 137 135-146 Final [facility] mmol/L mmol/L Diagnostic [facility]: 73768 Administra tion, [facility] ? ? Normal Potassium 4.6 3.5-5.3 Final [facility] mmol/L mmol/L Diagnostic - [place]: [address]474 Administra tion, [facility] ? ? Normal Chloride 103 98-110 Final [facility] mmol/L mmol/L Diagnostic [facility]: 01302 Administra tion, [facility] ? ? Normal Carbon Dioxide 29 20-32 Final Q uest mmol/L mmol/L Diagnostic [facility]: 05364 Administra tion, [facility] ? ? Normal Calcium 9.5 8.6-10. Final [facility] mg/dL 4 mg/dL Diagnosti [facility]: 31972 Administra tion, [facility] ? ? Low Protein, Total 6.0 g/dL 6.1-8.1 Final [facility] g/dL Diagnostic s - [place]: [address]92 Administra tion, [facility] ? ? Normal Albumin 4.0 g/dL 3.6-5.1 Final [facility] g/dL Diagnostic s - [place]: 39639 Administra tion, [facility] ? ? Normal Globulin 2.0 g/dL 1.9-3.7 Final Ques t (calc) g/dL Diagnostic s - (calc) [place]: 26478 Administra tion, [facility] ? ? Normal Albumin/globul 2.0 1.0-2.5 Final [facility] in Ratio (calc) (calc) Diagnost ics - [place]: 30319 Administra tion, [facility] ? ? Normal Bilirubin, 0.4 0.2-1.2 Final Ques t Total mg/dL mg/dL Diagnostic s - [place]: 60912 Administra tion, [facility] ? ? Normal Alkaline 64 U/L 33-130 Final [facility] Phosphatase U/L Diagn ostics - [place]: 55570 Administra tion, [facility] ? ? Normal Ast 26 U/L 10-35 Final [facility] U/L Diagnostic s - [place]: [address]374 Administra tion, [facility] ? ? Normal Alt 22 U/L 6-29 Final [facility] U/L Diagnostic s - [place]: [address]156 Administra tion, [facility] 10/15/2018 Microalbu Normal Creatinine, 55 mg/dL 20-275 Fi nal [facility] min/creat Random Urine mg[facility] [address] Mass Administra tion, Ratio, [facility] Urine ? ? Normal Microalbumin 0.[address] mg/dL note: Diagnostic s - mg/dL [place]: [address] Administra tion, [facility] ? ? Normal Microalbumin/c 11 <30 Final Q uest reatinine mcg/mg mcg/mg Diagnos tics - Ratio, Random creat creat [place]: 61535 Urine Administra tion, [facility] 10/15/2018 Urinalysi Normal Color yellow yellow Final Que st s Diagnostic s - Complete, [facility]: 36997 Reflex Administra tion, Culture [facility] ? ? Normal Appearance clear clear Final [facility] Diagnostic s - [place]: 65292 Administra tion, [facility] ? ? Normal Specific 1.013 1.001-1 Final [facility] [place] .035 Diagnosti cs - [place]: 29194 Administra tion, [facility] ? ? Normal Ph 5.5 5.0-8.0 Final [facility] Diagnostic s - [place]: 35925 Administra tion, [facility] ? ? Normal Glucose negative negativ Final [facility] e Diagnostic s - [place]: 74886 Administra tion, [facility] ? ? Normal Bilirubin negative negativ Final Que st e Diagnostic s - [place]: 26601 Administra tion, [facility] ? ? Normal Ketones negative negativ Final [facility] e Diagnostic s - [place]: 89444 Administra tion, [facility] ? ? Normal Occult Blood negative negativ Final [facility] e Diagnostic s - [place]: 75951 Administra tion, [facility] ? ? Normal Protein negative negativ Final [facility] e Diagnostic s - [place]: 21679 Administra tion, [facility] ? ? Normal Nitrite negative negativ Final [facility] e Diagnostic s - [place]: 26898 Administra tion, [facility] ? ? ABNORMAL Leukocyte 1+ negativ Final Que st Esterase e Diagnost ics - [place]: 29963 Administra tion, [facility] ? ? ABNORMAL Wbc 6-10 < or = Final [facility] /hpf 5 /hpf Diagnostic s - [place]: 93844 Administra tion, [facility] ? ? Normal Rbc none < or = Final [facility] seen 2 /hpf Diagnostic s - /hpf [place]: 39138 Administra tion, [facility] ? ? ? Squamous 0-5 /hpf < or = Final [facility] Epithelial 5 /hpf Diagno stics - Cells [place]: [address]8747 Administra tion, [facility] ? ? Normal Bacteria none none Final [facility] seen seen Diagnostic s - /hpf /hpf [place]: 16691 Administra tion, [facility] ? ? Normal Hyaline Cast none none Final Que st seen seen Diagnostic s - /lpf /lpf [place]: 33646 Administra tion, [facility] ? ? ? Reflexive culture ? Final [facility] Urine Culture indicate D iagnostics - d - [place]: 88039 results Administr ation, to [facility] follow ? ? ? Culture, see note ? Final [facility] Urine, Routine Di agnostics - [place]: [address]005 [facility] 10/15/2018 Hepatitis Normal Hepatitis a non-reac non-isacc F inal [facility] (A+B+C) Ab, Total tive ctive Diagno stics - Panel, (Refl) [place]: [address]12 Serum Administra tion, [facility] ? ? Normal Hepatitis B non-reac non-isacc Final Q uest Surface tive ctive Diagnosti cs - Antibody Ql [facility]: 24220 Administra tion, [facility] ? ? Normal Hepatitis B non-reac non-isacc Final Q uest Surface Antigen tive ctive D iagnostics - [place]: [address]2206 Administra tion, [facility] ? ? Normal Hepatitis B non-reac non-isacc Final Q uest Core Ab Total tive ctive [facility] - [place]: 77543 Administra tion, [facility] ? ? Normal Hepatitis C non-reac non-isacc Final Q uest Antibody tive ctive Diagnost ics - [place]: 17916 Administra tion, [facility] ? ? Normal Signal to 0.00 <1.00 Final [facility] Cut-off Diagnosti cs - [place]: 43231 Administra tion, [facility] 10/15/2018 Cholester ? Cholesterol, 139 <200 Fin al [facility] ol, Total mg/dL mg/dL Diagnostic s - Total, [place]: [address]19 Serum [facility] 10/15/2018 HbA1C High Hemoglobin a1C 5.8 % of <5.7 % Fi nal [facility] (Hemoglob total of Diagnos tics - in a1C), HGB total [facility]: 08716 Blood HGB Administra [facility] 10/15/2018 Copper, High Copper 218 70-175 Final Ques t Serum or mcg/dL mcg/dL Diagnost ics - Plasma [place]: 75173 Administra tion, [facility] 10/15/2018 Lipid ? Cholesterol, 139 <200 Final [facility] Panel, Total mg/dL mg/dL Diagnostic s - Blood [place]: 63126 Administra tion, [facility] ? ? ? HDL 62 mg/dL >50 Final [facility]olesterol mg/[facility] [place]: 15035 Administra tion, [facility] ? ? ? Triglycerides 94 mg/dL <150 Final [facility] mg/dL Diagnostic s - [place]: 01529 Administra tion, [facility] ? ? ? LDL-cholestero 69 mg/dL <100 Final [facility] l mg/dL Diagnostic s - [place]: 00155 Administra tion, [facility] ? ? ? Chol/hdlc 2.4 calc <5.0 Final Ques t Ratio calc Diagnostic s - [place]: 28145 Administra tion, [facility] ? ? ? Non HDL 87 mg/dL <130 Final [facility] Cholesterol (calc) mg/dL [facility] - (calc) [place]: 22694 Administra tion, [facility] 10/15/2018 Test ? Test Name: lipid ? Final Q uest [facility]iza panel, [facility] 2 cardio [place]: 48883 iq(R) Administra tion, [facility] ? ? ? Test Code: [id number] ? Final Que st ez Diagnostic s - [place]: [address]9810 Administra tion, [facility] ? ? ? Client yonny ? Final [facility] Contact: phyllis Diagnos [facility]: 92944 Administra tion, [facility] ? ? ? Report Always ? ? Final Qu est Message Diagnosti cs - Signature [facility] is: 78836 Administra tion, [facility] ? ? ? Comment ? ? Final [facility] Diagnostic [facility]: 38726 Administra tion, [facility] 07/17/2018 Vision ? No observation ? ? ? Main Office: Screen* recorded. [address], [place] 07/17/2018 Body ? Height 5'6.5 ? ? Main Office: Compositi [address], [place] Analysis (PROC) ? ? ? Weight 135.8 ? ? Main Offi ce: [address], [place] ? ? ? Total Body 76.7 ? ? Main Office: Water [address], [place] ? ? ? Dry Lean Mass 28.7 ? ? Ma in Office: [address], [place] ? ? ? Body Fat Mass 30.4 ? ? Ma in Office: [address], [place] ? ? ? Lean Body Mass 105.4 ? ? Mindy dumont Office: [address], [place] ? ? ? Skeletal 57.1 ? ? Main Of fice: Muscle Mass [address], [place] ? ? ? Bmi 21.6 ? ? Main Offic e: [address], [place] ? ? ? Pbf 22.5 ? ? Main Offic e: [address], [place] ? ? ? Bmr 1402 ? ? Main Offic e: [address], [place] ? ? ? Waist 33 ? ? Main Offic e: [address], [place] ? ? ? Hip 37 ? ? Main Offic e: [address], [place] ? ? ? Waist/Hip 0.89 ? ? Main O ffice: Ratio [address], [place] ? ? ? Weekly Minutes 420 ? ? M tim Office: of Exercise [address], [place] 07/17/2018 Audiogram ? Right Ear 15 ? ? Main Office: 1000Hz [address], [place] ? ? ? Left Ear 15 ? ? Main Of fice: 1000Hz [address], [place] ? ? ? Right Ear 15 ? ? Main O ffice: 2000Hz [address], [place] ? ? ? Left Ear 15 ? ? Main Of fice: 2000Hz [address], [place] ? ? ? Right Ear 15 ? ? Main O ffice: 3000Hz [address], [place] ? ? ? Left Ear 15 ? ? Main Of fice: 3000Hz [address], [place] ? ? ? Right Ear 15 ? ? Main O ffice: 4000Hz [address], [place] ? ? ? Left Ear 25 ? ? Main Of fice: 4000Hz [address], [place] 07/17/2018 Spirometr ? Spirometry Normal ? ? Main Office: y [address], [place] ? ? ? Fvc 3.07 ? ? Main Offic e: [address], [place] ? ? ? Fev1 2.67 ? ? Main Offic e: [address], [place] ? ? ? Fev1/Fvc 87.1 ? ? Main Of fice: [address], [place] 07/17/2018 Mini ? Total Score 29 ? ? Main Office: Mental [address], [place] Exam* 07/17/2018 Electroca ? Qrs 92ms ? ? Elvia n Office: rdiogram [address], [place] 07/17/2018 Ankle ? Right Arm 150 ? ? Ma in Office: Brachial [address], [place] ? ? ? Left Arm 150 ? ? Main Of fice: [address], [place] ? ? ? Right Leg 160 ? ? Main O ffice: [address], [place] ? ? ? Left Leg 160 ? ? Main Of fice: [address], [place] ? ? ? Right CARMENCITA 1.07 ? ? Main O ffice: [address], [place] ? ? ? Left CARMENCITA 1.07 ? ? Main Of fice: [address], [place] 07/11/2018 CRP, High SER ? High 0.7 mg/L <1.0 Final C [facility] Heart Sensitivi UM Sensitivity CRP mg/L Lab: 6701 ty, Serum PO [address] Zbigniew or Plasma 500, Cl macrina 07/11/2018 TSH, SER ? Thyroid 1.130 0.400-4 Final [facility] Serum or UM Stimulating ulu/mL .500 Lab : 6701 Plasma PO Hormone ulu/mL [address] Z[address] 500, [place] 07/11/2018 Uric SER ? Uric Acid 4.7 2.5-7.3 Final [facility] Acid, UM mg/dL mg/dL Lab: [address] Z[place]igniew Plasma 500, [place] 07/11/2018 HbA1C WB High Hemoglobin a1C 6.5 % <5.7 % Leslie tate [facility] [place] (Hemoglob 4 Lab: 67 01 in a1C), [address] [place] Blood 500, [place] ? ? WB High Estimated 140 <117 Final [facility] 4 Average Glucose mg/dL mg/dL L ab: 67[address] 500, [place] 07/11/2018 Mpo EDT ? Myeloperoxidas 358 <470 Leslie l [facility] (Myeloper APO e pmol/L pmol/L Lab: 67 oxidase) Mode Thorne Zbigniew Ab, 500, [place] Quantitat shira, Serum 07/11/2018 Vitamin EDT ? Vitamin D 25 75.3 30.0-80 Leslie l [facility] D, APO Hydroxy by NG/mL .0 Lab: 6 701 25-Hydrox lc-MS/MS NG/mL Parveen Thorne Zbigniew y, Total, 500, Cl macrina Serum 07/11/2018 Nmr SER High LDL-P 1382 <1000 Final [facility] Lipoprofi UM nmol/L nmol/L Lab: 67 le, Serum [address] 500, [place] ? ? SER High LDL-C 150 0-99 Final [facility] UM mg/dL mg/dL Lab: 67[address] 500, [place] ? ? SER ? HDL-C 95 mg/dL >39 [facility] mg/dL Lab: 67[address], [place] ? ? SER ? Triglycerides 92 mg/dL 0-149 Final [facility] UM mg/dL Lab: 6700 [address], [place] ? ? SER High Cholesterol, 263 100-199 Final [facility] UM Total mg/dL mg/dL Lab: 6700 [address], [place] ? ? SER ? HDL-P (Total) 42.4 >=30.5 Final [facility] Heart UM umol/L umol/L Lab: 67[address] 500, [place] ? ? SER ? Small LDL-P <90 <=[address] [facility] nmol/L nmol/L Lab: [address], [place] ? ? SER ? LDL Size 21.4 nm >20.5 Final [facility] UM nm Lab: 6700 [address] 500, [place] ? ? SER ? Large VLDL-P 1.6 <=2.7 Final [facility] UM nmol/L nmol/L Lab: 670 [address] A [address] 500, [place] ? ? SER ? Large HDL-P >20.0 >=4.8 Final [facility] UM umol/L umol/L Lab: 6701 [address] 500, [place] ? ? SER ? VLDL Size 39.3 nm <=46.6 Final [place] [facility] UM nm Lab: [address], [place] ? ? SER ? HDL Size 10.1 nm >=9.2 Final [facility] UM nm Lab: [address], [place] ? ? SER ? LP-IR Score <25 <=45 Final [facility] UM Lab: [address], [place] 04/09/2018 Magnesium Normal Magnesium 2.2 1.5-2.5 Final [facility] , Serum mg/dL mg/dL Diagnosti cs - or Plasma [facility] is: 77643 Administra tion, [facility] 04/09/2018 BMP, Low Glucose 61 mg/dL 65-99 Final Qu est Serum or mg/dL Diagnost ics - Plasma [place]: [address] Administra tion, [facility] ? ? High Urea Nitrogen 44 mg/dL 7-25 Final [facility] (BUN) mg/dL Diagnostic s [facility]: 70545 Administra tion, [facility] ? ? Normal Creatinine 1.03 0.50-1. Final Ques t mg/dL 05 Diagnostic s - mg/dL [place]: [address] Administra tion, [facility] ? ? Normal eGFR Non-afr. 60 > or = Final Qu est [place]an mL/min/1 60 Diagno stics - .73m2 mL/min/ [place] : 41842 1.73m2 Administra tion, [facility] ? ? Normal eGFR 70 > or = Final Que st Singaporean mL/min/1 60 Diagno stics - .73m2 mL/min/ [place] : 94433 1.73m2 Administra tion, [facility] ? ? High BUN/creatinine 43 6-22 Final Q uest Ratio (calc) (calc) Diagnostic s [facility]: 73385 Administra tion, [facility] ? ? Normal Sodium 138 135-146 Final [facility] mmol/L mmol/L Diagnostic [facility]: 12388 Administra tion, [facility] ? ? Normal Potassium 4.6 3.5-5.3 Final [facility] mmol/L mmol/L Diagnostic [facility]: 82705 Administra tion, [facility] ? ? High Chloride 111 98-110 Final [facility] mmol/L mmol/L Diagnostic [facility]: 36330 Administra tion, [facility] ? ? Normal Carbon Dioxide 21 20-31 Final Q uest mmol/L mmol/L Diagnostic [facility]: 44693 Administra tion, [facility] ? ? Normal Calcium 9.4 8.6-10. Final [facility] mg/dL 4 mg[facility] 35103 Administra tion, [facility] 04/09/2018 Cbc Normal White Blood 8.1 3.8-10. Final [facility] Cell Count thousand 8 Diag nostics - /uL thousan [place] : 26468 d/uL Administra tion, [facility] ? ? Normal Red Blood Cell 3.96 3.80-5. Final [facility] Count million/ 10 Diagnost ics - uL million [place] : 83103 /uL Administra tion, [facility] ? ? Normal Hemoglobin 12.1 11.7-15 Final Ques t g/dL .5 g[facility] 08676 Administra tion, [facility] ? ? Normal Hematocrit 36.6 % 35.0-45 Final Ques t .0 % Diagnostic [facility]: 15137 Administra tion, [facility] ? ? Normal Mcv 92.4 fL 80.0-10 Final [facility] 0.0 fL Diagnostic [facility]: 18415 Administra tion, [facility] ? ? Normal Mch 30.6 pg 27.0-33 Final [facility] .0 pg Diagnostic [facility]: 04007 Administra tion, [facility] ? ? Normal Mchc 33.1 32.0-36 Final [facility] g/dL .0 g/dL [facility] 77742 Administra tion, [facility] ? ? Normal Rdw 13.2 % 11.0-15 Final [facility] .0 % Diagnostic [facility]: 44785 Administra tion, [facility] ? ? Normal Platelet Count 235 140-400 Final [facility] thousand thousan Diagnos tics - /uL d/uL [place]: [address]60 [facility] ? ? Normal Mpv 11.2 fL 7.5-12. Final [facility] 5 fL Diagnostic s - [place]: [address]16 [facility] 04/09/2018 Homocyste Normal Homocysteine 5.9 <10.4 Fin al [facility] ine, umol/L umol/L Diagnostic s - Serum or [facility] s: 42821 Plasma [facility] 04/09/2018 HbA1C High Hemoglobin a1C 6.3 % of <5.7 % Fi nal [facility] (Hemoglob total of Diagnos tics - in a1C), HGB total [facility] s: 06377 Blood HGB [facility] 01/22/2018 Magnesium Normal Magnesium 2.1 1.5-2.5 Final [facility] , Serum mg/dL mg/dL Diagnosti cs - or Plasma [facility] is: 59202 [facility] 01/22/2018 BMP, High Glucose 139 65-99 Final Ques t Serum or mg/dL mg/dL Diagnost ics - Plasma [place]: [address] [facility] ? ? High Urea Nitrogen 30 mg/dL 7-25 Final [facility] (BUN) mg/dL Diagnostic s [facility]: 99430 [facility] ? ? High Creatinine 1.12 0.50-1. Final Ques t mg/dL 05 Diagnostic s - mg/dL [place]: [address] [facility] ? ? Low eGFR Non-afr. 54 > or = Final Qu est [place]an mL/min/1 60 Diagno stics - .73m2 mL/min/ [place] : 06552 1.73m2 Administra [facility] ? ? Normal eGFR 63 > or = Final Que st [place]an mL/min/1 60 Diagno stics - .73m2 mL/min/ [place] : 16581 1.73m2 Administra bin, [facility] ? ? High BUN/creatinine 27 6-22 Final Q uest Ratio (calc) (calc) Diagnostic s [facility]: 79110 Administra tion, [facility] ? ? Normal Sodium 139 135-146 Final [facility] mmol/L mmol/L Diagnostic [facility]: 89488 Administra tion, [facility] ? ? Normal Potassium 5.0 3.5-5.3 Final [facility] mmol/L mmol/L Diagnostic [facility]: 55237 Administra tion, [facility] ? ? Normal Chloride 105 98-110 Final [facility] mmol/L mmol/L Diagnostic [facility]: 83934 Administra tion, [facility] ? ? Normal Carbon Dioxide 26 20-31 Final Q uest mmol/L mmol/L Diagnostic [facility]: 60570 Administra tion, [facility] ? ? Normal Calcium 9.7 8.6-10. Final [facility] mg/dL 4 mg/dL [facility]: 64927 Administra tion, [facility] 01/22/2018 Cbc Normal White Blood 6.9 3.8-10. Final [facility] Cell Count thousand 8 Diag nostics - /uL thousan [place] : 79858 d/uL Administra tion, [facility] ? ? Normal Red Blood Cell 4.09 3.80-5. Final [facility] Count million/ 10 Diagnost ics - uL million [place] : 47397 /uL Administra tion, [facility] ? ? Normal Hemoglobin 12.6 11.7-15 Final Ques t g/dL .5 g/[facility] 29525 Administra tion, [facility] ? ? Normal Hematocrit 38.4 % 35.0-45 Final Ques t .0 % Diagnostic [facility]: 40720 Administra tion, [facility] ? ? Normal Mcv 93.9 fL 80.0-10 Final [facility] 0.0 fL Diagnostic [facility]: 61745 Administra tion, [facility] ? ? Normal Mch 30.8 pg 27.0-33 Final [facility] .0 pg Diagnostic [facility]: 12192 Administra tion, [facility] ? ? Normal Mchc 32.8 32.0-36 Final [facility] g/dL .0 g/dL [facility]: 23365 Administra tion, [facility] ? ? Normal Rdw 12.9 % 11.0-15 Final [facility] .0 % Diagnostic - [place]: [address] [facility]ra [facility] ? ? Normal Platelet Count 205 140-400 Final [facility] thousand thousan Diagnos tics - /uL d/uL [place]: 77762 [facility]ra [facility] ? ? Normal Mpv 12.0 fL 7.5-12. Final [facility] 5 fL Diagnostic s - [place]: [address] [facility] 01/22/2018 Homocyste Normal Homocysteine 8.7 <10.4 Fin al [facility] ine, umol/L umol/L Diagnostic s - Serum or [facility] s: 84724 Plasma [facility] 01/22/2018 HbA1C High Hemoglobin a1C 6.3 % of <5.7 % Fi nal [facility] (Hemoglob total of Diagnos tics - in a1C), HGB total [facility] s: 41929 Blood HGB [facility] 09/24/2017 Lipid Normal Cholesterol, 161 <200 Final [facility] Panel, Total mg/dL mg/dL Diagnostic s - Serum [place]: [address]1558 Administra tilayla, [facility] ? ? Normal HDL 61 mg/dL >50 Final [facility] Cholesterol mg/dL Diagn ostics - [place]: [address]30 Administra tilayla, [facility] ? ? Normal Triglycerides 81 mg/dL <150 Final [facility] mg/dL Diagnostic s - [place]: 35501 Administra tilayla, [facility] ? ? Normal LDL-cholestero 83 mg/dL ? Final [facility] l (calc) Diagnostic s - [place]: 10363 Administra tilayla, [facility] ? ? Normal Chol/hdlc 2.6 <5.0 Final [facility] Ratio (calc) (calc) Diagnostic s - [place]: [address] [facility] ? ? Normal Non HDL 100 <130 Final [facility] Cholesterol mg/dL mg/dL Diagn ostics - (calc) (calc) [place]: 407[address] Administra [facility] 09/24/2017 BMP, High Glucose 147 65-99 Final Ques t Serum or mg/dL mg/dL Diagnost ics - Plasma [place]: 61457 [facility]ra [facility] ? ? High Urea Nitrogen 42 mg/dL 7-25 Final [facility] (BUN) mg/dL Diagnostic s - [place]: 97959 Administra tion, [facility] ? ? Normal Creatinine 1.05 0.50-1. Final Ques t mg/dL 05 Diagnostic s - mg/dL [place]: 34480 Administra tion, [facility] ? ? Low eGFR Non-afr. 59 > or = Final Qu est [place] mL/min/1 60 Diagno stics - .73m2 mL/min/ [place] : 71902 1.73m2 Administra tion, [facility] ? ? Normal eGFR 68 > or = Final Que st [place] mL/min/1 60 Diagno stics - .73m2 mL/min/ [place] : 92293 1.73m2 Administra tion, [facility] ? ? High BUN/creatinine 40 6-22 Final Q uest Ratio (calc) (calc) Diagnostic [facility]: 92992 Administra tion, [facility] ? ? Normal Sodium 140 135-146 Final [facility] mmol/L mmol/L Diagnostic [facility]: 47469 Administra tion, [facility] ? ? Normal Potassium 4.9 3.5-5.3 Final [facility] mmol/L mmol/L Diagnostic [facility]: 79395 Administra tion, [facility] ? ? Normal Chloride 106 98-110 Final [facility] mmol/L mmol/L Diagnostic [facility]: 77385 Administra tion, [facility] ? ? Normal Carbon Dioxide 26 20-31 Final Q uest mmol/L mmol/L Diagnostic [facility]: 52108 Administra tion, [facility] ? ? Normal Calcium 10.1 8.6-10. Final [facility] mg/dL 4 mg/dL Diagnosti cs - [place]: [address] [facility] 09/24/2017 HbA1C High Hemoglobin a1C 6.8 % of <5.7 % Fi nal [facility] (Hemoglob total of Diagnos tics - in a1C), HGB total [facility]: 64739 Blood HGB Administra tion, [facility] ? CMP, ? Glucose tnp ? Final [facility] Serum or Diagnost ics - Plasma [place]: 28071 Administra tion, [facility] ? Microalbu Low Creatinine, 13 mg/dL 20-320 Final [facility] min/creat Random Urine mg/dL [facility] [place]: [address] Mass Administra tion, Ratio, [facility] Urine ? ? Normal Microalbumin 0.[address] mg/dL note: Diagnostic s - mg/dL [place]: 46679 Administra tion, [facility] ? ? High Microalbumin/c 62 <30 Final Q uest reatinine mcg/mg mcg/mg Diagnos tics - Ratio, Random creat creat [place]: 57966 Urine Administra tion, [facility] ? Urinalysi Normal Color yellow yellow Final [facility] s Diagnostic s - Complete[facility] is: 19678 Reflex Administra tion, Culture [facility] ? ? Normal Appearance clear clear Final [facility] Diagnostic s - [place]: [address]1469 Administra tion, [facility] ? ? Normal Specific 1.006 1.001-1 Final [facility] [place] .035 Diagnosti cs - [place]: 58038 Administra tion, [facility] ? ? Normal Ph 6.0 5.0-8.0 Final [facility] Diagnostic s - [place]: 97682 Administra tion, [facility] ? ? Normal Glucose negative negativ Final [facility] e Diagnostic s - [place]: 89078 Administra tion, [facility] ? ? Normal Bilirubin negative negativ Final Que st e Diagnostic s - [place]: 78703 Administra tion, [facility] ? ? Normal Ketones negative negativ Final [facility] e Diagnostic s - [place]: 02174 Administra tion, [facility] ? ? Normal Occult Blood negative negativ Final [facility] e Diagnostic s - [place]: 78716 Administra tion, [facility] ? ? Normal Protein negative negativ Final [facility] e Diagnostic s - [place]: 72445 Administra tion, [facility] ? ? Normal Nitrite negative negativ Final [facility] e Diagnostic s - [place]: 86791 Administra tion, [facility] ? ? Normal Leukocyte negative negativ Final Que st Esterase e Diagnost ics - [place]: 79510 Administra tion, [facility] ? ? Normal Wbc none < or = Final [facility] seen 5 /hpf Diagnostic s - /hpf [place]: [address]7728 Administra tion, [facility] ? ? Normal Rbc none < or = Final [facility] seen 2 /hpf Diagnostic s - /hpf [place]: 32316 Administra tion, [facility] ? ? Normal Squamous none < or = Final [facility] Epithelial seen 5 /hpf Diagno stics - Cells /hpf [place]: 75240 Administra tion, [facility] ? ? Normal Bacteria none none Final [facility] seen seen Diagnostic s - /hpf /hpf [place]: 98385 Administra tion, [facility] ? ? Normal Hyaline Cast none none Final Que st seen seen Diagnostic s - /lpf /lpf [place]: 53816 Administra tion, [facility] ? ? ? Reflexive no ? Final [facility] Urine Culture culture Di agnostics - indicate [facility] s: 79256 d Administra tion, [facility] ? CBC W/ ? White Blood tnp ? Final Ques t Auto Diff Cell Count [place] - [place]: 98240 Administra tion, [facility] Past Encounters None recorded. Social History Tobacco Smoking Status Never Smoker Vaccine List Vaccine Type Influenza, injectable, MDCK, quadrivalen t 07/11/2018?0.5 mL influenza, unspecified formulation 11/09/2016 Tdap 07/06/2015 zoster recombinant 08/01/2018?0.5 mL 10/22/2018?0.5 mL Plan of Care Reminders Provider Appointments None recorded. ? ? Lab None recorded. ? ? Referral None recorded. ? ? Procedures None recorded. ? ? Surgeries None recorded. ? ? Imaging None recorded. ? ? Vitals 12/31/2018 03:30PM FOLLOW UP Height Weight BMI Blood Pressure 5 ft 6.5 in 146.6 lbs 23.3 kg/m2 130/58 mm[Hg] 10/22/2018 09:30AM FOLLOW UP Height Weight BMI Blood Pressure 5 ft 6.5 in 142 lbs 22.6 kg/m2 110/62 mm[Hg] 07/23/2018 02:00PM [facility] Height Weight BMI Blood Pressure 5 ft 6.5 in 135.8 lbs 21.6 kg/m2 130/68 mm[Hg] 07/02/2018 09:00AM FOLLOW UP Weight Blood Pressure 138 lbs 110/60 mm[Hg] 04/16/2018 01:30PM FOLLOW UP Weight Blood Pressure 140.4 lbs 122/64 mm[Hg] 03/12/2018 12:30PM FOLLOW UP Weight Blood Pressure 143 lbs 98/48 mm[Hg] 02/20/2018 08:00AM FOLLOW UP Blood Pressure 98/48 mm[Hg] 01/03/2018 01:00PM FOLLOW UP Weight Blood Pressure 143.2 lbs 158/64 mm[Hg]
[2022-09-29 00:37] LABS: HCO3 VBG 29 mmol/L (21-28); PCO2 VBG 48 mmHG (40-50); pH VBG 7.387 (7.32-7.43)
[2022-09-29 00:42] LABS: Appearance Urine Clear (Clear); Bilirubin Urine Negative (Negative); Blood Urine Negative (Negative); Color Urine Yellow (Yellow); Glucose Urine Negative (Negative); Ketones Urine Negative (Negative); Leukocyte Esterase Urine Negative (Negative); Nitrite Urine Negative (Negative); Protein Urine 3+ (Negative); Specific Gravity Urine 1.025 (1.000-1.030); Urobilinogen Urine 0.2 (0.2-1.0)
--- NOTE | 2022-09-29 00:42 | ED.NURSE ---
Pt states her automatic blood sugar reading device not functioning. Fingerstick POC blood glucose performed. Blood glucose 79. Pt brought apple juice.
--- NOTE | 2022-09-29 00:50 | ED.NURSE ---
Pt states she vomited up her PM meds approximately 15 minutes after taking them. Pt wondering if she can re-take them. MD notified and approved. Pt updated.
[2022-09-29 01:12] LABS: Albumin* 4.2 g/dL (3.3-5.0)
[2022-09-29 01:13] LABS: Chloride* 106 mmol/L (96-114); Potassium* 4.4 mmol/L (3.6-5.1); Sodium* 141 mmol/L (135-149)
[2022-09-29 01:15] LABS: Creatinine* 1.1 mg/dL (0.5-1.5); Est. Creatinine Clearance* 49.36; Estimated Glomerular Filt Rate 57 ml/min
[2022-09-29 01:16] LABS: Alanine Aminotransferase* 29 U/L (4-35); Alkaline Phosphatase* 53 U/L (40-150); Aspartate Amino Transferase* 30 U/L (12-35); Bilirubin Direct* 0.2 mg/dL (0.0-0.5); Bilirubin Total* 0.4 mg/dL (0.1-1.5); Blood Urea Nitrogen* 34 mg/dL (7-30); Calcium* 9.8 mg/dL (8.4-10.6); Carbon Dioxide* 26 mmol/L (20-32); Glucose* 64 mg/dL (60-115); Lipase* 176 U/L (23-300); Total Protein* 6.7 g/dL (6.0-8.3)
[2022-09-29 01:32] LABS: RBC Urine 0-2 (0-2); WBC Urine 0-2 (0-5)
[2022-09-29] MEDS: MORPHINE 4 MG/ML INJ IVP (01:45)
== END 2022-09-29 02:00 | disposition home or self-care (01) ==
PROVIDERS: Emergency Provider Family Medicine
DX: R11.10 Vomiting, unspecified (principal); E10.9 Type 1 diabetes mellitus without complications
CPT/HCPCS: 36415; 80048; 80076; 81001; 82803; 82962; 83690; 96374; 96375; 99283; 99284; J2270; J2405; J7030